=== PATIENT | male | born 1955 | race Caucasian/White ===

== ENCOUNTER → 2018-04-19 15:17 | Outpatient (CLI) | payer OTHER, SELFPAY ==
[2017-12-28 10:06] VITALS: BMI 29.2
--- NOTE | 2018-04-19 15:23 | RAD_ITS ---
STUDY: X-RAY - LUMBAR SPINE REASON FOR EXAM: Male, 62 years old. Back pain. TECHNIQUE: 5 view(s) of the lumbar spine were obtained. COMPARISON: None FINDINGS: Normal lumbar lordosis. There is no substantial scoliosis. There is a normal alignment of the vertebrae. There is multilevel endplate spondylosis of the lumbar vertebrae. Normal disc space heights. The soft tissue structures are unremarkable. RAD/L/S Spine Min 4 Views IMPRESSION: Multilevel endplate spondylosis. Electronically Signed: Pascale Stern MD at 16:46 EST Tel , Service support ,
--- NOTE | 2018-04-19 15:23 | RAD_ITS ---
STUDY: X-RAY - RIGHT HIP REASON FOR EXAM: Male, 62 years old. Right hip pain. TECHNIQUE: 2 views of the hip and single image of the pelvis. COMPARISON: None. FINDINGS: There are mild degenerative changes of the hips bilaterally. There is a ovoid sclerotic focus within the proximal right femur that likely reflects a bone island. Normal visualized superior and inferior pubic rami and ischial tuberosities. RAD/HIP, UNI W/ Pelvis 2-3 Views IMPRESSION: Mild degenerative changes. Electronically Signed: Pascale Stern MD at 23:16 EST Tel , Service support ,
[2018-04-19 17:54] LABS: Absolute Lymphocyte Count 2.09 X10^3/ul (0.83-4.51); Absolute Neutrophil Count 3.9 X10^3/uL (2.0-7.7); Basophil# 0.02 X10^3/uL; Basophil% 0.3 % (0-1); Eosinophil# 0.32 X10^3/uL; Eosinophils% 4.6 % (0-5); Hematocrit 42.3 % (40-54); Lymphocyte # 2.09 X10^3/ul (4.0); Lymphocyte % 29.9 % (19-41); Mean Corp Hgb Conc 35.5 g/gl (32-36); Mean Corpuscular Hgb 31.4 pg (27.0-32.0); Mean Corpuscular Volume 88.7 fL (80-94); Mean Platelet Vol. 10.9 fl (6.2-12.0); Monocyte# 0.63 X10^3/uL; Neutrophil # 3.93 X10^3/uL (2.7-7.7); Neutrophil % 56.1 % (47-70); Platelet Count 241 K/mm3 (150-450); RBC Distribution Width CV 12.5 % (11.6-14.6); RBC Distribution Width SD 40.2 fl (35.1-43.9); Red Blood Count 4.77 M/mm3 (4.6-6.2)
[2018-04-19 17:57] LABS: ALB/GLOB Ratio 1.2 RATIO (0.9-2.4); AST(SGOT) 17 U/L (15-37); Alanine Aminotransfer ALT/SGPT 31 U/L (16-61); Albumin, Serum 3.9 g/dL (3.2-5.0); Alkaline Phosphatase 85 U/L (45-117); Anion Gap 11 (5-15); BUN 25 mg/dL (7-18); BUN/Creat Ratio 27.8 RATIO (10-20); Calcium,Total 8.4 mg/dL (8.5-10.1); Chloride 110 mmol/L (98-107); EST Glomerular Filtration Rate 91 mL/min (>60); Est Glom Filt Rate - Afr Amer 110 mL/min (>60); Ferritin 15 ng/mL (26-388); Globulin 3.3 g/dL (2.2-4.2); Glucose 75 mg/dL (74-106); Potassium 3.7 mmol/L (3.5-5.1); Protein, Total 7.2 g/dL (6.4-8.2); Sodium Level 141 mmol/L (136-145)
[2018-04-19 18:19] LABS: POSITIVE COUNT NO; POSITIVE DIFFERENTIAL NO; POSITIVE MORPHOLOGY NO
== END ==
PROVIDERS: Internal Medicine Medical Oncology; Family Provider Family Medicine; PCP Family Medicine; Referring Provider Family Medicine; Visit Provider Family Medicine
DX: M25.551 Pain in right hip (principal); M54.5 Low back pain; E83.119 Hemochromatosis, unspecified
CPT/HCPCS: 36415; 72110; 73502; 80053; 82728; 85025

== ENCOUNTER → 2018-04-23 10:32 | Outpatient (CLI) | payer OTHER, SELFPAY ==
[2018-04-23 12:52] LABS: Cholesterol 254 mg/dL (200); High Density Lipoprotein 59 mg/dL; PSA,Total - Annual Screen 3.28 ng/mL (0.00-4.00); Triglycerides 82 mg/dL; Very Low Density Lipoprotein 16 mg/dL (5-40)
[2018-04-23 12:59] LABS: Microalbumin,Random Urine 11.2 mg/L (NO RANGE EST.)
== END ==
PROVIDERS: Family Provider Family Medicine; PCP Family Medicine; Referring Provider Family Medicine; Visit Provider Family Medicine
DX: Z00.00 Encounter for general adult medical examination without abnormal findings (principal); R03.0 Elevated blood-pressure reading, without diagnosis of hypertension; Z12.5 Encounter for screening for malignant neoplasm of prostate
CPT/HCPCS: 36415; 80061; 82043; 82570; 84153; G0103

== ENCOUNTER 2018-06-01 09:05 | Day surgery (SDC) | payer OTHER, SELFPAY ==
[2018-04-28 13:32] VITALS: BMI 29.1
[2018-05-20 12:47] VITALS: BMI 29.1
[2018-06-01 09:21] VITALS: BP 120/81; PULSE 72; RESP 18; TEMP 36.4; O2SAT 100; BMI 29.7
--- NOTE | 2018-06-01 10:09 | HP.PCM_ITS ---
History of Present Illness Date of Admission: 06/01/18 The patient is a 62 year old M here for screening colonoscopy. The patient reports no abdominal pain or blood in his stool. He has no weight loss. He reports he has no family history of colon cancer. He says his last colonoscopy was 6-8 years ago and no polyps were found. Past Medical/Surgical History - Planned Operation Planned Operative Procedure/s: COLONOSCOPY Date of Operative Procedure: 06/01/18 Permit Signed: No S.O.S: No Is This Patient Having a Total Joint: No - Previous Hospitalizations/Surgeries HX Hospitalizations: No HX of Surgeries: GALLBLADDER. TONSILLECTOMY. DEVIATED SEPTUM. VASCETOMY Any Problems With Anesthesia: No You/Your Family Experience Fever (Hyperthermia) With Anes: No Cholinesterase deficiency: No - Cardiovascular Hx Chest Pain within Last 2 months: No Hx of Irregular Heartbeat and/or Afib: No Hx Heart Attack: No Hx Congestive Heart Failure: No Hx Rheumatic Fever: No Hx Hypertension: No Hx Internal Defibrillator: No Hx Pacemaker: No Hx Cardiac Catheterization: Yes - 2012 What facility was last heart cath performed: [facility] Date of last Heart Cath: 2012 Hx Cardiac Surgery/Stents/Etc.: No Hx Stress Test: Yes - 2013 AT [facility] AND ECHO HX Edema: No Hx Pain in Legs when Walking/Leg Cramps: Yes - LEG CRAMPS AT TIMES - Respiratory Chronic Cough: No HX of Shortness of Breath: No Hoarseness: No Hx Chronic Obstructive Pulmonary Disease (COPD): No Hx Asthma: No Hx Emphysema: No Hx Sleep Apnea: No Hx Oxygen Use at Home: No Hx Respiratory Tract Infection/Cold (presently): No Do You Snore Loudly (louder than talking or can be heard): No Do You Often Feel Tired/ Fatigued/ Sleepy Dring Daytime?: No Has Anyone Observed You Stop Breathing During Sleep?: No Result (for STOP score): Negative Hx Smoking: Yes Smoking Status: Never smoker - Gastrointestinal Hx Gastroesophageal Reflux: Yes Controlled With Meds: Yes Hx Gastrointestinal Disorders: No Hx Gastrointestinal Bleed: No Hx Ulcer: No Hx Hiatal Hernia: No Difficulty Chewing/Swallowing: No Recent Onset of Swallowing Problems: No Special diet followed at home: No Hx Unplanned Weight Loss of 20#: No HX Unplanned Weight Gain of 20#: No - Neurological Hx Seizures: No HX Syncope/Blackout Spells/Unconsciousness: Yes - VERTIGO Hx CVA/Stroke: No Hx Transient Ischemic Attacks (TIA): No Hx Multiple Sclerosis: No Hx Parkinson's Disease: No Hx Head/Neck Injury: No Hx Headaches: No Hx Back Injury/Pain: Yes - LOWER BACK PAIN OSTEOPOROSIS Recent Onset of Speech Difficulty: No Restless Legs: Yes Does patient have nerve stimulator: No Patient instructed to have device shut off: No Rep notified?: No - Blood Disorder Hx Leukemia: No Bleeding Tendencies: No Hx Deep Vein Thrombosis: Yes - LEFT LEG RIBBON CLOTTING/TREATED FOR 3 YRS Hx High Cholesterol: Yes - DIET CONTROLLED Blood Transmitted Disease: No Hx Hepatitis: No Hx Cirrhosis: No Hx Anemia: No - . Hx Blood Disorders: Yes - HEMOCHROMATOSIS - Genitourinary Hx Renal Disease: No - Musculoskeletal Hx Arthritis: Yes Hx Rheumatoid Arthritis: No Hx Gout: No Recent Onset of an Orthopedic Problem: No - Endocrine Hx Diabetes: No Thyroid Disease: No Hx Steroid Therapy: No - Psycho/Social Hx Substance Use: No Hx Alcohol Use: No Hx Anxiety: No Hx Depression: No Mental Illness: No Hx Dementia: No - Miscellaneous Hx Cancer: No Recent Exposure to Contagious Disease: No Active MRSA: No Hx of C-Diff: No Any Loose Teeth: No Additional information pertinent to anesthesia:: MRI SCHEDULED TO CHECK HIP/THIGH PAIN IN BONE Allergies Tetanus Vaccines and Toxoid Adverse Reaction (Intermediate, Verified 05/31/18 08:25) Rash - Discharge Is Pt Admitted From a Long Term, or a Retirement: No Who Could Help: After D/C, Where Do you Plan to Go: Return Home - Physical Exam General: Alert, Oriented x3 Neck: No JVD Lungs: Normal air movement Cardiovascular: Regular Rhythm Abdomen: Soft, Non Tender, Non-Distended Vital Signs Temp Pulse Resp BP Pulse Ox 97.5 F L 72 18 120/81 H 100 06/01/18 09:21 06/01/18 09:21 06/01/18 09:21 06/01/18 09:21 06/01/18 09:21 Oxygen Delivery Method Room Air Weight: 184 lb 4.903 oz Body Mass Index (BMI) 29.7 Assessment/Plan All Active Problems (Last Reviewed 04/28/18 @ 13:31 by Shaneka Alexander) Slaughter esophagus (Acute) 62-year-old male here for screening colonoscopy 1. I explained endoscopy in detail to the patient. I explained the risks including but not limited to stroke or heart attack with anesthesia, perforation of the GI tract, bleeding, infection. I explained that any of these could necessitate further emergency surgery. The patient understands and all questions were answered sufficiently. The patient wishes to proceed with procedure. Ganga Hancock MD Pager: [facility] [address] [place] [address] [address] [place] [address] Office: Surgery Risks - Colonoscopy Risks Include but are not Limited To: Risks include but are not limited to: Bleeding, perforation requiring further surgery, inability to complete colonoscopy requiring barium enema.
--- NOTE | 2018-06-01 10:36 | OP.ENDO_ITS ---
Patient Name: Alvin Olea Procedure Date: 06/01/2018 10:14 AM Date of : 1955 Age: 62 Procedure: Colonoscopy Indications: Screening for colorectal malignant neoplasm Providers: Ganga Hancock MD Medicines: Monitored Anesthesia Care Patient Profile: This is a 62 year old male. Refer to note in patient chart for documentation of history and physical. Last Colonoscopy: several years ago. Complications: No immediate complications. Procedure: Pre-Anesthesia Assessment: - Prior to the procedure, a History and Physical was performed, and patient medications and allergies were reviewed. The patient's tolerance of previous anesthesia was also reviewed. The risks and benefits of the procedure and the sedation options and risks were discussed with the patient. All questions were answered, and informed consent was obtained. Prior Anticoagulants: The patient has taken no previous anticoagulant or antiplatelet agents. After reviewing the risks and benefits, the patient was deemed in satisfactory condition to undergo the procedure. After I obtained informed consent, the scope was passed under direct vision. Throughout the procedure, the patient's blood pressure, pulse, and oxygen saturations were monitored continuously. The Colonoscope was introduced through the anus and advanced to the cecum, identified by appendiceal orifice and ileocecal valve. The colonoscopy was performed without difficulty. The patient tolerated the procedure well. The quality of the bowel preparation was good. Scope In: 10:21:38 AM Scope Withdrawal Time 0 hours 6 minutes 8 seconds Scope Out: 10:34:01 AM Total Procedure Duration Time 0 hours 12 minutes 23 seconds Findings: The entire examined colon appeared normal on direct and retroflexion views. Impression: - The entire examined colon is normal on direct and retroflexion views. - No specimens collected. Recommendation: - Discharge patient to home. - Resume previous diet. - Continue present medications. - Repeat colonoscopy in 10 years for screening purposes. Procedure Code(s): --- Professional --- G0121, Colorectal cancer screening; colonoscopy on individual not meeting criteria for high risk Diagnosis Code(s): --- Professional --- Z12.11, Encounter for screening for malignant neoplasm of colon CPT copyright 2017 [employer] [place] [employer]. All rights reserved. The codes documented in this report are preliminary and upon bench loom weaver review may be revised to meet current compliance requirements. Ganga Hancock MD 06/01/2018 10:36:29 AM This report has been signed electronically. Number of Addenda: 0 Note Initiated On: 06/01/2018 10:14 AM
[2018-06-01 10:37] VITALS: BP 110/69; BP 120/81; PULSE 67; RESP 18; TEMP 36.3; O2SAT 97
[2018-06-01 10:40] VITALS: BP 113/62; BP 120/81; PULSE 65; RESP 18; O2SAT 96
[2018-06-01 10:45] VITALS: BP 113/68; BP 120/81; PULSE 64; RESP 18; O2SAT 97
[2018-06-01 10:50] VITALS: BP 116/71; BP 120/81; PULSE 63; RESP 18; TEMP 36.3; O2SAT 97
[2018-06-01 11:23] VITALS: BP 120/81
== END 2018-06-01 11:25 | disposition home or self-care (01) ==
LOC: EN 09:06 → AC 09:07
PROVIDERS: Family Provider Family Medicine; PCP Family Medicine; Referring Provider Surgery; Visit Provider Surgery
PROC: 0DJD8ZZ Inspection of Lower Intestinal Tract, Via Natural or Artificial Opening Endoscopic (ICD-10-PCS; CPT 45378; principal; 2018-06-01 09:55)
DX: Z12.11 Encounter for screening for malignant neoplasm of colon (principal); E83.119 Hemochromatosis, unspecified; K21.9 Gastro-esophageal reflux disease without esophagitis; M81.0 Age-related osteoporosis without current pathological fracture; Z79.82 Long term (current) use of aspirin; Z79.899 Other long term (current) drug therapy; Z86.718 Personal history of other venous thrombosis and embolism
CPT/HCPCS: 45378; J7120

== ENCOUNTER → 2018-06-03 16:53 | Outpatient (CLI) | payer OTHER, SELFPAY ==
[2018-05-20 12:47] VITALS: BMI 29.1
[2018-06-01 09:21] VITALS: BMI 29.7
--- NOTE | 2018-06-03 16:54 | MRI_ITS ---
STUDY: MRI RIGHT HIP REASON FOR EXAM: Bone pain, no specific injury. TECHNIQUE: Standardized fat and water weighted pulse sequences were obtained in all 3 orthogonal planes. COMPARISON: Radiographs 04/29/2018. FINDINGS: There is mild chondral thinning of the right hip (proton-density sagittal image 16). Normal acetabulum. There is mild intrasubstance myxoid degeneration of the anterosuperior right labrum (proton density sagittal image 16) without discrete labral tear. Normal femoral head. Normal femoral neck and intratrochanteric region. There is an incidental bone island in the right intratrochanteric femur (T1 coronal image 14). Normal gluteus minimus, medius and iliopsoas tendons and distal insertions. There is no trochanteric, iliopsoas or iliopectineal bursitis. Normal superior and inferior pubic rami. Normal pubic symphysis. Normal ischial tuberosity. Normal origin of the hamstring tendons. Normal visualized iliac wing, sacroiliac joint, and sacral ala. Normal visualized soft tissue structures of the pelvis. MRI/Lower Ext Joint Only (Routine) IMPRESSION: Mild arthrosis of the right hip. No demonstrated osseous tumor. Electronically Signed: Riccardo Power MD at 14:12 EST Tel , Service support ,
== END ==
PROVIDERS: Family Provider Family Medicine; PCP Family Medicine; Referring Provider Physician Assistant; Visit Provider Physician Assistant
DX: D49.2 Neoplasm of unspecified behavior of bone, soft tissue, and skin (principal); R52 Pain, unspecified; Z80.8 Family history of malignant neoplasm of other organs or systems
CPT/HCPCS: 73721

== ENCOUNTER → 2019-03-09 09:30 | Outpatient (CLI) | payer OTHER, SELFPAY ==
[2019-03-09 12:20] LABS: Absolute Lymphocyte Count 1.54 X10^3/uL (0.83-4.51); Absolute Neutrophil Count 3.8 X10^3/uL (2.0-7.7); Basophil# 0.02 X10^3/uL; Basophil% 0.3 % (0-1); Eosinophil# 0.32 X10^3/uL; Eosinophils% 5.1 % (0-5); Hematocrit 42.5 % (40-54); Hemoglobin 14.9 g/dL (13.0-16.5); Lymphocyte # 1.54 X10^3/ul (4.0); Lymphocyte % 24.3 % (19-41); Mean Corp Hgb Conc 35.1 g/dL (32-36); Mean Corpuscular Hgb 31.5 pg (27.0-32.0); Mean Corpuscular Volume 89.9 fL (80-94); Mean Platelet Vol. 10.8 fl (6.2-12.0); Monocyte# 0.68 X10^3/uL; Monocyte% 10.7 % (0-10); NRBC Flagged by Analyzer 0 % (0-5); Neutrophil # 3.75 X10^3/uL (2.7-7.7); Neutrophil % 59.3 % (47-70); Platelet Count 242 K/mm3 (150-450); RBC Distribution Width CV 12.1 % (11.6-14.6); RBC Distribution Width SD 39.7 fl (35.1-43.9); Red Blood Count 4.73 M/mm3 (4.6-6.2); White Blood Count 6.3 K/mm3 (4.4-11.0)
[2019-03-09 12:44] LABS: Vitamin B12 512 pg/mL (211-911)
[2019-03-09 12:50] LABS: ALB/GLOB Ratio 1.1 RATIO (0.9-2.4); AST(SGOT) 19 U/L (15-37); Alanine Aminotransfer ALT/SGPT 31 U/L (16-61); Albumin, Serum 3.9 g/dL (3.2-5.0); Alkaline Phosphatase 67 U/L (45-117); Anion Gap 11 (5-15); BUN 25 mg/dL (7-18); BUN/Creat Ratio 31.4 RATIO (10-20); Calcium,Total 8.8 mg/dL (8.5-10.1); Chloride 111 mmol/L (98-107); Cholesterol 224 mg/dL (200); EST Glomerular Filtration Rate 105 mL/min (>60); Est Glom Filt Rate - Afr Amer 127 mL/min (>60); Ferritin 85 ng/mL (26-388); Globulin 3.6 g/dL (2.2-4.2); Glucose 82 mg/dL (74-106); High Density Lipoprotein 54 mg/dL; Potassium 3.8 mmol/L (3.5-5.1); Protein, Total 7.5 g/dL (6.4-8.2); Sodium Level 142 mmol/L (136-145); T4 Free Direct 0.97 ng/dL (0.76-1.46); Thyroid Stim Hormone (TSH) 1.67 uIU/mL (0.358-3.74); Triglycerides 58 mg/dL; Very Low Density Lipoprotein 12 mg/dL (5-40)
[2019-03-12 20:07] LABS: Testosterone, Free 9.39 ng/dL (5.00-21.00)
[2019-03-13 13:07] LABS: Testosterone, % Free 2.29 % (1.50-4.20); Testosterone, Total 410 ng/dL (264-916)
== END ==
PROVIDERS: Family Provider Family Medicine; PCP Family Medicine; Visit Provider Family Medicine
DX: Z00.00 Encounter for general adult medical examination without abnormal findings (principal); E78.5 Hyperlipidemia, unspecified; E83.119 Hemochromatosis, unspecified; R41.3 Other amnesia; R53.83 Other fatigue
CPT/HCPCS: 36415; 80053; 80061; 82607; 82728; 84402; 84403; 84439; 84443; 85025

== ENCOUNTER 2020-04-16 12:38 | Outpatient (RCR) | payer SELFPAY | END 2020-04-16 19:00 | disposition home or self-care (01) | LOC: PT 12:38 | PROVIDERS: PCP Family Medicine; Referring Provider Family Medicine; Visit Provider Family Medicine | DX: M54.31 Sciatica, right side (principal); M47.816 Spondylosis without myelopathy or radiculopathy, lumbar region ==

== ENCOUNTER → 2020-11-29 14:49 | Outpatient (CLI) | payer OTHER, SELFPAY ==
--- NOTE | 2020-11-29 15:03 | BD_ITS ---
STUDY: DUAL ENERGY X-RAY ABSORPTIOMETRY / DXA REASON FOR EXAM: Male, 64 years old. M810. History of hemochromatosis. TECHNIQUE: Bone Mineral Density (BMD) measurements of lumbar spine and bilateral hips were obtained. COMPARISON: Comparison is made with prior examination dated 07/01/2016. FINDINGS: Lumbar Spine (L1-L4): g/cm2 (0.830) / T-score (-2.4) / Z-score (-1.6) Findings are suggestive of osteopenia with a high fracture risk. Left Femur Total: g/cm2 (1.034) / T-score (0.0) / Z-score (0.5) Left Femoral Neck: g/cm2 (0.771) / T-score (-1.2) / Z-score (-0.2) Right Femur Total: g/cm2 (1.062) / T-score (0.2) / Z-score (0.7) Right Femoral Neck: g/cm2 (0.802) / T-score (-0.9) / Z-score (0.1) The T-Scores on the most recent prior examination were: Lumbar Spine (L1-L4): There has been worsening of bone density since the previous examination. Left Femur Total: which represents an improvement of 0.7%. Right Femur Total: which represents no significant change. . BD/Dexa Bone Density Study IMPRESSION: The patient is considered osteopenic as outlined below according to World Renny Organization (WHO) criteria with a high fracture risk. There has been worsening of bone density since the previous examination. Reference Information: The T-score is the number of standard deviations above or below the standard which is normal for young adults at their peak bone mineral density. The World Health Organization (WHO) interprets the T-scores as follows: Above -1 Normal bone density Between -1 and -2.5 Osteopenia Equal to / or below -2.5 Osteoporosis As a practical clinical guideline, osteopenia may be graded as follows: Mild -1 through -1.5 Moderate -1.6 through -2.0 Severe -2.1 through -2.4 The Z-score is the number of standard deviations above or below age-matched controls. A Z-score of less than -1.5 would be considered abnormal. References: 1. NIH Osteoporosis and Related Bone Diseases www osteo.org 2. International Society for Clinical Densitometry www iscd.org 3. National Osteoporosis Foundation www nof.org Electronically Signed: Stanton Muniz MD at 13:26 EDT , Service support ,
== END ==
PROVIDERS: PCP Family Medicine; Referring Provider Family Medicine; Visit Provider Family Medicine
DX: M81.0 Age-related osteoporosis without current pathological fracture (principal)
CPT/HCPCS: 77080

== ENCOUNTER 2020-12-07 12:52 | Outpatient (RCR) | payer OTHER, SELFPAY ==
--- NOTE | 2020-12-07 15:32 | HP.PTEVAL_ITS ---
Patient's Visit Information ERIKA CLARK is a 65 year old M referred to Physical Therapy by Dr. 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 Date of Evaluation: 12/07/20 Physical Therapist: Dejon Anguiano, PT, Cert MDT, OCS - Visit Plan Frequency: 2x /Week Duration: 4 Weeks Plan: PT INTERVENTIONS DLS -ABDOMINAL/BACK IN NUETRAL POSTIONS,LE STRENGTHENING -HIPS,POSTURAL STRENGTHENING AND MODALTIES NEEDED - Subjective This 65 y/o male presents to physical therapy with back pain with radicular symptoms right lower leg. Patient has had radicular symptoms for many years. Patient seen DR foster PT. Patient initially inquired last Mar 2020 moved in a different house. Pain symptoms described burning in leg. Patient reports constant paresthesia/tingling. Patient also had right hip OA. Patient had MRI about ~one year ago. Patient also has osteopenia from hemochromatosis. Patient has had several fractures in past from osteopenia per patient. Aggravating factors bending, lifting, standing and walking. Symptoms affects sleeping. Alleviating rest. Patient c/o burning ,paresthesia/tingling. Bowel/bladder-. Coughing/sneezing - Pain affects sleeping. Patient has no PT. Patient symptoms affects sleeping. Patient pain pain affects QOL and function and functional tasks. MEDS: anti-inflammatory. SOCIAL: . 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 PALPATION: tender right LS. NEURO: burning pain right leg with paresthesia/tingling right hip ,reflexes L3-4,L4-5,L5-S1 1/3. SYMMTRIES: align. GAIT: reciprocal pattern. MMT: quads/hams 4/5,hip flexion 4- /5,hip, abduction 4-/5,ankle 4/5 - Special Tests L/S Slump test left side: Negative L/S Slump test right side: Negative L/S Left Straight Leg Raise: Negative L/S Right Straight Leg Raise: Negative Lumbar Standing: Flexion - Mechanical Response: No effect Lumbar Standing: Flexion - Symptoms During Testing: Increases Lumbar Standing: Flexion - Symptoms After Testing: No worse Lumbar Standing: Extension - Mechanical Response: No effect Lumbar Standing: Extension - Symptoms During Testing: Increases Lumbar Standing: Extension - Symptoms After Testing: Worse Lumbar Standing: Right Side Glides - Mechanical Response: No effect Lumbar Standing: Right Side Mcallen - Symptoms During Testing: Increases Lumbar Standing: Right Side Mc[place]en - Symptoms After Testing: Worse Lumbar Standing: Left Side [place]en - Mechanical Response: No effect Lumbar Standing: Left Side [place]en - Symptoms During Testing: No effect Lumbar Standing: Left Side [place]en - Symptoms After Testing: No effect - Balance/Special Test Scores Oswestry Low Back Score: 22 - Goals Goal 1:: I with HEP Goal Time Frame: 4-6 Weeks Goal 2:: Patient improve posture/body mechanics for ADLS Goal Time Frame: 4-6 Weeks Goal 3:: Patient decrease lumbar pain and right lower extremity symptoms by 50% or> to improve function and QOL Goal Time Frame: 4-6 Weeks Goal 4:: Patient to improve lumbar ROM for function of recovery for ADLS' Goal Time Frame: 4-6 Weeks Goal 5:: Patient to improve back owestry score by 5 points or > to improve function and QOL. Goal Time Frame: 4-6 Weeks - Rehabilitation Potential Physical Therapy Diagnosis: This patient has right lumbar radiculopathy with possible lateral stenosis vs disc with pain with motion testing, weakness ,positioning ,affects walking and standing impairs functional tasks thus benefit from skilled PT Rehabilitation Potential: Good - Anticipated Interventions Thank you for the opportunity to evaluate your patient. For Medicare and Medicare HMO plans, please review the plan of care and approve it. It will need to be FAXED BACK to us at [phone] for Medicare purposes. For Medicare only, by signing this I certify the plan of care. Please let me know if there are questions or concerns regarding this plan of care. Physician Signature: Date:
--- NOTE | 2020-12-12 16:20 | HP.PTEVAL ---
Patient's Visit Information ERIKA CLARK is a 65 year old M referred to Physical Therapy by Dr. 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 Date of Evaluation: 12/07/20 Physical Therapist: Dejon Anguiano, PT, Cert MDT, OCS - Visit Plan Frequency: 2x /Week Duration: 4 Weeks Plan: PT INTERVENTIONS DLS -ABDOMINAL/BACK IN NUETRAL POSTIONS,LE STRENGTHENING -HIPS,POSTURAL STRENGTHENING AND MODALTIES NEEDED - Subjective This 65 y/o male presents to physical therapy with back pain with radicular symptoms right lower leg. Patient has had radicular symptoms for many years. Patient seen DR foster PT. Patient initially inquired last Mar 2020 moved in a different house. Pain symptoms described burning in leg. Patient reports constant paresthesia/tingling. Patient also had right hip OA. Patient had MRI about ~one year ago. Patient also has osteopenia from hemochromatosis. Patient has had several fractures in past from osteopenia per patient. Aggravating factors bending, lifting, standing and walking. Symptoms affects sleeping. Alleviating rest. Patient c/o burning ,paresthesia/tingling. Bowel/bladder-. Coughing/sneezing - Pain affects sleeping. Patient has no PT. Patient symptoms affects sleeping. Patient pain pain affects QOL and function and functional tasks. MEDS: anti-inflammatory. 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 PALPATION: tender right LS. NEURO: burning pain right leg with paresthesia/tingling right hip ,reflexes L3-4,L4-5,L5-S1 1/3. SYMMTRIES: align. GAIT: reciprocal pattern. MMT: quads/hams 4/5,hip flexion 4-/5,hip, abduction 4-/5,ankle 4/5. LUMBAR FLEXION : min loss ,extension mod loss pain, side glides min/mod loss. FLEXABLITY: hamstrings mod tight. ROM HIP : FLEXION 10 degrees,IR 10 degrees right ,left 25 degrees pain - Special Tests L/S Slump test left side: Negative L/S Slump test right side: Negative L/S Left Straight Leg Raise: Negative L/S Right Straight Leg Raise: Negative Lumbar Standing: Flexion - Mechanical Response: No effect Lumbar Standing: Flexion - Symptoms During Testing: Increases Lumbar Standing: Flexion - Symptoms After Testing: No worse Lumbar Standing: Extension - Mechanical Response: No effect Lumbar Standing: Extension - Symptoms During Testing: Increases Lumbar Standing: Extension - Symptoms After Testing: Worse Lumbar Standing: Right Side Glides - Mechanical Response: No effect Lumbar Standing: Right Side A[place]o - Symptoms During Testing: Increases Lumbar Standing: Right Side A[place] - Symptoms After Testing: Worse Lumbar Standing: Left Side [place] - Mechanical Response: No effect Lumbar Standing: Left Side [place] - Symptoms During Testing: No effect Lumbar Standing: Left Side [place] - Symptoms After Testing: No effect R Hip Scour: Negative R Hip Quadrant - Intraarticular Pathology: Negative R Hip Trendelenberg - Glut Medius: Negative - Balance/Special Test Scores Oswestry Low Back Score: 22 - Goals Goal 1:: I with HEP Goal Time Frame: 4-6 Weeks Goal 2:: Patient improve posture/body mechanics for ADLS Goal Time Frame: 4-6 Weeks Goal 3:: Patient decrease lumbar pain and right lower extremity symptoms by 50% or> to improve function and QOL Goal Time Frame: 4-6 Weeks Goal 4:: Patient to improve lumbar ROM for function of recovery for ADLS' Goal Time Frame: 4-6 Weeks Goal 5:: Patient to improve back owestry score by 5 points or > to improve function and QOL. Goal Time Frame: 4-6 Weeks - Rehabilitation Potential Physical Therapy Diagnosis: This patient has right lumbar radiculopathy with possible lateral stenosis vs disc with pain with motion testing, weakness ,positioning ,affects walking and standing impairs functional tasks thus benefit from skilled PT Rehabilitation Potential: Good - Anticipated Interventions Patient/Client Instruction: Educate patient on: Condition, Plan of Care For the Purpose of:: To decrease pain, To increase ROM, To improve muscle performance and motor function, To improve ability to perform ADL's, To increase tolerance to activity/condition/position, To improve ability of physical actions for home/community/work/leisure, To improve health of tissue, To decrease soft tissue restriction, To increase flexibility/ROM, To reduce risk of recurrence Therapeutic Exercise to Include: Strength training, Body mechanics, Postural training, Flexibilty training, Active ROM, Dynamic Lumbar Stabilization For the Purpose of:: To decrease pain, To increase ROM, To improve muscle performance and motor function, To improve ability to perform ADL's, To increase tolerance to activity/condition/position, To improve performance and independence with ADL's, To improve ability of physical actions for home/community/work/leisure, To decrease soft tissue restriction, To increase flexibility/ROM TENS: Yes IF ES: Yes Cryotherapy (ice pack, ice massage): Yes Thermo therapy (hot pack): Yes Ultrasound (thermal/non thermal): Yes For the Purpose of:: To decrease pain, To increase ROM, To improve nutrient delivery to tissue, To increase oxygenation perfusion, To improve health of tissue, To decrease soft tissue restriction Thank you for the opportunity to evaluate your patient. For Medicare and Medicare HMO plans, please review the plan of care and approve it. It will need to be FAXED BACK to us at [phone] for Medicare purposes. For Medicare only, by signing this I certify the plan of care. Please let me know if there are questions or concerns regarding this plan of care. Physician Signature: Date:
--- NOTE | 2021-04-29 11:05 | HP.PTDCNRP_ITS ---
ERIKA CLARK was seen in my office for initial evaluation on 12/07/20. The following Plan of Care was established for this patient: Initial Frequency: 2x /Week Initial Duration: 4 Weeks Patient/Client Instruction: Educate patient on: Condition, Plan of Care For the Purpose of:: To decrease pain, To increase ROM, To improve muscle performance and motor function, To improve ability to perform ADL's, To increase tolerance to activity/condition/position, To improve ability of physical actions for home/community/work/leisure, To improve health of tissue, To decrease soft tissue restriction, To increase flexibility/ROM, To reduce risk of recurrence Therapeutic Exercise to Include: Strength training, Body mechanics, Postural training, Flexibilty training, Active ROM, Dynamic Lumbar Stabilization For the Purpose of:: To decrease pain, To increase ROM, To improve muscle performance and motor function, To improve ability to perform ADL's, To increase tolerance to activity/condition/position, To improve performance and indepen dence with ADL's, To improve ability of physical actions for home/community/work/leisure, To decrease soft tissue restriction, To increase flexibility/ROM TENS: Yes IF ES: Yes Cryotherapy (ice pack, ice massage): Yes Thermo therapy (hot pack): Yes Ultrasound (thermal/non thermal): Yes For the Purpose of:: To decrease pain, To increase ROM, To improve nutrient delivery to tissue, To increase oxygenation perfusion, To improve health of tissue, To decrease soft tissue restriction This patient was last seen in our office . Pertinent comments regarding their Physical therapy will appear below: Patient was seen for PT Intial PT for HEP ,thus is d/c At this point I will be discontinuing this patient from physical therapy. I would be happy to see this patient again in the future if found appropriate by the physician. Thank you! Dejon Anguiano, PT, Cert MDT, OCS Balance/Gait/Functional tests - Balance/Special Test Scores Oswestry Low Back Score: 22
== END 2020-12-07 19:00 | disposition home or self-care (01) ==
LOC: PT 12:52
PROVIDERS: PCP Family Medicine; Referring Provider Family Medicine; Visit Provider Family Medicine
DX: M47.816 Spondylosis without myelopathy or radiculopathy, lumbar region (principal); M54.17 Radiculopathy, lumbosacral region; M16.11 Unilateral primary osteoarthritis, right hip
CPT/HCPCS: 97110; 97162

== ENCOUNTER → 2021-09-23 | Outpatient (CLI) | payer OTHER, SELFPAY ==
[2021-09-23 12:09] LABS: Absolute Lymphocyte Count 2.04 X10^3/uL (0.83-4.51); Absolute Neutrophil Count 3.2 X10^3/uL (2.0-7.7); Basophil# 0.03 X10^3/uL; Basophil% 0.5 % (0-1); Eosinophil# 0.43 X10^3/uL; Eosinophils% 6.9 % (0-5); Hematocrit 41.5 % (40-54); Hemoglobin 14.2 g/dL (13.0-16.5); Lymphocyte # 2.04 X10^3/ul (0.83-4.51); Mean Corp Hgb Conc 34.2 g/dL (32-36); Mean Corpuscular Hgb 31.4 pg (27.0-32.0); Mean Corpuscular Volume 91.8 fL (80-94); Mean Platelet Vol. 11.5 fl (6.2-12.0); Monocyte# 0.51 X10^3/uL; Monocyte% 8.2 % (0-10); NRBC Flagged by Analyzer 0 % (0-5); Neutrophil # 3.17 X10^3/uL (2.7-7.7); Neutrophil % 51.2 % (47-70); Platelet Count 216 K/mm3 (150-450); RBC Distribution Width CV 12.1 % (11.6-14.6); Red Blood Count 4.52 M/mm3 (4.6-6.2); White Blood Count 6.2 K/mm3 (4.4-11.0)
[2021-09-23 12:18] LABS: Ferritin 215 ng/mL (26-388); Iron 145 ug/dL (65-175)
== END | disposition home or self-care (01) ==
LOC: MTLAB 09:42
PROVIDERS: PCP Family Medicine; Referring Provider Family Medicine; Visit Provider Family Medicine
DX: E83.119 Hemochromatosis, unspecified (principal)
CPT/HCPCS: 36415; 82728; 83540; 85025

== ENCOUNTER → 2021-11-25 | Outpatient (CLI) | payer MEDICARE, SELFPAY | END | disposition home or self-care (01) | PROVIDERS: PCP Family Medicine; Referring Provider Family Medicine; Visit Provider Family Medicine | DX: Z12.5 Encounter for screening for malignant neoplasm of prostate (principal) | CPT/HCPCS: 36415; 84153; G0103 ==

== ENCOUNTER 2022-03-21 03:34 | Emergency (ER) | payer MEDICARE, SELFPAY ==
[2022-03-21 03:35] VITALS: BP 106/48; PULSE 75; RESP 14; TEMP 35.8; O2SAT 97; BMI 35.9
--- NOTE | 2022-03-21 03:51 | RAD_ITS ---
INDICATION: dyspnea EXAMINATION/TECHNIQUE: X-RAY - XR Chest 1 View COMPARISON: None. FINDINGS: LINES/DEVICES: None. LUNGS: No consolidation, edema or effusion. No pneumothorax. MEDIASTINUM AND CARDIOVASCULAR STRUCTURES: Cardiac silhouette not enlarged. Central airways and mediastinal contour are unremarkable. BONES AND SOFT TISSUES: Unremarkable. RAD/Chest 1 View (Portable) IMPRESSION: No acute cardiopulmonary disease. Electronically Signed: Georges Robert MD at 4:36 EST ,
--- NOTE | 2022-03-21 03:51 | EKG12_ITS ---
Test Reason : DYSRHYTHMIA Blood Pressure : / mmHG Vent. Rate : 066 BPM Atrial Rate : 066 BPM P-R Int : 156 ms QRS Dur : 090 ms QT Int : 438 ms P-R-T Axes : 007 034 030 degrees QTc Int : 459 ms Normal sinus rhythm Normal ECG Confirmed by ARA REYES, AVANI ([id number]), medical editor ALBERTO KERR ([id number]) on 03/25/2022 11:00:01 AM Referred By: JODY Confirmed By:VERONICA BULLOCK MD
[2022-03-21] MEDS: 0.9% Normal Saline 1,000 ML 999 ML IV (04:00)
[2022-03-21] MEDS: Ondansetron 4 MG/2 ML Vial IV (04:01)
[2022-03-21 04:03] LABS: Absolute Lymphocyte Count 2.78 X10^3/uL (0.83-4.51); Basophil# 0.03 X10^3/uL; Basophil% 0.4 % (0-1); Eosinophil# 0.23 X10^3/uL; Hematocrit 39.9 % (40-54); Hemoglobin 14.1 g/dL (13.0-16.5); Lymphocyte # 2.78 X10^3/ul (0.83-4.51); Lymphocyte % 36.1 % (19-41); Mean Corp Hgb Conc 35.3 g/dL (32-36); Mean Corpuscular Hgb 32.4 pg (27.0-32.0); Mean Corpuscular Volume 91.7 fL (80-94); Mean Platelet Vol. 10.7 fl (6.2-12.0); Monocyte% 7.8 % (0-10); NRBC Flagged by Analyzer 0 % (0-5); Neutrophil # 4.04 X10^3/uL (2.7-7.7); Neutrophil % 52.4 % (47-70); Platelet Count 204 K/mm3 (150-450); RBC Distribution Width CV 11.7 % (11.6-14.6); RBC Distribution Width SD 39.3 fl (35.1-43.9); Red Blood Count 4.35 M/mm3 (4.6-6.2); White Blood Count 7.7 K/mm3 (4.4-11.0)
[2022-03-21 04:17] LABS: AST(SGOT) 18 U/L (15-37); Alanine Aminotransfer ALT/SGPT 41 U/L (16-61); Albumin, Serum 3.6 g/dL (3.2-5.0); Alkaline Phosphatase 67 U/L (45-117); Anion Gap 8 (5-15); BUN 17 mg/dL (7-18); BUN/Creat Ratio 19.1 RATIO (10-20); Bilirubin, Direct 0.16 mg/dL (0.00-0.30); Calcium,Total 8.5 mg/dL (8.5-10.1); Chloride 108 mmol/L (98-107); Creatinine, Serum 0.89 mg/dL (0.70-1.30); EST Glomerular Filtration Rate 91 mL/min (>60); Est Glom Filt Rate - Afr Amer 110 mL/min (>60); Estimated Creatinine Clearance 74.67 ml/min; Globulin 3.1 g/dL (2.2-4.2); Glucose 133 mg/dL (74-106); Lipase 172 U/L (73-393); Potassium 3.5 mmol/L (3.5-5.1); Protein, Total 6.7 g/dL (6.4-8.2); Sodium Level 140 mmol/L (136-145); Troponin-I HS 5 pg/mL (3.0-78.0)
--- NOTE | 2022-03-21 04:58 | CT_ITS ---
EXAM: CT brain without contrast HISTORY: syncope TECHNIQUE: CT Head or Brain W/O Contrast Injection A radiation dose optimization technique was used for this scan. COMPARISON: None. LIMITATIONS: None. BRAIN: Normal hernandez/white matter differentiation. VENTRICLES: No hydrocephalus. EXTRA-AXIAL SPACES: No hemorrhages, fluid collections, or masses. CALVARIUM/SKULL BASE: Normal. FACE/SINUSES: Mild paranasal sinus mucosal thickening. SOFT TISSUES: Normal. OTHER: Vascular calcifications. CT/Brain/Head without Contrast IMPRESSION: 1. No intracranial hemorrhage or acute territorial infarction. 2. Sinus mucosal thickening, correlate for sinusitis. Electronically Signed: Georges Robert MD at 5:22 EST ,
[2022-03-21] MEDS: proCHLORPERazine 10 MG/2 ML Vial 5 MG IV (05:26)
[2022-03-21] MEDS: Morphine 2 MG/ML Syringe IV (05:26)
[2022-03-21 05:35] VITALS: BP 127/81; PULSE 81; RESP 14
[2022-03-21 06:19] LABS: Troponin-I HS 4 pg/mL (3.0-78.0)
--- NOTE | 2022-03-21 06:46 | EDS_ITS ---
HPI History of Present Illness Chief Complaint: Syncope Narrative Narrative: Patient is a 66-year-old male with past medical history of hypertension and GERD. He states he has been under a great deal of stress recently as his is in the hospital with infectious process. He states he was around his nieces and nephews a few days ago and he was notified that they have recently become sick with bouts of nausea and vomiting. He states he has been feeling normal but then today developed bouts of nausea and vomiting with some loose stool and he got to the point where he had a bout of syncope after throwing up and secondary to this EMS was called to bring him in for evaluation. 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 Home Medications aspirin 81 mg tablet,delayed release 81 mg PO DAILY@0800 BLOOD THINNER 10/10/16 [History Last Taken 05/17/18] folic acid 1 mg tablet 1 mg PO DAILY@0800 10/10/16 [History Last Taken Unknown] meloxicam 15 mg tablet (Mobic) 15 mg PO DAILY ANTIINFLAMITORY 10/10/16 [History Last Taken Unknown] omeprazole 20 mg capsule,delayed release 20 mg PO QHS GERD 10/13/16 [History Last Taken 10/13/16 07:00] Prevagen 1 cap PO DAILY SUPPLEMENT 05/31/18 [History Last Taken Unknown] karrie (Zingiber officinalis) 500 mg capsule 500 mg PO DAILY SUPPLEMENT 05/31/18 [History Last Taken Unknown] turmeric 400 mg capsule 400 mg PO DAILY SUPPLEMENT 05/31/18 [History Last Taken Unknown] alendronate 70 mg tablet mg PO 03/21/22 [History Last Taken Unknown] metoprolol succinate 50 mg tablet,extended release 24 hr 50 mg PO DAILY 03/21/22 [History Last Taken Unknown] prochlorperazine maleate 10 mg tablet (Compazine) 10 mg PO TID PRN nausea and vomiting #21 tabs 03/21/22 [Rx Last Taken Unknown] Allergy/AdvReac Type Severity Reaction Status Date / Time Tetanus Vaccines and Toxoid AdvReac Intermediate Rash Verified 05/31/18 08:25 Family History (Updated 04/28/18 @ 13:31 by Shaneka Alexander) Father Skin cancer Arthritis COPD (chronic obstructive pulmonary disease) Hypertension Hereditary hemochromatosis Mother Anemia Arthritis Heart disease Lung cancer COPD (chronic obstructive pulmonary disease) Hypertension Grandmother Aneurysm Bone cancer Surgical History H/O vasectomy History of tonsillectomy Hx of cholecystectomy Social History (Updated 06/07/18 @ 11:[address] Balta Edwards, DO) Smoking Status: Never smoker ROS ROS ED Constitutional Constitutional ED: Reports chills and subjective; Denies fever(s) Eyes Eyes: Denies change in vision ENT ENT ED: Denies sore throat Cardiovascular Cardiovascular: Denies chest pain Respiratory/Chest Respiratory/Chest: Denies cough or dyspnea Gastrointestinal Gastrointestinal: Reports diarrhea, nausea and vomiting; Denies abdominal pain Genitourinary Genitourinary ED: Denies dysuria or hematuria Musculoskeletal Musculoskeletal: Reports myalgias Integumentary Denies rash Neurologic Neurologic: Reports other Details: Positive syncope ; Denies headache(s) Hematologic/Lymphatic Hematologic/Lymphatic: Denies easy bleeding or easy bruising EXAM Physical Exam Const Vital Signs: 03/21/22 03:35 03/21/22 03:35 03/21/22 05:35 Temperature 96.5 F L Temperature Source Temporal Pulse Rate 75 81 Respiratory Rate 14 14 Respiratory Effort Normal Respiratory Pattern Normal Blood Pressure 106/48 L 127/81 H Blood Pressure Mean 67 96 Pulse Ox 97 Oxygen Delivery Method Room Air Positive well nourished and well developed General Appearance ED: well developed HEENT Reports dry mucous membranes Mouth ED: Yes dry mucous membranes Mouth: dry mucous membranes Eyes PERRL and EOMs intact bilaterally Neck supple Resp normal respiratory effort and clear to auscultation bilaterally Cardio regular rate and regular rhythm Rate: other Other Details: Radial pulses are plus 2 out of 4 bilaterally are equal and symmetric Carotid pulses are equal and symmetric as well GI non-tender and non-distended GI Narrative: Abdomen is soft nontender and nondistended with hyperactive bowel sounds no voluntary guarding or rigidity no pulsatile mass or fluid wave. Auscultation: hyperactive bowel sounds Palpation: soft Extremity normal to inspection Neuro oriented x3 and CN's II-XII intact bilaterally Neuro Narrative: Cranial nerves II through XII are grossly intact there are no focal neurologic deficit. Sensorium / Orientation: alert Psych Psych Narrative: Patient has a flat affect Skin no rashes or lesions noted Skin Narrative: Skin turgor slightly increased General Skin Exam: Negative for jaundice MDM MDM MDM Narrative Medical decision making narrative: And into the ER awake and alert with stable vitals and a normal neurologic exam. He reported bouts of nausea vomiting and diarrhea and then had a syncopal event. His EKG is sinus rhythm. His abdomen is soft and nonsurgical so do not feel need for an emergent abdominal CT scan. With his constellation of symptoms this appears to be more infectious in nature so a basic work-up was obtained. Labs revealed no clinically significant findings and patient's initial and delta troponin were flat at a value of 5 and 4. Because he had the syncopal event as well as bouts of vomiting I did have concern for possible increased intracranial pressure so a head CT was obtained which was also. After patient was hydrated medicated with Zofran and Compazine there were no further bouts of vomiting. On reevaluation his abdomen remains soft and nonsurgical. Therefore at this time with a work-up reveals no acute kidney injury or electrolyte derangement no neurologic event and no signs of cardiac damage he can be given symptomatic medication and discharged home Lab Data Attestation: I reviewed the patient's lab results. Labs: Laboratory Results - last 24 hr 03/21/22 03/21/22 03/21/22 03:50 03:50 05:40 WBC 7.7 RBC 4.35 L Hgb 14.1 Hct 39.9 L MCV 91.7 MCH 32.4 H MCHC 35.3 RDW Std Deviation 39.3 RDW Coeff of Ifrah 11.7 Plt Count 204 MPV 10.7 Immature Gran % (Auto) 0.300 Neut % (Auto) 52.4 Lymph % (Auto) 36.1 Reagan % (Auto) 7.8 Eos % (Auto) 3.0 Baso % (Auto) 0.4 Absolute Neuts (auto) 4.0 Absolute Lymphs (auto) 2.78 Nucleated RBC % 0 Sodium 140 Potassium 3.5 Chloride 108 H Carbon Dioxide 24.0 Anion Gap 8 BUN 17 Creatinine 0.89 Estim Creat Clear Calc 74.67 Est GFR (MDRD) Af Amer 110 Est GFR (MDRD) Non-Af 91 BUN/Creatinine Ratio 19.1 Glucose 133 H Calcium 8.5 Total Bilirubin 0.80 Direct Bilirubin 0.16 AST 18 ALT 41 Alkaline Phosphatase 67 Troponin I High Sens 5 4 Total Protein 6.7 Albumin 3.6 Globulin 3.1 Lipase 172 Radiography Diagnostic Testing: Clinical Impression(s) from Imaging Studies Chest X-Ray 03/21/22 03:51 IMPRESSION: No acute cardiopulmonary disease. Electronically Signed: Georges Robert MD at 4:36 EST Reading Location ID and State: [facility] / [place] Tel , Service support , Brain CT 03/21/22 04:58 IMPRESSION: 1. No intracranial hemorrhage or acute territorial infarction. 2. Sinus mucosal thickening, correlate for sinusitis. Electronically Signed: Georges Robert MD at 5:22 EST , Chest x-ray as interpreted by the emergency medicine physician reveals no acute infiltrate pneumothorax or pleural effusion Discharge Plan Triage Chief Complaint: Syncope ED Provider: Gabino Berg Dx/Rx/DC Orders Clinical Impression: Nausea vomiting and diarrhea, Mild dehydration, Syncope Instructions: ED Dehydration (Adult), ED Gastroenteritis, Viral (Adult) Prescriptions: New prochlorperazine maleate [Compazine] 10 mg tablet 10 mg PO TID PRN (Reason: nausea and vomiting) Qty: 21 0RF No Action meloxicam [Mobic] 15 MG tablet 15 mg PO DAILY aspirin 81 MG tablet 81 mg PO DAILY@0800 folic acid 1 MG tablet 1 mg PO DAILY@0800 omeprazole 20 MG capsule 20 mg PO QHS karrie (Zingiber officinalis) 500 MG capsule 500 mg PO DAILY turmeric 400 MG capsule 400 mg PO DAILY Prevagen 1 cap PO DAILY metoprolol succinate 50 mg tablet extended release 24 hr 50 mg PO DAILY alendronate 70 mg tablet PO Label Comments: take 1 tablet by mouth every 7 days IN THE MORNING 30 MINUTES bef... (REFER TO PRESCRIPTION NOTES). Primary Care Provider: Alessandro Garland Referrals: Alessandro Garland, [Primary Care Provider] - Activity Restrictions/Additional Instructions: Keep yourself well-hydrated and use the medication as directed to prevent further episodes of nausea and vomiting. If you have any further concerns worsening of symptoms or unable to keep food or fluid down please return for repeat evaluation Disposition Disposition: Home, Self Care
[2022-03-21 07:06] VITALS: BP 116/59; PULSE 68; RESP 15; O2SAT 99
== END 2022-03-21 07:07 | disposition home or self-care (01) ==
PROVIDERS: Emergency Provider Emergency Medicine; PCP Family Medicine; Visit Provider Emergency Medicine
DX: R11.2 Nausea with vomiting, unspecified (principal); R55 Syncope and collapse; E86.0 Dehydration; R19.7 Diarrhea, unspecified; I10 Essential (primary) hypertension; Z86.718 Personal history of other venous thrombosis and embolism; Z79.82 Long term (current) use of aspirin
CPT/HCPCS: 70450; 71045; 80048; 80076; 83690; 84484; 85025; 87428; 93005; 96361; 96374; 96375; 99285; J7030; A4216; J2405

== ENCOUNTER 2022-04-18 14:00 | Outpatient (RCR) | payer MEDICARE, SELFPAY ==
--- NOTE | 2022-02-28 14:35 | HP.PTEVAL ---
Patient's Visit Information ERIKA CLARK is a 66 year old M referred to Physical Therapy by Dr. Yonatan Velasco DO with a diagnosis of MERALGIA PARESTHETICA ,RIGHT LOWE LEG. Date of Evaluation: 02/28/22 Physical Therapist: Dejon Anguiano, PT, Cert MDT, OCS - Visit Plan Frequency: 1-2x /Week Duration: 4 Weeks Plan: PT INTERVENTIONS US ,MHP/ESTIM AND HEP FOR EDUCATION S. DISCUSSSED WITH PATIENT PASSIVE MODALTIES -US IS NOT COVERED UNDER INSURANCE AND PATIENT ONLY WANTS US. DISCUSSED WITH PATIENT OTHER OPTIONS ,BUT WANTS TO WANT 2022 TO SEE IF INSURANCES BENEFITS CHANGES - Subjective This 66 y/o male presents to physical therapy with meralgia paresthetica right lower leg . Patient has back pain and leg symptoms upper thigh pain. Patient initially , Mar 2020 had back pain with radicular symptoms with pain in leg. Patient had PT in past for PT evaluation. Patient had MRI showed Jan 2022 MRI stenosis lumbar and DDD. Patient was going to try pain management but would not pay . Pain described as burning pain thigh. Patient aggravating factors standing 15min ,walking 15min some bending lifting and lifting. Alleviating rest laying . C/O paresthesia thigh ,burning. Coughing/sneezing + ,Bowel/bladder -. Pain affects sleeping . Tried gabapentin stopped. Patient conditions affects QOL and job demands. 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 GAIT: reciprocal pattern. NEURO: c/o paresthesia and burning right thigh ,reflexes L3-4,L4-5 ,L5-S1 1/3. PALPATION: unremarkable. FLEXABILITY: hamstrings and piriformis WFL. MMT: quad/hams 4/5 ,hip flexion /abduction 4-/5 ,ankle 5/5. LUMBAR ROM: flexion min loss ,extension mod loss ,side glides min loss - Special Tests L/S Slump test left side: Negative L/S Slump test right side: Negative L/S Left Straight Leg Raise: Negative L/S Right Straight Leg Raise: Negative L/S Left Femoral Nerve Tension: Negative L/S Right Femoral Nerve Tension: Negative - Balance/Special Test Scores Oswestry Low Back Score: 28 - Goals Goal 1:: Patient to be provided with education on HEP Goal Time Frame: 4-6 Weeks Goal 2:: Patient to demonstrate 50% improvement with less symptoms Goal Time Frame: 4-6 Weeks Goal 3:: Patient to improve back oswestry score by 5 points to improve QOL Goal Time Frame: 4-6 Weeks - Rehabilitation Potential Physical Therapy Diagnosis: This patient has lumbar pain with radicular symptoms and condition meralgia paresthetica right leg worse with walking and standing Rehabilitation Potential: Fair - Anticipated Interventions Patient/Client Instruction: Educate patient on: Condition, Plan of Care For the Purpose of:: To decrease pain, To increase ROM, To improve nutrient delivery to tissue, To increase oxygenation perfusion, To increase tolerance to activity/condition/position, To improve health of tissue, To decrease soft tissue restriction, To increase flexibility/ROM, To improve self management, To prevent re-injury Therapeutic Exercise to Include: Strength training, Postural training, Flexibilty training, Dynamic Lumbar Stabilization For the Purpose of:: To decrease pain, To increase ROM, To improve muscle performance and motor function, To improve ability to perform ADL's, To improve ability of physical actions for home/community/work/leisure TENS: Yes IF ES: Yes Cryotherapy (ice pack, ice massage): Yes Thermo therapy (hot pack): Yes Ultrasound (thermal/non thermal): Yes For the Purpose of:: To decrease pain, To increase ROM, To improve nutrient delivery to tissue, To increase oxygenation perfusion, To improve health of tissue, To decrease soft tissue restriction Thank you for the opportunity to evaluate your patient. For Medicare and Medicare HMO plans, please review the plan of care and approve it. It will need to be FAXED BACK to us at [phone] for Medicare purposes. For Medicare only, by signing this I certify the plan of care. Please let me know if there are questions or concerns regarding this plan of care. Physician Signature: Date:
--- NOTE | 2022-08-19 10:06 | HP.PTDCSUM ---
It has been my pleasure to treat ERIKA CLARK referred by Dr. Yonatan Velasco DO, with the diagnosis of MERALGIA PARESTHETICA ,RIGHT LOWE LEG for a total of 2 visit(s). Discharge Date: Please see the following information for a summary of their discharge status. Subjective: Doing okay. Discussed with patient Right Lower Extremity Pain Intensity (Out of 10): 3 Objective/Function: Discussed with patient US is not covered with insurance. at this point ,patient wants to be d/c Goal 1:: Patient to be provided with education on HEP Goal 2:: Patient to demonstrate 50% improvement with less symptoms Goal 3:: Patient to improve back oswestry score by 5 points to improve QOL Plan: D/C due to patient wants US and is not covered with insurance. respnded well with US If there are questions or concerns regarding this patient's physical therapy, please feel free to call me at [phone]. Thank you for the referral of this patient. Sincerely, Dejon Anguiano, PT, Cert MDT, OCS Balance/Gait/Functional tests - Balance/Special Test Scores Oswestry Low Back Score: 28
== END 2022-04-18 19:00 | disposition home or self-care (01) ==
LOC: PT 14:00
PROVIDERS: PCP Family Medicine; Referring Provider Orthopaedic Surgery; Visit Provider Orthopaedic Surgery
DX: G57.11 Meralgia paresthetica, right lower limb (principal)
CPT/HCPCS: 97162

== ENCOUNTER → 2022-05-05 | Outpatient (CLI) | payer MEDICARE, SELFPAY ==
[2022-05-05 17:47] LABS: Absolute Lymphocyte Count 2.48 X10^3/uL (0.83-4.51); Absolute Neutrophil Count 3.5 X10^3/uL (2.0-7.7); Basophil# 0.03 X10^3/uL; Basophil% 0.4 % (0-1); Eosinophil# 0.32 X10^3/uL; Eosinophils% 4.6 % (0-5); Hemoglobin 15.2 g/dL (13.0-16.5); Lymphocyte # 2.48 X10^3/ul (0.83-4.51); Lymphocyte % 35.8 % (19-41); Mean Corp Hgb Conc 34.5 g/dL (32-36); Mean Corpuscular Hgb 32.2 pg (27.0-32.0); Mean Corpuscular Volume 93.2 fL (80-94); Mean Platelet Vol. 11.1 fl (6.2-12.0); Monocyte# 0.62 X10^3/uL; NRBC Flagged by Analyzer 0 % (0-5); Neutrophil # 3.46 X10^3/uL (2.7-7.7); Neutrophil % 50.1 % (47-70); Platelet Count 242 K/mm3 (150-450); RBC Distribution Width SD 41.2 fl (35.1-43.9); Red Blood Count 4.72 M/mm3 (4.6-6.2); White Blood Count 6.9 K/mm3 (4.4-11.0)
[2022-05-05 18:10] LABS: Ferritin 265 ng/mL (26-388)
== END | disposition home or self-care (01) ==
LOC: BFHLAB 14:42
PROVIDERS: PCP Family Medicine; Visit Provider Family Medicine
DX: E83.119 Hemochromatosis, unspecified (principal)
CPT/HCPCS: 36415; 82728; 85025

== ENCOUNTER → 2022-05-12 | Outpatient (CLI) | payer MEDICARE, SELFPAY ==
[2022-05-12 14:38] VITALS: BP 141/72; PULSE 60; RESP 16; TEMP 36.3; O2SAT 98; BMI 33.9
[2022-05-12 15:26] VITALS: BP 116/58; PULSE 58; RESP 16; TEMP 36.4; O2SAT 97
== END | disposition home or self-care (01) ==
PROVIDERS: PCP Family Medicine; Referring Provider Family Medicine; Visit Provider Family Medicine
DX: E83.119 Hemochromatosis, unspecified (principal)
CPT/HCPCS: 99195; J7040

== ENCOUNTER → 2022-06-09 | Outpatient (CLI) | payer MEDICARE, SELFPAY ==
[2022-06-09 15:59] LABS: Absolute Lymphocyte Count 2.08 X10^3/uL (0.83-4.51); Absolute Neutrophil Count 3.6 X10^3/uL (2.0-7.7); Basophil# 0.02 X10^3/uL; Basophil% 0.3 % (0-1); Eosinophil# 0.27 X10^3/uL; Eosinophils% 4.2 % (0-5); Ferritin 250 ng/mL (26-388); Hematocrit 42.7 % (40-54); Hemoglobin 14.5 g/dL (13.0-16.5); Lymphocyte # 2.08 X10^3/ul (0.83-4.51); Lymphocyte % 32.6 % (19-41); Mean Corpuscular Volume 94.3 fL (80-94); Mean Platelet Vol. 10.9 fl (6.2-12.0); Monocyte# 0.41 X10^3/uL; Monocyte% 6.4 % (0-10); NRBC Flagged by Analyzer 0 % (0-5); Neutrophil # 3.59 X10^3/uL (2.7-7.7); Neutrophil % 56.3 % (47-70); Platelet Count 228 K/mm3 (150-450); RBC Distribution Width CV 12.2 % (11.6-14.6); RBC Distribution Width SD 42.1 fl (35.1-43.9); Red Blood Count 4.53 M/mm3 (4.6-6.2); White Blood Count 6.4 K/mm3 (4.4-11.0)
== END | disposition home or self-care (01) ==
LOC: BFHLAB 13:18
PROVIDERS: PCP Family Medicine; Visit Provider Family Medicine
DX: E83.119 Hemochromatosis, unspecified (principal)
CPT/HCPCS: 36415; 82728; 85025

== ENCOUNTER → 2022-06-17 | Outpatient (CLI) | payer MEDICARE, SELFPAY ==
[2022-06-17 14:53] VITALS: BP 142/73; PULSE 59; RESP 16; TEMP 36.2; O2SAT 97
[2022-06-17] MEDS: 0.9% NaCl Peripheral Flush Adult/Peds IV (15:06)
[2022-06-17 15:42] VITALS: BP 127/64; PULSE 55; RESP 16
== END | disposition home or self-care (01) ==
LOC: MEDOUTP 14:36
PROVIDERS: PCP Family Medicine; Referring Provider Family Medicine; Visit Provider Family Medicine
DX: E83.119 Hemochromatosis, unspecified (principal)
CPT/HCPCS: 99195; J7040; A4216

== ENCOUNTER → 2022-07-01 | Outpatient (CLI) | payer MEDICARE, SELFPAY ==
[2022-07-01 14:55] VITALS: BP 125/58; PULSE 58; RESP 14; TEMP 36.6; O2SAT 95; BMI 35.5
[2022-07-01 15:46] VITALS: BP 128/65; PULSE 59; RESP 14; TEMP 36.3; O2SAT 96
== END | disposition home or self-care (01) ==
LOC: MEDOUTP 14:22
PROVIDERS: PCP Family Medicine; Referring Provider Family Medicine; Visit Provider Family Medicine
DX: E83.119 Hemochromatosis, unspecified (principal)
CPT/HCPCS: 96365; 99195; J7040

== ENCOUNTER → 2022-07-18 | Outpatient (CLI) | payer MEDICARE, SELFPAY ==
[2022-07-18 12:56] LABS: Absolute Lymphocyte Count 2.18 X10^3/uL (0.83-4.51); Absolute Neutrophil Count 2.9 X10^3/uL (2.0-7.7); Basophil# 0.03 X10^3/uL; Basophil% 0.5 % (0-1); Hematocrit 42.5 % (40-54); Hemoglobin 14.4 g/dL (13.0-16.5); Lymphocyte # 2.18 X10^3/ul (0.83-4.51); Lymphocyte % 36.4 % (19-41); Mean Corp Hgb Conc 33.9 g/dL (32-36); Mean Corpuscular Hgb 32.5 pg (27.0-32.0); Mean Corpuscular Volume 95.9 fL (80-94); Monocyte# 0.59 X10^3/uL; Monocyte% 9.8 % (0-10); NRBC Flagged by Analyzer 0 % (0-5); Neutrophil # 2.88 X10^3/uL (2.7-7.7); Neutrophil % 48.1 % (47-70); Platelet Count 229 K/mm3 (150-450); RBC Distribution Width CV 12.2 % (11.6-14.6); Red Blood Count 4.43 M/mm3 (4.6-6.2)
[2022-07-18 13:27] LABS: Ferritin 165 ng/mL (26-388)
== END | disposition home or self-care (01) ==
LOC: BFHLAB 10:33
PROVIDERS: PCP Family Medicine; Visit Provider Family Medicine
DX: E83.119 Hemochromatosis, unspecified (principal)
CPT/HCPCS: 36415; 82728; 85025

== ENCOUNTER → 2022-07-21 | Outpatient (CLI) | payer MEDICARE, SELFPAY ==
[2022-07-21 14:19] VITALS: BP 143/83; PULSE 60; RESP 16; TEMP 35.8; O2SAT 100; BMI 33.9
[2022-07-21 15:10] VITALS: BP 117/61; PULSE 57; RESP 16; TEMP 36.2; O2SAT 97
== END | disposition home or self-care (01) ==
LOC: MEDOUTP 13:59
PROVIDERS: PCP Family Medicine; Referring Provider Family Medicine; Visit Provider Family Medicine
DX: E83.119 Hemochromatosis, unspecified (principal)
CPT/HCPCS: 96360; 99195; J7040

== ENCOUNTER → 2022-08-01 | Outpatient (CLI) | payer MEDICARE, SELFPAY ==
[2022-08-01 17:58] LABS: Absolute Lymphocyte Count 2.36 X10^3/uL (0.83-4.51); Absolute Neutrophil Count 3.7 X10^3/uL (2.0-7.7); Basophil# 0.03 X10^3/uL; Basophil% 0.4 % (0-1); Eosinophils% 4.2 % (0-5); Hematocrit 40.9 % (40-54); Hemoglobin 13.9 g/dL (13.0-16.5); Lymphocyte # 2.36 X10^3/ul (0.83-4.51); Lymphocyte % 33.4 % (19-41); Mean Corpuscular Hgb 32.6 pg (27.0-32.0); Mean Corpuscular Volume 95.8 fL (80-94); Monocyte# 0.65 X10^3/uL; Monocyte% 9.2 % (0-10); NRBC Flagged by Analyzer 0 % (0-5); Neutrophil # 3.69 X10^3/uL (2.7-7.7); Neutrophil % 52.4 % (47-70); Platelet Count 255 K/mm3 (150-450); RBC Distribution Width SD 41.9 fl (35.1-43.9); Red Blood Count 4.27 M/mm3 (4.6-6.2); White Blood Count 7.1 K/mm3 (4.4-11.0)
[2022-08-01 18:38] LABS: Ferritin 123 ng/mL (26-388)
== END | disposition home or self-care (01) ==
LOC: BFHLAB 16:31
PROVIDERS: PCP Family Medicine; Visit Provider Family Medicine
DX: E83.119 Hemochromatosis, unspecified (principal)
CPT/HCPCS: 36415; 82728; 85025

== ENCOUNTER 2022-08-04 14:03 | Outpatient (CLI) | payer MEDICARE, SELFPAY ==
[2022-08-04 14:50] VITALS: BP 124/73; PULSE 68; RESP 16; O2SAT 96; BMI 34.7
[2022-08-04] MEDS: 0.9% NaCl Peripheral Flush Adult/Peds IV (14:53)
[2022-08-04 15:37] VITALS: BP 118/60; PULSE 59; RESP 16; O2SAT 96
== END 2022-08-04 14:04 | disposition home or self-care (01) ==
LOC: MEDOUTP 14:04
PROVIDERS: PCP Family Medicine; Referring Provider Family Medicine; Visit Provider Family Medicine
DX: E83.119 Hemochromatosis, unspecified (principal)
CPT/HCPCS: 96365; 99195; J7040; A4216

== ENCOUNTER → 2022-08-25 | Outpatient (CLI) | payer MEDICARE, SELFPAY ==
[2022-08-25 18:05] LABS: Absolute Lymphocyte Count 2.34 X10^3/uL (0.83-4.51); Absolute Neutrophil Count 2.8 X10^3/uL (2.0-7.7); Basophil# 0.03 X10^3/uL; Basophil% 0.5 % (0-1); Eosinophil# 0.34 X10^3/uL; Eosinophils% 5.6 % (0-5); Hematocrit 40.3 % (40-54); Hemoglobin 13.8 g/dL (13.0-16.5); Lymphocyte # 2.34 X10^3/ul (0.83-4.51); Lymphocyte % 38.8 % (19-41); Mean Corp Hgb Conc 34.2 g/dL (32-36); Mean Corpuscular Hgb 32.6 pg (27.0-32.0); Mean Corpuscular Volume 95.3 fL (80-94); Mean Platelet Vol. 11.2 fl (6.2-12.0); Monocyte# 0.53 X10^3/uL; Monocyte% 8.8 % (0-10); NRBC Flagged by Analyzer 0 % (0-5); Neutrophil # 2.78 X10^3/uL (2.7-7.7); Neutrophil % 46.1 % (47-70); Platelet Count 231 K/mm3 (150-450); RBC Distribution Width CV 12.2 % (11.6-14.6); RBC Distribution Width SD 42.3 fl (35.1-43.9); Red Blood Count 4.23 M/mm3 (4.6-6.2)
[2022-08-25 18:15] LABS: Vitamin B12 408 pg/mL (211-911)
[2022-08-25 18:20] LABS: ALB/GLOB Ratio 0.9 RATIO (0.9-2.4); AST(SGOT) 32 U/L (15-37); Alanine Aminotransfer ALT/SGPT 59 U/L (16-61); Albumin, Serum 3.8 g/dL (3.2-5.0); Alkaline Phosphatase 62 U/L (45-117); Anion Gap 8 (5-15); BUN 22 mg/dL (7-18); BUN/Creat Ratio 25.9 RATIO (10-20); CPK Total, Creatine Kinase 78 U/L (39-308); Calcium,Total 8.8 mg/dL (8.5-10.1); Chloride 108 mmol/L (98-107); Creatinine, Serum 0.85 mg/dL (0.70-1.30); EST Glomerular Filtration Rate 96 mL/min (>60); Erythrocyte Sedimentation Rate 16 mm/hr (0-20); Est Glom Filt Rate - Afr Amer 116 mL/min (>60); Ferritin 72 ng/mL (26-388); Globulin 4.2 g/dL (2.2-4.2); Glucose 101 mg/dL (74-106); Iron 104 ug/dL (65-175); Potassium 3.8 mmol/L (3.5-5.1); Sodium Level 141 mmol/L (136-145); Thyroid Stim Hormone (TSH) 2.32 uIU/mL (0.358-3.74)
== END | disposition home or self-care (01) ==
LOC: BFHLAB 14:08
PROVIDERS: PCP Family Medicine; Referring Provider Family Medicine; Visit Provider Family Medicine
DX: Z51.81 Encounter for therapeutic drug level monitoring (principal); E83.119 Hemochromatosis, unspecified; R53.83 Other fatigue
CPT/HCPCS: 36415; 80053; 82550; 82607; 82728; 83540; 84443; 85025; 85652

== ENCOUNTER 2022-09-16 13:40 | Outpatient (CLI) | payer MEDICARE, SELFPAY ==
[2022-09-16 14:28] VITALS: BP 122/60; PULSE 53; RESP 14; TEMP 36.4; O2SAT 97; BMI 34.7
[2022-09-16] MEDS: 0.9% NaCl Peripheral Flush Adult/Peds IV (14:35)
[2022-09-16 14:44] LABS: Absolute Lymphocyte Count 1.99 X10^3/uL (0.83-4.51); Absolute Neutrophil Count 2.6 X10^3/uL (2.0-7.7); Basophil# 0.03 X10^3/uL; Basophil% 0.6 % (0-1); Eosinophil# 0.32 X10^3/uL; Eosinophils% 5.9 % (0-5); Hematocrit 40.3 % (40-54); Hemoglobin 13.9 g/dL (13.0-16.5); Lymphocyte # 1.99 X10^3/ul (0.83-4.51); Lymphocyte % 36.5 % (19-41); Mean Corp Hgb Conc 34.5 g/dL (32-36); Mean Corpuscular Hgb 32.2 pg (27.0-32.0); Mean Corpuscular Volume 93.3 fL (80-94); Mean Platelet Vol. 11.1 fl (6.2-12.0); Monocyte% 9.2 % (0-10); NRBC Flagged by Analyzer 0 % (0-5); Neutrophil % 47.6 % (47-70); Platelet Count 204 K/mm3 (150-450); RBC Distribution Width CV 11.5 % (11.6-14.6); RBC Distribution Width SD 39.8 fl (35.1-43.9); Red Blood Count 4.32 M/mm3 (4.6-6.2); White Blood Count 5.5 K/mm3 (4.4-11.0)
[2022-09-16 15:00] LABS: Ferritin 55 ng/mL (26-388)
[2022-09-16 15:22] VITALS: BP 116/63; PULSE 51; RESP 16
[2022-09-16 22:40] LABS: Xtra Tube EP Lab EXTRA TUBE
== END 2022-09-16 13:41 | disposition home or self-care (01) ==
LOC: MEDOUTP 13:40
PROVIDERS: PCP Family Medicine; Referring Provider Family Medicine; Visit Provider Family Medicine
DX: E83.119 Hemochromatosis, unspecified (principal)
CPT/HCPCS: 96360; 82728; 85025; 99195; J7040; A4216

== ENCOUNTER → 2022-10-15 | Outpatient (CLI) | payer MEDICARE, SELFPAY ==
[2022-10-15 15:24] LABS: Absolute Lymphocyte Count 2.11 X10^3/uL (0.83-4.51); Absolute Neutrophil Count 4.1 X10^3/uL (2.0-7.7); Basophil# 0.03 X10^3/uL; Basophil% 0.4 % (0-1); Eosinophil# 0.27 X10^3/uL; Eosinophils% 3.8 % (0-5); Hematocrit 41.4 % (40-54); Hemoglobin 14.8 g/dL (13.0-16.5); Lymphocyte # 2.11 X10^3/ul (0.83-4.51); Lymphocyte % 29.8 % (19-41); Mean Corp Hgb Conc 35.7 g/dL (32-36); Mean Corpuscular Hgb 31.8 pg (27.0-32.0); Mean Platelet Vol. 10.5 fl (6.2-12.0); Monocyte# 0.56 X10^3/uL; Monocyte% 7.9 % (0-10); NRBC Flagged by Analyzer 0 % (0-5); Neutrophil # 4.09 X10^3/uL (2.7-7.7); Platelet Count 228 K/mm3 (150-450); RBC Distribution Width CV 11.6 % (11.6-14.6); RBC Distribution Width SD 37.2 fl (35.1-43.9); Red Blood Count 4.65 M/mm3 (4.6-6.2); White Blood Count 7.1 K/mm3 (4.4-11.0)
[2022-10-15 15:43] LABS: Ferritin 33 ng/mL (26-388)
== END | disposition home or self-care (01) ==
PROVIDERS: PCP Family Medicine; Referring Provider Family Medicine; Visit Provider Family Medicine
DX: E83.119 Hemochromatosis, unspecified (principal)
CPT/HCPCS: 36415; 82728; 85025

== ENCOUNTER 2022-11-06 11:38 | Outpatient (RCR) | payer MEDICARE, SELFPAY ==
[2022-11-06 15:39] LABS: Absolute Lymphocyte Count 2.09 X10^3/uL (0.83-4.51); Absolute Neutrophil Count 3.2 X10^3/uL (2.0-7.7); Basophil# 0.03 X10^3/uL; Basophil% 0.5 % (0-1); Eosinophil# 0.36 X10^3/uL; Eosinophils% 5.7 % (0-5); Hemoglobin 14.6 g/dL (13.0-16.5); Lymphocyte # 2.09 X10^3/ul (0.83-4.51); Lymphocyte % 33.1 % (19-41); Mean Corpuscular Hgb 31.3 pg (27.0-32.0); Mean Corpuscular Volume 92.1 fL (80-94); Mean Platelet Vol. 11.4 fl (6.2-12.0); Monocyte# 0.61 X10^3/uL; Monocyte% 9.7 % (0-10); NRBC Flagged by Analyzer 0 % (0-5); Neutrophil % 50.7 % (47-70); Platelet Count 234 K/mm3 (150-450); RBC Distribution Width CV 11.7 % (11.6-14.6); RBC Distribution Width SD 39.5 fl (35.1-43.9); Red Blood Count 4.67 M/mm3 (4.6-6.2); White Blood Count 6.3 K/mm3 (4.4-11.0)
[2022-11-06 16:32] LABS: Ferritin 41 ng/mL (26-388)
== END 2022-11-10 18:00 | disposition home or self-care (01) ==
LOC: MTLAB 11:38
PROVIDERS: PCP Family Medicine; Visit Provider Family Medicine
DX: E83.119 Hemochromatosis, unspecified (principal)
CPT/HCPCS: 36415; 82728; 85025

== ENCOUNTER → 2022-12-09 | Outpatient (CLI) | payer MEDICARE, SELFPAY ==
[2022-12-09 17:38] LABS: Absolute Lymphocyte Count 2.49 X10^3/uL (0.83-4.51); Basophil# 0.03 X10^3/uL; Basophil% 0.4 % (0-1); Eosinophil# 0.36 X10^3/uL; Eosinophils% 4.8 % (0-5); Hematocrit 43.2 % (40-54); Hemoglobin 14.9 g/dL (13.0-16.5); Lymphocyte # 2.49 X10^3/ul (0.83-4.51); Lymphocyte % 33.2 % (19-41); Mean Corp Hgb Conc 34.5 g/dL (32-36); Mean Corpuscular Hgb 31.6 pg (27.0-32.0); Mean Corpuscular Volume 91.5 fL (80-94); Mean Platelet Vol. 11.5 fl (6.2-12.0); Monocyte# 0.64 X10^3/uL; Monocyte% 8.5 % (0-10); NRBC Flagged by Analyzer 0 % (0-5); Neutrophil # 3.97 X10^3/uL (2.7-7.7); Platelet Count 236 K/mm3 (150-450); RBC Distribution Width CV 12.2 % (11.6-14.6); RBC Distribution Width SD 41.3 fl (35.1-43.9); Red Blood Count 4.72 M/mm3 (4.6-6.2); White Blood Count 7.5 K/mm3 (4.4-11.0)
[2022-12-09 17:51] LABS: Hemoglobin A1c 5.7 % (3.8-5.6)
[2022-12-09 18:01] LABS: Cholesterol 267 mg/dL (200); Ferritin 63 ng/mL (26-388); High Density Lipoprotein 54 mg/dL; PSA,Total - Annual Screen 3.28 ng/mL (0.00-4.00); Triglycerides 245 mg/dL; Very Low Density Lipoprotein 49 mg/dL (5-40)
== END | disposition home or self-care (01) ==
LOC: BFHLAB 14:32
PROVIDERS: PCP Family Medicine; Referring Provider Family Medicine; Visit Provider Family Medicine
DX: E83.119 Hemochromatosis, unspecified (principal); R73.01 Impaired fasting glucose; E78.5 Hyperlipidemia, unspecified; Z12.5 Encounter for screening for malignant neoplasm of prostate
CPT/HCPCS: 36415; 80061; 82728; 83036; 84153; 85025; G0103

== ENCOUNTER 2022-12-16 10:33 | Outpatient (CLI) | payer MEDICARE, SELFPAY ==
--- NOTE | 2022-12-16 10:38 | BD_ITS ---
STUDY: DUAL ENERGY X-RAY ABSORPTIOMETRY / DXA REASON FOR EXAM: Male, 67 years old. V76.12Screening TECHNIQUE: Bone Mineral Density (BMD) measurements of lumbar spine and bilateral hips were obtained. COMPARISON: Comparison is made with prior study dated November 29, 2020. FINDINGS: Lumbar Spine (L1-L4): g/cm2 (0.909) / T-score (-1.7) / Z-score (-0.9) Findings are suggestive of osteopenia with a moderate fracture risk. Left Femur Total: g/cm2 (1.081) / T-score (0.3) / Z-score (0.9) Left Femoral Neck: g/cm2 (0.754) / T-score (-1.3) / Z-score (-0.2) Right Femur Total: g/cm2 (1.069) / T-score (0.2) / Z-score (0.8) Right Femoral Neck: g/cm2 (0.788) / T-score (-1.0) / Z-score (0.0) The T-Scores on the most recent prior examination were: Lumbar Spine (L1-L4): There has been improvement of bone density since the previous examination. Left Femur Total: which represents an improvement of 4.5%. Right Femur Total: which represents an improvement of 0.7%. BD/Dexa Bone Density Study IMPRESSION: The patient is considered osteopenic as outlined below according to World Renny Organization (WHO) criteria with a moderate fracture risk. There has been improvement of bone density since the previous examination. Reference Information: The T-score is the number of standard deviations above or below the standard which is normal for young adults at their peak bone mineral density. The World Health Organization (WHO) interprets the T-scores as follows: Above -1 Normal bone density Between -1 and -2.5 Osteopenia Equal to / or below -2.5 Osteoporosis As a practical clinical guideline, osteopenia may be graded as follows: Mild -1 through -1.5 Moderate -1.6 through -2.0 Severe -2.1 through -2.4 The Z-score is the number of standard deviations above or below age-matched controls. A Z-score of less than -1.5 would be considered abnormal. References: 1. NIH Osteoporosis and Related Bone Diseases www osteo.org 2. International Society for Clinical Densitometry www iscd.org 3. National Osteoporosis Foundation www nof.org Electronically Signed: Stanton Muniz MD at 14:38 EDT ,
[2022-12-16 14:17] VITALS: BP 138/74; PULSE 63; RESP 16; TEMP 36.2; O2SAT 98; BMI 35.5
[2022-12-16 15:10] VITALS: BP 140/74; PULSE 61
== END 2022-12-16 10:34 | disposition home or self-care (01) ==
LOC: OPBD 10:33 → OMD 15:59 → MEDOUTP 16:05
PROVIDERS: PCP Family Medicine; Referring Provider Family Medicine; Visit Provider Family Medicine
DX: E83.119 Hemochromatosis, unspecified (principal); Z79.52 Long term (current) use of systemic steroids
CPT/HCPCS: 96365; 77080; 99195; J7040

== ENCOUNTER → 2023-01-12 | Outpatient (CLI) | payer MEDICARE, SELFPAY ==
[2023-01-12 12:26] LABS: Hemoglobin A1c 5.3 % (3.8-5.6)
== END | disposition home or self-care (01) ==
LOC: BFHLAB 10:03
PROVIDERS: PCP Family Medicine; Referring Provider Family Medicine; Visit Provider Family Medicine
DX: R73.01 Impaired fasting glucose (principal)
CPT/HCPCS: 36415; 83036

== ENCOUNTER → 2023-01-26 | Outpatient (CLI) | payer MEDICARE, SELFPAY ==
[2023-01-26 15:25] LABS: Absolute Lymphocyte Count 2.49 X10^3/uL (0.83-4.51); Absolute Neutrophil Count 3.7 X10^3/uL (2.0-7.7); Basophil# 0.02 X10^3/uL; Basophil% 0.3 % (0-1); Eosinophil# 0.28 X10^3/uL; Eosinophils% 3.9 % (0-5); Hematocrit 44.2 % (40-54); Hemoglobin 14.9 g/dL (13.0-16.5); Lymphocyte # 2.49 X10^3/ul (0.83-4.51); Lymphocyte % 35.1 % (19-41); Mean Corp Hgb Conc 33.7 g/dL (32-36); Mean Corpuscular Hgb 31.6 pg (27.0-32.0); Mean Corpuscular Volume 93.6 fL (80-94); Mean Platelet Vol. 11.2 fl (6.2-12.0); Monocyte# 0.61 X10^3/uL; Monocyte% 8.6 % (0-10); NRBC Flagged by Analyzer 0 % (0-5); Neutrophil # 3.69 X10^3/uL (2.7-7.7); Platelet Count 295 K/mm3 (150-450); RBC Distribution Width CV 12.2 % (11.6-14.6); RBC Distribution Width SD 42.5 fl (35.1-43.9); Red Blood Count 4.72 M/mm3 (4.6-6.2); White Blood Count 7.1 K/mm3 (4.4-11.0)
[2023-01-26 15:42] LABS: Ferritin 48 ng/mL (26-388)
[2023-02-01 14:07] LABS: Testosterone, Total 303 ng/dL (264-916)
== END | disposition home or self-care (01) ==
LOC: BFHLAB 11:46
PROVIDERS: PCP Family Medicine; Visit Provider Family Medicine
DX: E83.119 Hemochromatosis, unspecified (principal); R79.89 Other specified abnormal findings of blood chemistry
CPT/HCPCS: 36415; 82728; 84402; 84403; 85025

== ENCOUNTER 2023-02-10 13:54 | Outpatient (CLI) | payer MEDICARE, SELFPAY ==
[2023-02-10 14:37] VITALS: BP 127/74; PULSE 70; RESP 16; TEMP 36.4; O2SAT 96; BMI 34.5
[2023-02-10] MEDS: 0.9% Normal Saline (500mL Bag) 500 ML 999 ML IV (14:46)
[2023-02-10 15:06] LABS: Absolute Lymphocyte Count 2.28 X10^3/uL (0.83-4.51); Absolute Neutrophil Count 3.6 X10^3/uL (2.0-7.7); Basophil# 0.02 X10^3/uL; Basophil% 0.3 % (0-1); Eosinophil# 0.29 X10^3/uL; Eosinophils% 4.4 % (0-5); Hematocrit 43.1 % (40-54); Hemoglobin 15.2 g/dL (13.0-16.5); Lymphocyte # 2.28 X10^3/ul (0.83-4.51); Lymphocyte % 34.7 % (19-41); Mean Corp Hgb Conc 35.3 g/dL (32-36); Mean Corpuscular Hgb 32.2 pg (27.0-32.0); Mean Corpuscular Volume 91.3 fL (80-94); Mean Platelet Vol. 10.5 fl (6.2-12.0); Monocyte# 0.38 X10^3/uL; Monocyte% 5.8 % (0-10); NRBC Flagged by Analyzer 0 % (0-5); Neutrophil # 3.58 X10^3/uL (2.7-7.7); Neutrophil % 54.5 % (47-70); Platelet Count 242 K/mm3 (150-450); RBC Distribution Width CV 11.9 % (11.6-14.6); Red Blood Count 4.72 M/mm3 (4.6-6.2); White Blood Count 6.6 K/mm3 (4.4-11.0)
[2023-02-10 15:20] VITALS: BP 128/85; PULSE 77; RESP 16; TEMP 36.2; O2SAT 97
[2023-02-10 15:30] LABS: Ferritin 53 ng/mL (26-388)
== END 2023-02-10 13:55 | disposition home or self-care (01) ==
LOC: MEDOUTP 13:55
PROVIDERS: PCP Family Medicine; Referring Provider Family Medicine; Visit Provider Family Medicine
DX: E83.119 Hemochromatosis, unspecified (principal)
CPT/HCPCS: 96360; 82728; 85025; 99195; J7040; A4216

== ENCOUNTER → 2023-02-13 | Outpatient (CLI) | payer MEDICARE, SELFPAY | END | disposition home or self-care (01) | LOC: LAB.FUTURE 13:01 | PROVIDERS: PCP Family Medicine; Visit Provider Family Medicine | DX: E83.119 Hemochromatosis, unspecified (principal) ==

== ENCOUNTER → 2023-03-09 | Outpatient (CLI) | payer MEDICARE, SELFPAY ==
[2023-03-09 12:13] LABS: Absolute Lymphocyte Count 1.92 X10^3/uL (0.83-4.51); Absolute Neutrophil Count 3.4 X10^3/uL (2.0-7.7); Basophil# 0.02 X10^3/uL; Basophil% 0.3 % (0-1); Eosinophils% 3.3 % (0-5); Hematocrit 41.1 % (40-54); Lymphocyte # 1.92 X10^3/ul (0.83-4.51); Lymphocyte % 31.3 % (19-41); Mean Corp Hgb Conc 34.1 g/dL (32-36); Mean Corpuscular Hgb 31.5 pg (27.0-32.0); Mean Corpuscular Volume 92.4 fL (80-94); Monocyte# 0.55 X10^3/uL; NRBC Flagged by Analyzer 0 % (0-5); Neutrophil # 3.42 X10^3/uL (2.7-7.7); Neutrophil % 55.8 % (47-70); Platelet Count 268 K/mm3 (150-450); RBC Distribution Width CV 12.3 % (11.6-14.6); RBC Distribution Width SD 41.3 fl (35.1-43.9); Red Blood Count 4.45 M/mm3 (4.6-6.2); White Blood Count 6.1 K/mm3 (4.4-11.0)
[2023-03-09 12:30] LABS: AST(SGOT) 17 U/L (15-37); Alanine Aminotransfer ALT/SGPT 42 U/L (16-61); Albumin, Serum 3.6 g/dL (3.2-5.0); Alkaline Phosphatase 74 U/L (45-117); Anion Gap 5 (5-15); BUN 22 mg/dL (7-18); Calcium,Total 8.7 mg/dL (8.5-10.1); Chloride 111 mmol/L (98-107); Creatinine, Serum 0.73 mg/dL (0.70-1.30); EST Glomerular Filtration Rate 113 mL/min (>60); Est Glom Filt Rate - Afr Amer 137 mL/min (>60); Ferritin 28 ng/mL (26-388); Globulin 3.6 g/dL (2.2-4.2); Glucose 107 mg/dL (74-106); Protein, Total 7.2 g/dL (6.4-8.2); Sodium Level 140 mmol/L (136-145)
== END | disposition home or self-care (01) ==
LOC: PAVLAB 11:54
PROVIDERS: PCP Family Medicine; Referring Provider Family Medicine; Visit Provider Family Medicine
DX: E83.119 Hemochromatosis, unspecified (principal)
CPT/HCPCS: 36415; 80053; 82728; 85025

== ENCOUNTER → 2023-04-02 | Outpatient (CLI) | payer MEDICARE, SELFPAY ==
[2023-04-02 16:19] LABS: Absolute Neutrophil Count 4.2 X10^3/uL (2.0-7.7); Basophil# 0.04 X10^3/uL; Basophil% 0.5 % (0-1); Eosinophil# 0.36 X10^3/uL; Eosinophils% 4.9 % (0-5); Hematocrit 42.8 % (40-54); Hemoglobin 14.7 g/dL (13.0-16.5); Lymphocyte % 31.2 % (19-41); Mean Corp Hgb Conc 34.3 g/dL (32-36); Mean Corpuscular Hgb 31.2 pg (27.0-32.0); Mean Corpuscular Volume 90.9 fL (80-94); Mean Platelet Vol. 10.8 fl (6.2-12.0); Monocyte# 0.47 X10^3/uL; Monocyte% 6.4 % (0-10); NRBC Flagged by Analyzer 0 % (0-5); Neutrophil # 4.19 X10^3/uL (2.7-7.7); Neutrophil % 56.9 % (47-70); Platelet Count 253 K/mm3 (150-450); RBC Distribution Width CV 11.9 % (11.6-14.6); RBC Distribution Width SD 39.5 fl (35.1-43.9); Red Blood Count 4.71 M/mm3 (4.6-6.2); White Blood Count 7.4 K/mm3 (4.4-11.0)
[2023-04-02 16:39] LABS: Ferritin 27 ng/mL (26-388); Iron 124 ug/dL (65-175)
[2023-05-04 10:50] LABS: Hematocrit 39.2 % (40-54); Hemoglobin 13.7 g/dL (13.0-16.5); Mean Corp Hgb Conc 34.9 g/dL (32-36); Mean Corpuscular Hgb 31.5 pg (27.0-32.0); Mean Corpuscular Volume 90.1 fL (80-94); Mean Platelet Vol. 10.3 fl (6.2-12.0); Platelet Count 216 K/mm3 (150-450); RBC Distribution Width CV 11.9 % (11.6-14.6); Red Blood Count 4.35 M/mm3 (4.6-6.2); White Blood Count 6.8 K/mm3 (4.4-11.0)
[2023-05-04 14:16] LABS: Ferritin 45 ng/mL (26-388)
== END | disposition home or self-care (01) ==
PROVIDERS: PCP Family Medicine; Referring Provider Family Medicine; Visit Provider Family Medicine
DX: E83.119 Hemochromatosis, unspecified (principal)
CPT/HCPCS: 36415; 82728; 83540; 85025; 85027

== ENCOUNTER → 2023-04-08 | Outpatient (CLI) | payer MEDICARE, SELFPAY ==
[2023-04-08 16:27] LABS: Cholesterol 264 mg/dL (200); High Density Lipoprotein 48 mg/dL; Triglycerides 227 mg/dL; Very Low Density Lipoprotein 45 mg/dL (5-40)
== END | disposition home or self-care (01) ==
LOC: BFHLAB 13:13
PROVIDERS: PCP Family Medicine; Visit Provider Family Medicine
DX: E78.5 Hyperlipidemia, unspecified (principal)
CPT/HCPCS: 36415; 80061

== ENCOUNTER → 2023-05-04 | Outpatient (CLI) | payer OTHER, MEDICARE, SELFPAY ==
[2023-05-04 11:05] LABS: Creatinine, Serum 0.79 mg/dL (0.70-1.30); EST Glomerular Filtration Rate 104 mL/min (>60); Est Glom Filt Rate - Afr Amer 126 mL/min (>60)
== END | disposition home or self-care (01) ==
LOC: PAVLAB 10:15
PROVIDERS: PCP Family Medicine; Visit Provider Specialist
DX: L93.2 Other local lupus erythematosus (principal); N28.9 Disorder of kidney and ureter, unspecified
CPT/HCPCS: 36415; 82565

== ENCOUNTER → 2023-05-06 | Outpatient (CLI) | payer OTHER, SELFPAY ==
--- NOTE | 2023-05-06 09:42 | MRI_ITS ---
STUDY: MRI ARTHROGRAM OF THE RIGHT HIP REASON FOR EXAM: Male, 67 years old. Pain in right thigh. TECHNIQUE: 10 mL of dilute intra-articular gadolinium solution was injected into the right hip joint. MRI was obtained in all 3 orthogonal planes. COMPARISON: Right hip MRI dated 06/03/2018. FINDINGS: There is a tear of the right anterior acetabular labrum (sagittal T1 series 5 images 9-11). Normal hip joint without articular joint space narrowing. Normal acetabulum. Normal femoral head. Normal femoral neck and intratrochanteric region. Normal gluteus minimus, medius and iliopsoas tendons and distal insertions. There is a small amount of iatrogenic contrast in the right iliopsoas myotendinous junction. There is no trochanteric, iliopsoas or iliopectineal bursitis. Normal superior and inferior pubic rami. Normal pubic symphysis. Normal ischial tuberosity. Normal origin of the hamstring tendons. Normal visualized iliac wing, sacroiliac joint, and sacral ala. Normal visualized soft tissue structures of the pelvis. MRI/Lower Ext/Jt Only/W Contrast IMPRESSION: Tear of the right anterior acetabular labrum. Electronically Signed: Tip Giraldo MD at 13:54 EST ,
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
[2023-05-06] MEDS: Lidocaine 2% (5ml sdv) 5 ML VIAL.MPF INFILT (10:55)
[2023-05-06] MEDS: Iopamidol 10 ML in Syringe 1 EACH 600 ML INTRAARTIC (11:00)
[2023-05-06] MEDS: Gadoterate Meglumine Diluted 10 ML, Iopamidol 5 ML, Lidocaine 1% (20 ml mdv) 5 ML, Epin... INTRAARTIC (11:00)
--- NOTE | 2023-05-06 12:01 | PRO.PCM_ITS ---
Procedure Report Date of Procedure: 05/06/23 Assessment & Plan Assessment/Plan (1) Pain in right thigh: PLAN: PROCEDURE: Arthrogram-right hip ORDERING PROVIDER: Dr. Steel INDICATION: Male, 67 years old. Right thigh pain. PROVIDER: Jeana Felipe APRN-MERCHANDISING TEAM LEAD CONSENT: The procedure as well as the benefits and possible complications including bleeding and infection were explained to the patient. Informed consent was obtained. TECHNIQUE: The patient was positioned supine. The overlying skin was prepped and draped in the usual sterile fashion. Following injection of local anesthetic with 2% lidocaine and under direct fluoroscopic guidance, a 22-gauge spinal needle was placed into the femoral head joint space. 2 cc of Isovue 300 was injected for confirmation. Following this, 10 cc of arthrogram contrast (gadoterate, iopamidol, lidocaine, and epinephrine), compounded by pharmacy, was injected. All elements of maximal sterile barrier technique followed. Patient tolerated procedure well. IMPRESSION: Successful fluoroscopic guided right hip arthrogram. Procedures Radiology Radiology Xray Procedures: 80002 Arthrogram Hip
== END | disposition home or self-care (01) ==
LOC: RAD 09:34
PROVIDERS: PCP Family Medicine; Referring Provider Specialist; Visit Provider Specialist
DX: M79.651 Pain in right thigh (principal)
CPT/HCPCS: 27093; 73722; 77002; Q9967

== ENCOUNTER → 2023-06-08 | Outpatient (CLI) | payer OTHER, SELFPAY ==
[2023-06-08 15:36] LABS: Absolute Lymphocyte Count 2.02 X10^3/uL (0.83-4.51); Absolute Neutrophil Count 3.7 X10^3/uL (2.0-7.7); Basophil# 0.03 X10^3/uL; Basophil% 0.5 % (0-1); Eosinophil# 0.28 X10^3/uL; Eosinophils% 4.3 % (0-5); Hematocrit 42.7 % (40-54); Hemoglobin 14.7 g/dL (13.0-16.5); Lymphocyte # 2.02 X10^3/ul (0.83-4.51); Lymphocyte % 31.1 % (19-41); Mean Corp Hgb Conc 34.4 g/dL (32-36); Mean Corpuscular Hgb 31.1 pg (27.0-32.0); Mean Corpuscular Volume 90.3 fL (80-94); Mean Platelet Vol. 11.2 fl (6.2-12.0); Monocyte% 7.7 % (0-10); NRBC Flagged by Analyzer 0 % (0-5); Neutrophil # 3.65 X10^3/uL (2.7-7.7); Neutrophil % 56.1 % (47-70); Platelet Count 236 K/mm3 (150-450); RBC Distribution Width SD 39.9 fl (35.1-43.9); Red Blood Count 4.73 M/mm3 (4.6-6.2); White Blood Count 6.5 K/mm3 (4.4-11.0)
[2023-06-08 16:09] LABS: Erythrocyte Sedimentation Rate 21 mm/hr (0-20)
[2023-06-08 16:12] LABS: AST(SGOT) 23 U/L (15-37); Alanine Aminotransfer ALT/SGPT 52 U/L (16-61); Albumin, Serum 3.9 g/dL (3.2-5.0); Alkaline Phosphatase 75 U/L (45-117); Bilirubin, Direct 0.11 mg/dL (0.00-0.30); CRP < 2.90 mg/L (0.0-3.0); Ferritin 64 ng/mL (26-388); Globulin 3.7 g/dL (2.2-4.2); Protein, Total 7.6 g/dL (6.4-8.2)
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
== END | disposition home or self-care (01) ==
LOC: BFHLAB 11:56
PROVIDERS: PCP Family Medicine; Visit Provider Family Medicine
DX: E83.119 Hemochromatosis, unspecified (principal); M79.604 Pain in right leg
CPT/HCPCS: 36415; 80076; 82728; 85025; 85652; 86140

== ENCOUNTER 2023-06-09 14:21 | Outpatient (CLI) | payer OTHER, SELFPAY ==
[2023-06-09 14:41] VITALS: BP 150/79; PULSE 97; RESP 16; TEMP 36.4; O2SAT 98; BMI 34.7
[2023-06-09 15:31] VITALS: BP 131/82; PULSE 75; RESP 16; TEMP 36.1; O2SAT 95
== END 2023-06-09 14:22 | disposition home or self-care (01) ==
LOC: MEDOUTP 14:21
PROVIDERS: PCP Family Medicine; Referring Provider Family Medicine; Visit Provider Family Medicine
DX: E83.119 Hemochromatosis, unspecified (principal)
CPT/HCPCS: 99195; J7040; A4216

== ENCOUNTER → 2023-07-07 | Outpatient (CLI) | payer OTHER, SELFPAY ==
[2023-07-07 14:43] LABS: Basophil# 0.03 X10^3/uL; Basophil% 0.3 % (0-1); Eosinophils% 3.4 % (0-5); Hemoglobin 14.9 g/dL (13.0-16.5); Lymphocyte % 21.2 % (19-41); Mean Corp Hgb Conc 34.7 g/dL (32-36); Mean Corpuscular Hgb 30.5 pg (27.0-32.0); Mean Corpuscular Volume 88.1 fL (80-94); Mean Platelet Vol. 10.5 fl (6.2-12.0); Monocyte# 0.73 X10^3/uL; Monocyte% 8.2 % (0-10); NRBC Flagged by Analyzer 0 % (0-5); Neutrophil # 5.96 X10^3/uL (2.7-7.7); Neutrophil % 66.6 % (47-70); Platelet Count 277 K/mm3 (150-450); RBC Distribution Width CV 12.8 % (11.6-14.6); RBC Distribution Width SD 41.7 fl (35.1-43.9); Red Blood Count 4.88 M/mm3 (4.6-6.2)
[2023-07-07 15:02] LABS: Ferritin 36 ng/mL (26-388); Iron 86 ug/dL (65-175)
== END | disposition home or self-care (01) ==
LOC: PAVLAB 14:29
PROVIDERS: PCP Family Medicine; Referring Provider Family Medicine; Visit Provider Family Medicine
DX: E83.119 Hemochromatosis, unspecified (principal)
CPT/HCPCS: 36415; 82728; 83540; 85025

== ENCOUNTER → 2023-07-27 | Outpatient (CLI) | payer OTHER, SELFPAY ==
[2023-07-27 17:43] LABS: Absolute Lymphocyte Count 2.28 X10^3/uL (0.83-4.51); Absolute Neutrophil Count 3.6 X10^3/uL (2.0-7.7); Basophil# 0.02 X10^3/uL; Basophil% 0.3 % (0-1); Eosinophil# 0.35 X10^3/uL; Eosinophils% 5.1 % (0-5); Hematocrit 41.6 % (40-54); Hemoglobin 14.3 g/dL (13.0-16.5); Lymphocyte # 2.28 X10^3/ul (0.83-4.51); Lymphocyte % 33.3 % (19-41); Mean Corp Hgb Conc 34.4 g/dL (32-36); Mean Platelet Vol. 11.4 fl (6.2-12.0); Monocyte# 0.61 X10^3/uL; Monocyte% 8.9 % (0-10); NRBC Flagged by Analyzer 0 % (0-5); Neutrophil # 3.59 X10^3/uL (2.7-7.7); Neutrophil % 52.4 % (47-70); Platelet Count 268 K/mm3 (150-450); RBC Distribution Width CV 12.6 % (11.6-14.6); RBC Distribution Width SD 41.3 fl (35.1-43.9); Red Blood Count 4.62 M/mm3 (4.6-6.2); White Blood Count 6.9 K/mm3 (4.4-11.0)
[2023-07-27 18:04] LABS: ALB/GLOB Ratio 1.1 RATIO (0.9-2.4); AST(SGOT) 31 U/L (15-37); Alanine Aminotransfer ALT/SGPT 45 U/L (16-61); Albumin, Serum 3.8 g/dL (3.2-5.0); Alkaline Phosphatase 73 U/L (45-117); Anion Gap 9 (5-15); BUN 22 mg/dL (7-18); BUN/Creat Ratio 26.9 RATIO (10-20); Calcium,Total 9.2 mg/dL (8.5-10.1); Chloride 109 mmol/L (98-107); Creatinine, Serum 0.82 mg/dL (0.70-1.30); EST Glomerular Filtration Rate 100 mL/min (>60); Est Glom Filt Rate - Afr Amer 121 mL/min (>60); Ferritin 44 ng/mL (26-388); Globulin 3.5 g/dL (2.2-4.2); Glucose 93 mg/dL (74-106); Potassium 4.2 mmol/L (3.5-5.1); Protein, Total 7.3 g/dL (6.4-8.2); Sodium Level 138 mmol/L (136-145)
== END | disposition home or self-care (01) ==
LOC: BFHLAB 15:41
PROVIDERS: PCP Family Medicine; Referring Provider Family Medicine; Visit Provider Family Medicine
DX: Z01.810 Encounter for preprocedural cardiovascular examination (principal); E83.119 Hemochromatosis, unspecified
CPT/HCPCS: 36415; 80053; 82728; 85025

== ENCOUNTER → 2023-08-21 | Outpatient (CLI) | payer MEDICARE, SELFPAY ==
--- NOTE | 2023-08-21 09:49 | RAD_ITS ---
STUDY: X-RAY - PELVIS AND RIGHT HIP REASON FOR EXAM: Male, 67 years old. PAIN R FEMUR/FALL TECHNIQUE: 3 views of the pelvis and hip. COMPARISON: None. FINDINGS: There is a non-specific bowel gas pattern. There are multiple calcified phleboliths. Normal bilateral iliac wings, sacroiliac joints and visualized sacrum. Normal bilateral superior and inferior pubic rami. Normal pubic symphysis. Normal bilateral ischial tuberosities. Normal visualized femoral head. Normal acetabulum. There is mild articular joint space narrowing of the hip. Partial sacralization of the transverse processes of the L5 vertebra on the left side. RAD/HIP, UNI W/ Pelvis 2-3 Views IMPRESSION: Mild degree of degenerative changes. No fracture or dislocation is seen. Electronically Signed: Stanton Muniz MD at 10:29 EDT ,
== END | disposition home or self-care (01) ==
LOC: RAD 09:45
PROVIDERS: PCP Family Medicine; Referring Provider Family Medicine; Visit Provider Family Medicine
DX: M79.604 Pain in right leg (principal); W19.XXXA Unspecified fall, initial encounter
CPT/HCPCS: 73502

== ENCOUNTER → 2023-10-08 | Outpatient (CLI) | payer MEDICARE, SELFPAY ==
[2023-10-08 18:13] LABS: Absolute Neutrophil Count 3.9 X10^3/uL (2.0-7.7); Basophil# 0.03 X10^3/uL; Basophil% 0.4 % (0-1); Eosinophil# 0.28 X10^3/uL; Hematocrit 42.2 % (40-54); Hemoglobin 14.6 g/dL (13.0-16.5); Lymphocyte % 31.5 % (19-41); Mean Corp Hgb Conc 34.6 g/dL (32-36); Mean Corpuscular Hgb 31.2 pg (27.0-32.0); Mean Corpuscular Volume 90.2 fL (80-94); Mean Platelet Vol. 11.1 fl (6.2-12.0); Monocyte# 0.62 X10^3/uL; Monocyte% 8.9 % (0-10); NRBC Flagged by Analyzer 0 % (0-5); Neutrophil # 3.85 X10^3/uL (2.7-7.7); Neutrophil % 55.1 % (47-70); Platelet Count 268 K/mm3 (150-450); RBC Distribution Width SD 39.3 fl (35.1-43.9); Red Blood Count 4.68 M/mm3 (4.6-6.2)
[2023-10-08 18:41] LABS: Ferritin 59 ng/mL (26-388)
== END | disposition home or self-care (01) ==
LOC: BFHLAB 16:08
PROVIDERS: PCP Family Medicine; Visit Provider Family Medicine
DX: E83.119 Hemochromatosis, unspecified (principal)
CPT/HCPCS: 36415; 82728; 85025

== ENCOUNTER 2023-10-28 13:53 | Outpatient (CLI) | payer MEDICARE, SELFPAY ==
[2023-10-28 14:13] VITALS: BP 133/74; PULSE 77; RESP 16; TEMP 36.1; O2SAT 96; BMI 33.9
[2023-10-28] MEDS: 0.9% Normal Saline (500mL Bag) 500 ML 999 ML IV (14:19)
== END 2023-10-28 23:59 | disposition home or self-care (01) ==
LOC: MEDOUTP 13:53
PROVIDERS: PCP Family Medicine; Referring Provider Family Medicine; Visit Provider Family Medicine
DX: E83.119 Hemochromatosis, unspecified (principal)
CPT/HCPCS: 96360; 99195; J7040

== ENCOUNTER → 2023-11-17 | Outpatient (CLI) | payer MEDICARE, SELFPAY ==
[2023-11-17 12:04] LABS: Hematocrit 40.5 % (40-54); Hemoglobin 14.1 g/dL (13.0-16.5); Mean Corp Hgb Conc 34.8 g/dL (32-36); Mean Corpuscular Hgb 31.3 pg (27.0-32.0); Mean Corpuscular Volume 89.8 fL (80-94); Mean Platelet Vol. 10.6 fl (6.2-12.0); Platelet Count 263 K/mm3 (150-450); RBC Distribution Width CV 12.6 % (11.6-14.6); RBC Distribution Width SD 41.1 fl (35.1-43.9); Red Blood Count 4.51 M/mm3 (4.6-6.2)
[2023-11-17 12:38] LABS: Ferritin 36 ng/mL (26-388)
== END | disposition home or self-care (01) ==
LOC: MTLAB 10:36
PROVIDERS: PCP Family Medicine; Referring Provider Family Medicine; Visit Provider Family Medicine
DX: E83.119 Hemochromatosis, unspecified (principal)
CPT/HCPCS: 36415; 82728; 85027

== ENCOUNTER → 2023-12-24 | Outpatient (CLI) | payer MEDICARE, SELFPAY ==
[2023-12-24 16:52] LABS: Ferritin 33 ng/mL (26-388)
[2023-12-25 00:29] LABS: Xtra Tube EP Lab EXTRA TUBE
== END | disposition home or self-care (01) ==
PROVIDERS: PCP Family Medicine; Referring Provider Family Medicine; Visit Provider Family Medicine
DX: E83.119 Hemochromatosis, unspecified (principal)
CPT/HCPCS: 36415; 82728

== ENCOUNTER → 2024-01-19 | Outpatient (CLI) | payer MEDICARE, SELFPAY ==
[2024-01-19 15:32] LABS: Hematocrit 45.2 % (40-54); Hemoglobin 15.5 g/dL (13.0-16.5); Mean Corp Hgb Conc 34.3 g/dL (32-36); Mean Corpuscular Hgb 31.3 pg (27.0-32.0); Mean Corpuscular Volume 91.3 fL (80-94); Mean Platelet Vol. 10.9 fl (6.2-12.0); Platelet Count 284 K/mm3 (150-450); RBC Distribution Width CV 11.8 % (11.6-14.6); RBC Distribution Width SD 39.3 fl (35.1-43.9); Red Blood Count 4.95 M/mm3 (4.6-6.2); White Blood Count 7.6 K/mm3 (4.4-11.0)
[2024-01-19 15:54] LABS: Ferritin 34 ng/mL (26-388)
== END | disposition home or self-care (01) ==
LOC: MTLAB 13:45
PROVIDERS: PCP Family Medicine; Referring Provider Family Medicine; Visit Provider Family Medicine
DX: E83.119 Hemochromatosis, unspecified (principal)
CPT/HCPCS: 36415; 82728; 85027

== ENCOUNTER 2024-02-19 13:41 | Outpatient (RCR) | payer MEDICARE, SELFPAY ==
[2024-02-19 17:50] LABS: Hematocrit 41.7 % (40-54); Hemoglobin 14.3 g/dL (13.0-16.5); Mean Corp Hgb Conc 34.3 g/dL (32-36); Mean Corpuscular Hgb 31.3 pg (27.0-32.0); Mean Corpuscular Volume 91.2 fL (80-94); Mean Platelet Vol. 10.9 fl (6.2-12.0); Platelet Count 235 K/mm3 (150-450); RBC Distribution Width CV 11.8 % (11.6-14.6); RBC Distribution Width SD 39.4 fl (35.1-43.9); Red Blood Count 4.57 M/mm3 (4.6-6.2); White Blood Count 7.3 K/mm3 (4.4-11.0)
[2024-02-19 18:05] LABS: Creatinine, Serum 0.74 mg/dL (0.70-1.30); EST Glomerular Filtration Rate 113 mL/min (>60); Est Glom Filt Rate - Afr Amer 136 mL/min (>60); Ferritin 43 ng/mL (26-388)
== END 2024-03-12 18:00 | disposition home or self-care (01) ==
LOC: MTLAB 13:41
PROVIDERS: PCP Family Medicine; Referring Provider Family Medicine; Visit Provider Family Medicine
DX: E83.119 Hemochromatosis, unspecified (principal); N28.9 Disorder of kidney and ureter, unspecified
CPT/HCPCS: 36415; 82565; 82728; 85027

== ENCOUNTER → 2024-03-18 | Outpatient (CLI) | payer MEDICARE, SELFPAY ==
[2024-03-18 17:29] LABS: Absolute Lymphocyte Count 2.49 X10^3/uL (0.83-4.51); Absolute Neutrophil Count 3.8 X10^3/uL (2.0-7.7); Basophil# 0.05 X10^3/uL; Basophil% 0.7 % (0-1); Eosinophil# 0.31 X10^3/uL; Eosinophils% 4.2 % (0-5); Hematocrit 43.2 % (40-54); Lymphocyte # 2.49 X10^3/ul (0.83-4.51); Lymphocyte % 33.9 % (19-41); Mean Corp Hgb Conc 34.7 g/dL (32-36); Mean Corpuscular Hgb 31.9 pg (27.0-32.0); Mean Corpuscular Volume 91.9 fL (80-94); Mean Platelet Vol. 11.2 fl (6.2-12.0); Monocyte# 0.68 X10^3/uL; Monocyte% 9.3 % (0-10); NRBC Flagged by Analyzer 0 % (0-5); Neutrophil % 51.8 % (47-70); Platelet Count 248 K/mm3 (150-450); RBC Distribution Width CV 12.1 % (11.6-14.6); RBC Distribution Width SD 40.8 fl (35.1-43.9); White Blood Count 7.3 K/mm3 (4.4-11.0)
[2024-03-18 17:48] LABS: Vitamin D,25 Hydroxy 95.6 ng/mL
[2024-03-18 17:56] LABS: ALB/GLOB Ratio 1.2 RATIO (0.9-2.4); AST(SGOT) 13 U/L (15-37); Alanine Aminotransfer ALT/SGPT 26 U/L (16-61); Alkaline Phosphatase 86 U/L (45-117); Anion Gap 8 (5-15); BUN 21 mg/dL (7-18); BUN/Creat Ratio 27.6 RATIO (10-20); Calcium,Total 9.8 mg/dL (8.5-10.1); Chloride 108 mmol/L (98-107); Cholesterol 239 mg/dL (200); Creatinine, Serum 0.76 mg/dL (0.70-1.30); EST Glomerular Filtration Rate 109 mL/min (>60); Est Glom Filt Rate - Afr Amer 131 mL/min (>60); Globulin 3.4 g/dL (2.2-4.2); Glucose 79 mg/dL (74-106); High Density Lipoprotein 54 mg/dL; PSA,Total - Annual Screen 3.16 ng/mL (0.00-4.00); Potassium 3.9 mmol/L (3.5-5.1); Protein, Total 7.4 g/dL (6.4-8.2); Sodium Level 139 mmol/L (136-145); Triglycerides 140 mg/dL; Very Low Density Lipoprotein 28 mg/dL (5-40)
[2024-03-18 17:59] LABS: Hemoglobin A1c 5.5 % (3.8-5.6)
[2024-03-23 13:43] LABS: Ferritin 60 ng/mL (26-388)
== END | disposition home or self-care (01) ==
LOC: MTLAB 14:51
PROVIDERS: PCP Family Medicine; Referring Provider Family Medicine; Visit Provider Family Medicine
DX: I10 Essential (primary) hypertension (principal); E83.119 Hemochromatosis, unspecified; E78.5 Hyperlipidemia, unspecified; M85.80 Other specified disorders of bone density and structure, unspecified site; R73.01 Impaired fasting glucose; Z12.5 Encounter for screening for malignant neoplasm of prostate
CPT/HCPCS: 36415; 80053; 80061; 82306; 82728; 83036; 84153; 85025; G0103

== ENCOUNTER 2024-03-23 14:52 | Outpatient (CLI) | payer MEDICARE, SELFPAY ==
[2024-03-23 15:10] VITALS: BP 126/76; PULSE 64; RESP 16; TEMP 35.6; BMI 31.1
[2024-03-23 16:00] VITALS: BP 134/72; PULSE 62; RESP 16; O2SAT 97
== END 2024-03-23 23:59 | disposition home or self-care (01) ==
LOC: MEDOUTP 14:52
PROVIDERS: PCP Family Medicine; Referring Provider Family Medicine; Visit Provider Family Medicine
DX: E83.119 Hemochromatosis, unspecified (principal)
CPT/HCPCS: 99195

== ENCOUNTER 2024-03-24 06:11 | Observation (INO) | payer MEDICARE, SELFPAY ==
[2024-03-24] VITALS (13 sets, daily range): BP systolic 106–165; BP diastolic 68–114; PULSE 64–129; RESP 13–25; TEMP 36.1–36.6; O2SAT 92–99; BMI 32.2; BMI 29.9
--- NOTE | 2024-03-24 06:22 | EKG12_ITS ---
Test Reason : CHEST PAIN Blood Pressure : */* mmHG Vent. Rate : 124 BPM Atrial Rate : * BPM P-R Int : * ms QRS Dur : 86 ms QT Int : 330 ms P-R-T Axes : * 17 12 degrees QTcB Int : 474 ms Atrial fibrillation with rapid ventricular response with premature ventricular or aberrantly conducte d complexes Abnormal ECG Confirmed by ARA REYES, AVANI ([id number]), order editor ALBERTO KERR ([id number]) on 03/30/2024 2:11:36 P M Referred By: SRUTHI Confirmed By: AVANI BULLOCK MD
--- NOTE | 2024-03-24 06:22 | CT_ITS ---
INDICATION: Neurologic deficit, acute, stroke suspected. EXAMINATION: CT BRAIN - CT Head Stroke Protocol W/O Contrast Injection TECHNIQUE: Multiple axial images were obtained of the head without intravenous contrast. The protocol utilizes one or more of the following dose reduction techniques: automated exposure control, adjustment of mA and/or kV according to patient size,and/or use of iterative reconstruction technique. IV Contrast dosage and agent: None. RADIATION DOSAGE (If Supplied By Facility): CTDIvol = ( 45 ) mGy, DLP = ( 829.9 ) mGycm COMPARISON: Prior study dated: CT of the head dated March 21, 2022. FINDINGS: BRAIN PARENCHYMA: No intra- or extra-axial hemorrhage. No evidence of acute infarct. No intracranial mass or mass effect. There is preservation of the hernandez/white matter interface. Posterior fossa structures are unremarkable. CSF SPACES: There is mild global cerebral volume loss. Appropriate for age. No hydrocephalus. Basal cisterns are patent. CALVARIUM, SKULL BASE, PARANASAL SINUSES AND MASTOID AIR CELLS: There is mild paranasal sinus disease with mucous retention cysts and mucosal thickening in the maxillary sinuses, right sphenoid sinus and ethmoid sinuses.. No discrete lytic or blastic abnormalities. ORBITS: Both globes, extraocular muscles, optic nerves and retrobulbar fat appear unremarkable. ASPECTS Score for Acute Strokes: 10 CT/STROKE Brain/Head without Cont IMPRESSION: Negative Brain CT without contrast. N.B. : The above Results were Read Back by Valerie Craig MD to Gabino Berg DO, and understanding confirmed on 03/24/2024 06:40:29 (ET). Electronically Signed: Valerie Craig MD at 6:42 EST ,
--- NOTE | 2024-03-24 06:23 | CT_ITS ---
We are attempting to reach an attending provider to discuss findings. An addendum with communication details will be sent when the communication is complete. STUDY: CTA HEAD AND NECK WITH CONTRAST REASON FOR EXAM: Male, 68 years old patient with acute neurologic deficit. Acute stroke suspected. RADIATION DOSAGE (If Supplied By Facility): CTDIvol = ( 24.58 ) mGy, DLP = ( 812.48 ) mGycm TECHNIQUE: CT angiography was performed with a multi-detector CT scanner. Data acquisition was obtained from the skull base through the vertex following intravenous administration of 100 mL of IV Isovue-370. MIP images were reconstructed from the axial data set. Post-processing of the angiographic images was performed, with multiplanar reformation and 3D reconstruction. Individualized dose optimization techniques were used for this CT. COMPARISON: No relevant priors. FINDINGS: Normal bilateral petrous carotid arteries. Normal right cavernous carotid artery with a normal supraclinoid bifurcation. Normal left cavernous carotid artery with a normal supraclinoid bifurcation. Normal right A1 segments of the anterior cerebral artery. Normal left A1 segments of the anterior cerebral artery. Normal intact anterior communicating artery (ACOM). Normal bilateral A2 segments of the anterior cerebral arteries. Normal right M1 and M2 segments of the middle cerebral arteries, with a normal M1 bifurcation. Normal left M1 and M2 segments of the middle cerebral arteries, with a normal M1 bifurcation. There is non-visualization of the right posterior communicating artery (PCOM). There is non-visualization of the left posterior communicating artery (PCOM). There is a small atretic right vertebral artery that appears to end in PICA with a dominant left vertebral artery. Normal basilar artery with a normal basilar bifurcation. The visualized bilateral superior cerebellar (SCA) arteries are normal. Normal bilateral P1, P2 and visualized P3 segments of the posterior cerebral arteries. There is no demonstrated aneurysm of the [place]. There is no demonstrated abnormality of the visualized brain. AORTIC ARCH: Normal visualized aortic arch. Normal origins of the brachiocephalic, left common carotid, and left subclavian arteries. RIGHT CAROTID ARTERIES: Normal right common carotid artery (CCA). There is minimal calcified atherosclerotic plaque formation with no narrowing of the right carotid bulb. Normal origin of the right internal carotid (ICA) artery without a hemodynamically significant stenosis. Normal visualized cervical portion of the right internal carotid artery. Normal origin of the right external carotid artery (ECA). LEFT CAROTID ARTERIES: Normal left common carotid artery (CCA). There is minimal atherosclerotic plaque formation with minimal narrowing of the left carotid bulb. Normal origin of the left internal carotid (ICA) artery without a hemodynamically significant stenosis. Normal visualized cervical portion of the left internal carotid artery. Normal origin of the left external carotid artery (ECA). VERTEBRAL ARTERIES: There is enhancement within the bilateral vertebral arteries with atretic right vertebral artery, and a dominant left vertebral artery. NECK ANATOMY: Upper lobes of both lungs appear to be clear. The thyroid has a grossly normal appearance. Visualized parotid and submandibular glands have a grossly normal appearance. The nasopharynx, oropharynx, hypopharynx, larynx and subglottic trachea has a grossly normal appearance. There is narrowing of the C6-7 disc space. There were prominent Schmorl''s nodes at the endplates of C5. Cervical and thoracic vertebral bodies have normal height and alignment. CT/STROKE CTA Head AND Neck W/Con IMPRESSION: No CT evidence for hemodynamically significant stenosis, thrombosis or aneurysm. Electronically Signed: Valerie Craig MD at 7:24 EST ,
--- NOTE | 2024-03-24 06:30 | RAD_ITS ---
STUDY: X-RAY CHEST REASON FOR EXAM: Male, 68 years old patient with acute neurologic deficit. Acute, stroke suspected TECHNIQUE: Single AP portable view of the chest. COMPARISON: Chest radiograph dated March 21, 2022. FINDINGS: Cardiac monitoring leads are present. There are prominent bronchovascular markings. The lungs are hyperexpanded. There is no demonstrated pleural abnormality. Normal size heart. Normal mediastinum and pierce. There is prominence of the pulmonary hilar arteries with peripheral pulmonary vascular congestion. Normal visualized aortic arch and descending thoracic aorta. There are diffuse degenerative changes of the visualized thoracic spine. Normal visualized ribs, clavicles, and shoulders. There is no demonstrated abnormality of the visualized soft tissue structures of the upper abdomen. RAD/Chest 1 View IMPRESSION: Mild pulmonary vascular congestion. Electronically Signed: Valerie Craig MD at 8:14 EST ,
--- NOTE | 2024-03-24 06:34 | EX.ED.DYSGE1 ---
HPI History of Present Illness Chief Complaint: Chest Pain Informant: patient, spouse/S.O. and EMS Narrative Narrative: Patient is a 68-year-old male with past medical history of hemochromatosis and GERD. He states he has been feeling normal and had blood work done for his family doctor just 6 days ago and had to have a pint of blood taken off of him yesterday secondary to high iron levels. The patient states that he went to bed around 10 PM normally and then awoke this morning with dizziness. He states that the dizziness is constant and does not seem to change with motion and he describes it more as a unsteadiness. He reports that he felt he was going to pass out and as he could not ambulate because of the persistent dizziness EMS was called by his . 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 H/O deep venous thrombosis BPH (benign prostatic hyperplasia) Osteoporosis GERD (gastroesophageal reflux disease) Arthritis Home Medications ?Medication ?Instructions ?Recorded ?Last Taken ?Type folic acid 1 mg tablet 1 mg PO DAILY@0800 10/10/16 Unknown History meloxicam 15 mg tablet (Mobic) 15 mg PO DAILY ANTIINFLAMITORY 10/10/16 Unknown History metoprolol succinate 50 mg 50 mg PO DAILY 03/21/22 Unknown History tablet,extended release 24 hr Allergy/AdvReac Type Severity Reaction Status Date / Time Tetanus Vaccines and Toxoid AdvReac Intermediate Rash Verified 03/24/24 06:16 Family History (Updated 04/28/18 @ 13:31 by Shnaeka Alexander) Father Skin cancer Arthritis COPD (chronic obstructive pulmonary disease) Hypertension Hereditary hemochromatosis Mother Anemia Arthritis Heart disease Lung cancer COPD (chronic obstructive pulmonary disease) Hypertension Grandmother Aneurysm Bone cancer Surgical History H/O vasectomy History of tonsillectomy Hx of cholecystectomy Social History (Updated 06/07/18 @ 11:[address] Balta Borruso, DO) Smoking Status: Never smoker ROS ROS ED Constitutional Constitutional ED: Denies chills or fever(s) Eyes Eyes: Denies blurry vision or change in vision ENT ENT ED: Denies sore throat Cardiovascular Cardiovascular: Reports chest pain; Denies palpitations or racing heartbeat Respiratory/Chest Respiratory/Chest: Denies cough or dyspnea Gastrointestinal Gastrointestinal: Denies abdominal pain, diarrhea, nausea or vomiting Genitourinary Genitourinary ED: Denies dysuria Musculoskeletal Musculoskeletal: Denies myalgias Integumentary Denies rash Neurologic Neurologic: Reports other Details: Positive dizziness ; Denies headache(s) Hematologic/Lymphatic Hematologic/Lymphatic: Denies easy bleeding or easy bruising EXAM Physical Exam Const Vital Signs: 03/24/24 06:12 03/24/24 06:22 03/24/24 06:22 Temperature 97.9 F Temperature Source Oral Pulse Rate 129 H 118 H Respiratory Rate 15 25 H Respiratory Effort Respiratory Pattern Blood Pressure 165/114 H 165/106 H Blood Pressure Mean 131 125 Pulse Ox 99 97 97 Oxygen Delivery Method Room Air Room Air Room Air 03/24/24 06:28 03/24/24 06:40 03/24/24 06:40 Temperature Temperature Source Pulse Rate 120 H Respiratory Rate 16 Respiratory Effort Short of Breath Normal Short of Breath Respiratory Pattern Normal Normal Blood Pressure 142/72 H Blood Pressure Mean 95 Pulse Ox 97 Oxygen Delivery Method Room Air 03/24/24 06:52 03/24/24 07:22 03/24/24 07:30 Temperature Temperature Source Pulse Rate 105 H 79 64 Respiratory Rate 16 13 13 Respiratory Effort Respiratory Pattern Blood Pressure 155/85 H 129/90 H 130/84 H Blood Pressure Mean 108 103 99 Pulse Ox 98 97 96 Oxygen Delivery Method Room Air Room Air Room Air 03/24/24 08:00 Temperature Temperature Source Pulse Rate 85 Respiratory Rate 14 Respiratory Effort Respiratory Pattern Blood Pressure 149/92 H Blood Pressure Mean 111 Pulse Ox 97 Oxygen Delivery Method Room Air Positive well nourished and well developed General Appearance ED: well developed; Negative for pallor HEENT HEENT Narrative: Normocephalic atraumatic Eyes PERRL and EOMs intact bilaterally General Eye ED: Negative for scleral icterus Neck supple Neck Narrative: No nuchal rigidity or meningeal signs noted Chest Wall palpation of chest normal Resp normal respiratory effort and clear to auscultation bilaterally Cardio Rate: other Other Details: Irregularly irregular rhythm with tachycardic rate consistent with atrial fibrillation GI normal to inspection, nondistended, normoactive bowel sounds, non-tender, non-distended and no masses GI Narrative: No voluntary guarding or rigidity or pulsatile mass Auscultation: normoactive bowel sounds Palpation: soft Extremity normal to inspection Extremity Narrative: No asymmetric edema no pitting edema negative Homans' sign bilaterally Neuro oriented x3 and CN's II-XII intact bilaterally Neuro Narrative: GCS of 15 Patient is awake and alert to person place and time Cranial nerves II through XII are grossly intact No nystagmus present Positive truncal ataxia Patient has an NIH of 1 secondary to the truncal ataxia Sensorium / Orientation: alert Psych mental status grossly normal Skin no rashes or lesions noted and no wounds General Skin Exam: Negative for jaundice or pallor MDM MDM MDM Narrative Medical decision making narrative: The patient arrived to the ER hypertensive and tachycardic with EKG confirming A-fib with RVR. He reported dizziness and near syncope. On exam he does not have nystagmus and he reports that there is no improvement of the dizziness at rest. When he was sat up he could not hold himself up and had truncal ataxia falling back in bed. With a new onset A-fib and truncal ataxia there was concern for posterior circulation stroke. Secondary to this a stroke alert was activated. The patient's head CT revealed no acute bleed and CTA revealed no obvious signs of ischemia/stenosis or large vessel occlusion. The patient was evaluated by [facility] and upon their evaluation his truncal ataxia has since resolved and there is ambiguous timeframe about when symptoms may have started and therefore they do not recommend starting TNK. I do recommend that patient stay at this facility for further stroke workup as he will need MRI and potentially carotid ultrasound. With his A-fib with RVR he was given a 20 mg bolus of Cardizem and his heart rate reduced into the 70s to 80s but remained in A-fib. Secondary to this the case was discussed with cardiology. They recommend patient be placed on 60 mg of Cardizem 4 times a day and add 5 mg of Eliquis twice a day in order to help prevent clot formation. The case was then discussed with the hospitalist who agrees to accept the patient to continue the stroke workup and look for potential causes of A-fib as well as control his rate and potentially lead to cardioversion History & Record Review Discussion w/independent historian: EMS personnel, Patient and Significant other Lab Data Attestation: I reviewed the patient's lab results. Labs: Laboratory Results - last 24 hr 03/24/24 03/24/24 06:20 06:21 WBC 8.1 RBC 4.62 Hgb 14.9 Hct 40.7 MCV 88.1 MCH 32.3 H MCHC 36.6 H RDW Std Deviation 39.3 RDW Coeff of Ifrah 12.3 Plt Count 219 MPV 10.4 Immature Gran % (Auto) 0.200 Neut % (Auto) 50.9 Lymph % (Auto) 35.9 [place] % (Auto) 8.6 Eos % (Auto) 4.0 Baso % (Auto) 0.4 Absolute Neuts (auto) 4.1 Absolute Lymphs (auto) 2.89 Nucleated RBC % 0 PT 13.7 INR 1.1 APTT 30.2 Sodium 137 Potassium 4.4 Chloride 107 Carbon Dioxide 24.0 Anion Gap 6 BUN 24 H Creatinine 0.78 Estim Creat Clear Calc 94.44 Est GFR (MDRD) Af Amer 129 Est GFR (MDRD) Non-Af 106 BUN/Creatinine Ratio 31.0 H Glucose 119 H Calcium 9.5 Magnesium 1.8 TSH 3.390 POC Glucose 125 H Radiography Diagnostic Testing: Clinical Impression(s) from Imaging Studies Brain CT 03/24/24 06:22 IMPRESSION: Negative Brain CT without contrast. N.B. : The above Results were Read Back by Valerie Craig MD to Gabino Berg DO, and understanding confirmed on 03/24/2024 06:40:29 (ET). Electronically Signed: Valerie Craig MD at 6:42 EST Reading Location ID and State: [facility] / [place] , Service support , ADDENDUM: 03/24/24 0649 IMPRESSION: Negative Brain CT without contrast. N.B. : The above Results were Read Back by Valerie Craig MD to Gabino Berg DO, and understanding confirmed on 03/24/2024 06:40:29 (ET). Electronically Signed: Valerie Craig MD at 6:42 EST , Head/Neck CTA 03/24/24 06:23 IMPRESSION: No CT evidence for hemodynamically significant stenosis, thrombosis or aneurysm. Electronically Signed: Valerie Craig MD at 7:24 EST , ADDENDUM: 03/24/24 0732 IMPRESSION: No CT evidence for hemodynamically significant stenosis, thrombosis or aneurysm. N.B. : The above Results were Read Back by Valerie Craig MD to Gabino Berg DO, and understanding confirmed on 03/24/2024 07:25:45 (ET). Electronically Signed: Valerie Craig MD at 7:24 EST Reading Location ID and State: [facility] / [place] , Service support , 1 view chest x-ray as interpreted by the emergency medicine physician reveals no acute infiltrate pneumothorax or pleural effusion Management Discussion w/another healthcare provider: Hospitalist, Social Services Director and Radiologist Critical Care Time Critical Care Time: Yes Critical care time (excluding procedures): Discussing w/Patient &/or Family/Plant Operations Worker, Discussing w/Consultants and - (Please note critical care time of 37 minutes) Discharge Plan Triage Chief Complaint: Chest Pain ED Provider: Gabino Berg Dx/Rx/DC Orders Clinical Impression: Truncal ataxia, Atrial fibrillation with rapid ventricular response, TIA (transient ischemic attack), Hypertension Prescriptions: No Action meloxicam [Mobic] 15 MG tablet 15 mg PO DAILY folic acid 1 MG tablet 1 mg PO DAILY@0800 metoprolol succinate 50 mg tablet extended release 24 hr 50 mg PO DAILY Primary Care Provider: Alessandro Garland Referrals: Alessandro Garland DO [Primary Care Provider] - Print Language: Ukrainian Disposition Disposition: Acute Care [facility]
[2024-03-24 06:35] LABS: Absolute Lymphocyte Count 2.89 X10^3/uL (0.83-4.51); Absolute Neutrophil Count 4.1 X10^3/uL (2.0-7.7); Basophil# 0.03 X10^3/uL; Basophil% 0.4 % (0-1); Eosinophil# 0.32 X10^3/uL; Hematocrit 40.7 % (40-54); Hemoglobin 14.9 g/dL (13.0-16.5); Lymphocyte # 2.89 X10^3/ul (0.83-4.51); Lymphocyte % 35.9 % (19-41); Mean Corp Hgb Conc 36.6 g/dL (32-36); Mean Corpuscular Hgb 32.3 pg (27.0-32.0); Mean Corpuscular Volume 88.1 fL (80-94); Mean Platelet Vol. 10.4 fl (6.2-12.0); Monocyte# 0.69 X10^3/uL; Monocyte% 8.6 % (0-10); NRBC Flagged by Analyzer 0 % (0-5); Neutrophil # 4.11 X10^3/uL (2.7-7.7); Neutrophil % 50.9 % (47-70); Platelet Count 219 K/mm3 (150-450); RBC Distribution Width CV 12.3 % (11.6-14.6); RBC Distribution Width SD 39.3 fl (35.1-43.9); Red Blood Count 4.62 M/mm3 (4.6-6.2); White Blood Count 8.1 K/mm3 (4.4-11.0)
[2024-03-24 06:42] LABS: Bedside Glucose 125 mg/dL (74-106)
[2024-03-24] MEDS: dilTIAZem 25 MG/5 ML Vial 20 MG IV BOLUS (06:49)
[2024-03-24 06:51] LABS: International Normalized Ratio 1.1; Prothrombin Time (Protime)PT. 13.7 SECONDS (11.7-14.9)
[2024-03-24 06:52] LABS: Partial Thromboplast Time 30.2 Seconds (24.1-36.2)
[2024-03-24 07:00] LABS: Anion Gap 6 (5-15); BUN 24 mg/dL (7-18); Calcium,Total 9.5 mg/dL (8.5-10.1); Chloride 107 mmol/L (98-107); Creatinine, Serum 0.78 mg/dL (0.70-1.30); EST Glomerular Filtration Rate 106 mL/min (>60); Est Glom Filt Rate - Afr Amer 129 mL/min (>60); Estimated Creatinine Clearance 94.44 ml/min; Glucose 119 mg/dL (74-106); Magnesium 1.8 mg/dL (1.6-2.6); Potassium 4.4 mmol/L (3.5-5.1); Sodium Level 137 mmol/L (136-145)
--- NOTE | 2024-03-24 07:32 | ED.RN ---
PER DR. NEGRO, CHANGE NIH TO EVERY 4 HOURS.
--- NOTE | 2024-03-24 08:11 | MRI_ITS ---
EXAM: MR HEAD WITHOUT INTRAVENOUS CONTRAST CLINICAL INDICATION: stroke TECHNIQUE: Multiplanar and multisequence MR images of the brain were obtained without intravenous contrast. COMPARISON: CT head without contrast and CTA head and neck with contrast 03/24/2024. FINDINGS: BRAIN AND EXTRA-AXIAL SPACES: No focal signal abnormalities of the brain parenchyma in all pulse sequences. No intra- or extra-axial hemorrhage. No evidence of acute infarct. No intracranial mass or mass effect. There is preservation of the hernandez/white matter interface. Posterior fossa structures are unremarkable. Normal ventricles and cisterns. No communicating or noncommunicating hydrocephalus. SELLA: Unremarkable. Normal sella turcica, pituitary gland, infundibular stalk, optic chiasm and hypothalamus. AUDITORY SYSTEM: Unremarkable. The internal auditory canals are patent. BONES/JOINTS: Unremarkable. No discrete lytic or blastic abnormalities. SINUSES: Unremarkable as visualized. Clear. MASTOID AIR CELLS: Unremarkable as visualized. Clear. ORBITS: Unremarkable as visualized. Both globes, extraocular muscles, optic nerves and retrobulbar fat appear unremarkable. VASCULATURE: Unremarkable as visualized. Normal flow voids in the major intracranial circulation. MRI/Brain without Contrast IMPRESSION: Normal MRI brain without intravenous contrast. Electronically Signed: Tre Banks MD at 12:20 EST ,
--- NOTE | 2024-03-24 08:11 | ECHOD_ITS ---
Reason For Study: TIA/CVA Procedure This was a 2D Doppler, Color Flow transthoracic echocardiogram. Exam performed portable in patient room. Left Ventricle Normal LV size. The estimated ejection fraction is 65 %. No evidence for diastolic dysfunction. No regional wall motion abnormalities noted. Right Ventricle Normal RV size. Normal systolic function. Atria The left and right atria are normal. Bubble contrast study is negative for PFO/ASD. No doppler evidence for ASD. Mitral Valve There is no mitral valve stenosis. No mitral valve insufficiency. Tricuspid Valve There is no tricuspid stenosis. Trivial tricuspid valve insufficiency. Pulmonary artery systolic pressure is 20 mmHg. Aortic Valve Trisinus/trileaflet aortic valve. Aortic sclerosis, no stenosis. There is no aortic stenosis. No aortic valve insufficiency. Pulmonic Valve There is no pulmonic valvular stenosis. Trivial pulmonic valve insufficiency. Great Vessels Normal aortic root. Pericardium/Pleural No pericardial effusion. Medication Performed a rapid injection of agitated mix of 9 cc saline and 1cc air to assess for atrial septal defect. MMode/2D Measurements & Calculations LVIDd: 4.2 cm IVSd: 1.2 cm LVOT diam: 2.1 cm LVIDs: 2.8 cm LVPWd: 1.1 cm RVDd: 3.3 cm FS: 34.0 % LVOT area: 3.4 cm2 Ao root diam: 3.4 cm asc Aorta Diam: 3.9 cm LAV(MOD-bp): 41.8 ml LA dimension: 3.9 cm LAV(MOD-bp) Indexed: 20.9 ml/m2 LAV(MOD-sp2): 42.1 ml LAV(MOD-sp4): 41.5 ml SV(MOD-sp4): 51.0 ml SV(sp4-el): 56.5 ml LVAd ap4: 27.6 cm2 LVLd ap4: 7.7 cm SI(MOD-sp4): 25.6 ml/m2 EDV(MOD-sp4): 80.1 ml EDV(sp4-el): 83.8 ml LVAs ap4: 14.9 cm2 LVLs ap4: 6.9 cm ESV(MOD-sp4): 29.1 ml ESV(sp4-el): 27.3 ml EF(MOD-sp4): 63.7 % EF(sp4-el): 67.4 % LA A4 area: 16.2 cm2 RA A4 area: 12.8 cm2 TAPSE: 2.0 cm Time Measurements MV dec time: 0.18 sec Doppler Measurements & Calculations MV E max last: 80.6 cm/sec MV V2 max: 87.9 cm/sec Ao V2 max: 80.4 cm/sec MV max P.1 mmHg Ao max P.6 mmHg MV V2 mean: 48.8 cm/sec Ao V2 mean: 55.4 cm/sec MV mean P.2 mmHg Ao mean P.4 mmHg MV V2 VTI: 20.9 cm Ao V2 VTI: 15.2 cm MVA(VTI): 2.2 cm2 AV (velocity ratio): 0.89 MARCELA(I,D): 3.0 cm2 MARCELA(V,D): 3.0 cm2 LV V1 max: 71.9 cm/sec SV(LVOT): 45.7 ml PA V2 max: 76.1 cm/sec LV V1 max P.1 mmHg LV V1 mean P.2 mmHg LV V1 mean: 50.2 cm/sec LV V1 VTI: 13.5 cm PI end-d last: 104.5 cm/sec TR max last: 212.0 cm/sec TR max P.0 mmHg ECHO/Echo Complete Interpretation Summary The estimated ejection fraction is 65 %. No evidence for diastolic dysfunction. Ordering Physician: Viviana Giraldo Performed By: Blayne Wolf and Student
--- NOTE | 2024-03-24 08:13 | PCM.HP.STD ---
HPI - General General Date of Admission: 03/24/24 Date of Service: 03/24/24 Chief Complaint: Chest tightness/dizziness/nausea/syncope HPI Narrative ERIKA CLARK, is a 68 M who presented to the emergency department [facility] early in the morning on 03/24/2024 with a chief complaint of chest tightness, dizziness, nausea, and one syncopal episode after waking. The squad was called and EKG in the field showed A-fib with RVR. Patient does not have a history of this. Patient reports he does have a history of hemochromatosis and had a pint of blood removed yesterday for high iron levels. He does follow with oncology. Patient reported that he went to bed at about 10 PM which is typical and woke up this morning with dizziness. Patient reported that he felt like he was going to pass out and that he could not ambulate due to this. His reported that he got up at 5 AM and was able to walk to the kitchen with no problem and had no symptoms and while he was in the kitchen he called out because of the onset of symptoms. At the time my evaluation, the patient states his symptoms are almost gone he had just a little bit of a chest twinge in the central chest close to the epigastrium but was feeling much better overall. Vital signs on arrival showed a temperature of 97.9, heart rate 129, blood pressure 165/114, respiratory rate 15 oxygen saturation was 99% on room air. CBC was unremarkable. Coags are normal. Chemistry panel is unremarkable. Glucose was 119. Magnesium was normal. TSH is normal. EKG was A-fib with RVR, normal QTc and no ST-T wave changes concerning for acute ischemia. Chest x-ray showed some maybe mild pulmonary vascular congestion centrally on report however upon my review seems fairly unremarkable when compared to previous x-ray from 2021. CT of the brain was negative. CTA of the head and neck was completely benign with no stenosis or LVO. Case was discussed with neurology who recommended admission for atrial fibrillation and cardiology who recommended initiation of cortisone 60 mg 4 times daily and Eliquis for anticoagulation. Heart rate is currently better after 1 dose of Cardizem. 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 H/O deep venous thrombosis BPH (benign prostatic hyperplasia) Osteoporosis GERD (gastroesophageal reflux disease) Arthritis Home Medications ?Medication ?Instructions ?Recorded ?Last Taken ?Type folic acid 1 mg tablet 1 mg PO DAILY@0800 10/10/16 Unknown History meloxicam 15 mg tablet (Mobic) 15 mg PO DAILY ANTIINFLAMITORY 10/10/16 Unknown History metoprolol succinate 50 mg 50 mg PO DAILY 03/21/22 Unknown History tablet,extended release 24 hr Allergy/AdvReac Type Severity Reaction Status Date / Time Tetanus Vaccines and Toxoid AdvReac Intermediate Rash Verified 03/24/24 06:16 Family History Father Skin cancer Arthritis COPD (chronic obstructive pulmonary disease) Hypertension Hereditary hemochromatosis Mother Anemia Arthritis Heart disease Lung cancer COPD (chronic obstructive pulmonary disease) Hypertension Grandmother Aneurysm Bone cancer Surgical History (Updated 03/24/24 @ 09:[address] Viviana Giraldo DO) History of hip surgery H/O vasectomy History of tonsillectomy Hx of cholecystectomy Social History (Updated 03/24/24 @ 09:[address] 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 Smoking Status: Never smoker alcohol intake: never substance use type: does not use ROS Constitutional Constitutional: Denies anorexia, change in weight, chills, fatigue, fever(s), malaise, night sweats, weakness or other Eyes Eyes: Denies blurry vision, change in eye color, change in vision, discharge from eye(s), double vision, erythema, eye pain, loss of vision or other ENT HEENT: Denies abnormal hearing, dysphagia, ear pain, epistaxis, headache(s), hearing loss, nasal congestion, nasal discharge, post nasal drip, sinus pressure, sore throat or other Cardiovascular Cardiovascular: Reports chest pain, lightheadedness, rapid heart rate and other Details: Presyncope ; Denies claudication, dyspnea on exertion, edema, orthopnea, palpitations, paroxysmal nocturnal dyspnea or syncope Respiratory/Chest Respiratory/Chest: Denies cough, dyspnea, excessive phlegm production, hemoptysis, productive cough, shortness of breath at rest, shortness of breath with exertion, wheezing or other Gastrointestinal Gastrointestinal: Denies abdominal pain, coffee ground emesis, constipation, diarrhea, dyspepsia, hematemesis, hematochezia, loose stools, melena, nausea, vomiting or other Genitourinary Genitourinary: Denies burning urination, difficulty urinating, dysuria, hematuria, nocturia, urinary frequency, urinary hesitancy, urinary incontinence, urinary urgency or other Musculoskeletal Musculoskeletal: Denies arthralgias, back pain, joint pain, joint stiffness, joint swelling, myalgias, neck pain or other Neurologic Neurologic: Reports disequilibrium and other Details: Truncal ataxia Psychiatric Psychiatric: Reports other Details: Claustrophobia ; Denies anxiety, depression, homicidal ideation or suicidal ideation Endocrine Endocrinology: Denies change in body appearance, cold intolerance, excessive sweating, heat intolerance, polydipsia, polyuria or other Hematologic/Lymphatic Hematologic/Lymphatic: Denies anemia, easy bleeding, easy bruising, lymphadenopathy or other Allergic/Immunologic Allergic/Immunologic: Denies rhinitis, hives, eczemia, asthma or other Vital Signs Vital Signs Vital Signs: 03/24/24 06:12 03/24/24 06:22 03/24/24 06:22 Temperature 97.9 F Temperature Source Oral Pulse Rate 129 H 118 H Respiratory Rate 15 25 H Respiratory Effort Respiratory Pattern Blood Pressure 165/114 H 165/106 H Blood Pressure Mean 131 125 Pulse Ox 99 97 97 Oxygen Delivery Method Room Air Room Air Room Air 03/24/24 06:28 03/24/24 06:40 03/24/24 06:40 Temperature Temperature Source Pulse Rate 120 H Respiratory Rate 16 Respiratory Effort Short of Breath Normal Short of Breath Respiratory Pattern Normal Normal Blood Pressure 142/72 H Blood Pressure Mean 95 Pulse Ox 97 Oxygen Delivery Method Room Air 03/24/24 06:52 03/24/24 07:22 03/24/24 07:30 Temperature Temperature Source Pulse Rate 105 H 79 64 Respiratory Rate 16 13 13 Respiratory Effort Respiratory Pattern Blood Pressure 155/85 H 129/90 H 130/84 H Blood Pressure Mean 108 103 99 Pulse Ox 98 97 96 Oxygen Delivery Method Room Air Room Air Room Air 03/24/24 08:00 Temperature Temperature Source Pulse Rate 85 Respiratory Rate 14 Respiratory Effort Respiratory Pattern Blood Pressure 149/92 H Blood Pressure Mean 111 Pulse Ox 97 Oxygen Delivery Method Room Air Weight Weight: 90.6 kg Body Mass Index (BMI) 32.2 Physical Exam Const alert, oriented x3, no apparent distress, healthy appearing and well nourished; Negative for average body habitus Constitutional Narrative: Obese, upper middle-aged, white male, sitting up in bed, appears comfortable, nontoxic, family at bedside General Appearance: cooperative HEENT normocephalic, head/scalp atraumatic, hearing grossly normal bilaterally and moist oral mucous membranes HEENT Narrative: Mallampati 3, no thrush Eyes PERRL and conjunctivae normal Eyes Narrative: No scleral icterus Neck no lymphadenopathy and supple Neck Narrative: Trachea midline Resp normal respiratory effort, no retractions, no use of accessory muscles and clear to auscultation bilaterally Auscultation: Negative for rales, rhonchi or wheezes Cardio regular rate, S1 normal heart sound, S2 normal heart sound, no murmurs, no rub, no gallops and no clicks; Negative for regular rhythm Cardio Narrative: Irregularly irregular rhythm GI normal to inspection, nondistended, normoactive bowel sounds, soft to palpation and non-tender Extremity no clubbing, cyanosis or edema Extremity Narrative: 2+ pedal pulses Neuro oriented x3, CN's II-XII intact bilaterally, moves all extremities and no focal motor deficits Neuro Narrative: NIH is 0 Speech: speech normal Psych affect normal Psych Narrative: Very pleasant, interacts appropriately Results Lab / Micro Data 03/24/24 06:20 03/24/24 06:20 Labs: Laboratory Results - last 24 hr 03/24/24 06:20: WBC 8.1, RBC 4.62, Hgb 14.9, Hct 40.7, MCV 88.1, MCH 32.3 H, MCHC 36.6 H, RDW Std Deviation 39.3, RDW Coeff of Ifrah 12.3, Plt Count 219, MPV 10.4, Immature Gran % (Auto) 0.200, Neut % (Auto) 50.9, Lymph % (Auto) 35.9, [place] % (Auto) 8.6, Eos % (Auto) 4.0, Baso % (Auto) 0.4, Absolute Neuts (auto) 4.1, Absolute Lymphs (auto) 2.89, Nucleated RBC % 0, PT 13.7, INR 1.1, APTT 30.2, Sodium 137, Potassium 4.4, Chloride 107, Carbon Dioxide 24.0, Anion Gap 6, BUN 24 H, Creatinine 0.78, Estim Creat Clear Calc 94.44, Est GFR (MDRD) Af Amer 129, Est GFR (MDRD) Non-Af 106, BUN/Creatinine Ratio 31.0 H, Glucose 119 H, Calcium 9.5, Magnesium 1.8, TSH 3.390 03/24/24 06:21: POC Glucose 125 H Imaging Radiology Impression Brain CT 03/24/24 06:22 IMPRESSION: Negative Brain CT without contrast. N.B. : The above Results were Read Back by Valerie Craig MD to Gabino Berg DO, and understanding confirmed on 03/24/2024 06:40:29 (ET). Electronically Signed: Valerie Craig MD at 6:42 EST , ADDENDUM: 03/24/24 0649 IMPRESSION: Negative Brain CT without contrast. N.B. : The above Results were Read Back by Valerie Craig MD to Gabino Berg DO, and understanding confirmed on 03/24/2024 06:40:29 (ET). Electronically Signed: Valerie Craig MD at 6:42 EST , Head/Neck CTA 03/24/24 06:23 IMPRESSION: No CT evidence for hemodynamically significant stenosis, thrombosis or aneurysm. Electronically Signed: Valerie Craig MD at 7:24 EST , ADDENDUM: 03/24/24 0732 IMPRESSION: No CT evidence for hemodynamically significant stenosis, thrombosis or aneurysm. N.B. : The above Results were Read Back by Valerie Craig MD to Gabino Berg DO, and understanding confirmed on 03/24/2024 07:25:45 (ET). Electronically Signed: Valerie Craig MD at 7:24 EST , Assessment & Plan Assessment/Plan (1) Truncal ataxia: (2) Atrial fibrillation with rapid ventricular response: PLAN: Plan Acute onset truncal ataxia -Concern for stroke and stroke team called the emergency department -Current NIH is 0 however will continue cycle NIH per stroke protocol -Patient was found to have new onset A-fib -CT of the brain unremarkable -CTA of the head and neck is unremarkable -Check MRI of the brain -Check echocardiogram -Start aspirin 81 mg daily -Treatment for atrial fibrillation starting Eliquis -Check lipid panel -Check hemoglobin A1c -Start high intensity of statin -Typically would allow for some permissive hypertension however needs some rate control and cardiology would like to start Cardizem since he is asymptomatic I think he will probably do okay with more intense blood pressure control -Consult neurology New onset atrial fibrillation with RVR -ED touch base with cardiology and recommended Cardizem 60 mg 4 times daily and initiation of Eliquis -Will start Cardizem 60 mg 4 times daily and likely transition to more extended release formula once dose has been titrated appropriately -TSH was within normal limits -Continue Eliquis initially in the emergency department at 5 mg twice daily -Echocardiogram as above History of hemochromatosis -Follows with hematology -Phlebotomy done yesterday for 1 pint -Continue home folic acid Essential hypertension -Hold home metoprolol -Cardizem as ordered Osteoarthritis -Recent right hip labral repair -Continue home meloxicam DVT prophylaxis -Apixaban as above CODE STATUS -Full code as discussed prior to admission in the emergency department with family at bedside Charges/Coding Visit Charges Inpatient E&M: 51219 Init Hosp L2
[2024-03-24 08:40] LABS: Cholesterol 234 mg/dL (200); High Density Lipoprotein 49 mg/dL; Triglycerides 176 mg/dL; Very Low Density Lipoprotein 35 mg/dL (5-40)
[2024-03-24] MEDS: APIXABAN 5 MG TABLET PO ×2 (08:52→12:31)
[2024-03-24] MEDS: dilTIAZem 60 MG Tablet PO ×3 (08:56→17:45)
--- NOTE | 2024-03-24 09:07 | CASEMGMT ---
Care Management Face to Face with patient for initial transition planning/care coordination assessment in the ED. This real estate underwriter introduced self and role at [facility]. Patient lying in bed, alert and oriented. Patient's , Lizzy, and daughter, Suzette, bedside. Patient gave permission to speak in front of family and patient willing to participate in assessment and able to answer all questions appropriately. Care providers, pharmacy, and demographics verified. Admitting Diagnosis: atrial fibrillation Other diagnosis history: hemochromatosis, deep venous thrombosis, osteoporosis PCP: Alessandro Garland Specialists: Dr. Steel Preferred Pharmacy: [facility] Insurance: O Medicare Prescription Benefit: yes Living Will/HPOA: HCPOA is Jenae (goes by Lizzy). Lizzy said she would bring in those papers during patient's admission. Patient denies having a living will at this time and denies wanting more information during admission. LNOK: , Lizzy. 2 daughters, Suzette and Grace (both live locally). Living Arrangements: lives with in a 1 story home with no steps to enter. Patient states they recently moved there with intentions of having it as a place to retire. Transportation: patient reports driving himself usually DME: handicap shower and bathroom, grab bars, ice pack machine, pulse ox, blood pressure machine, walker, wheelchair, crutches HHC: none (did outpatient PT through [facility] following hip surgery) SNF/Rehab: none Community Resources: none Patient goals: Patient wishes to discharge home, denies need for home health at this time. Patient states he has no further needs or concerns at this time. Disposition Plan: admission to acute; RN CM/SW to follow for discharge planning needs that may arise. Mishel Acosta, AIRBRUSH PAINTER, HEAD M[employer]'S TENNIS [employer]ACH
[2024-03-24] MEDS: LORazepam 1 MG Tablet PO (09:27)
[2024-03-24 09:43] LABS: Hemoglobin A1c 5.5 % (3.8-5.6)
[2024-03-24 11:24] LABS: Troponin-I HS 4 pg/mL (3.0-78.0)
[2024-03-24 11:40] LABS: Troponin-I HS 6 pg/mL (3.0-78.0)
--- NOTE | 2024-03-24 12:11 | NEURO.CONS ---
Assessment and Plan: Neuro Assessment/Plan ERIKA CLARK is a 68 M with a past medical history of hemochromatosis, being evaluated by Teleneurology for syncope and persistent weakness and difficulty walking in setting of new afib RVR, recent phlebotomy, and fasting. History consistent with syncope from hemodynamic cause and not from neurologic cause. Persistent general weakness is expected after. Imaging normal, exam is unreamarkble. At this time, likely just syncope in setting of multiple comorbidities. No further testing for neurology, will sign off. I personally attended this patient and spent a total time of 45 minutes evaluating this patient including clinical assessment, review of chart, medical history imaging, and determining appropriate treatment and workup. HPI Consult Data Date of Consult: 03/24/24 HPI Narrative HPI Narrative: ERIKA CLARK, is a 68 M who presented to the emergency department [facility] early in the morning on 03/24/2024 with a chief complaint of chest tightness, dizziness, nausea, and one syncopal episode after waking. The squad was called and EKG in the field showed A-fib with RVR. Patient does not have a history of this. Patient reports he does have a history of hemochromatosis and had a pint of blood removed yesterday for high iron levels. He does follow with oncology. Patient reported that he went to bed at about 10 PM which is typical and woke up this morning with dizziness. Patient reported that he felt like he was going to pass out and that he could not ambulate due to this. His reported that he got up at 5 AM and was able to walk to the kitchen with no problem and had no symptoms and while he was in the kitchen he called out because of the onset of symptoms. At the time my evaluation, the patient states his symptoms are almost gone he had just a little bit of a chest twinge in the central chest close to the epigastrium but was feeling much better overall. Neurologic History Currently feels better, back to his normal self but still has a headache. Feels weak all over - no focality to it. 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 Nothing like this quite happened before - passed out with a virus a couple years ago but never had weaknes. Not on blood thinners at home. TEIXEIRA is located all over in the back of head more. TEIXEIRA feels like a throbbing feeling, no photophobia. Endorses some nausea and still has some chest pain but better than before. After the phlebotomy, he did have a pint of IVF drawn out. This was his first phelbotomy in the last 4 months but they usually take a pint of blood out. He usually feels really weak after the blood draws and did feel weak at yarsani last night. When he got up at 5am this morning, he was weak. He was also fasting yesterday and only had 500 calories yesterday. Does not normally fast with blood draws, but normally will fast every Thu - first time it coincided. After waking up from passing out, felt weak all over and felt nauseated. He did not pass out again though. He was out for 2-3 min. Started feeling the weakness in the R hand since he came up from the ED. 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 H/O deep venous thrombosis BPH (benign prostatic hyperplasia) Osteoporosis GERD (gastroesophageal reflux disease) Arthritis Home Medications ?Medication ?Instructions ?Recorded ?Last Taken ?Type folic acid 1 mg tablet 1 mg PO DAILY@0800 supplement 10/10/16 Unknown History meloxicam 15 mg tablet (Mobic) 15 mg PO DAILY ANTIINFLAMITORY 10/10/16 Unknown History apixaban 5 mg tablet (Eliquis) 5 mg PO BID #60 tabs 03/24/24 Unknown Rx diltiazem HCl 120 mg 120 mg PO DAILY #30 caps 03/24/24 Unknown Rx capsule,extended release 24 hr (Cardizem CD) rosuvastatin 10 mg tablet (Crestor) 10 mg PO QODAY #30 tabs 03/24/24 Unknown Rx tamsulosin 0.4 mg capsule (Flomax) 0.4 mg PO QHS #30 caps 03/24/24 Unknown Rx Allergy/AdvReac Type Severity Reaction Status Date / Time Tetanus Vaccines and Toxoid AdvReac Intermediate Rash Verified 03/24/24 06:16 Family History Father Skin cancer Arthritis COPD (chronic obstructive pulmonary disease) Hypertension Hereditary hemochromatosis Mother Anemia Arthritis Heart disease Lung cancer COPD (chronic obstructive pulmonary disease) Hypertension Grandmother Aneurysm Bone cancer Surgical History (Updated 03/24/24 @ 09:[address] Viviana Giraldo DO) History of hip surgery H/O vasectomy History of tonsillectomy Hx of cholecystectomy Social History (Updated 03/24/24 @ 09:[address] 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 Smoking Status: Never smoker alcohol intake: never substance use type: does not use Vital Signs Vital Signs Vital Signs: 03/24/24 06:12 03/24/24 06:22 03/24/24 06:22 Temperature 97.9 F Temperature Source Oral Pulse Rate 129 H 118 H Respiratory Rate 15 25 H Respiratory Effort Respiratory Depth Respiratory Pattern Blood Pressure 165/114 H 165/106 H Blood Pressure Mean 131 125 Pulse Ox 99 97 97 Oxygen Delivery Method Room Air Room Air Room Air 03/24/24 06:28 03/24/24 06:40 03/24/24 06:40 Temperature Temperature Source Pulse Rate 120 H Respiratory Rate 16 Respiratory Effort Short of Breath Normal Short of Breath Respiratory Depth Respiratory Pattern Normal Normal Blood Pressure 142/72 H Blood Pressure Mean 95 Pulse Ox 97 Oxygen Delivery Method Room Air 03/24/24 06:52 03/24/24 07:22 03/24/24 07:30 Temperature Temperature Source Pulse Rate 105 H 79 64 Respiratory Rate 16 13 13 Respiratory Effort Respiratory Depth Respiratory Pattern Blood Pressure 155/85 H 129/90 H 130/84 H Blood Pressure Mean 108 103 99 Pulse Ox 98 97 96 Oxygen Delivery Method Room Air Room Air Room Air 03/24/24 08:00 03/24/24 08:23 03/24/24 09:38 Temperature 97 F L Temperature Source Pulse Rate 85 70 Respiratory Rate 14 13 Respiratory Effort Normal Respiratory Depth Normal Respiratory Pattern Normal Blood Pressure 149/92 H 130/91 H Blood Pressure Mean 111 104 Pulse Ox 97 95 Oxygen Delivery Method Room Air Room Air 03/24/24 10:58 Temperature 97.6 F L Temperature Source Oral Pulse Rate 76 Respiratory Rate 17 Respiratory Effort Respiratory Depth Respiratory Pattern Blood Pressure 121/68 H Blood Pressure Mean 85 Pulse Ox Oxygen Delivery Method Weight Weight: 84.3 kg Body Mass Index (BMI) 29.9 EEG Results Procedure Details EEG Procedure Details: ERIKA CLARK is a 68 year old M with a past medical history of , who presents for evaluation of Electroencephalogram on DATE at TIME NIHSS NIHSS Nursing Documentation NIHSS Nursing Documentation: NIHSS: Ischemic Stroke/TIA Start: 03/24/24 09:14 Text: For PCU Patients: NIH and Neuro Check every 4 Status: Active hours, PRN and with change in RN caregiver. Freq: [id number] Protocol: Activity Type Activity Date Activity User E-sign Co-sign Detail Recorded Client Recorded Date Recorded By Document 03/24/24 10:58 MML desktop 03/24/24 11:00 MML 03/24/24 10:58 NIH Stroke Scale [NIHSS] A score of 0 is normal or asymptomatic . Total possible score is 42. Inpatient: RN or Physician to activate a stroke alert for onset of new stroke symptoms or with NIHSS increase >/= 3 points. Following change in neurological status, NIHSS will be performed per physician order or more frequently PRN. -1a. Level of Consciousness Alert; keenly responsive -1b. LOC Questions Answers BOTH questions correctly. -1c. LOC Commands Performs both tasks correctly . -2. Best Gaze Normal -3. Visual No visual loss -4. Facial Palsy Normal symmetrical movements -5a. Left Arm No drift; arm holds 90 (or 45 ) degrees for full 10 seconds -5b. Right Arm No drift; arm holds 90 (or 45 ) degrees for full 10 seconds -6a. Left Leg No drift; leg holds 30-degree position for full 5 seconds -6b. Right Leg No drift; leg holds 30-degree position for full 5 seconds -8. Sensory Normal; no sensory loss -9. Best Language No aphasia; normal -10. Dysarthria Normal -11. Extinction and Inattention No abnormality -Total 0 Query Text:A score of 0 is normal or asymptomatic. Total possible score is 42 . ED: Notify Physician for NIHSS increase by > / = 3 points. Inpatient: RN or Physician to activate a stroke alert for NIHSS increase of > / = 3 points. Coma Scale [Assess] -Eye Opening Spontaneous -Motor Obeys Commands -Verbal Oriented [Total] -Coma Scale Total 15 Physical Exam Narrative -? General: Laying comfortably in bed; in no acute distress. -? HENT: Normal oropharynx and mucosa. Normal external appearance of ears and nose. Exophthalmos. -? Neck: Supple, no pain or tenderness -? CV:? No peripheral edema. -? Pulmonary:? Normal respiratory effort. -? Ext: No cyanosis, edema, or deformity -? Skin: No rash. Normal palpation of skin.? -? Musculoskeletal: full range of motion; no joint tenderness. Normal digits and nails by inspection. No clubbing. -? NEURO: -? Mental Status: The patient was alert and oriented to time, place, and person. Normal recent/remote memory, concentration, and general fund of knowledge. -? Language: speech is clear.? Naming, repetition, fluency, and comprehension intact. -? Cranial Nerves: EOMI, visual vaughan full, no facial asymmetry, facial sensation intact, hearing intact, tongue midline -? Motor: normal bulk, tone, and strength throughout. No pronator drift or satelliting. Upper and lower extremities equal bilaterally. -? Detailed strength exam as performed by the nurse/JUANITA and witnessed by the physician: R L SA 5 5 EE 5 5 EF WE WF Case Filler 5 5 HF 5 5 KE KF 5 5 DF 5 5 PF -? Tone: is normal and bulk is normal -? Sensation- Intact to light touch bilaterally -? Coordination: No dysmetria on [id number], finger follow finger or [id number]. -? Gait- deferred. Lab / Micro Data 03/24/24 06:20 03/24/24 06:20 Labs: Laboratory Results - last 24 hr 03/24/24 06:20: WBC 8.1, RBC 4.62, Hgb 14.9, Hct 40.7, MCV 88.1, MCH 32.3 H, MCHC 36.6 H, RDW Std Deviation 39.3, RDW Coeff of Ifrah 12.3, Plt Count 219, MPV 10.4, Immature Gran % (Auto) 0.200, Neut % (Auto) 50.9, Lymph % (Auto) 35.9, [place] % (Auto) 8.6, Eos % (Auto) 4.0, Baso % (Auto) 0.4, Absolute Neuts (auto) 4.1, Absolute Lymphs (auto) 2.89, Nucleated RBC % 0, PT 13.7, INR 1.1, APTT 30.2, Sodium 137, Potassium 4.4, Chloride 107, Carbon Dioxide 24.0, Anion Gap 6, BUN 24 H, Creatinine 0.78, Estim Creat Clear Calc 94.44, Est GFR (MDRD) Af Amer 129, Est GFR (MDRD) Non-Af 106, BUN/Creatinine Ratio 31.0 H, Glucose 119 H, Hemoglobin A1c 5.5, Calcium 9.5, Magnesium 1.8, Triglycerides 176, Cholesterol 234 H, LDL Cholesterol 150 H, VLDL Cholesterol 35, HDL Cholesterol 49, TSH 3.390 03/24/24 06:21: POC Glucose 125 H 03/24/24 09:41: Troponin I High Sens 4 03/24/24 10:52: Troponin I High Sens 6 Imaging Radiology Impression Brain CT 03/24/24 06:22 IMPRESSION: Negative Brain CT without contrast. N.B. : The above Results were Read Back by Valerie Craig MD to Gabino Berg DO, and understanding confirmed on 03/24/2024 06:40:29 (ET). Electronically Signed: Valerie Craig MD at 6:42 EST Reading Location ID and State: [address] [place] [address] , Service support , ADDENDUM: 03/24/24 0649 IMPRESSION: Negative Brain CT without contrast. N.B. : The above Results were Read Back by Valerie Craig MD to Gabino Berg DO, and understanding confirmed on 03/24/2024 06:40:29 (ET). Electronically Signed: Valerie Craig MD at 6:42 EST Reading Location ID and State: [facility] / MD , Service support , Head/Neck CTA 03/24/24 06:23 IMPRESSION: No CT evidence for hemodynamically significant stenosis, thrombosis or aneurysm. Electronically Signed: Valerie Craig MD at 7:24 EST Reading Location ID and State: [address] [place] [address] , Service support , ADDENDUM: 03/24/24 0732 IMPRESSION: No CT evidence for hemodynamically significant stenosis, thrombosis or aneurysm. N.B. : The above Results were Read Back by Valerie Craig MD to Gabino Berg DO, and understanding confirmed on 03/24/2024 07:25:45 (ET). Electronically Signed: Valerie Craig MD at 7:24 EST Reading Location ID and State: [facility] / MD , Service support , Chest X-Ray 03/24/24 06:30 IMPRESSION: Mild pulmonary vascular congestion. Electronically Signed: Valerie Craig MD at 8:14 EST , Active Medications Active Medications Active Medications: Current Medications Generic Name Dose Route Start Last Admin Trade Name Freq PRN Reason Stop Dose Admin Acetaminophen 650 mg 03/24/24 09:14 Acetaminophen 325 Mg Tablet PO Q4H PRN PRN Pain 1-10 Or Fever>99.6 Apixaban 5 mg 03/24/24 10:00 Apixaban 5 Mg Tablet PO BID UBALDO Aspirin 81 mg 03/25/24 08:00 Aspirin 81 Mg Tab.Chew PO BREAKFAST UBALDO Atorvastatin Calcium 80 mg 03/24/24 22:00 Atorvastatin Calcium 80 Mg Tablet PO QHS UBALDO Diltiazem HCl 60 mg 03/24/24 12:00 Diltiazem 60 Mg Tablet PO Q6 UBALDO Protocol Hydralazine HCl 5 mg 03/24/24 09:14 Hydralazine 20 Mg/Ml Vial IV 03/25/24 09:14 Q30M PRN maintain BP parameters with HR <60 Sodium Chloride 100 mls @ 15 mls/hr 03/24/24 09:20 IV .Q6H40M PRN Saline Flush Sodium Chloride 100 mls @ 15 mls/hr 03/24/24 09:20 IV .Q6H40M PRN Additional IVPB Infusion Labetalol HCl 10 - 20 mg 03/24/24 09:14 Labetalol (Prefilled) 20 Mg/4 Ml Vial IV 03/25/24 09:14 Q10M PRN PRN maintain BP parameters with HR >/=60 Melatonin 3 mg 03/24/24 22:00 Melatonin 3 Mg Tablet PO QHS PRN PRN INSOMNIA Meloxicam 15 mg 03/24/24 10:00 Meloxicam 15 Mg Tablet PO DAILY UBALDO Ondansetron HCl 4 mg 03/24/24 09:14 Ondansetron 4 Mg/2 Ml Vial IV Q8H PRN PRN NAUSEA/VOMITING Senna/Docusate Sodium 2 tablet 03/24/24 09:14 Senna/Docusate Sodium 1 Tablet PO BID PRN PRN Constipation Sodium Chloride 10 - 40 ml 03/24/24 09:20 0.9% Saline Lock 10 Ml Syringe IV UD PRN SALINE FLUSH
[2024-03-24] MEDS: Folic Acid 1 MG Tablet PO (12:30)
[2024-03-24] MEDS: Meloxicam 15 MG Tablet PO (12:30)
--- NOTE | 2024-03-24 15:11 | CHAPLAIN ---
Type of Pastoral Visit _x_ Initial Visit ___ Follow-up Visit ___ On-call Visit ___ General Patient Visit ___ Spiritual Assessment ___ Family Conference ___ Bereavement ___ Rapid Response ___ Code Blue ___ Other (describe below) Pastoral Care Referral From _x__ Patient ___ Family ___ Nurse ___ Physician ___ Control Clerk ___ Bottom Precipitator Operator ___ Other (describe below) Sacrament/Intervention _x__ Active listening ___ Anointing ___ Adventism ___ Bereavement ___ Communion _x__ Sommer exploration ___ _x__ Life review ___ Prayer ___ Reconciliation ___ Sacrament of Sick ___ Supportive presence ___ Wedding ___ Other (describe below) Pastoral Comments patient is very welcoming and talkative about his unexpected health need; 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
[2024-03-24 15:53] LABS: Troponin-I HS 6 pg/mL (3.0-78.0)
[2024-03-24] MEDS: Acetaminophen 325 MG Tablet 650 MG PO (16:13)
--- NOTE | 2024-03-24 16:16 | PCM.DC.SUM ---
Providers Date of Admission: 03/24/24 Date of Discharge: 03/24/24 Primary Care Physician: Dr. Alessandro Garland, DO Consultations 03/24/24 09:14 Consult: Tele-Neurology Routine Consulting Provider: [facility] Reason for Consult: Acute Ischemic Stroke/TIA EMERGENT Consult: No MD Notified: Yes Date Notified: 03/24/24 Time Notified: 09:21 Method of Notification: Answering Service Nursing Unit Staff Notify [facility] of Tele-Neurology Consult: Yes Reason For Visit: TRUNCAL ATAXIA Diagnosis Discharge Diagnosis (1) Truncal ataxia: Status: Acute Code(s): R27.8 - Other lack of coordination (2) Atrial fibrillation with rapid ventricular response: Status: Acute Code(s): I48.91 - Unspecified atrial fibrillation Plan Acute onset truncal ataxia -Concern for stroke and stroke team called the emergency department -Current NIH is 0 however will continue cycle NIH per stroke protocol -Patient was found to have new onset A-fib -CT of the brain unremarkable -CTA of the head and neck is unremarkable -Check MRI of the brain -Check echocardiogram -Start aspirin 81 mg daily -Treatment for atrial fibrillation starting Eliquis -Check lipid panel -Check hemoglobin A1c -Start high intensity of statin -Typically would allow for some permissive hypertension however needs some rate control and cardiology would like to start Cardizem since he is asymptomatic I think he will probably do okay with more intense blood pressure control -Consult neurology New onset atrial fibrillation with RVR -ED touch base with cardiology and recommended Cardizem 60 mg 4 times daily and initiation of Eliquis -Will start Cardizem 60 mg 4 times daily and likely transition to more extended release formula once dose has been titrated appropriately -TSH was within normal limits -Continue Eliquis initially in the emergency department at 5 mg twice daily -Echocardiogram as above History of hemochromatosis -Follows with hematology -Phlebotomy done yesterday for 1 pint -Continue home folic acid Essential hypertension -Hold home metoprolol -Cardizem as ordered Osteoarthritis -Recent right hip labral repair -Continue home meloxicam DVT prophylaxis -Apixaban as above CODE STATUS -Full code as discussed prior to admission in the emergency department with family at bedside Medications at Discharge Home Medications folic acid 1 mg tablet 1 mg PO DAILY@0800 10/10/16 meloxicam 15 mg tablet (Mobic) 15 mg PO DAILY ANTIINFLAMITORY 10/10/16 apixaban 5 mg tablet (Eliquis) 5 mg PO BID #60 tabs 03/24/24 diltiazem HCl 120 mg capsule,extended release 24 hr (Cardizem CD) 120 mg PO DAILY #30 caps 03/24/24 rosuvastatin 10 mg tablet (Crestor) 10 mg PO QODAY #30 tabs 03/24/24 tamsulosin 0.4 mg capsule (Flomax) 0.4 mg PO QHS #30 caps 03/24/24 Hospital Course Operations None Procedures 2-D Echocardiogram, EKG and - (CT brain/CTA head and neck/chest x-ray/MRI brain) Summary of Care Provided Minutes Spent on Discharge: 38 Hospital Course: Mr. CLARK, is a 68 M who presented to the emergency department [facility] early in the morning on 03/24/2024 with a chief complaint of chest tightness, dizziness, nausea, and one syncopal episode after waking. The squad was called and EKG in the field showed A-fib with RVR. Patient does not have a history of this. Patient reports he does have a history of hemochromatosis and had a pint of blood removed yesterday for high iron levels. He does follow with oncology. Patient reported that he went to bed at about 10 PM which is typical and woke up this morning with dizziness. Patient reported that he felt like he was going to pass out and that he could not ambulate due to this. His reported that he got up at 5 AM and was able to walk to the kitchen with no problem and had no symptoms and while he was in the kitchen he called out because of the onset of symptoms. At the time my evaluation, the patient states his symptoms are almost gone he had just a little bit of a chest twinge in the central chest close to the epigastrium but was feeling much better overall. Vital signs on arrival showed a temperature of 97.9, heart rate 129, blood pressure 165/114, respiratory rate 15 oxygen saturation was 99% on room air. CBC was unremarkable. Coags are normal. Chemistry panel is unremarkable. Glucose was 119. Magnesium was normal. TSH is normal. EKG was A-fib with RVR, normal QTc and no ST-T wave changes concerning for acute ischemia. Chest x-ray showed some maybe mild pulmonary vascular congestion centrally on report however upon my review seems fairly unremarkable when compared to previous x-ray from 2021. CT of the brain was negative. CTA of the head and neck was completely benign with no stenosis or LVO. The Case was discussed with neurology who recommended admission for atrial fibrillation and cardiology who recommended initiation of cortisone 60 mg 4 times daily and Eliquis for anticoagulation. Heart rate is currently better after 1 dose of Cardizem. He was admitted to the PCU with ongoing stroke workup. Stroke neurologist saw him on the floor after an MRI was performed which was found to be completely unremarkable. She felt that this was likely related to a combination of his new A-fib, dehydration from fasting yesterday, and phlebotomy yesterday. He actually reverted back into sinus rhythm while he was hospitalized and heart rates were in the 70s at the time of discharge. We transitioned him from metoprolol to diltiazem 120 extended release daily. He will also continue Eliquis 5 mg p.o. twice daily. With this chest pain, cardiac enzymes were cycled and found to be negative at 4, 6, and 6. Echocardiogram was performed and found a normal EF at 65% with normal diastolic function, no PFO or ASD and pulmonary pressures at 20 mmHg. Valves appear to be normal. Hemoglobin A1c was normal at 5.5. He does have markedly abnormal lipids with a total cholesterol of 234/HDL 49/LDL 150. He states that he is lost a considerable amount of weight and is very conscientious about his diet now. He is not eating any red meats. He has been on statins previously and thinks he was on lovastatin did not tolerate it well. I did discuss with him the risk of having ongoing elevated cholesterol panel and he did voiced understanding. He was willing to retry a statin so we started rosuvastatin 10 mg every other day. I did encourage him to keep close contact with his primary care physician and cardiology office in case this was difficult for him to tolerate based on his history but he was willing to try again. He also complained of some urinary retention and symptoms consistent with BPH with obstruction so we did start him on low-dose Flomax at 0.4 mg at at bedtime. Prescriptions for all 4 medications to include Eliquis, Cardizem, Flomax, and Crestor were sent to the pharmacy prior to discharge. Patient was able to be discharged home in stable condition on 03/24/2024. Discharge diagnoses: Truncal ataxia-resolved Presyncope-resolved New onset A-fib with RVR History of hemochromatosis Essential hypertension Osteoarthritis Obesity Physical Exam Narrative See H&P Weight / BMI Weight Weight: 84.3 kg Body Mass Index (BMI) 29.9 ABG / Lab / Microbiology Data 03/24/24 06:20 03/24/24 06:20 Laboratory: Laboratory Results - last 24 hr 03/24/24 06:20: WBC 8.1, RBC 4.62, Hgb 14.9, Hct 40.7, MCV 88.1, MCH 32.3 H, MCHC 36.6 H, RDW Std Deviation 39.3, RDW Coeff of Ifrah 12.3, Plt Count 219, MPV 10.4, Immature Gran % (Auto) 0.200, Neut % (Auto) 50.9, Lymph % (Auto) 35.9, Pickett % (Auto) 8.6, Eos % (Auto) 4.0, Baso % (Auto) 0.4, Absolute Neuts (auto) 4.1, Absolute Lymphs (auto) 2.89, Nucleated RBC % 0, PT 13.7, INR 1.1, APTT 30.2, Sodium 137, Potassium 4.4, Chloride 107, Carbon Dioxide 24.0, Anion Gap 6, BUN 24 H, Creatinine 0.78, Estim Creat Clear Calc 94.44, Est GFR (MDRD) Af Amer 129, Est GFR (MDRD) Non-Af 106, BUN/Creatinine Ratio 31.0 H, Glucose 119 H, Hemoglobin A1c 5.5, Calcium 9.5, Magnesium 1.8, Triglycerides 176, Cholesterol 234 H, LDL Cholesterol 150 H, VLDL Cholesterol 35, HDL Cholesterol 49, TSH 3.390 03/24/24 06:21: POC Glucose 125 H 03/24/24 09:41: Troponin I High Sens 4 03/24/24 10:52: Troponin I High Sens 6 03/24/24 15:02: Troponin I High Sens 6 Radiography Diagnostic Testing: Radiology Impression Brain CT 03/24/24 06:22 IMPRESSION: Negative Brain CT without contrast. N.B. : The above Results were Read Back by Valerie Craig MD to Gabino Berg DO, and understanding confirmed on 03/24/2024 06:40:29 (ET). Electronically Signed: Valerie Craig MD at 6:42 EST , ADDENDUM: 03/24/24 0649 IMPRESSION: Negative Brain CT without contrast. N.B. : The above Results were Read Back by Valerie Craig MD to Gabino Berg DO, and understanding confirmed on 03/24/2024 06:40:29 (ET). Electronically Signed: Valerie Craig MD at 6:42 EST , Head/Neck CTA 03/24/24 06:23 IMPRESSION: No CT evidence for hemodynamically significant stenosis, thrombosis or aneurysm. Electronically Signed: Valerie Craig MD at 7:24 EST , ADDENDUM: 03/24/24 0732 IMPRESSION: No CT evidence for hemodynamically significant stenosis, thrombosis or aneurysm. N.B. : The above Results were Read Back by Valerie Craig MD to Gabino Berg DO, and understanding confirmed on 03/24/2024 07:25:45 (ET). Electronically Signed: Valerie Craig MD at 7:24 EST , Chest X-Ray 03/24/24 06:30 IMPRESSION: Mild pulmonary vascular congestion. Electronically Signed: Valerie Craig MD at 8:14 EST , Brain MRI 03/24/24 08:11 IMPRESSION: Normal MRI brain without intravenous contrast. Electronically Signed: Tre Banks MD at 12:20 EST , Echocardiogram 03/24/24 08:11 Interpretation Summary The estimated ejection fraction is 65 %. No evidence for diastolic dysfunction. Ordering Physician: Viviana Giraldo Performed By: Blayne Wolf and Student D/C Instructions Discharge Diet: - (Continue current) Discharge Activity: Return to Normal Activity DC O2, CPAP, BIPAP Needs Additional Home O2 Discharge instructions: No DC home with Oxygen: No Meaningful Use Info Meaningful Use Meaningful Use Diagnoses (Choose all that apply): None applicable Ischemic Stroke Statin Dosing Therapy Reference: STATIN DOSE THERAPY REFERENCE: * Patients > 75 years receive moderate or high dose statin therapy. * Patients 75 years or YOUNGER should receive HIGH intensity statin dose unless contraindicated. You will be required to document reason for non-treatment if statin daily dose does not meet guidelines. HIGH DOSE STATIN THERAPY DAILY Atorvastatin > than or = to 40 mg Rosuvastatin > than or = to 20 mg Amlodipine + Atorvastatin > than or = to 2.5/40 mg Ezetimibe + Simvastatin 10/80 mg Simvastatin 80mg Discharge Plan Admission Admit Date/Time: 03/24/24 14:43 Primary Reason for Your Visit: Lightheadness/chest pain Attending Provider: Viviana Giraldo Primary Care Provider: Alessandro Garland Consulting Providers: Elvis Ordaz; Elizabeth Perez; Nury Kramer; Yola Yost; Vanesa Hernández; Rohan Seals; Rosa Rosales; Ryland Winchester; Dejon Quiles; Abhi Galaviz; Jenae Boles; Adriel Gonsales; Erlinda Hoover; Jerry Escudero; Lexus Bland; Lawrence Schofield; Pham Sharp; Catarino Calderon; Luz Maria Giraldo; Mariana Soto Discharge Orders/Prescriptions Prescriptions: New Eliquis 5 mg Tablet 5 mg PO BID Qty: 60 2RF diltiazem HCl [Cardizem CD] 120 mg capsule,extended release 24hr 120 mg PO DAILY Qty: 30 2RF tamsulosin [Flomax] 0.4 mg capsule 0.4 mg PO QHS Qty: 30 0RF rosuvastatin [Crestor] 10 mg tablet 10 mg PO QODAY Qty: 30 1RF Continued meloxicam [Mobic] 15 MG tablet 15 mg PO DAILY folic acid 1 MG tablet 1 mg PO DAILY@0800 Discontinued metoprolol succinate 50 mg tablet extended release 24 hr 50 mg PO DAILY Referrals / Follow Up: Alessandro Garland DO [Primary Care Provider] - Within 2 Weeks Daljit Devries NP, INTAKE COORDINATOR-C [Med Staff - Adv Practice Prof] - 04/04/24 8:30 am Disposition Disposition (needs filled in before D/C Order can be placed): Home, Self Care Charges/Coding Visit Charges OBSV E&M: 11301 Observ/hosp same date L2
== END 2024-03-24 16:26 | disposition home or self-care (01) ==
LOC: ED 08:09 → PCU 16:26
PROVIDERS: Admitting Provider Internal Medicine; Emergency Provider Emergency Medicine; PCP Family Medicine; Visit Provider Internal Medicine
DX: R27.8 Other lack of coordination (principal); I48.91 Unspecified atrial fibrillation; I10 Essential (primary) hypertension; M19.90 Unspecified osteoarthritis, unspecified site; R26.2 Difficulty in walking, not elsewhere classified; E86.0 Dehydration; N40.0 Benign prostatic hyperplasia without lower urinary tract symptoms; E83.119 Hemochromatosis, unspecified; K21.9 Gastro-esophageal reflux disease without esophagitis; Z86.718 Personal history of other venous thrombosis and embolism; Z79.899 Other long term (current) drug therapy; R07.89 Other chest pain; R42 Dizziness and giddiness; R55 Syncope and collapse; R53.1 Weakness; E55.9 Vitamin D deficiency, unspecified
CPT/HCPCS: 36415; 70450; 70496; 70498; 70551; 71045; 80048; 80061; 82962; 83036; 83735; 84443; 84484; 85025; 85610; 85730; 93005; 93306; 94668; 94762; 96374; 97162; 97166; 99221; 99285; Q9967; A4216; G0378

== ENCOUNTER 2024-03-26 06:59 | Emergency (ER) | payer MEDICARE, SELFPAY ==
[2024-03-26 07:00] VITALS: BP 120/74; PULSE 77; RESP 16; TEMP 36.9; O2SAT 100; BMI 32.7
--- NOTE | 2024-03-26 07:05 | EKG12_ITS ---
Test Reason : N/V Blood Pressure : */* mmHG Vent. Rate : 68 BPM Atrial Rate : 68 BPM P-R Int : 158 ms QRS Dur : 86 ms QT Int : 412 ms P-R-T Axes : 3 8 13 degrees QTcB Int : 438 ms Normal sinus rhythm Normal ECG Confirmed by ARA REYES, AVANI ([id number]), senior technical editor ALBERTO KERR ([id number]) on 03/30/2024 1:36:44 P M Referred By: Confirmed By: AVANI BULLOCK MD
[2024-03-26 07:44] LABS: Hematocrit 36.5 % (40-54); Hemoglobin 12.8 g/dL (13.0-16.5); Mean Corp Hgb Conc 35.1 g/dL (32-36); Mean Corpuscular Hgb 31.7 pg (27.0-32.0); Mean Corpuscular Volume 90.3 fL (80-94); Mean Platelet Vol. 10.4 fl (6.2-12.0); Platelet Count 207 K/mm3 (150-450); RBC Distribution Width CV 12.2 % (11.6-14.6); RBC Distribution Width SD 40.1 fl (35.1-43.9); Red Blood Count 4.04 M/mm3 (4.6-6.2); White Blood Count 6.9 K/mm3 (4.4-11.0)
--- NOTE | 2024-03-26 07:58 | EDS_ITS ---
HPI History of Present Illness Chief Complaint: Syncope Detail of Chief Complaint: Syncopal episode while on the commode Informant: patient and spouse/S.O. Onset/Context/Timing Onset: Today and Hours Context: Sudden Onset Timing: Intermittent Quality: Patient was straining to have a bowel movement and passed out Location: Restroom Current Severity: Gone Maximum Severity: Severe Worsened by: Presumed vasovagal Relieved by: Not applicable Associated Symptoms Associated Symptoms: Nausea, pallor and diaphoresis Narrative Narrative: Patient is 68-year-old male. He was seen on March 24. He was diagnosed with atrial fibrillation. He was placed on apixaban. He also was placed on a blood pressure medication. Based on active list patient is on apixaban, diltiazem 120 mg daily and metoprolol 50 mg daily. He is also on Crestor and Flomax. Note authored by Dr. Gabino Berg was reviewed. Impression was truncal ataxia, atrial fibrillation with RVR and TIA as well as hypertension. Patient was admitted to the hospital. Discharge summary authored by Dr. Viviana Giraldo was reviewed. Discharge diagnosis was truncal ataxia, acute, atrial fibrillation with RVR. He apparently has history of hemochromatosis. He was to follow-up with hematology for possible phlebotomy. He was on metoprolol for his hypertension. Cardizem was added due to the atrial fibrillation. He also has history of recent right hip labral repair and is to continue meloxicam. He is also on apixaban. This increases his likelihood for hemorrhage. This morning he was on the commode. He was straining because of constipation. He had a syncopal episode with collapse. He presently has no symptoms. He was pale diaphoretic. His vision did become black. He did not fall from the commode and there is no concern or evidence of head trauma and he denies neck pain. He has no other complaints. 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 H/O deep venous thrombosis BPH (benign prostatic hyperplasia) Osteoporosis GERD (gastroesophageal reflux disease) Arthritis Home Medications ?Medication ?Instructions ?Recorded ?Last Taken ?Type folic acid 1 mg tablet 1 mg PO DAILY@0800 supplement 10/10/16 Unknown History meloxicam 15 mg tablet (Mobic) 15 mg PO DAILY ANTIINFLAMITORY 10/10/16 Unknown History apixaban 5 mg tablet (Eliquis) 5 mg PO BID #60 tabs 03/24/24 Unknown Rx diltiazem HCl 120 mg 120 mg PO DAILY #30 caps 03/24/24 Unknown Rx capsule,extended release 24 hr (Cardizem CD) rosuvastatin 10 mg tablet (Crestor) 10 mg PO QODAY #30 tabs 03/24/24 Unknown Rx tamsulosin 0.4 mg capsule (Flomax) 0.4 mg PO QHS #30 caps 03/24/24 Unknown Rx Allergy/AdvReac Type Severity Reaction Status Date / Time Tetanus Vaccines and Toxoid AdvReac Intermediate Rash Verified 03/24/24 06:16 Family History Father Skin cancer Arthritis COPD (chronic obstructive pulmonary disease) Hypertension Hereditary hemochromatosis Mother Anemia Arthritis Heart disease Lung cancer COPD (chronic obstructive pulmonary disease) Hypertension Grandmother Aneurysm Bone cancer Surgical History History of hip surgery H/O vasectomy History of tonsillectomy Hx of cholecystectomy Social History household members: spouse housing: house current occupational status: employed 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 Smoking Status: Never smoker alcohol intake: never substance use type: does not use ROS ROS ED Constitutional Constitutional ED: Denies chills, fever(s), subjective, sweats or weight loss Eyes Eyes: Reports change in vision bilateral; Denies blurry vision or diplopia ENT ENT ED: Denies rhinorrhea or sore throat Cardiovascular Cardiovascular: Denies chest pain, palpitations or racing heartbeat Respiratory/Chest Respiratory/Chest: Denies cough, dyspnea or dyspnea on exertion Gastrointestinal Gastrointestinal: Reports constipation; Denies abdominal pain, melena, nausea or vomiting Genitourinary Genitourinary ED: Denies dysuria, hematuria or urinary frequency Musculoskeletal Musculoskeletal: Denies arthralgias, back pain, myalgias or neck pain Integumentary Denies rash Neurologic Neurologic: Denies headache(s) or weakness Psychiatric Psychiatric: Reports anxiety and other Details: Patient is very concerned about his blood pressure medication. He believes this to be the cause of the episode. Hematologic/Lymphatic Hematologic/Lymphatic: Reports systems reviewed and no addt'l complaints, except as documented EXAM Physical Exam Const Vital Signs: 03/26/24 07:00 03/26/24 07:00 03/26/24 08:00 Temperature 98.4 F Temperature Source Oral Pulse Rate 77 Pulse Rate [Lying] 65 Pulse Rate [Sitting (for 1 minute prior to obtaining)] 71 Pulse Rate [Standing (for 1 minute prior to obtaining)] 85 Respiratory Rate 16 Respiratory Pattern Normal Blood Pressure 120/74 Blood Pressure [Lying] 126/74 H Blood Pressure [Sitting (for 1 minute prior to obtaining)] 124/76 H Blood Pressure [Standing (for 1 minute prior to obtaining)] 124/72 H Blood Pressure Mean 89 Blood Pressure Mean [Lying] 91 Blood Pressure Mean [Sitting (for 1 minute prior to obtaining)] 92 Blood Pressure Mean [Standing (for 1 minute prior to obtaining)] 89 Pulse Ox 100 Oxygen Delivery Method Room Air 03/26/24 09:00 Temperature Temperature Source Pulse Rate 67 Pulse Rate [Lying] Pulse Rate [Sitting (for 1 minute prior to obtaining)] Pulse Rate [Standing (for 1 minute prior to obtaining)] Respiratory Rate 14 Respiratory Pattern Blood Pressure 148/78 H Blood Pressure [Lying] Blood Pressure [Sitting (for 1 minute prior to obtaining)] Blood Pressure [Standing (for 1 minute prior to obtaining)] Blood Pressure Mean 101 Blood Pressure Mean [Lying] Blood Pressure Mean [Sitting (for 1 minute prior to obtaining)] Blood Pressure Mean [Standing (for 1 minute prior to obtaining)] Pulse Ox 97 Oxygen Delivery Method Room Air Positive well nourished and well developed Constitutional Narrative: BMI is 32.7. He appears in no distress. He is anxious. He is very concerned regarding new blood pressure medication. states she did not bring the list of her meds. I informed both of them that I am able to look up his meds from the discharge summary authored by Dr. Giraldo. Patient was unaware that he has petechiae on his cheeks. According to patient and these are new. General Appearance ED: well developed and NAD HEENT Reports moist mucous membranes HEENT Narrative: Uvula midline. No deviation with protrusion. Ears normal. Nares patent. No abnormality noted on nasal exam. Eyes PERRL and EOMs intact bilaterally Eyes Narrative: There is no nystagmus. There is no subconjunctival hemorrhage. General Eye ED: Negative for pale conjunctiva or scleral icterus Neck no lymphadenopathy, supple and no JVD Chest Wall inspection of chest normal and palpation of chest normal Resp normal respiratory effort and clear to auscultation bilaterally Cardio regular rate, regular rhythm, S1 normal heart sound, S2 normal heart sound and no murmurs GI normal to inspection, nondistended, normoactive bowel sounds, non-tender, non- distended and no masses; Negative for hepatosplenomegaly Back/Spine no CVA tenderness Extremity normal to inspection Neuro oriented x3, CN's II-XII intact bilaterally and no sensory deficits noted Sensorium / Orientation: alert Motor Exam: strength 5/5 throughout Psych Mood & Affect: anxious Skin Skin Narrative: Petechia noted on his face. There is no mucosal petechia involving the oral mucosa or conjunctivo-. MDM MDM MDM Narrative Medical decision making narrative: CBC without differential was obtained to assess platelet count and H&H. Concern regarding platelet count since he has petechiae. Suspect this is due to the fact that he strain. Patient was placed on the monitor to assess for any dysrhythmia. EKG was obtained to assess for any evidence of ischemia. Because patient's H&H revealed approximate 2 g drop from March 24 BMP was obtained to assess BUN to creatinine ratio and stool for occult blood was ordered. Orthostatic vital signs were ordered. Orthostatic vital signs were negative. Lab Data Attestation: I reviewed the patient's lab results. Lab results narrative: CBC reveals normal platelet count. H&H is lower compared to March 24. BMP is remarkable for a BUN to creatinine ratio of 28:1. This may be due to dehydration versus GI bleed. Patient apparently fasted for rastafari reasons and has not had as much to eat since his admission. This may be contributory. He is not orthostatic, however. Labs: Laboratory Results - last 24 hr 03/26/24 03/26/24 07:39 07:57 WBC 6.9 RBC 4.04 L Hgb 12.8 L Hct 36.5 L MCV 90.3 MCH 31.7 MCHC 35.1 RDW Std Deviation 40.1 RDW Coeff of Ifrah 12.2 Plt Count 207 MPV 10.4 Sodium 141 Potassium 3.8 Chloride 112 H Carbon Dioxide 23.0 Anion Gap 6 BUN 23 H Creatinine 0.82 Estim Creat Clear Calc 92.78 Est GFR (MDRD) Af Amer 121 Est GFR (MDRD) Non-Af 100 BUN/Creatinine Ratio 28.1 H Glucose 118 H Calcium 8.8 Stool for occult blood was negative. Suspect the drop in hemoglobin is due to the fact that patient had a phlebotomy this past week. EKG Initial EKG: Attestation: I personally reviewed and interpreted this EKG as follows: Interpretation: Sinus Rhythm (Rate is 68. EKG is normal. The UT interval is 158 ms. QS duration 86 ms. QT duration 412 ms. Mark is normal.) Treatment and Re-Evaluation :: Patient was phlebotomized day prior to admission on March 24. The drop in hemoglobin may be due to the fact that he did not equilibrate. Rectal exam was performed. He has small pebble sized brown stool noted. Stool was sent for occult blood. Discharge Plan Triage Chief Complaint: Syncope ED Provider: Francisco Becerra Dx/Rx/DC Orders Clinical Impression: Vasovagal syncope, Slaughter esophagus, Truncal ataxia, Hemochromatosis, Hypertension, Acute constipation Instructions: ED Constipation (Adult), ED Fainting, Vagal Reaction Prescriptions: No Action meloxicam [Mobic] 15 MG tablet 15 mg PO DAILY folic acid 1 MG tablet 1 mg PO DAILY@0800 Eliquis 5 mg Tablet 5 mg PO BID Qty: 60 2RF diltiazem HCl [Cardizem CD] 120 mg capsule,extended release 24hr 120 mg PO DAILY Qty: 30 2RF tamsulosin [Flomax] 0.4 mg capsule 0.4 mg PO QHS Qty: 30 0RF rosuvastatin [Crestor] 10 mg tablet 10 mg PO QODAY Qty: 30 1RF Primary Care Provider: Alessandro Garland Referrals: Alessandro Garland DO [Primary Care Provider] - 1 Week Activity Restrictions/Additional Instructions: 1. Recommend drinking 10 ounces of mag citrate when you get home. 2. 4 hours after you consume the mag citrate recommend 1 cap of MiraLAX in your beverage of choice. Repeat this every hour until you start to have results. 3. Recommend starting tomorrow 1 cup of MiraLAX daily. Print Language: Kyrgyz Disposition Disposition: Home, Self Care
[2024-03-26 08:00] VITALS: BP 124/72; BP 124/76; BP 126/74; PULSE 65; PULSE 71; PULSE 85
[2024-03-26 08:23] LABS: Anion Gap 6 (5-15); BUN 23 mg/dL (7-18); BUN/Creat Ratio 28.1 RATIO (10-20); Calcium,Total 8.8 mg/dL (8.5-10.1); Chloride 112 mmol/L (98-107); Creatinine, Serum 0.82 mg/dL (0.70-1.30); EST Glomerular Filtration Rate 100 mL/min (>60); Est Glom Filt Rate - Afr Amer 121 mL/min (>60); Estimated Creatinine Clearance 92.78 ml/min; Glucose 118 mg/dL (74-106); Potassium 3.8 mmol/L (3.5-5.1); Sodium Level 141 mmol/L (136-145)
[2024-03-26 09:00] VITALS: BP 148/78; PULSE 67; RESP 14; O2SAT 97
[2024-03-26 09:43] VITALS: BP 119/70; PULSE 76; RESP 15; TEMP 36.6; O2SAT 100
== END 2024-03-26 09:44 | disposition home or self-care (01) ==
PROVIDERS: Emergency Provider Emergency Medicine; PCP Family Medicine; Visit Provider Emergency Medicine
DX: R55 Syncope and collapse (principal); I48.91 Unspecified atrial fibrillation; E83.119 Hemochromatosis, unspecified; I10 Essential (primary) hypertension; K22.70 Barrett's esophagus without dysplasia; K59.00 Constipation, unspecified; Z79.01 Long term (current) use of anticoagulants; Z79.899 Other long term (current) drug therapy
CPT/HCPCS: 80048; 82274; 85027; 93005; 99285; A4216

== ENCOUNTER → 2024-04-20 | Outpatient (CLI) | payer MEDICARE, SELFPAY ==
[2024-04-20 15:11] LABS: Absolute Lymphocyte Count 1.99 X10^3/uL (0.83-4.51); Basophil# 0.03 X10^3/uL; Basophil% 0.4 % (0-1); Eosinophil# 0.24 X10^3/uL; Eosinophils% 3.5 % (0-5); Hematocrit 39.4 % (40-54); Hemoglobin 14.2 g/dL (13.0-16.5); Lymphocyte # 1.99 X10^3/ul (0.83-4.51); Lymphocyte % 29.1 % (19-41); Mean Corpuscular Hgb 31.8 pg (27.0-32.0); Mean Corpuscular Volume 88.3 fL (80-94); Mean Platelet Vol. 10.6 fl (6.2-12.0); Monocyte# 0.58 X10^3/uL; Monocyte% 8.5 % (0-10); NRBC Flagged by Analyzer 0 % (0-5); Neutrophil # 3.98 X10^3/uL (2.7-7.7); Neutrophil % 58.2 % (47-70); Platelet Count 216 K/mm3 (150-450); RBC Distribution Width SD 42.1 fl (35.1-43.9); Red Blood Count 4.46 M/mm3 (4.6-6.2); White Blood Count 6.8 K/mm3 (4.4-11.0)
[2024-04-20 15:45] LABS: Ferritin 22 ng/mL (26-388); Iron 74 ug/dL (65-175)
== END | disposition home or self-care (01) ==
LOC: PAVLAB 14:54
PROVIDERS: PCP Family Medicine; Referring Provider Family Medicine; Visit Provider Family Medicine
DX: E83.119 Hemochromatosis, unspecified (principal)
CPT/HCPCS: 36415; 82728; 83540; 85025

== ENCOUNTER → 2024-05-17 | Outpatient (CLI) | payer MEDICARE, SELFPAY ==
--- NOTE | 2024-05-17 14:12 | RAD_ITS ---
EXAM: XR Abdomen, 1 View CLINICAL INDICATION: TECHNIQUE: Frontal supine view of the abdomen/pelvis. COMPARISON: No relevant prior studies available. FINDINGS: GASTROINTESTINAL TRACT: Unremarkable. No dilation. BONES/JOINTS: Unremarkable. No acute fracture. RAD/Abdomen Single View IMPRESSION: Nonobstructive bowel gas pattern. [facility]
[2024-05-17 18:13] LABS: Anion Gap 10 (5-15); BUN 24 mg/dL (7-18); BUN/Creat Ratio 28.4 RATIO (10-20); Calcium,Total 9.2 mg/dL (8.5-10.1); Chloride 106 mmol/L (98-107); Creatinine, Serum 0.85 mg/dL (0.70-1.30); EST Glomerular Filtration Rate 96 mL/min (>60); Est Glom Filt Rate - Afr Amer 116 mL/min (>60); Glucose 86 mg/dL (74-106); Potassium 3.8 mmol/L (3.5-5.1); Sodium Level 138 mmol/L (136-145)
== END | disposition home or self-care (01) ==
PROVIDERS: PCP Family Medicine; Referring Provider Family Medicine; Visit Provider Family Medicine
DX: I10 Essential (primary) hypertension (principal); R10.9 Unspecified abdominal pain
CPT/HCPCS: 36415; 74018; 80048

== ENCOUNTER 2024-06-03 12:11 | Outpatient (RCR) | payer MEDICARE, SELFPAY | END 2024-06-10 23:59 | LOC: LAB.FUTURE 12:11 | PROVIDERS: PCP Family Medicine; Visit Provider Family Medicine | DX: E83.119 Hemochromatosis, unspecified (principal); Z51.81 Encounter for therapeutic drug level monitoring ==

== ENCOUNTER → 2024-06-03 | Outpatient (CLI) | payer MEDICARE, SELFPAY ==
[2024-06-03 12:34] LABS: Absolute Lymphocyte Count 1.86 X10^3/uL (0.83-4.51); Absolute Neutrophil Count 3.4 X10^3/uL (2.0-7.7); Basophil# 0.02 X10^3/uL; Basophil% 0.3 % (0-1); Eosinophil# 0.19 X10^3/uL; Eosinophils% 3.2 % (0-5); Hematocrit 42.4 % (40-54); Hemoglobin 14.9 g/dL (13.0-16.5); Lymphocyte # 1.86 X10^3/ul (0.83-4.51); Lymphocyte % 31.2 % (19-41); Mean Corp Hgb Conc 35.1 g/dL (32-36); Mean Corpuscular Hgb 31.9 pg (27.0-32.0); Mean Corpuscular Volume 90.8 fL (80-94); Monocyte# 0.48 X10^3/uL; NRBC Flagged by Analyzer 0 % (0-5); Neutrophil # 3.41 X10^3/uL (2.7-7.7); Neutrophil % 57.1 % (47-70); Platelet Count 254 K/mm3 (150-450); RBC Distribution Width SD 40.2 fl (35.1-43.9); Red Blood Count 4.67 M/mm3 (4.6-6.2)
[2024-06-03 13:25] LABS: Anion Gap 7 (5-15); BUN 20 mg/dL (7-18); BUN/Creat Ratio 23.7 RATIO (10-20); Calcium,Total 9.8 mg/dL (8.5-10.1); Chloride 107 mmol/L (98-107); Creatinine, Serum 0.84 mg/dL (0.70-1.30); EST Glomerular Filtration Rate 96 mL/min (>60); Est Glom Filt Rate - Afr Amer 117 mL/min (>60); Ferritin 39 ng/mL (26-388); Glucose 98 mg/dL (74-106); Potassium 3.8 mmol/L (3.5-5.1); Sodium Level 137 mmol/L (136-145)
== END | disposition home or self-care (01) ==
PROVIDERS: PCP Family Medicine; Visit Provider Family Medicine
DX: I10 Essential (primary) hypertension (principal); E78.5 Hyperlipidemia, unspecified; E83.119 Hemochromatosis, unspecified; Z51.81 Encounter for therapeutic drug level monitoring
CPT/HCPCS: 36415; 80048; 82728; 85025

== ENCOUNTER 2024-10-17 15:17 | Outpatient (RCR) | payer MEDICARE, SELFPAY ==
[2024-10-17 15:49] LABS: Hematocrit 39.8 % (40-54); Hemoglobin 14.3 g/dL (13.0-16.5); Immature Granulocytes Count 0.020 X10^3/uL (0.0-0.0); Mean Corp Hgb Conc 35.9 g/dL (32-36); Mean Corpuscular Volume 91.1 fL (80-94); Mean Platelet Vol. 11.1 fl (6.2-12.0); NRBC Flagged by Analyzer 0 % (0-5); Platelet Count 221 K/mm3 (150-450); RBC Distribution Width CV 11.9 % (11.6-14.6); RBC Distribution Width SD 39.8 fl (35.1-43.9); Red Blood Count 4.37 M/mm3 (4.6-6.2); White Blood Count 7.1 K/mm3 (4.4-11.0)
[2024-10-17 16:17] LABS: PTHIN 35 pg/mL (11-61)
[2024-10-17 16:35] LABS: Ferritin 84 ng/mL (37-417); Follicle Stimulating Hormone 3.6 mIU/mL; Vitamin D,25 Hydroxy 68.0 ng/mL (30-100)
== END 2024-11-10 23:59 ==
LOC: PAVLAB 15:17
PROVIDERS: Internal Medicine Endocrinology, Diabetes & Metabolism; PCP Family Medicine; Referring Provider Family Medicine; Visit Provider Family Medicine
DX: E83.119 Hemochromatosis, unspecified (principal); Z51.81 Encounter for therapeutic drug level monitoring; E78.5 Hyperlipidemia, unspecified; M81.0 Age-related osteoporosis without current pathological fracture; E55.9 Vitamin D deficiency, unspecified; E03.9 Hypothyroidism, unspecified; E11.9 Type 2 diabetes mellitus without complications
CPT/HCPCS: 82306; 82728; 83001; 83002; 83970; 84402; 84403; 84443; 85025

== ENCOUNTER 2025-01-01 06:23 | Emergency (ER) | payer MEDICARE, SELFPAY ==
[2025-01-01 06:23] VITALS: BP 174/91; PULSE 73; RESP 11; TEMP 36.7; O2SAT 99; BMI 30.7
--- NOTE | 2025-01-01 06:53 | EKG12_ITS ---
Test Reason : PALPITATIONS Blood Pressure : */* mmHG Vent. Rate : 65 BPM Atrial Rate : 65 BPM P-R Int : 174 ms QRS Dur : 86 ms QT Int : 406 ms P-R-T Axes : -1 2 18 degrees QTcB Int : 422 ms Normal sinus rhythm Normal ECG Confirmed by KRISTIE GALICIA MD ([id number]), supervising editor news reel NAKUL TOM ([id number]) on 01/02/2025 7:53:12 AM Referred By: JODY Confirmed By: KRISTIE GALICIA MD
[2025-01-01 06:59] LABS: Hematocrit 41.2 % (40-54); Hemoglobin 14.6 g/dL (13.0-16.5); Immature Granulocytes Count 0.010 X10^3/uL (0.0-0.0); Mean Corp Hgb Conc 35.4 g/dL (32-36); Mean Corpuscular Volume 91.2 fL (80-94); Mean Platelet Vol. 10.4 fl (6.2-12.0); NRBC Flagged by Analyzer 0 % (0-5); Platelet Count 227 K/mm3 (150-450); RBC Distribution Width CV 12.0 % (11.6-14.6); RBC Distribution Width SD 40.0 fl (35.1-43.9); Red Blood Count 4.52 M/mm3 (4.6-6.2); White Blood Count 6.8 K/mm3 (4.4-11.0)
[2025-01-01 07:00] VITALS: BP 157/90; PULSE 69; RESP 18; O2SAT 99
--- NOTE | 2025-01-01 07:00 | RAD_ITS ---
PROCEDURE: CHEST PA AND LATERAL 01/01/2025 REASON FOR EXAM: DYSPNEA TECHNIQUE: Procedure Code: RADCXR Modality: DX Procedure: CHEST PA AND LATERAL COMPARISON: Chest radiograph 03/24/2024 FINDINGS: Multiple wires overlie the thorax. No focal lung consolidation, pneumothorax, or pleural effusion. The cardiomediastinal silhouette is within normal limits. Stable mildly prominent hilar markings which may reflect mild pulmonary congestion. The osseous structures are unremarkable. RAD/Chest PA and Lateral IMPRESSION: No acute cardiopulmonary findings. Reading Location: [id number]
--- OUTSIDE RECORDS SUMMARY | 2025-01-01 07:02 | XMS RPT_ITS | CCD ---
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 REVIEW Documentation of current medications (procedure) [employer] Work Phone: MEDS REVIEWD Medications reviewed without changes [employer] Work Phone: CNOVSPon 12-13-2024 CNOVSP Visit (SP) Office (HEMAWS) ---- ALVIN BROWN ([id number]) 1955 M Date Time Provider Department 12/13/24 10:00 AM BRUCE ROBERSON During your visit today, we recorded the following information about you: Temperature Pulse Blood pressure Weight 97.7 degrees 75/minute 127/82 89.6 kg Bruce Roberson MD 12/13/2024 1:35 PM Signed (Elements copied from my note dated August 09, 2024, have been reviewed and updated where appropriate, and all reflect current assessment and medical decision making from today's encounter, December 13, 2024) HISTORY OF PRESENT ILLNESS: Alvin Brown is a 69 year old male dx with hemochromatosis dx in 2003, on basis of elevated liver enzymes, liver biopsy showed increased iron stores. Saw Dr Magallon underwent phlebotomy therapy, with good results. Was doing phlebotomy every 3 months when he last saw Dr Magallon. Switched to [facility] hematology due to insurance change, had 2 phlebotomy in 7 years with them. Here to re establish Last phlebotomy was March 23 2024. Went into atrial fibrillation afterward, passed out. 04-20-24 ferritin was 22. Now up to 94 CLINICAL IMPRESSION: Hemochromatosis RECOMMENDATION/PLAN : 1. Will try phlebotomy 250 cc every month given past difficulties with 500 cc phlebo. Written and verbal health teaching given to patient, patient verbalizes understanding and agrees with treatment plan. 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 Esophagitis, unspecified Other and unspecified hyperlipidemia Hyperlipidemia Other osteoporosis Phlebitis and thrombophlebitis of femoral vein (deep) (superficial) (HCC) Stroke (HCC) PAST SURGICAL HISTORY Procedure Laterality Date COLONOSCOPY FLX DX W/COLLJ SPEC WHEN PFRMD 05/07/2007 COLONOSCOPY FLX DX W/COLLJ SPEC WHEN PFRMD 06/10/2011 Colonoscopy EGD TRANSORAL BIOPSY SINGLE/MULTIPLE 12/17/2006 ESOPHAGOGASTRODUODE NOSCOPY TRANSORAL DIAGNOSTIC 09/02/2013 EGD ESOPHAGOGASTRODUODE NOSCOPY TRANSORAL DIAGNOSTIC 09/02/2013 EGD LAPAROSCOPY SURG CHOLECYSTECTOMY 01/17/2005 Cholecystectomy, lap PAST SURGICAL HISTORY OF 01/17/2005 Liver biopsy PAST SURGICAL HISTORY OF 04/13/1988 nasal surgery PAST SURGICAL HISTORY OF Labrum right hip repair FAMILY HISTORY Problem Relation Age of Onset Hypertension Father Hypertension Mother Diabetes Brother Diabetes Sister Coronary Artery Disease Paternal Grandfather Developmental problem Daughter Diabetes Son Emphysema Child Genitourinary () Maternal Aunt Cancer Mother lung cancer COPD Father Social History Tobacco Use Smoking status: Never Smokeless tobacco: Never Substance Use Topics Alcohol use: No Drug use: No ALLERGIES: ALLERGIES Allergen Reactions Tetanus Vaccines An* Rash CURRENT OUTPATIENT MEDICATIONS: cholecalciferol (VITAMIN D-3) 400 unit tab Take 400 Units by mouth once daily. rosuvastatin (CRESTOR) 10 mg tablet Take 10 mg by mouth once daily. dilTIAZem (CARDIZEM) 120 mg tablet Take 120 mg by mouth once daily. VITAMIN K2 ORAL Take 1 tablet by mouth once daily. ZINC ORAL Take 1 tablet by mouth once daily. CALCIUM ORAL Take 1 tablet by mouth once daily. ascorbic acid (VITAMIN C ORAL) Take 1 tablet by mouth once daily. MAGNESIUM ORAL Take 1 tablet by mouth two times a day. folic acid 1 mg tablet Take 1 tablet by mouth once daily. meloxicam (MOBIC) 15 mg tablet Take 1 tablet by mouth once daily. Take with food. lidocaine (LIDODERM) 5 %(700 mg/patch) Apply 1 Patch as directed once daily as needed. miscellaneous medical supply(COMPRESSION STOCKINGS) 20-30 cm. H20 apixaban (ELIQUIS) 5 mg tab(s) Take 5 mg by mouth two times a day. (Patient not taking: Reported on 12/13/2024) azithromycin (ZITHROMAX) 250 mg tablet Take 1 tablet by mouth once daily. cholecalciferol (VITAMIN D3) 1,000 unit tab Take 1,000 Units by mouth once daily. methocarbamol 500 mg tablet Take 1 tablet by mouth three times daily as needed (muscle spasm). aspirin(ASPIR-81 81 MG TAB) Take one(1) tablet daily. Omeprazole Magnesium (PRILOSEC OTC) 20 mg ORAL TbEC Take one(1) tablet two(2) times daily. REVIEW OF SYSTEMS: GENERAL: No fever, night sweats, weight loss or malaise. All other reviewed and negative other than HPI. PHYSICAL EXAMINATION: VITAL SIGNS: BP 127/82 Pulse 75 Temp (Src) 97.7 (Temporal) Wt 197 lb 8 oz (89.6kg) SpO2 96% GENERAL APPEARANCE: Well appearing, in no acute distress, alert and oriented x3, well-hydrated, well nourished. I spent a total of 20 minutes on the date of the service which included preparing to see the patient, [id number] patient care, completing clinical documentation, obtaining and/or reviewing separately obtained history, counseling and educating the patient/family/cna caregiver, (more content not included)... Normal [facility] CBC W Auto Differential pane l (Bld)on 12-08-2024 Basophils (Bld) [#/Vol] 0.04 10*3/uL Normal <0.11 [facility] Comment on above: Order Comment: Speci men Type: BLOOD SPECIMENOrdering Facility: [facility] Address: [address] [place] [address] Performed By: #### 5 7021-8 ####[facility] [id number] [place] [address] [place] Basophils/100 WBC (Bld) 0.6 % Normal [facility] Comment on above: Order Comment: Speci men Type: BLOOD SPECIMENOrdering Facility: [facility] Address: [address] [place] [address] Performed By: #### 5 7021-8 ####[facility] [id number] [place] [address] [place] Differential cell count method Nom (Bld) Auto Normal [facility] Comment on above: Order Comment: Speci men Type: BLOOD SPECIMENOrdering Facility: [facility] Address: [address] [place] [address] Performed By: #### 5 7021-8 ####[facility] [id number] [place] [address] [place] Eosinophils (Bld) [#/Vol] 0.32 10*3/uL Normal <0.46 [facility] Comment on above: Order Comment: Speci men Type: BLOOD SPECIMENOrdering Facility: [facility] Address: [address] [place] [address] Performed By: #### 5 7021-8 ####[facility] JAYCEEORLANDOROXANNELIA [id number] [place] [address] [place] Eosinophils/100 WBC (Bld) 5.0 % Normal [facility] Comment on above: Order Comment: Speci men Type: BLOOD SPECIMENOrdering Facility: [facility] Address: [address] [place] [address] Performed By: #### 5 7021-8 ####[facility] [id number] [place] [address] [place] Erythrocyte distribution width (RBC) [Ratio] 11.7 % Normal 11.5-15.0 [facility] Comment on above: Order Comment: Speci men Type: BLOOD SPECIMENOrdering Facility: [facility] Address: [address] [place] [address] Performed By: #### 5 7021-8 ####[facility] [id number] [place] [address] [place] Hematocrit (Bld) [Volume fraction] 42.9 % Normal 39.0-51.0 [facility] Comment on above: Order Comment: Speci men Type: BLOOD SPECIMENOrdering Facility: [facility] Address: [address] [place] [address] Performed By: #### 5 7021-8 ####[facility] [id number] [place] [address] [place] Hemoglobin (Bld) [Mass/Vol] 15.1 g/dL Normal 13.0-17.0 [facility] Comment on above: Order Comment: Speci men Type: BLOOD SPECIMENOrdering Facility: [facility] Address: [address] [place] [address] Performed By: #### 5 7021-8 ####[facility]ITALNCLIA [id number] [place] [address] [place] Immature granulocytes (Bld) [#/Vol] 10*3/uL Normal <0.10 [facility] Comment on above: Order Comment: Speci men Type: BLOOD SPECIMENOrdering Facility: [facility] Address: [address] [place] [address] Performed By: #### 5 7021-8 ####[facility] JAYCEEWNCLIA [id number] [place] [address] [place] Immature granulocytes/100 WBC (Bld) 0.2 % Normal [facility] Comment on above: Order Comment: Speci men Type: BLOOD SPECIMENOrdering Facility: [facility] Address: [address] [place] [address] Performed By: #### 5 7021-8 ####[facility] [id number] [place] [address] [place] Lymphocytes (Bld) [#/Vol] 2.06 10*3/uL Normal 1.00-4.00 [facility] Comment on above: Order Comment: Speci men Type: BLOOD SPECIMENOrdering Facility: [facility] Address: [address] [place] [address] Performed By: #### 5 7021-8 ####[facility] [id number] [place] [address] [place] Lymphocytes/100 WBC (Bld) 32.4 % Normal [facility] Comment on above: Order Comment: Speci men Type: BLOOD SPECIMENOrdering Facility: [facility] Address: [address] [place] [address] Performed By: #### 5 7021-8 ####[facility]ITALNCLIA [id number] [place] [address] [place] MCH (RBC) [Entitic mass] 32.1 pg Normal 26.0-34.0 [facility] Comment on above: Order Comment: Speci men Type: BLOOD SPECIMENOrdering Facility: [facility] Address: [address] [place] [address] Performed By: #### 5 7021-8 ####[facility]ITALNCUINTA[facility] [id number] [place] [address] [place] MCHC (RBC) [Mass/Vol] 35.2 g/dL Normal 30.5-36.0 [facility] Comment on above: Order Comment: Speci men Type: BLOOD SPECIMENOrdering Facility: [facility] Address: [address] [place] [address] Performed By: #### 5 7021-8 ####[facility] [id number] [place] [address] [place] MCV (RBC) [Entitic vol] 91.1 fL Normal 80.0-100.0 [facility] Comment on above: Order Comment: Speci men Type: BLOOD SPECIMENOrdering Facility: [facility] Address: [address] [place] [address] Performed By: #### 5 7021-8 ####[facility] [id number] [place] [address] [place] Monocytes (Bld) [#/Vol] 0.54 10*3/uL Normal <0.87 [facility] Comment on above: Order Comment: Speci men Type: BLOOD SPECIMENOrdering Facility: [facility] Address: [address] [place] [address] Performed By: #### 5 7021-8 ####[facility] [id number] [place] [address] [place] Monocytes/100 WBC (Bld) 8.5 % Normal [facility] Comment on above: Order Comment: Speci men Type: BLOOD SPECIMENOrdering Facility: [facility] Address: [address] [place] [address] Performed By: #### 5 7021-8 ####[facility] MILLTOWNCLIA [id number] [place] [address] [place] Neutrophils (Bld) [#/Vol] 3.38 10*3/uL Normal 1.45-7.50 [facility] Comment on above: Order Comment: Speci men Type: BLOOD SPECIMENOrdering Facility: [facility] Address: [address] [place] [address] Performed By: #### 5 7021-8 ####[facility] MILLWNCLIA [id number] [place] [address] [place] Neutrophils/100 WBC (Bld) 53.3 % Normal [facility] Comment on above: Order Comment: Speci men Type: BLOOD SPECIMENOrdering Facility: [facility] Address: [address] [place] [address] Performed By: #### 5 7021-8 ####[facility]ITALWNCLIA [id number] [place] [address] [place] Nucleated RBC (Bld) [#/Vol] 10*3/uL Normal <0.01 [facility] Comment on above: Order Comment: Speci men Type: BLOOD SPECIMENOrdering Facility: [facility] Address: [address] [place] [address] Performed By: #### 5 7021-8 ####[facility] MILLTOWNCLIA [id number] [place] [address] [place] Nucleated RBC/100 WBC (Bld) [Ratio] 0.0 /100 WBC Normal [facility] Comment on above: Order Comment: Speci men Type: BLOOD SPECIMENOrdering Facility: [facility] Address: [address] [place] [address] Performed By: #### 5 7021-8 ####[facility] DAYTONNCA [id number] [place] [address] [place] Platelet mean volume (Bld) [Entitic vol] 10.1 fL Normal 9.0-12.7 [facility] Comment on above: Order Comment: Speci men Type: BLOOD SPECIMENOrdering Facility: [facility] Address: [address] [place] [address] Performed By: #### 5 7021-8 ####[facility] [id number] [place] [address] [place] Platelets (Bld) [#/Vol] 211 10*3/uL Normal 150-400 [facility] Comment on above: Order Comment: Speci men Type: BLOOD SPECIMENOrdering Facility: [facility] Address: [address] [place] [address] Performed By: #### 5 7021-8 ####[facility] HOSPITALNCA [id number] [place] [address] [place] RBC (Bld) [#/Vol] 4.71 10*6/uL Normal 4.20-6.00 [facility] Comment on above: Order Comment: Speci men Type: BLOOD SPECIMENOrdering Facility: [facility] Address: [address] [place] [address] Performed By: #### 5 7021-8 ####[facility] [id number] [place] [address] [place] WBC (Bld) [#/Vol] 6.35 10*3/uL Normal 3.70-11.00 [facility] Comment on above: Order Comment: Speci men Type: BLOOD SPECIMENOrdering Facility: [facility] Address: [address] [place] [address] Performed By: #### 5 7021-8 ####[facility]ITALNCLIA [id number] [place] [address] [place] Ferritin SerPl-mCncon 2024 Ferritin [Mass/Vol] 94.3 ng/mL Normal 30.3-565.7 [facility] Comment on above: Order Comment: Speci men Type: BLOOD SPECIMENOrdering Facility: [facility] Address: [address] [place] [address] Performed By: #### 2 276-4 ####[facility] LABCLIA [id number] [place] [address] [place] Hepatic function 2000 panelo n 12-08-2024 Albumin [Mass/Vol] 4.6 g/dL Normal 3.9-4.9 [facility] Comment on above: Order Comment: Speci men Type: BLOOD SPECIMENOrdering Facility: [facility] Address: [address] [place] [address] Performed By: #### 2 4325-3 ####[facility] MILLTOWNCLIA [id number] [place] [address] [place] ALP [Catalytic activity/Vol] 72 U/L Normal 38-113 [facility] Comment on above: Order Comment: Speci men Type: BLOOD SPECIMENOrdering Facility: [facility] Address: [address] [place] [address] Performed By: #### 2 4325-3 ####[facility] MILLTOWNCLIA [id number] [place] [address] [place] ALT [Catalytic activity/Vol] 23 U/L Normal 10-54 [facility] Comment on above: Order Comment: Speci men Type: BLOOD SPECIMENOrdering Facility: [facility] Address: [address] [place] [address] Performed By: #### 2 4325-3 ####[facility] MILLTOWNCLIA [id number] [place] [address] [place] AST [Catalytic activity/Vol] 16 U/L Normal 14-40 [facility] Comment on above: Order Comment: Speci men Type: BLOOD SPECIMENOrdering Facility: [facility] Address: [address] [place] [address] Performed By: #### 2 4325-3 ####[facility] KATHARINENCGIAN [id number] [place] [address] [place] Bilirubin [Mass/Vol] 0.5 mg/dL Normal 0.2-1.3 [facility] Comment on above: Order Comment: Speci men Type: BLOOD SPECIMENOrdering Facility: [facility] Address: [address] [place] [address] Performed By: #### 2 4325-3 ####[facility]OSPITALCherrieROXANNEGIAN [id number] [place] [address] [place] Bilirubin.conjugated [Mass/Vol] 0.1 mg/dL Normal <0.3 [facility] Comment on above: Order Comment: Speci men Type: BLOOD SPECIMENOrdering Facility: [facility] Address: [address] [place] [address] Performed By: #### 2 4325-3 ####[facility]ITALNCLIA [id number] [place] [address] [place] Protein [Mass/Vol] 7.3 g/dL Normal 6.3-8.0 [facility] Comment on above: Order Comment: Speci men Type: BLOOD SPECIMENOrdering Facility: [facility] Address: [address] [place] [address] Performed By: #### 2 4325-3 ####[facility]ITALNCLIA [id number] [address] [place] 12-07-2024 JANICE Telephone (HEMAWS) ---- ALVIN BROWN ([id number]) 1955 M Date Time Provider Department 12/07/24 BRUCE ROBERSON During your visit today, we recorded the following information about you: Sarah Beth Victoria 12/07/2024 4:32 PM Signed Lvm for patient to return the call. When patient calls back per nurse ov and phlebo need rescheduled due to labs need to be drawn few days prior. Please reschedule ov and phlebo. Lab can stay if patient wants to come in still. Antonia Medellin 12/08/2024 8:30 AM Signed Patient completing labs today, office visit and ?phlebo rescheduled. Future appointments adjusted Allergies As of Date: 12/07/2024 Noted Allergy Reaction TETANUS VACCINES AND TOXOID 08/28/2005 2 - Rash Date Reviewed: 08/09/2024 Reviewed by: Angelia Cerda Ma, MA - Fully Assessed Reason for Visit: Appointment [186] Prescriptions as of 12/08/2024 - cholecalciferol (VITAMIN D-3) 400 unit tab Take 400 Units by mouth once daily. - rosuvastatin (CRESTOR) 10 mg tablet Take 10 mg by mouth once daily. - apixaban (ELIQUIS) 5 mg tab(s) Take 5 mg by mouth two times a day. - dilTIAZem (CARDIZEM) 120 mg tablet Take 120 mg by mouth once daily. - VITAMIN K2 ORAL Take 1 tablet by mouth once daily. - ZINC ORAL Take 1 tablet by mouth once daily. - CALCIUM ORAL Take 1 tablet by mouth once daily. - ascorbic acid (VITAMIN C ORAL) Take 1 tablet by mouth once daily. - MAGNESIUM ORAL Take 1 tablet by mouth two times a day. - azithromycin (ZITHROMAX) 250 mg tablet Take 1 tablet by mouth once daily. - folic acid 1 mg tablet Take 1 tablet by mouth once daily. - meloxicam (MOBIC) 15 mg tablet Take 1 tablet by mouth once daily. Take with food. - cholecalciferol (VITAMIN D3) 1,000 unit tab Take 1,000 Units by mouth once daily. - lidocaine (LIDODERM) 5 %(700 mg/patch) Apply 1 Patch as directed once daily as needed. - methocarbamol 500 mg tablet Take 1 tablet by mouth three times daily as needed (muscle spasm). - aspirin(ASPIR-81 81 MG TAB) Take one(1) tablet daily. - miscellaneous medical supply(COMPRESSION STOCKINGS) 20-30 cm. H20 - Omeprazole Magnesium (PRILOSEC OTC) 20 mg ORAL TbEC Take one(1) tablet two(2) times daily. Problem List As Of Date 12/07/2024 Noted Resolved ARTHROP W ENDOCR/MET DIS [FOX5507] 01/28/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] 03/14/2005 PATHOLOGIC FRACTURE [733.1] 06/05/2005 THROMBOPHLEBITIS NOS [I80.9] 11/05/2005 HYPERTROPHY PROSTATE W/O OBST [N40.0] 11/05/2005 HYPERLIPIDEMIA NEC/NOS [E78.5] 03/04/2006 OSTEOPOROSIS NOS [M81.0] 10/23/2006 ESOPHAGEAL REFLUX [K21.9] 10/23/2006 DYSPHAGIA [787.2] 11/20/2006 ESOPHAGITIS, UNSPECIFIED [K20.90] 12/17/2006 BPH (Benign Prostatic Hypertrophy) with Urinary*02/23/2009 Pain in Joint, Shoulder Region [M25.519] 03/02/2009 Dysmetabolic syndrome [E88.810] 03/19/2010 Hemochromatosis [E83.119] 03/19/2010 Actinic Keratoses (Premalignant AK's) [L57.0] 04/25/2010 Seborrheic Dermatitis: scalp [L21.8] 04/25/2010 Seborrheic Keratosis [L82.1] 04/25/2010 Actinic Damage///Sun-damage d skin [L57.8] 04/25/2010 Solar Lentigines [L81.4] 04/25/2010 Telangiectasia [I78.1] 04/25/2010 Cryosurgical Scar [L90.5] 06/11/2010 Onychomycosis [B35.1] 12/10/2010 Tinea unguium [B35.1] 12/10/2010 Nail dystrophy [L60.3] 12/10/2010 Deformity of toenail [L60.8] 12/10/2010 Tinea pedis [B35.3] 12/10/2010 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 stomach [D13.1] 06/10/2011 Hemochromatosis, hereditary [E83.110] 08/21/2011 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] 02/27/2013 Actinic skin damage [L57.8] 02/27/2013 Voice disturbance [R49.9] 07/05/2015 Encounter Status:Closed by YOLANDA BENÍTEZ on 12/08/24 Normal [facility] AFP SerPl-mCncon 11-04-2024 AFP [Mass/Vol] 1.92 ng/mL Normal <9.00 [facility] Comment on above: Order Comment: Speci men Type: BLOOD SPECIMENOrdering Facility: [facility] Address: [address] [place] [address] Result Comment: The Alpha-Fetoprotein test was performed using the [employer] DxI immunoenzymatic assay. Results obtained with different assay methods or kits cannot be used interchangeably. Performed By: #### 1 834-1 ####[facility] LABCLIA [id number] [place] [address] [place] CBC W Auto Differential pane l (Bld)on 11-04-2024 Basophils (Bld) [#/Vol] 10*3/uL Normal <0.11 [facility] Comment on above: Order Comment: Speci men Type: BLOOD SPECIMENOrdering Facility: [facility] Address: [address] [place] [address] Performed By: #### 5 7021-8 ####[facility] [id number] [place] [address] [place] Basophils/100 WBC (Bld) 0.1 % Normal C [facility]Former[facility] Comment on above: Order Comment: Speci men Type: BLOOD SPECIMENOrdering Facility: [facility] Address: [address] [place] [address] Performed By: #### 5 7021-8 ####[facility] JAYCEEVIDALIA [id number] [place] [address] [place] Differential cell count method Nom (Bld) Auto Normal [facility] Comment on above: Order Comment: Speci men Type: BLOOD SPECIMENOrdering Facility: [facility] Address: [address] [place] [address] Performed By: #### 5 7021-8 ####[facility]PITALROXANNEA [id number] [place] [address] [place] Eosinophils (Bld) [#/Vol] 0.03 10*3/uL Normal <0.46 [facility] Comment on above: Order Comment: Speci men Type: BLOOD SPECIMENOrdering Facility: [facility] Address: [address] [place] [address] Performed By: #### 5 7021-8 ####[facility] [id number] [place] [address] [place] Eosinophils/100 WBC (Bld) 0.2 % Normal [facility] Comment on above: Order Comment: Speci men Type: BLOOD SPECIMENOrdering Facility: [facility] [facility] Address: [address] [place] [address] Performed By: #### 5 7021-8 ####[facility]ITALROXANNEUINTAH [facility] [id number] [place] [address] [place] Erythrocyte distribution width (RBC) [Ratio] 11.8 % Normal 11.5-15.0 [facility] Comment on above: Order Comment: Speci men Type: BLOOD SPECIMENOrdering Facility: [facility] Address: [address] [place] [address] Performed By: #### 5 7021-8 ####[facility]ITALNCLI [id number] [place] [address] [place] Hematocrit (Bld) [Volume fraction] 43.9 % Normal 39.0-51.0 [facility] Comment on above: Order Comment: Speci men Type: BLOOD SPECIMENOrdering Facility: [facility] Address: [address] [place] [address] Performed By: #### 5 7021-8 ####[facility]PITALNCUINTAH [facility] [id number] [place] [address] [place] Hemoglobin (Bld) [Mass/Vol] 15.7 g/dL Normal 13.0-17.0 [facility] Comment on above: Order Comment: Speci men Type: BLOOD SPECIMENOrdering Facility: [facility] Address: [address] [place] [address] Performed By: #### 5 7021-8 ####[facility] [id number] [place] [address] [place] Immature granulocytes (Bld) [#/Vol] 0.03 10*3/uL Normal <0.10 [facility] Comment on above: Order Comment: Speci men Type: BLOOD SPECIMENOrdering Facility: [facility] Address: [address] [place] [address] Performed By: #### 5 7021-8 ####[facility] [id number] [place] [address] [place] Immature granulocytes/100 WBC (Bld) 0.2 % Normal [facility] Comment on above: Order Comment: Speci men Type: BLOOD SPECIMENOrdering Facility: [facility] Address: [address] [place] [address] Performed By: #### 5 7021-8 ####[facility] [id number] [place] [address] [place] Lymphocytes (Bld) [#/Vol] 1.64 10*3/uL Normal 1.00-4.00 [facility] Comment on above: Order Comment: Speci men Type: BLOOD SPECIMENOrdering Facility: [facility] Address: [address] [place] [address] Performed By: #### 5 7021-8 ####[facility]PITALNCGIAN [id number] [address] [place] [facility] Lymphocytes/100 WBC (Bld) 13.1 % Normal [facility] Comment on above: Order Comment: Speci men Type: BLOOD SPECIMENOrdering Facility: [facility] Address: [address] [place] [address] Performed By: #### 5 7021-8 ####[facility] [id number] [place] [address] [place] MCH (RBC) [Entitic mass] 32.0 pg Normal 26.0-34.0 [facility] Comment on above: Order Comment: Speci men Type: BLOOD SPECIMENOrdering Facility: [facility] Address: [address] [place] [address] Performed By: #### 5 7021-8 ####[facility] [id number] [place] [address] [place] MCHC (RBC) [Mass/Vol] 35.8 g/dL Normal 30.5-36.0 [facility] Comment on above: Order Comment: Speci men Type: BLOOD SPECIMENOrdering Facility: [facility] Address: [address] [place] [address] Performed By: #### 5 7021-8 ####[facility]ITALNCLIA [id number] [place] [address] [place] MCV (RBC) [Entitic vol] 89.6 fL Normal 80.0-100.0 [facility] Comment on above: Order Comment: Speci men Type: BLOOD SPECIMENOrdering Facility: [facility] Address: [address] [place] [address] Performed By: #### 5 7021-8 ####[facility]PITALROXANNELIA [id number] [place] [address] [place] Monocytes (Bld) [#/Vol] 0.78 10*3/uL Normal <0.87 [facility] Comment on above: Order Comment: Speci men Type: BLOOD SPECIMENOrdering Facility: [facility] Address: [address] [place] [address] Performed By: #### 5 7021-8 ####[facility] H[facility]PITALRITAA [id number] [place] [address] [place] Monocytes/100 WBC (Bld) 6.2 % Normal [facility] Comment on above: Order Comment: Speci men Type: BLOOD SPECIMENOrdering Facility: [facility] Address: [address] [place] [address] Performed By: #### 5 7021-8 ####[facility] [id number] [place] [address] [place] Neutrophils (Bld) [#/Vol] 10.04 10*3/uL High 1.45-7.50 [facility] Comment on above: Order Comment: Speci men Type: BLOOD SPECIMENOrdering Facility: [facility] Address: [address] [place] [address] Performed By: #### 5 7021-8 ####[facility] [id number] [place] [address] [place] Neutrophils/100 WBC (Bld) 80.2 % Normal [facility] Comment on above: Order Comment: Speci men Type: BLOOD SPECIMENOrdering Facility: [facility] Address: [address] [place] [address] Performed By: #### 5 7021-8 ####[facility]ITALNCLIA [id number] [place] [address] [place] Nucleated RBC (Bld) [#/Vol] 10*3/uL Normal <0.01 [facility] Comment on above: Order Comment: Speci men Type: BLOOD SPECIMENOrdering Facility: [facility] Address: [address] [place] [address] Performed By: #### 5 7021-8 ####[facility] [id number] [place] [address] [place] Nucleated RBC/100 WBC (Bld) [Ratio] 0.0 /100 WBC Normal [facility] Comment on above: Order Comment: Speci men Type: BLOOD SPECIMENOrdering Facility: [facility] Address: [address] [place] [address] Performed By: #### 5 7021-8 ####[facility] [id number] [place] [address] [place] Platelet mean volume (Bld) [Entitic vol] 10.6 fL Normal 9.0-12.7 [facility] Comment on above: Order Comment: Speci men Type: BLOOD SPECIMENOrdering Facility: [facility] Address: [address] [place] [address] Performed By: #### 5 7021-8 ####[facility] [id number] [place] [address] [place] Platelets (Bld) [#/Vol] 254 10*3/uL Normal 150-400 [facility] Comment on above: Order Comment: Speci men Type: BLOOD SPECIMENOrdering Facility: [facility] Address: [address] [place] [address] Performed By: #### 5 7021-8 ####[facility] [id number] [place] [address] [place] RBC (Bld) [#/Vol] 4.90 10*6/uL Normal 4.20-6.00 [facility] Comment on above: Order Comment: Speci men Type: BLOOD SPECIMENOrdering Facility: [facility] Address: [address] [place] [address] Performed By: #### 5 7021-8 ####[facility]PITALNCNEILA [id number] [place] [address] [place] WBC (Bld) [#/Vol] 12.53 10*3/uL High 3.70-11.00 [facility] Comment on above: Order Comment: Speci men Type: BLOOD SPECIMENOrdering Facility: [facility] Address: [address] [place] [address] Performed By: #### 5 7021-8 ####[facility]ITALNCLIA [id number] [place] [address] [place] Ferritin SerPl-mCncon 2024 Ferritin [Mass/Vol] 89.5 ng/mL Normal 30.3-565.7 [facility] Comment on above: Order Comment: Speci men Type: BLOOD SPECIMENOrdering Facility: [facility] Address: [address] [place] [address] Performed By: #### 2 276-4 ####[facility] LABCLIA [id number] [place] [address] [place] Hepatic function 2000 panelo n 11-04-2024 Albumin [Mass/Vol] 4.7 g/dL Normal 3.9-4.9 [facility] Comment on above: Order Comment: Speci men Type: BLOOD SPECIMENOrdering Facility: [facility] Address: [address] [place] [address] Performed By: #### 2 4325-3 ####[facility]ITALNCLIA [id number] [place] [address] [place] ALP [Catalytic activity/Vol] 87 U/L Normal 38-113 [facility] Comment on above: Order Comment: Speci men Type: BLOOD SPECIMENOrdering Facility: [facility] Address: [address] [place] [address] Performed By: #### 2 4325-3 ####[facility] MILLWNCLIA [id number] [place] [address] [place] ALT [Catalytic activity/Vol] 22 U/L Normal 10-54 [facility] Comment on above: Order Comment: Speci men Type: BLOOD SPECIMENOrdering Facility: [facility] Address: [address] [place] [address] Performed By: #### 2 4325-3 ####[facility]ITALWNCLIA [id number] [place] [address] [place] AST [Catalytic activity/Vol] 14 U/L Normal 14-40 [facility] Comment on above: Order Comment: Speci men Type: BLOOD SPECIMENOrdering Facility: [facility] Address: [address] [place] [address] Performed By: #### 2 4325-3 ####[facility]ITALNCLIA [id number] [place] [address] [place] Bilirubin [Mass/Vol] 0.3 mg/dL Normal 0.2-1.3 [facility] Comment on above: Order Comment: Speci men Type: BLOOD SPECIMENOrdering Facility: [facility] Address: [address] [place] [address] Performed By: #### 2 4325-3 ####[facility]OSPITALWNCLIA [id number] [place] [address] [place] Bilirubin.conjugated [Mass/Vol] 0.1 mg/dL Normal <0.3 [facility] Comment on above: Order Comment: Speci men Type: BLOOD SPECIMENOrdering Facility: [facility] Address: [address] [place], [place] [address] Performed By: #### 2 4325-3 ####[facility]ITALNCLIA [id number] [place] [address] [place] Protein [Mass/Vol] 7.7 g/dL Normal 6.3-8.0 [facility] Comment on above: Order Comment: Speci men Type: BLOOD SPECIMENOrdering Facility: [facility] Address: [address] [place] [address] Performed By: #### 2 4325-3 ####[facility] [id number] [place] [address] [place] Relevant diagnostic tests/la boratory data Narrativeon 11-03-2024 Fall risk assessment no [facility] [employer] Work Phone: MEDS REVIEW Documentation of current medications (procedure) [employer] Work Phone: MEDS REVIEWD Medications reviewed without changes [facility] [employer] Work Phone: Testosterone, Total / Freeon 10-25-2024 TESTOSTER,FREE TNP Normal . [facility] Comment on above: Order Comment: N Result Comment: Unab le to calculate result since non-numeric result obtained for component test. Performed By: #### L 100.0100, L506.1001, L3100.5310, L501.9520, L509.1000, L3100.5055, L503.6550 #### [facility] [address] [place], [place], [address] TESTOSTER,TOTAL 310 ng/dL Normal 264-916 [facility] Comment on above: Order Comment: N Result Comment: Adul t male reference interval is based on a population of healthy nonobese males (BMI <30) between 19 and 39 years old. Kathe et.al. JCEM 2017,102;6550-0263. PMID: [id number]. Performed By: #### L 100.0100, L506.1001, L3100.5310, L501.9520, L509.1000, L3100.5055, L503.6550 #### [facility] [address] [place], [place], [address] TESTOSTERONE,%F TNP Normal . [facility] Comment on above: Order Comment: N Result Comment: Test not performed. Specimen is grossly lipemic. CONTACTED MELISSA AT YOUR FACILITY ON 10-25-2024 Performed By: #### L 100.0100, L506.1001, L3100.5310, L501.9520, L509.1000, L3100.5055, L503.6550 #### [facility] [address] [place], [address] Absolute lymphocyte countOrd ered By: Billy Duran on 10-17-2024 Lymphocytes Auto (Unsp spec) [#/Vol] 2.22 10*3/uL 0.83-4.51 [facility] Absolute neutrophil countOrd ered By: Billy Duran on 10-17-2024 Neutrophils (Bld) [#/Vol] 4.0 10*3/uL 2.0-7.7 [facility] Automated lymphocyte count a s percentage of total leukocytesOrdered By: Billy Duran on 10-17-2024 Lymphocytes/100 WBC Auto (Unsp spec) 31.1 % 19-41 [facility] Basophil percentageOrdered B y: Billy Duran on 10-17-2024 Basophils/100 WBC (Bld) 0.3 % 0-1 [facility] CBC W/Diff, Automatedon Absolute Lymph 2.22 X10 3/uL Normal 0.83-4.51 [facility] Comment on above: Performed By: #### L 100.0100, L506.1001, L3100.5310, L501.9520, L509.1000, L3100.5055, L503.6550 #### [facility] [address] [place], [address] Absolute Neut 4.0 X10 3/uL Normal 2.0-7.7 [facility] Comment on above: Performed By: #### L 100.0100, L506.1001, L3100.5310, L501.9520, L509.1000, L3100.5055, L503.6550 #### [facility] [address] [place], [address] Basophils/100 WBC (Bld) 0.3 % Normal 0-1 [facility] Comment on above: Performed By: #### L 100.0100, L506.1001, L3100.5310, L501.9520, L509.1000, L3100.5055, L503.6550 #### [facility] [address] [place], [address] Eosinophils/100 WBC (Bld) 4.9 % Normal 0-5 [facility] Comment on above: Performed By: #### L 100.0100, L506.1001, L3100.5310, L501.9520, L509.1000, L3100.5055, L503.6550 #### [facility] [address] [place], [address] Erythrocyte distribution width (RBC) [Ratio] 11.9 % Normal 11.6-14.6 [facility] Comment on above: Performed By: #### L 100.0100, L506.1001, L3100.5310, L501.9520, L509.1000, L3100.5055, L503.6550 #### [facility] [address] [place], [address] Hematocrit (Bld) [Volume fraction] 39.8 % Low 40-54 [facility] Comment on above: Performed By: #### L 100.0100, L506.1001, L3100.5310, L501.9520, L509.1000, L3100.5055, L503.6550 #### [facility] [address] [place], [address] Hemoglobin (Bld) [Mass/Vol] 14.3 g/dL Normal 13.0-16.5 [facility] Comment on above: Performed By: #### L 100.0100, L506.1001, L3100.5310, L501.9520, L509.1000, L3100.5055, L503.6550 #### [facility] [address] [place], [address] IG% 0.300 Normal 0.0-0.9 [facility] Comment on above: Result Comment: IG% - Immature Granulocytes (promyelocytes, myelocytes and metamyelocytes) > 1% indicates that a LEFT SHIFT is Present. Performed By: #### L 100.0100, L506.1001, L3100.5310, L501.9520, L509.1000, L3100.5055, L503.6550 #### [facility] [address] [place], [address] Lymphocytes/100 WBC (Bld) 31.1 % Normal 19-41 [facility] Comment on above: Performed By: #### L 100.0100, L506.1001, L3100.5310, L501.9520, L509.1000, L3100.5055, L503.6550 #### [facility] [address] [place], [address] MCH (RBC) [Entitic mass] 32.7 pg High 27.0-32.0 [facility] Comment on above: Performed By: #### L 100.0100, L506.1001, L3100.5310, L501.9520, L509.1000, L3100.5055, L503.6550 #### [facility] [address] [place], [address] MCHC (RBC) [Mass/Vol] 35.9 g/dL Normal 32-36 [facility] Comment on above: Performed By: #### L 100.0100, L506.1001, L3100.5310, L501.9520, L509.1000, L3100.5055, L503.6550 #### [facility] [address] [place], [address] MCV (RBC) [Entitic vol] 91.1 fL Normal 80-94 [facility] Comment on above: Performed By: #### L 100.0100, L506.1001, L3100.5310, L501.9520, L509.1000, L3100.5055, L503.6550 #### [facility] [address] [place], [address] Monocytes/100 WBC (Bld) 6.9 % Normal 0-10 [facility] Comment on above: Performed By: #### L 100.0100, L506.1001, L3100.5310, L501.9520, L509.1000, L3100.5055, L503.6550 #### [facility] [address] [place], [address] Neutrophils/100 WBC (Bld) 56.5 % Normal 47-70 [facility] Comment on above: Performed By: #### L 100.0100, L506.1001, L3100.5310, L501.9520, L509.1000, L3100.5055, L503.6550 #### [facility] [address] [place], [address] Nucleated RBC (Bld) [#/Vol] 0 10*3/uL Normal 0-5 [facility] Comment on above: Performed By: #### L 100.0100, L506.1001, L3100.5310, L501.9520, L509.1000, L3100.5055, L503.6550 #### [facility] [address] [place], [address] Platelet mean volume (Bld) [Entitic vol] 11.1 fL Normal 6.2-12.0 [facility] Comment on above: Performed By: #### L 100.0100, L506.1001, L3100.5310, L501.9520, L509.1000, L3100.5055, L503.6550 #### [facility] [address] [place], [address] Platelets (Bld) [#/Vol] 221 10*3/uL Normal 150-450 [facility] Comment on above: Performed By: #### L 100.0100, L506.1001, L3100.5310, L501.9520, L509.1000, L3100.5055, L503.6550 #### [facility] [address] [place], [address] RBC (Bld) [#/Vol] 4.37 10*6/uL Low 4.6-6.2 [facility] Comment on above: Performed By: #### L 100.0100, L506.1001, L3100.5310, L501.9520, L509.1000, L3100.5055, L503.6550 #### [facility] [address] [place], [address] RDW SD 39.8 fl Normal 35.1-43.9 [facility] Comment on above: Performed By: #### L 100.0100, L506.1001, L3100.5310, L501.9520, L509.1000, L3100.5055, L503.6550 #### [facility] [address] [place], [address] WBC (Bld) [#/Vol] 7.1 10*3/uL Normal 4.4-11.0 [facility] Comment on above: Performed By: #### L 100.0100, L506.1001, L3100.5310, L501.9520, L509.1000, L3100.5055, L503.6550 #### [facility] [address] [place], [address] Endocrinology Visit Reporton 10-17-2024 Endocrinology Visit Report [facility] [address] [place], [place] [address] OFFICE VISIT Date of Service: 10/17/24 MR#: [id number] Acct: [id number] Name: ALVIN BROWN Rep #: [id number] 3 : 1955 Provider: Sajan Laird Age/Sex: 68/M Location: [facility] Status: Signed Intake Vital Signs 09/14/24 14:35 10/17/24 13:53 Height 5 ft 6 in 5 ft 6 in Weight: 196 lb 201 lb BMI 31.6 32.4 BP 115/72 136/77 H Blood Pressure Location Lt brachial Lt brachial Position Sitting Sitting Respiration 18 Pulse 60 73 Pulse Source Monitor Monitor Pulse Oximetry (%) 96 96 Oxygen Delivery Method room air room air Intake Visit Reasons: Osteoporosis Chief Complaint: Osteoporosis Is patient in pain?: Yes Allergies Tetanus Vaccines and Toxoid Adverse Reaction (Intermediate, Verified 10/17/24 13:55) Rash Medications ???Medication ???Instructions ???Recorded ???Confirmed ???Type folic acid 1 mg tablet 1 mg PO DAILY@0800 supplement 09/1310/17/24 History meloxicam 15 mg tablet (Mobic) 15 mg PO DAILY ANTIINFLAMITORY 10/17/24 History tamsulosin 0.4 mg capsule (Flomax) 0.4 mg PO QHS #30 caps 03/24/24 10/17/24 Rx apixaban 5 mg tablet (Eliquis) 5 mg PO BID #180 tabs 04/12/2411/04 Rx Held on 09/14/24. Instructions: Order Changed diltiazem HCl 120 mg 120 mg PO DAILY #90 caps 04/12/24 10/17/24 Rx capsule,extended release 24 hr (Cardizem CD) rosuvastatin 10 mg tablet (Crestor) 10 mg PO QDAY 09/14/24 10/17/24 History Have you fallen in the past year?: No PFSH Medical History (Updated 10/21/24 @ 12:[address] 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 H/O deep venous thrombosis BPH (benign prostatic hyperplasia) Osteoporosis GERD (gastroesophageal reflux disease) Arthritis Surgical History History of nasal septoplasty History of hip surgery H/O vasectomy History of tonsillectomy Hx of cholecystectomy Family History Father Skin cancer Arthritis COPD (chronic obstructive pulmonary disease) Hypertension Hereditary hemochromatosis Mother Anemia Arthritis Heart disease Lung cancer COPD (chronic obstructive pulmonary disease) Hypertension Grandmother Aneurysm Bone cancer Social History household members: spouse housing: house current occupational status: employed 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 Lab: GFR 96 Calcium 9.8 vitamin D 95.6 TSH 3.39 Bone density from December, LS -1.7 LFN 0.3 LFN -1.3 He has hemochromatosis. He saw Dr. Barnard in 2003. He presented with multiple fractures of ankle, ribs and finger. T-score was -3.7 He was started on Fosamax which he took for 14 years. In 2017 he started having right hip pain. He states T-score was -2.4 In 2022 he states he had hairline fracture of right femur and torn labrum. He had surgery and did well for awhile, but more recently he has retorn his labrum. He has 2 orthopedic surgeons, Dr. Steel and Dr. Ibarra. He tells me that they are saying that he has poor bone quality in the hip and a lot of microfractures (possibly related to being on bisphosphonate for so long) He states he can't get a hip replacement due to the quality of the bone. Dr. Ibarra tried to get Tymlos for him but it was denied. ROS Const Constitutional: No fatigue or weight change ENT ENT: No dizziness/vertigo Cardio Cardiology: No chest pain at rest, chest pain with exertion, shortness of breath or palpitations Musc Musculoskeletal: Positive for joint pain and myalgias Skin Skin: No wounds Endo Endocrine: No fatigue or weight change Exam Const General: cooperative, healthy appearing, comfortable, no acute distress, well developed and not cushingoid Nutritional Appearance: well nourished Orientation: alert, awake and oriented x3 HENMT Head: normal to inspection Ears: hearing grossly normal bilaterally Nose: external nose normal Mouth: oral mucosae normal Eyes General: appearance normal, both eyes and all related structures Alignment and Position: alignment normal Periorbital: periorbital findings normal Eyelids: eyelids normal Conjunctivae: c (more content not included)... Normal [facility] Eosinophil percentageOrdered By: Billy Duran on 10-17-2024 Eosinophils/100 WBC (Bld) 4.9 % 0-5 [facility] Erythrocyte distribution wid th ratioOrdered By: Billy Duran on 10-17-2024 Erythrocyte distribution width (RBC) [Ratio] 11.9 % 11.6-14.6 [facility] Erythrocyte distribution wid th standard deviationOrdered By: Billy Duran on 10-17-2024 Erythrocyte distribution width (RBC) [Ratio] 39.8 fl 35.1-43.9 [facility] FSH and LHon 10-17-2024 FSH 3.6 mIU/mL Normal [facility] Comment on above: Order Comment: JACQUELINE RODRIGUEZ ORDERED FERRITIN AND CBCD ROGER ORDERED THE REST Result Comment: FEMA LE: Follicular: 1.4 - 18.1 mIU/mL Midcycle: 3.4 - 33.4 mIU/mL Luteal: 1.5 - 9.1 mIU/mL Post Menopause: 23.0 - 116.3 mIU/mL MALE: 1.4 - 18.1 mIU/mL Performed By: #### L 100.0100, L506.1001, L3100.5310, L501.9520, L509.1000, L3100.5055, L503.6550 #### [facility] [address] [place], [place], [id number] LH 4.8 mIU/mL Normal [facility] Comment on above: Order Comment: JACQUELINE RODRIGUEZ ORDERED FERRITIN AND CBCD ROGER ORDERED THE REST Result Comment: FEMA LE: Follicular: 1.9-12.5 mIU/mL Midcycle: 8.7-76.3 mIU/mL Luteal: 0.5-16.9 mIU/mL Post Menopause: 15.9-54.0 mIU/mL MALE: 20-70 Years: 1.5-9.3 mIU/mL >70 Years: 3.1-34.6 mIU/mL Performed By: #### L 100.0100, L506.1001, L3100.5310, L501.9520, L509.1000, L3100.5055, L503.6550 #### [facility] [address] [place], [place], [address] Ferritinon 10-17-2024 Ferritin [Mass/Vol] 84 ng/mL Normal 37-417 [facility] Comment on above: Order Comment: JACQUELINE RODRIGUEZ ORDERED FERRITIN AND CBCD ROGER ORDERED THE REST Performed By: #### L 100.0100, L506.1001, L3100.5310, L501.9520, L509.1000, L3100.5055, L503.6550 #### [facility] [address] [place], [place], [id number] Free testosterone percentage Ordered By: Billy Duran on 10-17-2024 Testosterone Free/Testosterone.total [Mass fraction] TNP [facility] Comment on above: Test not performedTe st not performed. Specimen is grossly lipemic.CONTACTED MELISSA AT YOUR FACILITY ON 10-25-2024 Hematocrit Auto (Bld) [Volum e fraction]Ordered By: Billy Duran on 10-17-2024 Hematocrit (Bld) [Volume fraction] 39.8 % Low 40-54 [facility] Hemoglobin measurementOrdere d By: Billy Duran on 10-17-2024 Hemoglobin (Bld) [Mass/Vol] 14.3 g/dL 13.0-16.5 [facility] Immature granulocytes/100 WB C Auto (Bld)Ordered By: Billy Duran on 10-17-2024 Immature granulocytes/100 WBC (Bld) 0.300 % 0.0-0.9 [facility] Comment on above: IG% - Immature Granu locytes (promyelocytes, myelocytes and metamyelocytes) > 1% indicates that a LEFT SHIFT is Present. LH ser/plasOrdered By: Billy Duran on 10-17-2024 Lutropin Qn 4.8 m[IU]/mL [facility] Comment on above: FEMALE:Follicular: 1 .9-12.5 mIU/mLMidcycle: 8.7-76.3 mIU/mLLuteal: 0.5-16.9 mIU/mLPost Menopause: 15.9-54.0 mIU/mLMALE:20-70 Years: 1.5-9.3 mIU/mL>70 Years: 3.1-34.6 mIU/mL MCV (mean corpuscular volume ) determinationOrdered By: Billy Duran on 10-17-2024 MCV (RBC) [Entitic vol] 91.1 fL 80-94 [facility] Mean corpuscular hemoglobin (MCH) determinationOrdered By: Billy Duran 10-17-2024 MCH (RBC) [Entitic mass] 32.7 pg High 27.0-32.0 [facility] Mean corpuscular hemoglobin concentration (MCHC) determinationOrdered By: Billy Duran on 10-17-2024 MCHC (RBC) [Mass/Vol] 35.9 g/dL 32-36 [facility] Mean platelet volume determi nationOrdered By: Billy Duran on 10-17-2024 Platelet mean volume (Bld) [Entitic vol] 11.1 fL 6.2-12.0 [facility] Monocyte percentageOrdered B y: Billy Duran on 10-17-2024 Monocytes/100 WBC (Bld) 6.9 % 0-10 [facility] Neutrophil percentageOrdered By: Billy Duran on 10-17-2024 Neutrophils/100 WBC (Bld) 56.5 % 47-70 [facility] Nucleated red blood cell per centageOrdered By: Billy Duran on 10-17-2024 Nucleated RBC/100 WBC (Bld) [Ratio] 0 % 0-5 [facility] PTHINon 10-17-2024 PTH 35 pg/mL Normal 11-61 [facility] Comment on above: Performed By: #### L 100.0100, L506.1001, L3100.5310, L501.9520, L509.1000, L3100.5055, L503.6550 #### [facility] [address] [place], [address] Platelet countOrdered By: Phil hopkins Roger on 10-17-2024 Platelets (Bld) [#/Vol] 221 10*3/uL 150-450 [facility] RBC Auto (Bld) [#/Vol]Ordere d By: Billy on 10-17-2024 RBC (Bld) [#/Vol] 4.37 10*6/uL Low 4.6-6.2 [facility] Serum or plasma ferritin jonatan surement (mass/volume)Ordered By: Billy Duran on 10-17-2024 Ferritin [Mass/Vol] 84 ng/mL 37-417 [facility] Serum or plasma free testost erone measurement (mass/volume)Ordered By: Billy Duran on 10-17-2024 Testosterone Free [Mass/Vol] TNP [facility] Comment on above: Test not performedUn able to calculate result since non-numeric resultobtained for component test. TSH DL <= 0.005 mIU/L QnOrde red By: Billyaaron Duran on 10-17-2024 TSH Qn 2.710 uIU/mL 0.300-4.200 [facility] Testosterone, totalOrdered B y: Billyaaron Duran on 10-17-2024 Testosterone [Mass/Vol] 310 ng/dL 264-916 [facility] Comment on above: Adult male reference interval is based on a population ofhealthy nonobese males (BMI <30) between 19 and 39 yearsold. Kathe et.al. JCEM 2017,102;5574-9571. PMID:[id number]. Thyroid Stim Hormone (TSH)on 10-17-2024 TSH 2.710 uIU/mL Normal 0.300-4.200 [facility] Comment on above: Order Comment: JACQUELINE RODRIGUEZ ORDERED FERRITIN AND CBCD ROGER ORDERED THE REST Performed By: #### L 100.0100, L506.1001, L3100.5310, L501.9520, L509.1000, L3100.5055, L503.6550 #### [facility] [address] [place], [place], [address] Vitamin D,25 Hydroxyon 10-17 Vitamin D 25-OH 68.0 ng/mL Normal 30-100 [facility] Comment on above: Order Comment: JACQUELINE RODRIGUEZ ORDERED FERRITIN AND CBCD ORDERED THE REST Result Comment: Dasha min D Status Deficiency: <20 ng/mL (50nmol/L) Insufficiency: 20-30 ng/mL (50-75 nmol/L) Sufficiency: 30-100 ng/mL (75-250 nmol/L) Toxicity: >100 ng/mL (>250 nmol/L) Performed By: #### L 100.0100, L506.1001, L3100.5310, L501.9520, L509.1000, L3100.5055, L503.6550 #### [facility] [address] [place], [place], [address] White blood cell (WBC) count Ordered By: Billy Duran on 10-17-2024 WBC (Bld) [#/Vol] 7.1 10*3/uL 4.4-11.0 [facility] Cardiology Visit Reporton Cardiology Visit Report [facility] [address] [place], [place] [address] OFFICE VISIT Date of Service: 09/14/24 MR#: [id number] Acct: [id number] Name: ALVIN BROWN Rep #: [id number] 3 : 1955 Provider: Dr. Homero andrea MD Age/Sex: 68/M [place] [facility] [place]: Signed with Addenda ADDENDUM by Dr. Homero Bang MD on 09/14/24 at 1526 HPI History of Present Illness Details: ECG in the office today shows normal sinus rhythm at 61 bpm and is normal. Assessment and Plan Assessment and Plan (1) Paroxysmal atrial fibrillation: Status: Acute (2) Hypertension: Status: Chronic Qualifiers: Hypertension type: primary hypertension Qualified Code(s): I10 - Essential (primary) hypertension (3) Hyperlipidemia: Status: Acute Qualifiers: Hyperlipidemia type: mixed hyperlipidemia Qualified Code(s): E78.2 - Mixed hyperlipidemia (4) TIA (transient ischemic attack): Status: Suspected (5) Hemochromatosis: Status: Chronic Qualifiers: Hemochromatosis type: hereditary Qualified Code(s): E83.110 - Hereditary hemochromatosis Medications: On Hold apixaban (Eliquis) Hold Comment: Order Changed 5 mg PO BID 180 tabs 3RF Plan Details Follow Up: 6 Months (With Daljit and as needed) 09/14/24 1526 Date Homero Bang MD cc: Dr. Radha Arango, DO * Signed HPI HPI History of Present Illness Details: Patient is a pleasant 68-year-old white male that comes in today for monitoring of his cardiovascular status. The patient carries a history of paroxysmal atrial fibrillation. He was originally diagnosed back in March 2024 when he presented with what appeared to be a TIA/stroke. He felt palpitations and was well aware that something was wrong. He had an echocardiogram 12th which showed an EF of 65% no evidence of diastolic dysfunction no significant valvular heart disease. The patient has been controlled on diltiazem and anticoagulated chronically with Eliquis 5 mg twice daily. It appears that his original event was an isolated event related to fasting and then having a phlebotomy. There was no definitive CT or MRI deficit documented. He had a CTA done which showed no evidence of hemodynamically significant stenosis thrombosis or aneurysms. The patient had a negative hypercoagulable workup. Patient also carries a history of hypertension which is well-controlled on his Cardizem. He has a history of hemochromatosis that he follows up with hematology and has recurring phlebotomies. He also has a history of hyperlipidemia which is monitored through the primary service. He is on Crestor 10 mg daily. Patient denies any nuisance bleeding at this time. He does have a smart watch we went over in detail with it and how to record the rhythms which she has been recording some but he has a difficulty when he was out working in the yard he was having an issue with his hand shaking so it made it difficult to record the rhythm strip. I was able to pull the rhythm strip up on his phone and we concluded that it was sinus rhythm and not any atrial fibrillation. That is the only event that he has felt in the last 6 months. The patient wants to discuss discontinuing Eliquis. Intake Vital Signs 04/12/24 08:29 09/14/24 14:35 Height 5 ft 6 in 5 ft 6 in Weight: 196 lb BMI 31.6 BP 115/72 Blood Pressure Location Lt brachial Position Sitting Respiration 18 Pulse 60 Pulse Source Monitor Pulse Oximetry (%) 96 Oxygen Delivery Method room air Intake Visit Reasons: 6 M Inspector And Tester Required: No Accompanied by: Self Is patient in pain?: No Allergies Tetanus Vaccines and Toxoid Adverse Reaction (Intermediate, Verified 09/14/24 14:35) Rash Medications ???Medication ???Instructions ???Recorded ???Confirmed ???Type folic acid 1 mg tablet 1 mg PO DAILY@0800 supplement 09/1309/14/24 History meloxicam 15 mg tablet (Mobic) 15 mg PO DAILY ANTIINFLAMITORY 09/14/24 History tamsulosin 0.4 mg capsule (Flomax) 0.4 mg PO QHS #30 caps 03/24/24 09/14/24 Rx apixaban 5 mg tablet (Eliquis) 5 mg PO BID #180 tabs 04/12/2408/05 Rx Held on 09/14/24. 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 Normal [facility] CNOVSPon 08-09-2024 CNOVSP Visit (SP) Office (HEMAWS) ---- ALVIN BROWN ([id number]) 1955 M Date Time Provider Department 08/09/24 12:40 PM BRUCE ROBERSON During your visit today, we recorded the following information about you: Temperature Pulse Blood pressure Weight 98 degrees 72/minute 142/85 88.9 kg Bruce Roberson MD 08/16/2024 10:00 AM Signed (Elements copied from my note dated May 11, 2024, have been reviewed and updated where appropriate, and all reflect current assessment and medical decision making from today's encounter, August 09, 2024) HISTORY OF PRESENT ILLNESS: Alvin Brown is a 68 year old male dx with hemochromatosis dx in 2003, on basis of elevated l;iver enzymes, liver biopsy showed increased iron stores. Saw Dr Magallon underwent phlebotomy therapy, with good results. Was doing phlebotomy every 3 months when he last saw Dr Magallon. Switched to [facility] due to insurance change, had 2 phlebotomy in 7 years with them. Here to re establish Last phlebotomy was March 23 2024. Went into atrial fibrillation afterward, passed out. 04-20-24 ferritin was 22. CLINICAL IMPRESSION: Hemochromatosis RECOMMENDATION/PLAN : 1. Follow ferritin, phlebotomy if > 50. Recheck 3 months Written and verbal health teaching given to patient, patient verbalizes understanding and agrees with treatment plan. 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 Esophagitis, unspecified Other and unspecified hyperlipidemia Hyperlipidemia Other osteoporosis Phlebitis and thrombophlebitis of femoral vein (deep) (superficial) (HCC) Stroke (HCC) PAST SURGICAL HISTORY Procedure Laterality Date COLONOSCOPY FLX DX W/COLLJ SPEC WHEN PFRMD 05/07/2007 COLONOSCOPY FLX DX W/COLLJ SPEC WHEN PFRMD 06/10/2011 Colonoscopy EGD TRANSORAL BIOPSY SINGLE/MULTIPLE 12/17/2006 ESOPHAGOGASTRODUODE NOSCOPY TRANSORAL DIAGNOSTIC 09/02/2013 EGD ESOPHAGOGASTRODUODE NOSCOPY TRANSORAL DIAGNOSTIC 09/02/2013 EGD LAPAROSCOPY SURG CHOLECYSTECTOMY 01/17/2005 Cholecystectomy, lap PAST SURGICAL HISTORY OF 01/17/2005 Liver biopsy PAST SURGICAL HISTORY OF 04/13/1988 nasal surgery PAST SURGICAL HISTORY OF Labrum right hip repair FAMILY HISTORY Problem Relation Age of Onset Hypertension Father Hypertension Mother Diabetes Brother Diabetes Sister Coronary Artery Disease Paternal Grandfather Developmental problem Daughter Diabetes Son Emphysema Child Genitourinary () Maternal Aunt Cancer Mother lung cancer COPD Father Social History Tobacco Use Smoking status: Never Smokeless tobacco: Never Substance Use Topics Alcohol use: No Drug use: No ALLERGIES: ALLERGIES Allergen Reactions Tetanus Vaccines An* Rash CURRENT OUTPATIENT MEDICATIONS: apixaban (ELIQUIS) 5 mg tab(s) Take 5 mg by mouth two times a day. cholecalciferol (VITAMIN D-3) 400 unit tab Take 400 Units by mouth once daily. rosuvastatin (CRESTOR) 10 mg tablet Take 10 mg by mouth once daily. dilTIAZem (CARDIZEM) 120 mg tablet Take 120 mg by mouth once daily. VITAMIN K2 ORAL Take 1 tablet by mouth once daily. ZINC ORAL Take 1 tablet by mouth once daily. CALCIUM ORAL Take 1 tablet by mouth once daily. ascorbic acid (VITAMIN C ORAL) Take 1 tablet by mouth once daily. MAGNESIUM ORAL Take 1 tablet by mouth two times a day. azithromycin (ZITHROMAX) 250 mg tablet Take 1 tablet by mouth once daily. folic acid 1 mg tablet Take 1 tablet by mouth once daily. meloxicam (MOBIC) 15 mg tablet Take 1 tablet by mouth once daily. Take with food. cholecalciferol (VITAMIN D3) 1,000 unit tab Take 1,000 Units by mouth once daily. lidocaine (LIDODERM) 5 %(700 mg/patch) Apply 1 Patch as directed once daily as needed. methocarbamol 500 mg tablet Take 1 tablet by mouth three times daily as needed (muscle spasm). aspirin(ASPIR-81 81 MG TAB) Take one(1) tablet daily. miscellaneous medical supply(COMPRESSION STOCKINGS) 20-30 cm. H20 Omeprazole Magnesium (PRILOSEC OTC) 20 mg ORAL TbEC Take one(1) tablet two(2) times daily. REVIEW OF SYSTEMS: GENERAL: No fever, night sweats, weight loss or malaise. All other reviewed and negative other than HPI. PHYSICAL EXAMINATION: VITAL SIGNS: BP 142/85 Pulse 72 Temp (Src) 98 (Temporal) Wt 196 lb (88.9kg) SpO2 98% GENERAL APPEARANCE: Well appearing, in no acute distress, alert and oriented x3, well-hydrated, well nourished. I spent a total of 20 minutes on the date of the service which included preparing to see the patient, [id number] patient care, completing clinical documentation, obtaining and/or reviewing separately obtained history, counseling and educating the patient/family/cna caregiver, ordering medications, tests, or procedures, independently interpreting results (not separately re (more content not included)... [facility] (HEMA[facility]) ---- ALVIN BROWN ([id number]) 1955 M Date Time Provider Department 08/09/24 BRUCE ROBERSON During your visit today, we recorded the following information about you: Jordyn Hong 08/09/2024 4:34 PM Signed AVS 08/09/24 Back in 3 months with visit and phlebotomy, need ferritin and cbc drawn a few days before appoinment Sarah Beth Bowden 08/09/2024 4:43 PM Signed Lvm for patient to return the call to schedule Antonia Medellin 08/10/2024 11:51 AM Signed Scheduled with patient Allergies As of Date: 08/09/2024 Noted Allergy Reaction TETANUS VACCINES AND TOXOID 08/28/2005 2 - Rash Date Reviewed: 08/09/2024 Reviewed by: Angelia Cerda Ma, MA - Fully Assessed Reason for Visit: avs [Other] Prescriptions as of 08/10/2024 - cholecalciferol (VITAMIN D-3) 400 unit tab Take 400 Units by mouth once daily. - rosuvastatin (CRESTOR) 10 mg tablet Take 10 mg by mouth once daily. - apixaban (ELIQUIS) 5 mg tab(s) Take 5 mg by mouth two times a day. - dilTIAZem (CARDIZEM) 120 mg tablet Take 120 mg by mouth once daily. - VITAMIN K2 ORAL Take 1 tablet by mouth once daily. - ZINC ORAL Take 1 tablet by mouth once daily. - CALCIUM ORAL Take 1 tablet by mouth once daily. - ascorbic acid (VITAMIN C ORAL) Take 1 tablet by mouth once daily. - MAGNESIUM ORAL Take 1 tablet by mouth two times a day. - azithromycin (ZITHROMAX) 250 mg tablet Take 1 tablet by mouth once daily. - folic acid 1 mg tablet Take 1 tablet by mouth once daily. - meloxicam (MOBIC) 15 mg tablet Take 1 tablet by mouth once daily. Take with food. - cholecalciferol (VITAMIN D3) 1,000 unit tab Take 1,000 Units by mouth once daily. - lidocaine (LIDODERM) 5 %(700 mg/patch) Apply 1 Patch as directed once daily as needed. - methocarbamol 500 mg tablet Take 1 tablet by mouth three times daily as needed (muscle spasm). - aspirin(ASPIR-81 81 MG TAB) Take one(1) tablet daily. - miscellaneous medical supply(COMPRESSION STOCKINGS) 20-30 cm. H20 - Omeprazole Magnesium (PRILOSEC OTC) 20 mg ORAL TbEC Take one(1) tablet two(2) times daily. Problem List As Of Date 08/09/2024 Noted Resolved ARTHROP W ENDOCR/MET DIS [HFH4169] 01/28/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] 03/14/2005 PATHOLOGIC FRACTURE [733.1] 06/05/2005 THROMBOPHLEBITIS NOS [I80.9] 11/05/2005 HYPERTROPHY PROSTATE W/O OBST [N40.0] 11/05/2005 HYPERLIPIDEMIA NEC/NOS [E78.5] 03/04/2006 OSTEOPOROSIS NOS [M81.0] 10/23/2006 ESOPHAGEAL REFLUX [K21.9] 10/23/2006 DYSPHAGIA [787.2] 11/20/2006 ESOPHAGITIS, UNSPECIFIED [K20.90] 12/17/2006 BPH (Benign Prostatic Hypertrophy) with Urinary*02/23/2009 Pain in Joint, Shoulder Region [M25.519] 03/02/2009 Dysmetabolic syndrome [E88.810] 03/19/2010 Hemochromatosis [E83.119] 03/19/2010 Actinic Keratoses (Premalignant AK's) [L57.0] 04/25/2010 Seborrheic Dermatitis: scalp [L21.8] 04/25/2010 Seborrheic Keratosis [L82.1] 04/25/2010 Actinic Damage///Sun-damage d skin [L57.8] 04/25/2010 Solar Lentigines [L81.4] 04/25/2010 Telangiectasia [I78.1] 04/25/2010 Cryosurgical Scar [L90.5] 06/11/2010 Onychomycosis [B35.1] 12/10/2010 Tinea unguium [B35.1] 12/10/2010 Nail dystrophy [L60.3] 12/10/2010 Deformity of toenail [L60.8] 12/10/2010 Tinea pedis [B35.3] 12/10/2010 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 stomach [D13.1] 06/10/2011 Hemochromatosis, hereditary [E83.110] 08/21/2011 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] 02/27/2013 Actinic skin damage [L57.8] 02/27/2013 Voice disturbance [R49.9] 07/05/2015 Encounter Status:Closed by ANOTNIA SAN on 08/10/24 Normal [facility] CBC W Auto Differential pane l (Bld)on 08-04-2024 Basophils (Bld) [#/Vol] 0.03 10*3/uL Normal <0.11 [facility] Comment on above: Order Comment: Speci men Type: BLOOD SPECIMENOrdering Facility: [facility] Address: [address] [place] [id number] Performed By: #### 5 7021-8 ####[facility] ERIC CHAMPIONORLANDOEVIN [id number] [place] [address] [place] Basophils/100 WBC (Bld) 0.3 % Normal [facility] Comment on above: Order Comment: Speci men Type: BLOOD SPECIMENOrdering Facility: [facility] Address: [address] [place] [address] Performed By: #### 5 7021-8 ####[facility] JAYCEEORLANDOROXANNELIA [id number] [place] [address] [place] Differential cell count method Nom (Bld) Auto Normal [facility] Comment on above: Order Comment: Speci men Type: BLOOD SPECIMENOrdering Facility: [facility] Address: [address] [place] [address] Performed By: #### 5 7021-8 ####[facility]ITALRITAA [id number] [place] [address] [place] Eosinophils (Bld) [#/Vol] 0.18 10*3/uL Normal <0.46 [facility] Comment on above: Order Comment: Speci men Type: BLOOD SPECIMENOrdering Facility: [facility] Address: [address] [place] [address] Performed By: #### 5 7021-8 ####[facility]ITALNCLIA [id number] [place] [address] [place] Eosinophils/100 WBC (Bld) 2.1 % Normal [facility] Comment on above: Order Comment: Speci men Type: BLOOD SPECIMENOrdering Facility: [facility] Address: [address] [place] [address] Performed By: #### 5 7021-8 ####MEMORIAL HOSPITALLIA [id number] [place] [address] [place] Erythrocyte distribution width (RBC) [Ratio] 12.0 % Normal 11.5-15.0 [facility] Comment on above: Order Comment: Speci men Type: BLOOD SPECIMENOrdering Facility: [facility] Address: [address] [place] [address] Performed By: #### 5 7021-8 ####[facility]ITALNCLIA [id number] [place] [address] [place] Hematocrit (Bld) [Volume fraction] 40.9 % Normal 39.0-51.0 [facility] Comment on above: Order Comment: Speci men Type: BLOOD SPECIMENOrdering Facility: [facility] Address: [address] [place] [address] Performed By: #### 5 7021-8 ####[facility]ITALEVIN [id number] [place] [address] [place] Hemoglobin (Bld) [Mass/Vol] 14.5 g/dL Normal 13.0-17.0 [facility] Comment on above: Order Comment: Speci men Type: BLOOD SPECIMENOrdering Facility: [facility] Address: [address] [place] [address] Performed By: #### 5 7021-8 ####[facility] [id number] [place] [address] [place] Immature granulocytes (Bld) [#/Vol] 10*3/uL Normal <0.10 [facility] Comment on above: Order Comment: Speci men Type: BLOOD SPECIMENOrdering Facility: [facility] Address: [address] [place] [address] Performed By: #### 5 7021-8 ####[facility]AA [id number] [place] [address] [place] Immature granulocytes/100 WBC (Bld) 0.2 % Normal [facility] Comment on above: Order Comment: Speci men Type: BLOOD SPECIMENOrdering Facility: [facility] Address: [address] [place] [address] Performed By: #### 5 7021-8 ####[facility]IAL HOSPITALLIA [id number] [place] [address] [place] Lymphocytes (Bld) [#/Vol] 1.92 10*3/uL Normal 1.00-4.00 [facility] Comment on above: Order Comment: Speci men Type: BLOOD SPECIMENOrdering Facility: [facility] Address: [address] [place] [address] Performed By: #### 5 7021-8 ####[facility] JAYCEECherrieNCGIAN [id number] [place] [address] [place] Lymphocytes/100 WBC (Bld) 22.4 % Normal [facility] Comment on above: Order Comment: Speci men Type: BLOOD SPECIMENOrdering Facility: [facility] Address: [address] [place] [address] Performed By: #### 5 7021-8 ####[facility] HOSPITALNCGIAN [id number] [place] [address] [place] MCH (RBC) [Entitic mass] 31.4 pg Normal 26.0-34.0 [facility] Comment on above: Order Comment: Speci men Type: BLOOD SPECIMENOrdering Facility: [facility] Address: [address] [place] [address] Performed By: #### 5 7021-8 ####[facility] HOSPITALNCA [id number] [place] [address] [place] OF [place] MCHC (RBC) [Mass/Vol] 35.5 g/dL Normal 30.5-36.0 [facility] Comment on above: Order Comment: Speci men Type: BLOOD SPECIMENOrdering Facility: [facility] Address: [address] [place] [address] Performed By: #### 5 7021-8 ####[facility]ITALNCLIA [id number] [place] [address] [place] MCV (RBC) [Entitic vol] 88.5 fL Normal 80.0-100.0 [facility] Comment on above: Order Comment: Speci men Type: BLOOD SPECIMENOrdering Facility: [facility] Address: [address] [place], [place] [address] Performed By: #### 5 7021-8 ####[facility] MILLTOWNCLIA [id number] [place] [address] [place] Monocytes (Bld) [#/Vol] 0.63 10*3/uL Normal <0.87 [facility] Comment on above: Order Comment: Speci men Type: BLOOD SPECIMENOrdering Facility: [facility] Address: [address] [place] [address] Performed By: #### 5 7021-8 ####[facility]PITALWDELIA [id number] [place] [address] [place] Monocytes/100 WBC (Bld) 7.3 % Normal [facility] Comment on above: Order Comment: Speci men Type: BLOOD SPECIMENOrdering Facility: [facility] Address: [address] [place] [address] Performed By: #### 5 7021-8 ####[facility] HOSPITALLIA [id number] [place] [address] [place] Neutrophils (Bld) [#/Vol] 5.81 10*3/uL Normal 1.45-7.50 [facility] Comment on above: Order Comment: Speci men Type: BLOOD SPECIMENOrdering Facility: [facility] Address: [address] [place] [address] Performed By: #### 5 7021-8 ####[facility] MILLWNCLIA [id number] [place] [address] [place] Neutrophils/100 WBC (Bld) 67.7 % Normal [facility] Comment on above: Order Comment: Speci men Type: BLOOD SPECIMENOrdering Facility: [facility] Address: [address] [place] [address] Performed By: #### 5 7021-8 ####[facility] HOSPITALLIA [id number] [place] [address] [place] Nucleated RBC (Bld) [#/Vol] 10*3/uL Normal <0.01 [facility] Comment on above: Order Comment: Speci men Type: BLOOD SPECIMENOrdering Facility: [facility] Address: [address] [place] [address] Performed By: #### 5 7021-8 ####[facility] [id number] [place] [address] [place] Nucleated RBC/100 WBC (Bld) [Ratio] 0.0 /100 WBC Normal [facility] Comment on above: Order Comment: Speci men Type: BLOOD SPECIMENOrdering Facility: [facility] Address: [address] [place] [address] Performed By: #### 5 7021-8 ####[facility]ITALNCUINTA[facility] [id number] [place] [address] [place] Platelet mean volume (Bld) [Entitic vol] 10.1 fL Normal 9.0-12.7 [facility] Comment on above: Order Comment: Speci men Type: BLOOD SPECIMENOrdering Facility: [facility] Address: [address] [place] [address] Performed By: #### 5 7021-8 ####[facility] [id number] [place] [address] [place] Platelets (Bld) [#/Vol] 218 10*3/uL Normal 150-400 [facility] Comment on above: Order Comment: Speci men Type: BLOOD SPECIMENOrdering Facility: [facility] Address: [address] [place] [address] Performed By: #### 5 7021-8 ####[facility]ITALNCLIA [id number] [place] [address] [place] RBC (Bld) [#/Vol] 4.62 10*6/uL Normal 4.20-6.00 [facility] Comment on above: Order Comment: Speci men Type: BLOOD SPECIMENOrdering Facility: [facility] Address: [address] [place] [address] Performed By: #### 5 7021-8 ####[facility]ITALWNCLIA [id number] [place] [address] [place] WBC (Bld) [#/Vol] 8.59 10*3/uL Normal 3.70-11.00 [facility] Comment on above: Order Comment: Speci men Type: BLOOD SPECIMENOrdering Facility: [facility] Address: [address] [place] [address] Performed By: #### 5 7021-8 ####[facility]ITALNCLIA [id number] [place] [address] [place] Ferritin SerPl-mCncon 2024 Ferritin [Mass/Vol] 64.4 ng/mL Normal 30.3-565.7 [facility] Comment on above: Order Comment: Speci men Type: BLOOD SPECIMENOrdering Facility: [facility] Address: [address] [place] [address] Performed By: #### 2 276-4 ####[facility] LABCLIA [id number] [place] [address] [place] Hepatic function 2000 panelo n 08-04-2024 Albumin [Mass/Vol] 4.4 g/dL Normal 3.9-4.9 [facility] Comment on above: Order Comment: Speci men Type: BLOOD SPECIMENOrdering Facility: [facility] Address: [address] [place] [address] Performed By: #### 2 4325-3 ####[facility]ITALNCLIA [id number] [place] [address] [place] ALP [Catalytic activity/Vol] 73 U/L Normal 38-113 [facility] Comment on above: Order Comment: Speci men Type: BLOOD SPECIMENOrdering Facility: [facility] Address: [address] [place] [address] Performed By: #### 2 4325-3 ####[facility] LETICIALIA [id number] [place] [address] [place] ALT [Catalytic activity/Vol] 31 U/L Normal 10-54 [facility] Comment on above: Order Comment: Speci men Type: BLOOD SPECIMENOrdering Facility: [facility] Address: [address] [place] [address] Performed By: #### 2 4325-3 ####[facility]PITALLIA [id number] [place] [address] [place] AST [Catalytic activity/Vol] 16 U/L Normal 14-40 [facility] Comment on above: Order Comment: Speci men Type: BLOOD SPECIMENOrdering Facility: [facility] Address: [address] [place] [address] Performed By: #### 2 4325-3 ####[facility]OSPITALLIA [id number] [place] [address] [place] Bilirubin [Mass/Vol] 0.4 mg/dL Normal 0.2-1.3 [facility] Comment on above: Order Comment: Speci men Type: BLOOD SPECIMENOrdering Facility: [facility] Address: [address] [place] [address] Performed By: #### 2 4325-3 ####[facility]ITALNCLIA [id number] [place] [address] [place] Bilirubin.conjugated [Mass/Vol] 0.1 mg/dL Normal <0.3 [facility] Comment on above: Order Comment: Speci men Type: BLOOD SPECIMENOrdering Facility: [facility] Address: [address] [place] [address] Performed By: #### 2 4325-3 ####[facility] JAYCEEORLANDONCLIA [id number] [place] [address] [place] Protein [Mass/Vol] 7.0 g/dL Normal 6.3-8.0 [facility] Comment on above: Order Comment: Speci men Type: BLOOD SPECIMENOrdering Facility: [facility] Address: [facility] [place] [address] Performed By: #### 2 4325-3 ####[facility] JAYCEEORLANDONCLIA [id number] [place], [place] [address] [place] [address] [place] CNPNon 06-16-2024 CNPN Telephone (AGSPINE2) ---- ALVIN BROWN ([id number]) 1955 M Date Time Provider Department 06/16/24 JESICA MADISONPINE2 During your visit today, we recorded the following information about you: Jesica Madison LMT 06/16/2024 2:48 PM Signed LVM for patient to call in and go over how insurance will not cover our direct care counselor Jesica Madison LMT Allergies As of Date: 06/16/2024 Noted Allergy Reaction TETANUS VACCINES AND TOXOID 08/28/2005 2 - Rash Date Reviewed: 05/11/2024 Reviewed by: Angelia Cerda Ma, EMELYN - Fully Assessed Reason for Visit: Appointment [186] Prescriptions as of 06/16/2024 - cholecalciferol (VITAMIN D-3) 400 unit tab Take 400 Units by mouth once daily. - rosuvastatin (CRESTOR) 10 mg tablet Take 10 mg by mouth every other day. - apixaban (ELIQUIS) 5 mg tab(s) Take 5 mg by mouth two times a day. - dilTIAZem (CARDIZEM) 120 mg tablet Take 120 mg by mouth once daily. - VITAMIN K2 ORAL Take 1 tablet by mouth once daily. - ZINC ORAL Take 1 tablet by mouth once daily. - CALCIUM ORAL Take 1 tablet by mouth once daily. - ascorbic acid (VITAMIN C ORAL) Take 1 tablet by mouth once daily. - MAGNESIUM ORAL Take 1 tablet by mouth two times a day. - azithromycin (ZITHROMAX) 250 mg tablet Take 1 tablet by mouth once daily. - folic acid 1 mg tablet Take 1 tablet by mouth once daily. - meloxicam (MOBIC) 15 mg tablet Take 1 tablet by mouth once daily. Take with food. - cholecalciferol (VITAMIN D3) 1,000 unit tab Take 1,000 Units by mouth once daily. - lidocaine (LIDODERM) 5 %(700 mg/patch) Apply 1 Patch as directed once daily as needed. - methocarbamol 500 mg tablet Take 1 tablet by mouth three times daily as needed (muscle spasm). - aspirin(ASPIR-81 81 MG TAB) Take one(1) tablet daily. - miscellaneous medical supply(COMPRESSION STOCKINGS) 20-30 cm. H20 - Omeprazole Magnesium (PRILOSEC OTC) 20 mg ORAL TbEC Take one(1) tablet two(2) times daily. Problem List As Of Date 06/16/2024 Noted Resolved ARTHROP W ENDOCR/MET DIS [[id number]] 01/28/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] 03/14/2005 PATHOLOGIC FRACTURE [733.1] 06/05/2005 THROMBOPHLEBITIS NOS [I80.9] 11/05/2005 HYPERTROPHY PROSTATE W/O OBST [N40.0] 11/05/2005 HYPERLIPIDEMIA NEC/NOS [E78.5] 03/04/2006 OSTEOPOROSIS NOS [M81.0] 10/23/2006 ESOPHAGEAL REFLUX [K21.9] 10/23/2006 DYSPHAGIA [787.2] 11/20/2006 ESOPHAGITIS, UNSPECIFIED [K20.90] 12/17/2006 BPH (Benign Prostatic Hypertrophy) with Urinary*02/23/2009 Pain in Joint, Shoulder Region [M25.519] 03/02/2009 Dysmetabolic syndrome [E88.810] 03/19/2010 Hemochromatosis [E83.119] 03/19/2010 Actinic Keratoses (Premalignant AK's) [L57.0] 04/25/2010 Seborrheic Dermatitis: scalp [L21.8] 04/25/2010 Seborrheic Keratosis [L82.1] 04/25/2010 Actinic Damage///Sun-damage d skin [L57.8] 04/25/2010 Solar Lentigines [L81.4] 04/25/2010 Telangiectasia [I78.1] 04/25/2010 Cryosurgical Scar [L90.5] 06/11/2010 Onychomycosis [B35.1] 12/10/2010 Tinea unguium [B35.1] 12/10/2010 Nail dystrophy [L60.3] 12/10/2010 Deformity of toenail [L60.8] 12/10/2010 Tinea pedis [B35.3] 12/10/2010 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 stomach [D13.1] 06/10/2011 Hemochromatosis, hereditary [E83.110] 08/21/2011 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] 02/27/2013 Actinic skin damage [L57.8] 02/27/2013 Voice disturbance [R49.9] 07/05/2015 Encounter Status:Closed by [facility]ADISON [facility] Telephone (ATILIO) ---- ALVIN BROWN ([id number]) 1955 M Date Time Provider Department 06/10/24 BRUCE ROBERSON During your visit today, we recorded the following information about you: Antonia San 06/10/2024 12:59 PM Signed Patient requesting 06/06 MRI results Tito Berumen RN 06/10/2024 3:[address] Roberson reviewed MRI. Lesions seen on US are benign hemangiomas. No action required and keep F/U appointments as scheduled. Anastacia Berumen RN Call to patient, aware of above. Questions answered. Anastacia Berumen RN Allergies As of Date: 06/10/2024 Noted Allergy Reaction TETANUS VACCINES AND TOXOID 08/28/2005 2 - Rash Date Reviewed: 05/11/2024 Reviewed by: Angelia Cerda Ma, MA - Fully Assessed Reason for Visit: Results [95] Prescriptions as of 06/10/2024 - cholecalciferol (VITAMIN D-3) 400 unit tab Take 400 Units by mouth once daily. - rosuvastatin (CRESTOR) 10 mg tablet Take 10 mg by mouth every other day. - apixaban (ELIQUIS) 5 mg tab(s) Take 5 mg by mouth two times a day. - dilTIAZem (CARDIZEM) 120 mg tablet Take 120 mg by mouth once daily. - VITAMIN K2 ORAL Take 1 tablet by mouth once daily. - ZINC ORAL Take 1 tablet by mouth once daily. - CALCIUM ORAL Take 1 tablet by mouth once daily. - ascorbic acid (VITAMIN C ORAL) Take 1 tablet by mouth once daily. - MAGNESIUM ORAL Take 1 tablet by mouth two times a day. - azithromycin (ZITHROMAX) 250 mg tablet Take 1 tablet by mouth once daily. - folic acid 1 mg tablet Take 1 tablet by mouth once daily. - meloxicam (MOBIC) 15 mg tablet Take 1 tablet by mouth once daily. Take with food. - cholecalciferol (VITAMIN D3) 1,000 unit tab Take 1,000 Units by mouth once daily. - lidocaine (LIDODERM) 5 %(700 mg/patch) Apply 1 Patch as directed once daily as needed. - methocarbamol 500 mg tablet Take 1 tablet by mouth three times daily as needed (muscle spasm). - aspirin(ASPIR-81 81 MG TAB) Take one(1) tablet daily. - miscellaneous medical supply(COMPRESSION STOCKINGS) 20-30 cm. H20 - Omeprazole Magnesium (PRILOSEC OTC) 20 mg ORAL TbEC Take one(1) tablet two(2) times daily. 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] 03/14/2005 PATHOLOGIC FRACTURE [733.1] 06/05/2005 THROMBOPHLEBITIS NOS [I80.9] 11/05/2005 HYPERTROPHY PROSTATE W/O OBST [N40.0] 11/05/2005 HYPERLIPIDEMIA NEC/NOS [E78.5] 03/04/2006 OSTEOPOROSIS NOS [M81.0] 10/23/2006 ESOPHAGEAL REFLUX [K21.9] 10/23/2006 DYSPHAGIA [787.2] 11/20/2006 ESOPHAGITIS, UNSPECIFIED [K20.90] 12/17/2006 BPH (Benign Prostatic Hypertrophy) with Urinary*02/23/2009 Pain in Joint, Shoulder Region [M25.519] 03/02/2009 Dysmetabolic syndrome [E88.810] 03/19/2010 Hemochromatosis [E83.119] 03/19/2010 Actinic Keratoses (Premalignant AK's) [L57.0] 04/25/2010 Seborrheic Dermatitis: scalp [L21.8] 04/25/2010 Seborrheic Keratosis [L82.1] 04/25/2010 Actinic Damage///Sun-damage d skin [L57.8] 04/25/2010 Solar Lentigines [L81.4] 04/25/2010 Telangiectasia [I78.1] 04/25/2010 Cryosurgical Scar [L90.5] 06/11/2010 Onychomycosis [B35.1] 12/10/2010 Tinea unguium [B35.1] 12/10/2010 Nail dystrophy [L60.3] 12/10/2010 Deformity of toenail [L60.8] 12/10/2010 Tinea pedis [B35.3] 12/10/2010 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 stomach [D13.1] 06/10/2011 Hemochromatosis, hereditary [E83.110] 08/21/2011 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] 02/27/2013 Actinic skin damage [L57.8] 02/27/2013 Voice disturbance [R49.9] 07/05/2015 Encounter Status:Closed by TITO BERUMEN on 06/10/24 Normal [facility] MRI LIVER WO/W IVCONon 06-06 MRI LIVER WO/W IVCON * * *Final Report* * * DATE OF EXAM: Jun 06 2024 12:20PM RADHA 0727 - MRI LIVER WO/W IVCON / PROCEDURE REASON: multiple diagnoses * * * * Physician Interpretation * * * * Examination: MRI LIVER WO/W IVCON History: Right hepatic lobe lesion Comparison: Ultrasound of 05/18/2024 TECHNIQUE: Routine liver mri protocol, including axial 3D gradient echo volume acquisition (VIBE) before and after Elucirem 9cc, axial gradient echo in- and opposed- phase, axial fast STIR, coronal HASTE. Image subtraction performed on 3D gradient echo images. RESULT: Liver: Within the right hepatic lobe is a 1.5 cm T2 hyperintense/T1 hypointense lesion. Additional medial superior right hepatic lobe 2 cm similar lesion. This lies near the confluence of the hepatic veins. Another of 0.9 cm within the lateral right lobe. Each of these demonstrates characteristic peripheral nodular enhancement, following the administration of intravenous contrast. These are consistent with benign hepatic hemangiomata. No additional focal hepatic lesion. Signal again on T1-weighted out of phase imaging suggests possible increased iron stores. No intrahepatic or extrahepatic biliary dilatation is seen. Prior cholecystectomy. Common duct is normal in course and caliber. No filling defect within it. Spleen: No mass. No splenomegaly. Pancreas: No mass or duct dilation. Adrenals: No mass. Kidneys: Bilateral renal cysts. No gross obstructive uropathy GI tract: No dilation or wall thickening. Lymph nodes: No abdominal lymphadenopathy. Mesentery/Peritoneu m: No ascites or mass. Retroperitoneum: No mass. Vasculature: - Abdominal aorta and iliac arteries: No aneurysm. - Celiac and SMA: Patent without stenosis. - Portal venous system (SMV, splenic vein, portal vein and branches): Patent. - Hepatic veins: Patent. Bones/Soft Tissues: No significant finding. Lower thorax: Unremarkable. Localizer images: No additional findings. IMPRESSION: Benign hepatic hemangiomata. Hepatic signal consistent with increased iron stores. Bilateral renal cysts No suspicious mass or adenopathy within the visualized abdomen Pediatric Clinical Nurse Specialist: CIRILO Transcribe Date/Time: Jun 09 2024 9:55A Dictated by : MARIIA MOONEY MD This examination was interpreted and the report reviewed and electronically signed by: MARIIA MOONEY MD on Jun 09 2024 10:15AM EST [id number] Normal [facility] [id number] 06-05-2024 [facility] [place] Normal . [facility] Comment on above: Order Comment: JACQUELINE RODRIGUEZ ORDERED FERRITIN AND CBCD ORDERED THE REST Result Comment: Test Ordered: [id number] Apolipoprotein B Apolipoprotein B 109 [H ] mg/dL Reference Range: <90 Desirable < 90 Borderline High 90 - 99 High 100 - 130 Very High >130 ASCVD RISK THERAPEUTIC TARGET CATEGORY APO B (mg/dL) Very High Risk <80 (if extreme risk <70) High Risk <90 Moderate Risk <90 Performed at: [facility] [address] [id number] [employer]phalt [employer] Laborer: Kannan Vela MD, Phone: [phone] Performed at: [facility] [address] [id number] [employer] Laborer: Mick English PhD, Phone: [phone] Performed By: #### L 100.0100, L506.1001, L3100.5310, L501.9520, L509.1000, L3100.5055, L503.6550 #### [facility] [address] [facility] [place], [address] Absolute lymphocyte countOrd ered By: Radha Arango on 06-03-2024 Lymphocytes Auto (Unsp spec) [#/Vol] 1.86 10*3/uL 0.83-4.51 [facility] Absolute neutrophil countOrd ered By: Radha Arango on 06-03-2024 Neutrophils (Bld) [#/Vol] 3.4 10*3/uL 2.0-7.7 [facility] Automated lymphocyte count a s percentage of total leukocytesOrdered By: Radha Arango on 06-03-2024 Lymphocytes/100 WBC Auto (Unsp spec) 31.2 % 19-41 [facility] Basic Metabolic Profile (BMP )on 06-03-2024 BUN/CRE 23.7 RATIO High 10-20 [facility] Comment on above: Order Comment: JACQUELINE RODRIGUZE ORDERED FERRITIN AND CBCD ROGER ORDERED THE REST Performed By: #### L 100.0100, L506.1001, L3100.5310, L501.9520, L509.1000, L3100.5055, L503.6550 #### [facility] [address] [place], [address] CA,Total 9.8 mg/dL Normal 8.5-10.1 [facility] Comment on above: Order Comment: JACQUELINE RODRIGUEZ ORDERED FERRITIN AND CBCD [place] ORDERED THE REST Performed By: #### L 100.0100, L506.1001, L3100.5310, L501.9520, L509.1000, L3100.5055, L503.6550 #### [facility] [address] [place], [address] Chloride [Moles/Vol] 107 mmol/L Normal 98-107 [facility] Comment on above: Order Comment: JACQUELINE JENNIFER ORDERED FERRITIN AND CBCD [place] ORDERED THE REST Performed By: #### L 100.0100, L506.1001, L3100.5310, L501.9520, L509.1000, L3100.5055, L503.6550 #### [facility] [address] [place], [address] CO2 [Moles/Vol] 23.0 mmol/L Normal 21.0-32.0 [facility] Comment on above: Order Comment: JACQUELINE RODRIGUEZ ORDERED FERRITIN AND CBCD [place] ORDERED THE REST Performed By: #### L 100.0100, L506.1001, L3100.5310, L501.9520, L509.1000, L3100.5055, L503.6550 #### [facility] [address] [place], [address] Creatinine [Mass/Vol] 0.84 mg/dL Normal 0.70-1.30 [facility] Comment on above: Order Comment: JACQUELINE RODRIGUEZ ORDERED FERRITIN AND CBCD [place] ORDERED THE REST Result Comment: The validity of the calculated GFR GFRAA in patients over 70 years has not been determined. Clinical correlation is essential. Performed By: #### L 100.0100, L506.1001, L3100.5310, L501.9520, L509.1000, L3100.5055, L503.6550 #### [facility] [address] [place], [address] EST GFR - AA 117 mL/min Normal >60 [facility] Comment on above: Order Comment: JACQUELINE RODRIGUEZ ORDERED FERRITIN AND CBCD [place] ORDERED THE REST Result Comment: Afri can [place] GFR Calc Performed By: #### L 100.0100, L506.1001, L3100.5310, L501.9520, L509.1000, L3100.5055, L503.6550 #### [facility] [address] [place], [address] GAP 7 Normal 5-15 [facility] Comment on above: Order Comment: JACQUELINE MARTELLE ORDERED FERRITIN AND CBCD [place] ORDERED THE REST Performed By: #### L 100.0100, L506.1001, L3100.5310, L501.9520, L509.1000, L3100.5055, L503.6550 #### [facility] [address] [place], [place], [id number] (924) GFR/1.73 sq M.predicted among non-blacks MDRD (S/P/Bld) [Vol rate/Area] 96 mL/min/{1.73_m2} Normal >60 [facility] Comment on above: Order Comment: JACQUELINE RODRIGUEZ ORDERED FERRITIN AND CBCD [place] ORDERED THE REST Result Comment: Non- GFR Calc Performed By: #### L 100.0100, L506.1001, L3100.5310, L501.9520, L509.1000, L3100.5055, L503.6550 #### [facility] [address] [place], [address] Glucose [Mass/Vol] 98 mg/dL Normal 74-106 [facility] Comment on above: Order Comment: JACQUELINE RODRIGUEZ ORDERED FERRITIN AND CBCD [place] ORDERED THE REST Performed By: #### L 100.0100, L506.1001, L3100.5310, L501.9520, L509.1000, L3100.5055, L503.6550 #### [facility] [address] [place], [address] Potassium [Moles/Vol] 3.8 mmol/L Normal 3.5-5.1 [facility] Comment on above: Order Comment: JACQUELINE RODRIGUEZ ORDERED FERRITIN AND CBCD [place] ORDERED THE REST Performed By: #### L 100.0100, L506.1001, L3100.5310, L501.9520, L509.1000, L3100.5055, L503.6550 #### [facility] [address] [place], [address] Sodium [Moles/Vol] 137 mmol/L Normal 136-145 [facility] Comment on above: Order Comment: JACQUELINE RODRIGUEZ ORDERED FERRITIN AND CBCD [place] ORDERED THE REST Performed By: #### L 100.0100, L506.1001, L3100.5310, L501.9520, L509.1000, L3100.5055, L503.6550 #### [facility] [address] [place], [address] Urea nitrogen [Mass/Vol] 20 mg/dL High 7-18 [facility] Comment on above: Order Comment: JACQUELINE RODRIGUEZ ORDERED FERRITIN AND CBCD [place] ORDERED THE REST Performed By: #### L 100.0100, L506.1001, L3100.5310, L501.9520, L509.1000, L3100.5055, L503.6550 #### [facility] [address] [place], [address] Basophil percentageOrdered B y: Radha Arango on 06-03-2024 Basophils/100 WBC (Bld) 0.3 % 0-1 [facility] Blood urea nitrogen (BUN)/cr eatinine ratioOrdered By: Radha Arango on 06-03-2024 Urea nitrogen/Creatinine [Mass ratio] 23.7 mg/mg High 10-20 [facility] CBC W/Diff, Automatedon 05-15 Absolute Lymph 1.86 X10 3/uL Normal 0.83-4.51 [facility] Comment on above: Order Comment: JACQUELINE RODRIGUEZ ORDERED FERRITIN AND CBCD [place] ORDERED THE REST Performed By: #### L 100.0100, L506.1001, L3100.5310, L501.9520, L509.1000, L3100.5055, L503.6550 #### [facility] [address] [place], [address] Absolute Neut 3.4 X10 3/uL Normal 2.0-7.7 [facility] Comment on above: Order Comment: JACQUELINE RODRIGUEZ ORDERED FERRITIN AND CBCD [place] ORDERED THE REST Performed By: #### L 100.0100, L506.1001, L3100.5310, L501.9520, L509.1000, L3100.5055, L503.6550 #### [facility] [address] [place], [address] Basophils/100 WBC (Bld) 0.3 % Normal 0-1 [facility] Comment on above: Order Comment: JACQUELINE RODRIGUEZ ORDERED FERRITIN AND CBCD [place] ORDERED THE REST Performed By: #### L 100.0100, L506.1001, L3100.5310, L501.9520, L509.1000, L3100.5055, L503.6550 #### [facility] [address] [place], [address] Eosinophils/100 WBC (Bld) 3.2 % Normal 0-5 [facility] Comment on above: Order Comment: JACQUELINE RODRIGUEZ ORDERED FERRITIN AND CBCD [place] ORDERED THE REST Performed By: #### L 100.0100, L506.1001, L3100.5310, L501.9520, L509.1000, L3100.5055, L503.6550 #### [facility] [address] [place], [address] Erythrocyte distribution width (RBC) [Ratio] 12.0 % Normal 11.6-14.6 [facility] Comment on above: Order Comment: [facility] ORDERED FERRITIN AND CBCD [place] ORDERED THE REST Performed By: #### L 100.0100, L506.1001, L3100.5310, L501.9520, L509.1000, L3100.5055, L503.6550 #### [facility] [address] [place], [address] Hematocrit (Bld) [Volume fraction] 42.4 % Normal 40-54 [facility] Comment on above: Order Comment: [facility] ORDERED FERRITIN AND CBCD [place] ORDERED THE REST Performed By: #### L 100.0100, L506.1001, L3100.5310, L501.9520, L509.1000, L3100.5055, L503.6550 #### [facility] [address] [place], [address] Hemoglobin (Bld) [Mass/Vol] 14.9 g/dL Normal 13.0-16.5 [facility] Comment on above: Order Comment: [facility] ORDERED FERRITIN AND CBCD [place] ORDERED THE REST Performed By: #### L 100.0100, L506.1001, L3100.5310, L501.9520, L509.1000, L3100.5055, L503.6550 #### [facility] [address] [place], [address] IG% 0.200 Normal 0.0-0.9 [facility] Comment on above: Order Comment: [facility] ORDERED FERRITIN AND CBCD [place] ORDERED THE REST Result Comment: IG% - Immature Granulocytes (promyelocytes, myelocytes and metamyelocytes) > 1% indicates that a LEFT SHIFT is Present. Performed By: #### L 100.0100, L506.1001, L3100.5310, L501.9520, L509.1000, L3100.5055, L503.6550 #### [facility] [address] [place], [address] Lymphocytes/100 WBC (Bld) 31.2 % Normal 19-41 [facility] Comment on above: Order Comment: JACQUELINE RODRIGUEZ ORDERED FERRITIN AND CBCD [place] ORDERED THE REST Performed By: #### L 100.0100, L506.1001, L3100.5310, L501.9520, L509.1000, L3100.5055, L503.6550 #### [facility] [address] [place], [address] MCH (RBC) [Entitic mass] 31.9 pg Normal 27.0-32.0 [facility] Comment on above: Order Comment: [facility] ORDERED FERRITIN AND CBCD [place] ORDERED THE REST Performed By: #### L 100.0100, L506.1001, L3100.5310, L501.9520, L509.1000, L3100.5055, L503.6550 #### [facility] [address] [place], [address] MCHC (RBC) [Mass/Vol] 35.1 g/dL Normal 32-36 [facility] Comment on above: Order Comment: [facility] ORDERED FERRITIN AND CBCD [place] ORDERED THE REST Performed By: #### L 100.0100, L506.1001, L3100.5310, L501.9520, L509.1000, L3100.5055, L503.6550 #### [facility] [address] [place], [address] MCV (RBC) [Entitic vol] 90.8 fL Normal 80-94 [facility] Comment on above: Order Comment: JACQUELINE RODRIGUEZ ORDERED FERRITIN AND CBCD [place] ORDERED THE REST Performed By: #### L 100.0100, L506.1001, L3100.5310, L501.9520, L509.1000, L3100.5055, L503.6550 #### [facility] [address] [place], [address] Monocytes/100 WBC (Bld) 8.0 % Normal 0-10 [facility] Comment on above: Order Comment: [facility] ORDERED FERRITIN AND CBCD [place] ORDERED THE REST Performed By: #### L 100.0100, L506.1001, L3100.5310, L501.9520, L509.1000, L3100.5055, L503.6550 #### [facility] [address] [place], [address] Neutrophils/100 WBC (Bld) 57.1 % Normal 47-70 [facility] Comment on above: Order Comment: [facility] ORDERED FERRITIN AND CBCD [place] ORDERED THE REST Performed By: #### L 100.0100, L506.1001, L3100.5310, L501.9520, L509.1000, L3100.5055, L503.6550 #### [facility] [address] [place], [address] Nucleated RBC (Bld) [#/Vol] 0 10*3/uL Normal 0-5 [facility] Comment on above: Order Comment: [facility] ORDERED FERRITIN AND CBCD [place] ORDERED THE REST Performed By: #### L 100.0100, L506.1001, L3100.5310, L501.9520, L509.1000, L3100.5055, L503.6550 #### [facility] [address] [place], [address] Platelet mean volume (Bld) [Entitic vol] 11.0 fL Normal 6.2-12.0 [facility] Comment on above: Order Comment: [facility] ORDERED FERRITIN AND CBCD [place] ORDERED THE REST Performed By: #### L 100.0100, L506.1001, L3100.5310, L501.9520, L509.1000, L3100.5055, L503.6550 #### [facility] [address] [place], [address] Platelets (Bld) [#/Vol] 254 10*3/uL Normal 150-450 [facility] Comment on above: Order Comment: JACQUELINE [place]ELLE ORDERED FERRITIN AND CBCD [place] ORDERED THE REST Performed By: #### L 100.0100, L506.1001, L3100.5310, L501.9520, L509.1000, L3100.5055, L503.6550 #### [facility] [address] [place], [address] RBC (Bld) [#/Vol] 4.67 10*6/uL Normal 4.6-6.2 [facility] Comment on above: Order Comment: [facility] ORDERED FERRITIN AND CBCD [place] ORDERED THE REST Performed By: #### L 100.0100, L506.1001, L3100.5310, L501.9520, L509.1000, L3100.5055, L503.6550 #### [facility] [address] [place], [address] RDW SD 40.2 fl Normal 35.1-43.9 [facility] Comment on above: Order Comment: [facility] ORDERED FERRITIN AND CBCD [place] ORDERED THE REST Performed By: #### L 100.0100, L506.1001, L3100.5310, L501.9520, L509.1000, L3100.5055, L503.6550 #### [facility] [address] [place], [address] WBC (Bld) [#/Vol] 6.0 10*3/uL Normal 4.4-11.0 [facility] Comment on above: Order Comment: [facility] ORDERED FERRITIN AND CBCD [place] ORDERED THE REST Performed By: #### L 100.0100, L506.1001, L3100.5310, L501.9520, L509.1000, L3100.5055, L503.6550 #### [facility] [address] [place], [place], [id number] Carbon dioxide measurementOr dered By: Radha Arango on 06-03-2024 CO2 [Moles/Vol] 23.0 mmol/L 21.0-32.0 [facility] Chloride measurementOrdered By: Rahda Arango on 06-03-2024 Chloride [Moles/Vol] 107 mmol/L 98-107 [facility] Eosinophil percentageOrdered By: Radha Arango on 06-03-2024 Eosinophils/100 WBC (Bld) 3.2 % 0-5 [facility] Erythrocyte distribution wid th ratioOrdered By: Radha Arango on 06-03-2024 Erythrocyte distribution width (RBC) [Ratio] 12.0 % 11.6-14.6 [facility] Erythrocyte distribution wid th standard deviationOrdered By: Radha Arango on 06-03-2024 Erythrocyte distribution width (RBC) [Entitic vol] 40.2 fL 35.1-43.9 [facility] Erythrocyte distribution width (RBC) [Ratio] 40.2 fl 35.1-43.9 [facility] Estimated glomerular filtrat ion rate (GFR) AmericanOrdered By: Radha Arango on 06-03-2024 Estimated GFR (MDRD) Amer 117 mL/min >60 [facility] Comment on above: GFR Calc Ferritinon 06-03-2024 Ferritin [Mass/Vol] 39 ng/mL Normal 26-388 [facility] Comment on above: Order Comment: JACQUELINE RODRIGUEZ ORDERED FERRITIN AND CBCD ORDERED THE REST Performed By: #### L 100.0100, L506.1001, L3100.5310, L501.9520, L509.1000, L3100.5055, L503.6550 #### [facility] [address] [place], [place], [id number] Ferritin measurementOrdered By: Radha Arango on 06-03-2024 Ferritin [Mass/Vol] 39 ng/mL 26-388 [facility] Glomerular filtration rate ( GFR) estimationOrdered By: Radha Arango on 06-03-2024 Estimated GFR (MDRD) Non-Af Amer 96 mL/min >60 [facility] Comment on above: Non- GFR Calc GFR/1.73 sq M.predicted among non-blacks MDRD (S/P/Bld) [Vol rate/Area] 96 mL/min/{1.73_m2} >60 [facility] Comment on above: Non- GFR Calc Glucose measurementOrdered B y: Radha Arango on 06-03-2024 Glucose [Mass/Vol] 98 mg/dL 74-106 [facility] Hematocrit Auto (Bld) [Volum e fraction]Ordered By: Radha Arango on 06-03-2024 Hematocrit (Bld) [Volume fraction] 42.4 % 40-54 [facility] Hemoglobin measurementOrdere d By: Radha Arango on 06-03-2024 Hemoglobin (Bld) [Mass/Vol] 14.9 g/dL 13.0-16.5 [facility] Immature granulocytes/100 WB C Auto (Bld)Ordered By: Radha Arango on 06-03-2024 Immature granulocytes/100 WBC (Bld) 0.200 % 0.0-0.9 [facility] Comment on above: IG% - Immature Granu locytes (promyelocytes, myelocytes and metamyelocytes) > 1% indicates that a LEFT SHIFT is Present. Lymphocytes Auto (Unsp spec) [#/Vol]Ordered By: Radha Arango on 06-03-2024 Lymphocytes (Bld) [#/Vol] 1.86 10*3/uL 0.83-4.51 [facility] Lymphocytes/100 WBC Auto (Un sp spec)Ordered By: Radha Arango on 06-03-2024 Lymphocytes/100 WBC (Bld) 31.2 % 19-41 [facility] MCV (mean corpuscular volume ) determinationOrdered By: Radha Arango on 06-03-2024 MCV (RBC) [Entitic vol] 90.8 fL 80-94 [facility] Mean corpuscular hemoglobin (MCH) determinationOrdered By: Radha Arango on 06-03-2024 MCH (RBC) [Entitic mass] 31.9 pg 27.0-32.0 [facility] Mean corpuscular hemoglobin concentration (MCHC) determinationOrdered By: Radha Arango on 06-03-2024 MCHC (RBC) [Mass/Vol] 35.1 g/dL 32-36 [facility] Mean platelet volume determi nationOrdered By: Radha Arango on 06-03-2024 Platelet mean volume (Bld) [Entitic vol] 11.0 fL 6.2-12.0 [facility] Monocyte percentageOrdered B y: Radha Arango on 06-03-2024 Monocytes/100 WBC (Bld) 8.0 % 0-10 [facility] Neutrophil percentageOrdered By: Radha Arango on 06-03-2024 Neutrophils/100 WBC (Bld) 57.1 % 47-70 [facility] Nucleated red blood cell per centageOrdered By: Radha Arango on 06-03-2024 Nucleated RBC/100 WBC (Bld) [Ratio] 0 % 0-5 [facility] Platelet countOrdered By: Emelyn Arango on 06-03-2024 Platelets (Bld) [#/Vol] 254 10*3/uL 150-450 [facility] Potassium measurementOrdered By: Radha Arango on 06-03-2024 Potassium [Moles/Vol] 3.8 mmol/L 3.5-5.1 [facility] RBC Auto (Bld) [#/Vol]Ordere d By: Radha Arango on 06-03-2024 RBC (Bld) [#/Vol] 4.67 10*6/uL 4.6-6.2 [facility] Serum anion gap measurementO rdered By: Radha Arango on 06-03-2024 Anion gap [Moles/Vol] 7 mmol/L 5-15 [facility] Serum or plasma calcium jessica urement (mass/volume)Ordered By: Radha Arango on 06-03-2024 Calcium [Mass/Vol] 9.8 mg/dL 8.5-10.1 [facility] Serum or plasma creatinine m easurement (mass/volume)Ordered By: Radha Arango on 06-03-2024 Creatinine [Mass/Vol] 0.84 mg/dL 0.70-1.30 [facility] Comment on above: The validity of the calculated GFR & GFRAA in patients over 70 years has not been determined. Clinical correlation is essential. Serum or plasma urea nitroge n measurement (mass/volume)Ordered By: Radha Arango on 06-03-2024 Urea nitrogen [Mass/Vol] 20 mg/dL High 7-18 [facility] Sodium levelOrdered By: Radha Arango on 06-03-2024 Sodium [Moles/Vol] 137 mmol/L 136-145 [facility] White blood cell (WBC) count Ordered By: Radha Arango on 06-03-2024 WBC (Bld) [#/Vol] 6.0 10*3/uL 4.4-11.0 [facility] CNPNon 05-25-2024 CNPN Telephone (HEMAWS) ---- ALVIN BROWN ([id number]) 1955 Date Time Provider Department 05/25/24 BRUCE ROBERSON During your visit today, we recorded the following information about you: Sarah Beth Victoria 05/25/2024 4:42 PM Signed Patient called stating he received mail stating something was found on his US that he had done 05/18 and to have the referring provider review the results. Please review and advise Bruce Ballard MD 05/26/2024 1:28 PM Signed Called patient discussed results, we will obtain liver MRI now and follow up as scheduled. Bruce Roberson MD May 26, 2024 Sarah Beth Victoria 05/26/2024 2:26 PM Signed Spoke with patient and scheduled MRI Sarah Beth Victoria Allergies As of Date: 05/25/2024 Noted Allergy Reaction TETANUS VACCINES AND TOXOID 08/28/2005 2 - Rash Date Reviewed: 05/11/2024 Reviewed by: Angelia Cerda Ma, MA - Fully Assessed Reason for Visit: Patient Update [1234] Primary Visit Diagnosis:Hereditar y hemochromatosis (HCC) [E83.110] Other Visit Diagnosis:Liver lesion [K76.9] Order(s):MRI LIVER WO/W IVCON [[id number]] Order #: [id number] FUTURE iv contrast (will be provided with radiology test)MRI Liver Inject, intravenously, once for 1 dose. No IV access, insert saline lock prior to the beginning of sedation, infusion, injection of imaging exam. Discontinue saline lock post exam. If Pt. has a central line or IVAD, may access for administration according to line specific nursing protocol. Once exam is complete flush line and de-access according to line specific nursing protocol in the MR contrast administration guidelines link.Disp: 1 EachRfl: 0 Prescriptions as of 05/26/2024 - iv contrast (will be provided with radiology test) MRI Liver Inject, intravenously, once for 1 dose. No IV access, insert saline lock prior to the beginning of sedation, infusion, injection of imaging exam. Discontinue saline lock post exam. If Pt. has a central line or IVAD, may access for administration according to line specific nursing protocol. Once exam is complete flush line and de-access according to line specific nursing protocol in the MR contrast administration guidelines link. - cholecalciferol (VITAMIN D-3) 400 unit tab Take 400 Units by mouth once daily. - rosuvastatin (CRESTOR) 10 mg tablet Take 10 mg by mouth every other day. - apixaban (ELIQUIS) 5 mg tab(s) Take 5 mg by mouth two times a day. - dilTIAZem (CARDIZEM) 120 mg tablet Take 120 mg by mouth once daily. - VITAMIN K2 ORAL Take 1 tablet by mouth once daily. - ZINC ORAL Take 1 tablet by mouth once daily. - CALCIUM ORAL Take 1 tablet by mouth once daily. - ascorbic acid (VITAMIN C ORAL) Take 1 tablet by mouth once daily. - MAGNESIUM ORAL Take 1 tablet by mouth two times a day. - azithromycin (ZITHROMAX) 250 mg tablet Take 1 tablet by mouth once daily. - folic acid 1 mg tablet Take 1 tablet by mouth once daily. - meloxicam (MOBIC) 15 mg tablet Take 1 tablet by mouth once daily. Take with food. - cholecalciferol (VITAMIN D3) 1,000 unit tab Take 1,000 Units by mouth once daily. - lidocaine (LIDODERM) 5 %(700 mg/patch) Apply 1 Patch as directed once daily as needed. - methocarbamol 500 mg tablet Take 1 tablet by mouth three times daily as needed (muscle spasm). - aspirin(ASPIR-81 81 MG TAB) Take one(1) tablet daily. - miscellaneous medical supply(COMPRESSION STOCKINGS) 20-30 cm. H20 - Omeprazole Magnesium (PRILOSEC OTC) 20 mg ORAL TbEC Take one(1) tablet two(2) times daily. 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] 03/14/2005 PATHOLOGIC FRACTURE [733.1] 06/05/2005 THROMBOPHLEBITIS NOS [I80.9] 11/05/2005 HYPERTROPHY PROSTATE W/O OBST [N40.0] 11/05/2005 HYPERLIPIDEMIA NEC/NOS [E78.5] 03/04/2006 OSTEOPOROSIS NOS [M81.0] 10/23/2006 ESOPHAGEAL REFLUX [K21.9] 10/23/2006 DYSPHAGIA [787.2] 11/20/2006 ESOPHAGITIS, UNSPECIFIED [K20.90] 12/17/2006 BPH (Benign Prostatic Hypertrophy) with Urinary*02/23/2009 Pain in Joint, Shoulder Region [M25.519] 03/02/2009 Dysmetabolic syndrome [E88.810] 03/19/2010 Hemochromatosis [E83.119] 03/19/2010 Actinic Keratoses (Premalignant AK's) [L57.0] 04/25/2010 Seborrheic Dermatitis: scalp [L21.8] 04/25/2010 Seborrheic Keratosis [L82.1] 04/25/2010 Actinic Damage///Sun-damage d skin [L57.8] 04/25/2010 Solar Lentigines [L81.4] 04/25/2010 Telangiectasia [I78.1] 04/25/2010 Cryosurgical Scar [L90.5] 06/11/2010 Onychomycosis [B35.1] 12/10/2010 Tinea unguium [B35.1] 12/10/2010 Nail dystrophy [L60.3] 12/10/2010 Deformity of toenail [L60.8] 12/10/2010 Tinea pedis [B35.3] 12/10/2010 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 Normal [facility] CNCOon 05-19-2024 CNCO Letter Text Normal [facility] US ABD RIGHT UPPER QUADRANTo n 05-18-2024 US ABD RIGHT UPPER QUADRANT * * *Final Report* * * DATE OF EXAM: May 18 2024 1:38PM WRU 1032 - US ABD RIGHT UPPER QUADRANT / PROCEDURE REASON: Hereditary hemochromatosis (HCC) * * * * Physician Interpretation * * * * EXAMINATION: RIGHT UPPER QUADRANT ULTRASOUND CLINICAL HISTORY: Hereditary hemachromatosis TECHNIQUE: Sonography of the right upper quadrant was performed. Images were obtained and stored in a permanent archive and interpreted remotely. MQ: URUQ_2 COMPARISON: None. RESULT: Pancreas: Normal sonographic appearance. Portions obscured: tail Liver: Echotexture: Normal, homogeneous. Echogenicity: Normal Surface contour: Smooth Lesions: 2 cm right hepatic hyperechoic lesion. Biliary: No intrahepatic biliary duct dilation. CBD: 0.4 cm at the hilum. Gallbladder: Prior cholecystectomy. Right Kidney: Normal cortical echogenicity. 4 cm exophytic right renal upper pole cyst with a thin internal septation. Additional septated right renal cyst in the upper pole measuring 2 cm. No hydronephrosis. Ascites: None. IMPRESSION: 1. 2 cm hepatic hyperechoic lesion is incompletely characterized sonographically though statistically likely reflects a hemangioma. Either follow-up ultrasound to document stability or definitive characterization with MRI may be made. 2. Septated right renal cysts as described. ACTIONABLE RESULT: FOLLOW-UP Acuity: Actionable Findings: Liver Routing Code: LV_1 Recommendation: Unlisted Recommendation (see report) Time Frame: At the discretion of the clinical team. COMMUNICATION: Results will be communicated with the ordering provider via [employer] staff message or phone message by [facility] within 2 business days of report finalization. --END OF FINDING-- Pediatric Clinical Nurse Specialist: CIRILO Transcribe Date/Time: May 18 2024 2:12P Dictated by : RAMSEY CAMPOVERDE MD This examination was interpreted and the report reviewed and electronically signed by: RAMSEY CAMPOVERDE MD on May 18 2024 2:17PM EST [id number] ACTIONABLE Invalid Interpretation Code [facility] US Abdomen RUQOrdered By: Tati ontiveros Provider on 05-18-2024 Interpretation and review of laboratory results Abnormal [facility] Radiology Result ACTIONABLE Abnormal [facility] Comment on above: This report contains an incidental or actionable finding. This finding may be a new finding separate from the reason your provider ordered the imaging test or it may be an already known finding that needs additional or continued follow-up. Because of this incidental or actionable finding, you may need another test (imaging or a different type of test). Please contact your provider for the next steps. [facility] US Abdomen RUQon 05-18-2024 IMPRESSION: 1. 2 cm hepatic hyperechoic lesion is incompletely characterized sonographically though statistically likely reflects a hemangioma. Either follow-up ultrasound to document stability or definitive characterization with MRI may be made. 2. Septated right renal cysts as described. ACTIONABLE RESULT: FOLLOW-UP Acuity: Actionable Findings: Liver Routing Code: LV_1 Recommendation: Unlisted Recommendation (see report) Time Frame: At the discretion of the clinical team. COMMUNICATION: Results will be communicated with the ordering provider via [employer] staff message or phone message by [facility] within 2 business days of report finalization. --END OF FINDING-- Pediatric Clinical Nurse Specialist: CIRILO Transcribe Date/Time: May 18 2024 2:12P Dictated by : RAMSEY CAMPOVERDE MD This examination was interpreted and the report reviewed and electronically signed by: RAMSEY CAMPOVERDE MD on May 18 2024 2:17PM [facility] DIV[facility] * * *Final Report* * * DATE OF EXAM: May 18 2024 1:38PM WRU 1032 - US ABD RIGHT UPPER QUADRANT / PROCEDURE REASON: Hereditary hemochromatosis (HCC) * * * * Physician Interpretation * * * * EXAMINATION: RIGHT UPPER QUADRANT ULTRASOUND CLINICAL HISTORY: Hereditary hemachromatosis TECHNIQUE: Sonography of the right upper quadrant was performed. Images were obtained and stored in a permanent archive and interpreted remotely. MQ: URUQ_2 COMPARISON: None. RESULT: Pancreas: Normal sonographic appearance. Portions obscured: tail Liver: Echotexture: Normal, homogeneous. Echogenicity: Normal Surface contour: Smooth Lesions: 2 cm right hepatic hyperechoic lesion. Biliary: No intrahepatic biliary duct dilation. CBD: 0.4 cm at the hilum. Gallbladder: Prior cholecystectomy. Right Kidney: Normal cortical echogenicity. 4 cm exophytic right renal upper pole cyst with a thin internal septation. Additional septated right renal cyst in the upper pole measuring 2 cm. No hydronephrosis. Ascites: None. DIVISION OF RADIOLOGY Provider, [facility] [place] - 05/18/2024 * * *Final Report* * * DATE OF EXAM: May 18 2024 1:38PM WRU 1032 - US ABD RIGHT UPPER QUADRANT / PROCEDURE REASON: Hereditary hemochromatosis (HCC) * * * * Physician Interpretation * * * * EXAMINATION: RIGHT UPPER QUADRANT ULTRASOUND CLINICAL HISTORY: Hereditary hemachromatosis TECHNIQUE: Sonography of the right upper quadrant was performed. Images were obtained and stored in a permanent archive and interpreted remotely. MQ: URUQ_2 COMPARISON: None. RESULT: Pancreas: Normal sonographic appearance. Portions obscured: tail Liver: Echotexture: Normal, homogeneous. Echogenicity: Normal Surface contour: Smooth Lesions: 2 cm right hepatic hyperechoic lesion. Biliary: No intrahepatic biliary duct dilation. CBD: 0.4 cm at the hilum. Gallbladder: Prior cholecystectomy. Right Kidney: Normal cortical echogenicity. 4 cm exophytic right renal upper pole cyst with a thin internal septation. Additional septated right renal cyst in the upper pole measuring 2 cm. No hydronephrosis. Ascites: None. IMPRESSION IMPRESSION: 1. 2 cm hepatic hyperechoic lesion is incompletely characterized sonographically though statistically likely reflects a hemangioma. Either follow-up ultrasound to document stability or definitive characterization with MRI may be made. 2. Septated right renal cysts as described. ACTIONABLE RESULT: FOLLOW-UP Acuity: Actionable Findings: Liver Routing Code: LV_1 Recommendation: Unlisted Recommendation (see report) Time Frame: At the discretion of the clinical team. COMMUNICATION: Results will be communicated with the ordering provider via [employer] staff message or phone message by [facility] within 2 business days of report finalization. --END OF FINDING-- Pediatric Clinical Nurse Specialist: PSCB Transcribe Date/Time: May 18 2024 2:12P Dictated by : RAMSEY CAMPOVERDE MD This examination was interpreted and the report reviewed and electronically signed by: RAMSEY CAMPOVERDE MD on May 18 2024 2:17PM [facility] Radiology Study observation (narrative) [facility] Abdomen Single Viewon 2024 Abdomen Single View [facility] [address] [place] [address] Abdomen Single View MR#: [id number] Acct: [id number] Name: ALVIN BROWN Rep #: [id number] : 1955 M 68 From: Radha Robbins MD PCP: Dr. Radha Arango DO Status: REG CLI Study: Abdomen Single View Date of Exam: 05/17/24 Exam# [id number] Ordering Dr: Radha Arango DO EXAM: XR Abdomen, 1 View CLINICAL INDICATION: TECHNIQUE: Frontal supine view of the abdomen/pelvis. COMPARISON: No relevant prior studies available. FINDINGS: GASTROINTESTINAL TRACT: Unremarkable. No dilation. BONES/JOINTS: Unremarkable. No acute fracture. RAD/Abdomen Single View IMPRESSION: Nonobstructive bowel gas pattern. Reading Location: [facility] CC: Dr. Radha Arango DO Pediatric Clinical Nurse Specialist: Signed Normal [facility] Basic Metabolic Profile (BMP )on 05-17-2024 BUN/CRE 28.4 RATIO High 10-20 [facility] Comment on above: Performed By: #### L 500.2500 #### [facility] Laboratory [address], [address] CA,Total 9.2 mg/dL Normal 8.5-10.1 [facility] Comment on above: Performed By: #### L 500.2500 #### [facility] [address] [place], [address] Chloride [Moles/Vol] 106 mmol/L Normal 98-107 [facility] Comment on above: Performed By: #### L 500.2500 #### [facility] [address] [place], [address] CO2 [Moles/Vol] 21.0 mmol/L Normal 21.0-32.0 [facility] Comment on above: Performed By: #### L 500.2500 #### [facility] [address] [place], [address] Creatinine [Mass/Vol] 0.85 mg/dL Normal 0.70-1.30 [facility] Comment on above: Result Comment: The validity of the calculated GFR GFRAA in patients over 70 years has not been determined. Clinical correlation is essential. Performed By: #### L 500.2500 #### [facility] [address] [place], [address] EST GFR - AA 116 mL/min Normal >60 [facility] Comment on above: Result Comment: Afri can British GFR Calc Performed By: #### L 500.2500 #### [facility] [address] [place], [address] GAP 10 Normal 5-15 [facility] Comment on above: Performed By: #### L 500.2500 #### [facility] [address] [place], [address] GFR/1.73 sq M.predicted among non-blacks MDRD (S/P/Bld) [Vol rate/Area] 96 mL/min/{1.73_m2} Normal >60 [facility] Comment on above: Result Comment: Non- GFR Calc Performed By: #### L 500.2500 #### [facility] [address] [place], [address] Glucose [Mass/Vol] 86 mg/dL Normal 74-106 [facility] Comment on above: Performed By: #### L 500.2500 #### [facility] [address] [place], [address] Potassium [Moles/Vol] 3.8 mmol/L Normal 3.5-5.1 [facility] Comment on above: Performed By: #### L 500.2500 #### [facility] [address] [place], [place], [id number] Sodium [Moles/Vol] 138 mmol/L Normal 136-145 [facility] Comment on above: Performed By: #### L 500.2500 #### [facility] [address] [place], [place], [id number] Urea nitrogen [Mass/Vol] 24 mg/dL High 7-18 [facility] Comment on above: Performed By: #### L 500.2500 #### [facility] [address] [place], [place], [id number] Blood urea nitrogen (BUN)/cr eatinine ratioOrdered By: Radha Arango on 05-17-2024 Urea nitrogen/Creatinine [Mass ratio] 28.4 mg/mg High 10-20 [facility] Carbon dioxide measurementOr dered By: Radha Arango on 05-17-2024 CO2 [Moles/Vol] 21.0 mmol/L 21.0-32.0 [facility] Chloride measurementOrdered By: Radha Arango on 05-17-2024 Chloride [Moles/Vol] 106 mmol/L 98-107 [facility] Estimated glomerular filtrat ion rate (GFR) AmericanOrdered By: Radha Arango on 05-17-2024 Estimated GFR (MDRD) Amer 116 mL/min >60 [facility] Comment on above: GFR Calc Glomerular filtration rate ( GFR) estimationOrdered By: Radha Arango on 05-17-2024 Estimated GFR (MDRD) Non-Af Amer 96 mL/min >60 [facility] Comment on above: Non- GFR Calc GFR/1.73 sq M.predicted among non-blacks MDRD (S/P/Bld) [Vol rate/Area] 96 mL/min/{1.73_m2} >60 [facility] Comment on above: Non- GFR Calc Glucose measurementOrdered B y: Radha Arango on 05-17-2024 Glucose [Mass/Vol] 86 mg/dL 74-106 [facility] Potassium measurementOrdered By: Radha Arango on 05-17-2024 Potassium [Moles/Vol] 3.8 mmol/L 3.5-5.1 [facility] Serum anion gap measurementO rdered By: Radha Arango on 05-17-2024 Anion gap [Moles/Vol] 10 mmol/L 5-15 [facility] Serum or plasma calcium jessica urement (mass/volume)Ordered By: Radha Arango on 05-17-2024 Calcium [Mass/Vol] 9.2 mg/dL 8.5-10.1 [facility] Serum or plasma creatinine m easurement (mass/volume)Ordered By: Radha Arango on 05-17-2024 Creatinine [Mass/Vol] 0.85 mg/dL 0.70-1.30 [facility] Comment on above: The validity of the calculated GFR & GFRAA in patients over 70 years has not been determined. Clinical correlation is essential. Serum or plasma urea nitroge n measurement (mass/volume)Ordered By: Radha Arango on 05-17-2024 Urea nitrogen [Mass/Vol] 24 mg/dL High 7-18 [facility] Sodium levelOrdered By: Radha Arango on 05-17-2024 Sodium [Moles/Vol] 138 mmol/L 136-145 [facility] CNOVSPon 05-11-2024 CNOVSP Visit (SP) Office (ATILIO) ---- ALVIN BROWN ([id number]) 1955 M Date Time Provider Department 05/11/24 10:30 AM BRUCE ROBERSON During your visit today, we recorded the following information about you: Temperature Pulse Blood pressure Weight 98 degrees 68/minute 130/82 89.4 kg Height 1.676 m Bruce Roberson MD 05/11/2024 12:27 PM Signed HISTORY OF PRESENT ILLNESS: Alvin Brown is a 68 year old male dx with hemochromatosis dx in 2003, on basis of elevated l;iver enzymes, liver biopsy showed increased iron stores. Saw Dr Magallon underwent phlebotomy therapy, with good results. Was doing phlebotomy every 3 months when he last saw Dr Magallon. Switched to [facility] due to insurance change, had 2 phlebotomy in 7 years with them. Here to re establish Last phlebotomy was March 23 2024. Went into atrial fibrillation afterward, passed out. 04-20-24 ferritin was 22. CLINICAL IMPRESSION: hemochromatosis RECOMMENDATION/PLAN : 1. Follow ferritin, phlebotomy if > 50. Recheck 3 months Written and verbal health teaching given to patient, patient verbalizes understanding and agrees with treatment plan. 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 Esophagitis, unspecified Other and unspecified hyperlipidemia Hyperlipidemia Other osteoporosis Phlebitis and thrombophlebitis of femoral vein (deep) (superficial) (HCC) Stroke (HCC) PAST SURGICAL HISTORY Procedure Laterality Date COLONOSCOPY FLX DX W/COLLJ SPEC WHEN PFRMD 05/07/2007 COLONOSCOPY FLX DX W/COLLJ SPEC WHEN PFRMD 06/10/2011 Colonoscopy EGD TRANSORAL BIOPSY SINGLE/MULTIPLE 12/17/2006 ESOPHAGOGASTRODUODE NOSCOPY TRANSORAL DIAGNOSTIC 09/02/2013 EGD ESOPHAGOGASTRODUODE NOSCOPY TRANSORAL DIAGNOSTIC 09/02/2013 EGD LAPAROSCOPY SURG CHOLECYSTECTOMY 01/17/2005 Cholecystectomy, lap PAST SURGICAL HISTORY OF 01/17/2005 Liver biopsy PAST SURGICAL HISTORY OF 04/13/1988 nasal surgery PAST SURGICAL HISTORY OF Labrum right hip repair FAMILY HISTORY Problem Relation Age of Onset Hypertension Father Hypertension Mother Diabetes Brother Diabetes Sister Coronary Artery Disease Paternal Grandfather Developmental problem Daughter Diabetes Son Emphysema Child Genitourinary () Maternal Aunt Cancer Mother lung cancer COPD Father Social History Tobacco Use Smoking status: Never Smokeless tobacco: Never Substance Use Topics Alcohol use: No Drug use: No ALLERGIES: ALLERGIES Allergen Reactions Tetanus Vaccines An* Rash CURRENT OUTPATIENT MEDICATIONS: cholecalciferol (VITAMIN D-3) 400 unit tab Take 400 Units by mouth once daily. rosuvastatin (CRESTOR) 10 mg tablet Take 10 mg by mouth every other day. apixaban (ELIQUIS) 5 mg tab(s) Take 5 mg by mouth two times a day. dilTIAZem (CARDIZEM) 120 mg tablet Take 120 mg by mouth once daily. VITAMIN K2 ORAL Take 1 tablet by mouth once daily. ZINC ORAL Take 1 tablet by mouth once daily. CALCIUM ORAL Take 1 tablet by mouth once daily. ascorbic acid (VITAMIN C ORAL) Take 1 tablet by mouth once daily. MAGNESIUM ORAL Take 1 tablet by mouth two times a day. folic acid 1 mg tablet Take 1 tablet by mouth once daily. meloxicam (MOBIC) 15 mg tablet Take 1 tablet by mouth once daily. Take with food. lidocaine (LIDODERM) 5 %(700 mg/patch) Apply 1 Patch as directed once daily as needed. miscellaneous medical supply(COMPRESSION STOCKINGS) 20-30 cm. H20 azithromycin (ZITHROMAX) 250 mg tablet Take 1 tablet by mouth once daily. cholecalciferol (VITAMIN D3) 1,000 unit tab Take 1,000 Units by mouth once daily. methocarbamol 500 mg tablet Take 1 tablet by mouth three times daily as needed (muscle spasm). aspirin(ASPIR-81 81 MG TAB) Take one(1) tablet daily. Omeprazole Magnesium (PRILOSEC OTC) 20 mg ORAL TbEC Take one(1) tablet two(2) times daily. REVIEW OF SYSTEMS: GENERAL: No fever, night sweats, weight loss or malaise. All other reviewed and negative other than HPI. PHYSICAL EXAMINATION: VITAL SIGNS: BP 130/82 Pulse 68 Temp (Src) 98 (Temporal) Ht 5' 6 (1.68m) Wt 197 lb (89.4kg) SpO2 98% BMI 31.81 kg/(m2). GENERAL APPEARANCE: Well appearing, in no acute distress, alert and oriented x3, well-hydrated, well nourished. I spent a total of 60 minutes on the date of the service which included preparing to see the patient, [id number] patient care, completing clinical documentation, obtaining and/or reviewing separately obtained history, counseling and educating the patient/family/cna caregiver, ordering medications, tests, or procedures, independently interpreting results (not separately reported), and communicating results to the patient/family/cna caregiver. Electronically Signed: Bruce Roberson MD May 11, 2024 11:07 AM A (more content not included)... Normal [facility] [place] 04-25-2024 CNPN Telephone (HEMAWS) ---- ALVIN BROWN ([id number]) 1955 M Date Time Provider Department 04/25/24 BRUCE ROBERSON During your visit today, we recorded the following information about you: Sarah Beth Victoria 04/25/2024 4:[address] 1 st attempt Lvm for patient to return the call. When patient calls back please schedule 1st available with Dr. Roberson. 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 Allergies As of Date: 04/25/2024 Noted Allergy Reaction TETANUS VACCINES AND TOXOID 08/28/2005 2 - Rash Date Reviewed: 04/11/2016 Reviewed by: Conchita Lezama Ma - Fully Assessed Reason for Visit: New Patient [172] Prescriptions as of 04/26/2024 - azithromycin (ZITHROMAX) 250 mg tablet Take 1 tablet by mouth once daily. - folic acid 1 mg tablet Take 1 tablet by mouth once daily. - meloxicam (MOBIC) 15 mg tablet Take 1 tablet by mouth once daily. Take with food. - cholecalciferol (VITAMIN D3) 1,000 unit tab Take 1,000 Units by mouth once daily. - lidocaine (LIDODERM) 5 %(700 mg/patch) Apply 1 Patch as directed once daily as needed. - methocarbamol 500 mg tablet Take 1 tablet by mouth three times daily as needed (muscle spasm). - aspirin(ASPIR-81 81 MG TAB) Take one(1) tablet daily. - miscellaneous medical supply(COMPRESSION STOCKINGS) 20-30 cm. H20 - Omeprazole Magnesium (PRILOSEC OTC) 20 mg ORAL TbEC Take one(1) tablet two(2) times daily. Problem List As Of Date 04/25/2024 Noted Resolved ARTHROP W ENDOCR/MET DIS [MDO8947] 01/28/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] 03/14/2005 PATHOLOGIC FRACTURE [733.1] 06/05/2005 THROMBOPHLEBITIS NOS [I80.9] 11/05/2005 HYPERTROPHY PROSTATE W/O OBST [N40.0] 11/05/2005 HYPERLIPIDEMIA NEC/NOS [E78.5] 03/04/2006 OSTEOPOROSIS NOS [M81.0] 10/23/2006 ESOPHAGEAL REFLUX [K21.9] 10/23/2006 DYSPHAGIA [787.2] 11/20/2006 ESOPHAGITIS, UNSPECIFIED [K20.90] 12/17/2006 BPH (Benign Prostatic Hypertrophy) with Urinary*02/23/2009 Pain in Joint, Shoulder Region [M25.519] 03/02/2009 Dysmetabolic syndrome [E88.810] 03/19/2010 Hemochromatosis [E83.119] 03/19/2010 Actinic Keratoses (Premalignant AK's) [L57.0] 04/25/2010 Seborrheic Dermatitis: scalp [L21.8] 04/25/2010 Seborrheic Keratosis [L82.1] 04/25/2010 Actinic Damage///Sun-damage d skin [L57.8] 04/25/2010 Solar Lentigines [L81.4] 04/25/2010 Telangiectasia [I78.1] 04/25/2010 Cryosurgical Scar [L90.5] 06/11/2010 Onychomycosis [B35.1] 12/10/2010 Tinea unguium [B35.1] 12/10/2010 Nail dystrophy [L60.3] 12/10/2010 Deformity of toenail [L60.8] 12/10/2010 Tinea pedis [B35.3] 12/10/2010 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99 X10 3/uL Normal 0.83-4.51 [facility] Comment on above: Performed By: #### L 100.0100, L503.6550, L503.6150 #### [facility] [address] [place], [address] Absolute Neut 4.0 X10 3/uL Normal 2.0-7.7 [facility] Comment on above: Performed By: #### L 100.0100, L503.6550, L503.6150 #### [facility] [address] [place], [address] Basophils/100 WBC (Bld) 0.4 % Normal 0-1 [facility] Comment on above: Performed By: #### L 100.0100, L503.6550, L503.6150 #### [facility] [address] [place], [address] Eosinophils/100 WBC (Bld) 3.5 % Normal 0-5 [facility] Comment on above: Performed By: #### L 100.0100, L503.6550, L503.6150 #### [facility] [address] [place], [address] Erythrocyte distribution width (RBC) [Ratio] 13.0 % Normal 11.6-14.6 [facility] Comment on above: Performed By: #### L 100.0100, L503.6550, L503.6150 #### [facility] [address] [place], [address] Hematocrit (Bld) [Volume fraction] 39.4 % Low 40-54 [facility] Comment on above: Performed By: #### L 100.0100, L503.6550, L503.6150 #### [facility] [address] [place], [address] Hemoglobin (Bld) [Mass/Vol] 14.2 g/dL Normal 13.0-16.5 [facility] Comment on above: Performed By: #### L 100.0100, L503.6550, L503.6150 #### [facility] [address] [place], [address] IG% 0.300 Normal 0.0-0.9 [facility] Comment on above: Result Comment: IG% - Immature Granulocytes (promyelocytes, myelocytes and metamyelocytes) > 1% indicates that a LEFT SHIFT is Present. Performed By: #### L 100.0100, L503.6550, L503.6150 #### [facility] [address] [place], [address] Lymphocytes/100 WBC (Bld) 29.1 % Normal 19-41 [facility] Comment on above: Performed By: #### L 100.0100, L503.6550, L503.6150 #### [facility] [address] [place], [address] MCH (RBC) [Entitic mass] 31.8 pg Normal 27.0-32.0 [facility] Comment on above: Performed By: #### L 100.0100, L503.6550, L503.6150 #### [facility] [address] [place], [address] MCHC (RBC) [Mass/Vol] 36.0 g/dL Normal 32-36 [facility] Comment on above: Performed By: #### L 100.0100, L503.6550, L503.6150 #### [facility] [address] [place], [address] MCV (RBC) [Entitic vol] 88.3 fL Normal 80-94 [facility] Comment on above: Performed By: #### L 100.0100, L503.6550, L503.6150 #### [facility] [address] [place], [address] Monocytes/100 WBC (Bld) 8.5 % Normal 0-10 [facility] Comment on above: Performed By: #### L 100.0100, L503.6550, L503.6150 #### [facility] [address] [place], [address] Neutrophils/100 WBC (Bld) 58.2 % Normal 47-70 [facility] Comment on above: Performed By: #### L 100.0100, L503.6550, L503.6150 #### [facility] [address] [place], [address] Nucleated RBC (Bld) [#/Vol] 0 10*3/uL Normal 0-5 [facility] Comment on above: Performed By: #### L 100.0100, L503.6550, L503.6150 #### [facility] [address] [place], [address] Platelet mean volume (Bld) [Entitic vol] 10.6 fL Normal 6.2-12.0 [facility] Comment on above: Performed By: #### L 100.0100, L503.6550, L503.6150 #### [facility] [address] [place], [address] Platelets (Bld) [#/Vol] 216 10*3/uL Normal 150-450 [facility] Comment on above: Performed By: #### L 100.0100, L503.6550, L503.6150 #### [facility] [address] [place], [address] RBC (Bld) [#/Vol] 4.46 10*6/uL Low 4.6-6.2 [facility] Comment on above: Performed By: #### L 100.0100, L503.6550, L503.6150 #### [facility] [address] [place], [address] RDW SD 42.1 fl Normal 35.1-43.9 [facility] Comment on above: Performed By: #### L 100.0100, L503.6550, L503.6150 #### [facility] [address] [place], [address] WBC (Bld) [#/Vol] 6.8 10*3/uL Normal 4.4-11.0 [facility] Comment on above: Performed By: #### L 100.0100, L503.6550, L503.6150 #### [facility] [address] [place], [address] Eosinophil percentageOrdered By: Radha Arango on 04-20-2024 Eosinophils/100 WBC (Bld) 3.5 % 0-5 [facility] Erythrocyte distribution wid th ratioOrdered By: Radha Arango on 04-20-2024 Erythrocyte distribution width (RBC) [Ratio] 13.0 % 11.6-14.6 [facility] Erythrocyte distribution wid th standard deviationOrdered By: Radha Arango on 04-20-2024 Erythrocyte distribution width (RBC) [Entitic vol] 42.1 fL 35.1-43.9 [facility] Ferritinon 04-20-2024 Ferritin [Mass/Vol] 22 ng/mL Low 26-388 [facility] Comment on above: Performed By: #### L 100.0100 #### [facility] [address] [place], [address] Ferritin measurementOrdered By: Radha Arango on 04-20-2024 Ferritin [Mass/Vol] 22 ng/mL Low 26-388 [facility] Hematocrit Auto (Bld) [Volum e fraction]Ordered By: Radha Arango on 04-20-2024 Hematocrit (Bld) [Volume fraction] 39.4 % Low 40-54 [facility] Hemoglobin measurementOrdere d By: Radha Arango on 04-20-2024 Hemoglobin (Bld) [Mass/Vol] 14.2 g/dL 13.0-16.5 [facility] Immature granulocytes/100 WB C Auto (Bld)Ordered By: Radha Arango on 04-20-2024 Immature granulocytes/100 WBC (Bld) 0.300 % 0.0-0.9 [facility] Comment on above: IG% - Immature Granu locytes (promyelocytes, myelocytes and metamyelocytes) > 1% indicates that a LEFT SHIFT is Present. Ironon 04-20-2024 Iron [Mass/Vol] 74 ug/dL Normal 65-175 [facility] Comment on above: Performed By: #### L 100.0100 #### [facility] [address] [place], [place], [id number] Iron (Unsp spec) [Mass/Mass] Ordered By: Radha Arango on 04-20-2024 Iron [Mass/Vol] 74 ug/dL 65-175 [facility] Lymphocytes Auto (Unsp spec) [#/Vol]Ordered By: Radha Arango on 04-20-2024 Lymphocytes (Bld) [#/Vol] 1.99 10*3/uL 0.83-4.51 [facility] Lymphocytes/100 WBC Auto (Un sp spec)Ordered By: Radha Arango on 04-20-2024 Lymphocytes/100 WBC (Bld) 29.1 % 19-41 [facility] MCV (mean corpuscular volume ) determinationOrdered By: Radha Arango on 04-20-2024 MCV (RBC) [Entitic vol] 88.3 fL 80-94 [facility] Mean corpuscular hemoglobin (MCH) determinationOrdered By: Radha Arango on 04-20-2024 MCH (RBC) [Entitic mass] 31.8 pg 27.0-32.0 [facility] Mean corpuscular hemoglobin concentration (MCHC) determinationOrdered By: Radha Arango on 04-20-2024 MCHC (RBC) [Mass/Vol] 36.0 g/dL 32-36 [facility] Mean platelet volume determi nationOrdered By: Radha Arango on 04-20-2024 Platelet mean volume (Bld) [Entitic vol] 10.6 fL 6.2-12.0 [facility] Monocyte percentageOrdered B y: Radha Arango on 04-20-2024 Monocytes/100 WBC (Bld) 8.5 % 0-10 [facility] Neutrophil percentageOrdered By: Radha Arango on 04-20-2024 Neutrophils/100 WBC (Bld) 58.2 % 47-70 [facility] Nucleated red blood cell per centageOrdered By: Radha Arango on 04-20-2024 Nucleated RBC/100 WBC (Bld) [Ratio] 0 % 0-5 [facility] Platelet countOrdered By: Emelyn Arango on 04-20-2024 Platelets (Bld) [#/Vol] 216 10*3/uL 150-450 [facility] RBC Auto (Bld) [#/Vol]Ordere d By: Radha Arango on 04-20-2024 RBC (Bld) [#/Vol] 4.46 10*6/uL Low 4.6-6.2 [facility] White blood cell (WBC) count Ordered By: Radha Arango on 04-20-2024 WBC (Bld) [#/Vol] 6.8 10*3/uL 4.4-11.0 [facility] Cardiology Visit Reporton Cardiology Visit Report [facility] [address] [place], [place] [address]. [address] [place] [address] OFFICE VISIT Date of Service: 04/12/24 MR#: [id number] Acct: [id number] Name: ALVIN BROWN Rep #: [id number] : 1955 Provider: [facility] ontiveros Age/Sex: 68/M Location: [facility] Status: Signed HPI HPI History of Present Illness Details: This is a 68-year-old male presents the office today for a posthospital follow-up. He was evaluated at [facility] in March 2024 for acute ischemic stroke/TIA. He was noted to be in atrial fibrillation and started on Eliquis. Echocardiogram showed ejection unction of 65%, normal left and right atrium size, and negative for PFO/ASD. He presented back to the [facility] part after discharge after a syncopal episode while on the commode. Twelve-lead ECG on 03/26/2024 showed sinus rhythm at 60 bpm. He received medication to assist with constipation. He has a past medical history of hypertension and hemochromatosis. He denies chest, arm, jaw, or neck discomfort. He denies palpitations. He denies bilateral lower extremity edema. He denies claudication. He denies shortness of breath with activity, shortness of breath at rest, orthopnea, or PND. He denies chronic cough. He denies significant, sudden weight gain. He denies lightheadedness, dizziness, near-syncope, or syncope. He denies blood in urine, blood in stool, or epistaxis. He denies fever with chills. He denies myalgia. He denies fatigue. He acknowledges weakness that is improving. His exercise level has remained stable. Intake Vital Signs 03/24/24 09:15 03/26/24 07:00 04/12/24 08:29 Height 5 ft 6 in 5 ft 6 in 5 ft 6 in Weight: 199 lb BMI 32.1 BP 153/89 H Blood Pressure Location Lt brachial Position Sitting Respiration 16 Pulse 63 Pulse Source NIBP Comment Took diltiazem < 1 hour ago Intake Visit Reasons: S/P [facility] 03/24 AFIB Inspector And Tester Required: No Is patient in pain?: No Allergies Tetanus Vaccines and Toxoid Adverse Reaction (Intermediate, Verified 04/12/24 08:35) Rash Medications ???Medication ???Instructions ???Recorded ???Confirmed ???Type folic acid 1 mg tablet 1 mg PO DAILY@0800 supplement 10/10/16 04/12/24 History meloxicam 15 mg tablet (Mobic) 15 mg PO DAILY ANTIINFLAMITORY 10/10/16 04/12/24 History tamsulosin 0.4 mg capsule (Flomax) 0.4 mg PO QHS #30 caps 03/24/24 04/12/24 Rx apixaban 5 mg tablet (Eliquis) 5 mg PO BID #180 tabs 04/12/24 04/12/24 Rx diltiazem HCl 120 mg 120 mg PO DAILY #90 caps 04/12/24 04/12/24 Rx capsule,extended release 24 hr (Cardizem CD) rosuvastatin 10 mg tablet (Crestor) 10 mg PO QODAY #45 tabs 04/12/24 04/12/24 Rx Ejection fraction %: 65 Have you fallen in the past year?: No PFSH Medical History (Updated 04/12/24 @ 09:19 by Daljit Devries RIG MECHANIC, RIG MECHANIC-C) Syncope Vasovagal syncope Truncal ataxia Slaughter esophagus Hemochromatosis Hypertension Atrial fibrillation with rapid ventricular response Deviated septum 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 H/O deep venous thrombosis BPH (benign prostatic hyperplasia) Osteoporosis GERD (gastroesophageal reflux disease) Arthritis Surgical History History of nasal septoplasty History of hip surgery H/O vasectomy History of tonsillectomy Hx of cholecystectomy Family History Father Skin cancer Arthritis COPD (chronic obstructive pulmonary disease) Hypertension Hereditary hemochromatosis Mother Anemia Arthritis Heart disease Lung cancer COPD (chronic obstructive pulmonary disease) Hypertension Grandmother Aneurysm Bone cancer Social History (Updated 04/12/24 @ 08:44 by Tracy Castro) household members: spouse housing: house current occupational status: employed 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 Smoking Status: Never smoker alcohol intake: never substance use type: does not use caffeine: Yes Type: coffee Number of servings: 4 ROS Const Const: Positive for weakness (Getting his strength back from phlebotomy for hemachromatosis); Negative for fatigue Eyes Eyes: Negative for change in vision ENT ENT: Negative for dizziness or balance problems Cardio Chest Pain: No Palpitations: No Edema: None Muscle aches with walking: None Resp Respiratory: Negative for SOB with activity, SOB at rest or SOB orthopnea SOB lying down GI GI: Negative nausea or heartburn : Negative for hematuria or frequent nighttime urination/ nocturia Musc Musc: Negative for balance problems Skin Skin: Negative non-healing lesions or rash Neuro Neuro: Positive for syncope (vasovagal syncope the day after having phlebotomy ) and weakness (Getting his strength back from phlebotomy for hemachromatosis); Negative for dizziness, lightheadedne (more content not included)... Normal [facility] 12 Lead EKGon 03-26-2024 12 Lead EKG [facility] Cardiovascular Services [address] [place] [address] 12 Lead EKG 03/26/24 0712 MR#: [id number] Acct: [id number] Name: ALVIN BROWN Rep #: [id number] : 1955 68 From: Malu Mcgregor MD Attending Dr: Status: DEP ER Ordering Dr: Francisco Becerra MD Date: 03/26/24 Location: ED Sex: M C Admitted: Test Reason : N/V Blood Pressure : */* mmHG Vent. Rate : 68 BPM Atrial Rate : 68 BPM P-R Int : 158 ms QRS Dur : 86 ms QT Int : 412 ms P-R-T Axes : 3 8 13 degrees QTcB Int : 438 ms Normal sinus rhythm Normal ECG Confirmed by MECHE REYES, ARMIN ([id number]), tape editor ALBERTO KERR ([id number]) on 03/30/2024 1:36:44 PM Referred By: Confirmed By: ARMIN MCGREGOR MD 03/30/24 1336 Date Malu Mcgregor MD CC: Dr. Radha Arango DO; Dr. Francisco Becerra MD Signed Normal [facility] Basic Metabolic Profile (BMP )on 03-26-2024 BUN/CRE 28.1 RATIO High 10 [facility] Comment on above: Performed By: #### L 100.0100 #### [facility] [address] [facility] [place], [address] CA,Total 8.8 mg/dL Normal 8.5-10.1 [facility] Comment on above: Performed By: #### L 100.0100 #### [facility] [address] [place], [address] Chloride [Moles/Vol] 112 mmol/L High 98-107 [facility] Comment on above: Performed By: #### L 100.0100 #### [facility] [address] [place], [address] CO2 [Moles/Vol] 23.0 mmol/L Normal 21.0-32.0 [facility] Comment on above: Performed By: #### L 100.0100 #### [facility] [address] [place], [address] Creatinine [Mass/Vol] 0.82 mg/dL Normal 0.70-1.30 [facility] Comment on above: Result Comment: The validity of the calculated GFR GFRAA in patients over 70 years has not been determined. Clinical correlation is essential. Performed By: #### L 100.0100 #### [facility] [address] [place], [address] ECRCL 92.78 ml/min Normal [facility] Comment on above: Performed By: #### L 100.0100 #### [facility] [address] [place], [address] EST GFR - AA 121 mL/min Normal >60 [facility] Comment on above: Result Comment: Afri can British GFR Calc Performed By: #### L 100.0100 #### [facility] [address] [place], [address] GAP 6 Normal 5-15 [facility] Comment on above: Performed By: #### L 100.0100 #### [facility] [address] [place], [address] GFR/1.73 sq M.predicted among non-blacks MDRD (S/P/Bld) [Vol rate/Area] 100 mL/min/{1.73_m2} Normal >60 [facility] Comment on above: Result Comment: Non- GFR Calc Performed By: #### L 100.0100 #### [facility] [address] [place], [address] Glucose [Mass/Vol] 118 mg/dL High 74-106 [facility] Comment on above: Result Comment: Fast ing Glucose result from 100 to 125 mg/dL suggests IMPAIRED HOMEOSTASIS per A.D.A. criteria. Performed By: #### L 100.0100 #### [facility] [address] [place], [address] Potassium [Moles/Vol] 3.8 mmol/L Normal 3.5-5.1 [facility] Comment on above: Performed By: #### L 100.0100 #### [facility] [address] [place], [address] Sodium [Moles/Vol] 141 mmol/L Normal 136-145 [facility] Comment on above: Performed By: #### L 100.0100 #### [facility] [address] [place], [address] Urea nitrogen [Mass/Vol] 23 mg/dL High 7-18 [facility] Comment on above: Performed By: #### L 100.0100 #### [facility] [address] [place], [address] Blood urea nitrogen (BUN)/cr eatinine ratioOrdered By: Francisco Becerra on 03-26-2024 Urea nitrogen/Creatinine [Mass ratio] 28.1 mg/mg High 10-20 [facility] CBC-Complete Blood Cnt No Di ffon 03-26-2024 Erythrocyte distribution width (RBC) [Ratio] 12.2 % Normal 11.6-14.6 [facility] Comment on above: Performed By: #### L 100.0100 #### [facility] [address] [place], [address] Hematocrit (Bld) [Volume fraction] 36.5 % Low 40-54 [facility] Comment on above: Performed By: #### L 100.0100 #### [facility] [address] [place], [address] Hemoglobin (Bld) [Mass/Vol] 12.8 g/dL Low 13.0-16.5 [facility] Comment on above: Performed By: #### L 100.0100 #### [facility] [address] [place], [address] MCH (RBC) [Entitic mass] 31.7 pg Normal 27.0-32.0 [facility] Comment on above: Performed By: #### L 100.0100 #### [facility] [address] [place], [address] MCHC (RBC) [Mass/Vol] 35.1 g/dL Normal 32-36 [facility] Comment on above: Performed By: #### L 100.0100 #### [facility] [address] [place], [address] MCV (RBC) [Entitic vol] 90.3 fL Normal 80-94 [facility] Comment on above: Performed By: #### L 100.0100 #### [facility] [address] [place], [address] Platelet mean volume (Bld) [Entitic vol] 10.4 fL Normal 6.2-12.0 [facility] Comment on above: Performed By: #### L 100.0100 #### [facility] [address] [place], [address] Platelets (Bld) [#/Vol] 207 10*3/uL Normal 150-450 [facility] Comment on above: Performed By: #### L 100.0100 #### [facility] [address] [place], [address] RBC (Bld) [#/Vol] 4.04 10*6/uL Low 4.6-6.2 [facility] Comment on above: Performed By: #### L 100.0100 #### [facility] [address] [place], [address] RDW SD 40.1 fl Normal 35.1-43.9 [facility] Comment on above: Performed By: #### L 100.0100 #### [facility] [address] [place], [address] WBC (Bld) [#/Vol] 6.9 10*3/uL Normal 4.4-11.0 [facility] Comment on above: Performed By: #### L 100.0100 #### [facility] [address] [place], [address] Carbon dioxide measurementOr dered By: Francisco Becerra on 03-26-2024 CO2 [Moles/Vol] 23.0 mmol/L 21.0-32.0 [facility] Chloride measurementOrdered By: Francisco Becerra on 03-26-2024 Chloride [Moles/Vol] 112 mmol/L High 98-107 [facility] Emergency Department Summary on 03-26-2024 Emergency Department Summary [facility] Medical Records Department [address] [place] [address] Emergency Department Summary 03/26/24 MR#: [id number] Acct: [id number] Name: ALVIN BROWN Rep #: [id number] : 1955 68 From: Francisco Becerra MD PCP: Dr. Radha Arango, DO Status:REG ER Location: ED HPI History of Present Illness Chief Complaint: Syncope Detail of Chief Complaint: Syncopal episode while on the commode Informant: patient and spouse/S.O. Onset/Context/Timin g Onset: Today and Hours Context: Sudden Onset Timing: Intermittent Quality: Patient was straining to have a bowel movement and passed out Location: Restroom Current Severity: Gone Maximum Severity: Severe Worsened by: Presumed vasovagal Relieved by: Not applicable Associated Symptoms Associated Symptoms: Nausea, pallor and diaphoresis Narrative Narrative: Patient is 68-year-old male. He was seen on March 24. He was diagnosed with atrial fibrillation. He was placed on apixaban. He also was placed on a blood pressure medication. Based on active list patient is on apixaban, diltiazem 120 mg daily and metoprolol 50 mg daily. He is also on Crestor and Flomax. Note authored by Dr. Gabino Berg was reviewed. Impression was truncal ataxia, atrial fibrillation with RVR and TIA as well as hypertension. Patient was admitted to the hospital. Discharge summary authored by Dr. Viviana Giraldo was reviewed. Discharge diagnosis was truncal ataxia, acute, atrial fibrillation with RVR. He apparently has history of hemochromatosis. He was to follow-up with hematology for possible phlebotomy. He was on metoprolol for his hypertension. Cardizem was added due to the atrial fibrillation. He also has history of recent right hip labral repair and is to continue meloxicam. He is also on apixaban. This increases his likelihood for hemorrhage. This morning he was on the commode. He was straining because of constipation. He had a syncopal episode with collapse. He presently has no symptoms. He was pale diaphoretic. His vision did become black. He did not fall from the commode and there is no concern or evidence of head trauma and he denies neck pain. He has no other complaints. Prior similar symptoms: No Recent Illness/Hospitaliza tion: Yes 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 H/O deep venous thrombosis BPH (benign prostatic hyperplasia) Osteoporosis GERD (gastroesophageal reflux disease) Arthritis Home Medications ???Medication ???Instructions ???Recorded ???Last Taken ???Type folic acid 1 mg tablet 1 mg PO DAILY@0800 supplement 10/10/16 Unknown History meloxicam 15 mg tablet (Mobic) 15 mg PO DAILY ANTIINFLAMITORY 10/10/16 Unknown History apixaban 5 mg tablet (Eliquis) 5 mg PO BID #60 tabs 03/24/24 Unknown Rx diltiazem HCl 120 mg 120 mg PO DAILY #30 caps 03/24/24 Unknown Rx capsule,extended release 24 hr (Cardizem CD) rosuvastatin 10 mg tablet (Crestor) 10 mg PO QODAY #30 tabs 03/24/24 Unknown Rx tamsulosin 0.4 mg capsule (Flomax) 0.4 mg PO QHS #30 caps 03/24/24 Unknown Rx Allergy/AdvReac Type Severity Reaction Status Date / Time Tetanus Vaccines and Toxoid AdvReac Intermediate Rash Verified 03/24/24 06:16 Family History Father Skin cancer Arthritis COPD (chronic obstructive pulmonary disease) Hypertension Hereditary hemochromatosis Mother Anemia Arthritis Heart disease Lung cancer COPD (chronic obstructive pulmonary disease) Hypertension Grandmother Aneurysm Bone cancer Surgical History History of hip surgery H/O vasectomy History of tonsillectomy Hx of cholecystectomy Social History household members: spouse housing: house current occupational status: employed 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 Smoking Status: Never smoker alcohol intake: never substance use type: does not use ROS ROS ED Constitutional Constitutional ED: Denies chills, fever(s), subjective, sweats or weight loss Eyes Eyes: Reports change in vision bilateral; Denies blurry vision or diplopia ENT ENT ED: Denies rhinorrhea or sore throat Cardiovascular Cardiovascular: Denies chest pain, palpitations or racing heartbeat Respiratory/Chest Respiratory/Chest: Denies cough, dyspnea or dyspnea on exertion Gastrointestinal Gastrointestinal: Reports constipation; Denies abdominal pain, melena, nausea or vomiting Genitourinary Genitourinary ED: Denies dysuria, hematuria or urinary frequency Musculoskeletal Musculoskeletal: Denies arthralgias, back pain, myalgias or neck pain Integumentary Denies rash Neurologic Neurologic: Denies headache(s) or weakness Psychiatric Psychi (more content not included)... Normal [facility] Erythrocyte distribution wid th ratioOrdered By: Francisco Becerra on 03-26-2024 Erythrocyte distribution width (RBC) [Ratio] 12.2 % 11.6-14.6 [facility] Erythrocyte distribution wid th standard deviationOrdered By: Francisco Becerra on 03-26-2024 Erythrocyte distribution width (RBC) [Entitic vol] 40.1 fL 35.1-43.9 [facility] Estimated glomerular filtrat ion rate (GFR) AmericanOrdered By: Francisco Becerra on 03-26-2024 Estimated GFR (MDRD) Amer 121 mL/min >60 [facility] Comment on above: GFR Calc Estimation of creatinine loco aranceOrdered By: Francisco Becerra on 03-26-2024 Estimated Creatinine Clearance Calc 92.78 ml/min [facility] Glomerular filtration rate ( GFR) estimationOrdered By: Francisco Becerra on 03-26-2024 Estimated GFR (MDRD) Non-Af Amer 100 mL/min >60 [facility] Comment on above: Non- GFR Calc Glucose measurementOrdered B y: Francisco Becerra on 03-26-2024 Glucose [Mass/Vol] 118 mg/dL High 74-106 [facility] Comment on above: Fasting Glucose resu lt from 100 to 125 mg/dL suggests IMPAIRED HOMEOSTASIS per A.D.A. criteria. Hematocrit Auto (Bld) [Volum e fraction]Ordered By: Francisco Becerra on 03-26-2024 Hematocrit (Bld) [Volume fraction] 36.5 % Low 40-54 [facility] Hemoglobin measurementOrdere d By: Francisco Becerra on 03-26-2024 Hemoglobin (Bld) [Mass/Vol] 12.8 g/dL Low 13.0-16.5 [facility] Lower GI hemoglobin IA Ql (S tl)Ordered By: Francisco Becerra on 03-26-2024 Stool Occult Blood (FOSTER) [facility] MCV (mean corpuscular volume ) determinationOrdered By: Francisco Becerra on 03-26-2024 MCV (RBC) [Entitic vol] 90.3 fL 80-94 [facility] Mean corpuscular hemoglobin (MCH) determinationOrdered By: Francisco Becerra on 03-26-2024 MCH (RBC) [Entitic mass] 31.7 pg 27.0-32.0 [facility] Mean corpuscular hemoglobin concentration (MCHC) determinationOrdered By: Francisco Becerra on 03-26-2024 MCHC (RBC) [Mass/Vol] 35.1 g/dL 32-36 [facility] Mean platelet volume determi nationOrdered By: Francisco Becerra on 03-26-2024 Platelet mean volume (Bld) [Entitic vol] 10.4 fL 6.2-12.0 [facility] Platelet countOrdered By: Mani vera Morenoo on 03-26-2024 Platelets (Bld) [#/Vol] 207 10*3/uL 150-450 [facility] Potassium measurementOrdered By: Francisco Becerra on 03-26-2024 Potassium [Moles/Vol] 3.8 mmol/L 3.5-5.1 [facility] RBC Auto (Bld) [#/Vol]Ordere d By: Franciscovera Morenoo on 03-26-2024 RBC (Bld) [#/Vol] 4.04 10*6/uL Low 4.6-6.2 [facility] Serum anion gap measurementO rdered By: Franciscovera Morenoo on 03-26-2024 Anion gap [Moles/Vol] 6 mmol/L 5-15 [facility] Serum or plasma calcium jessica urement (mass/volume)Ordered By: Francisco Becerra on 03-26-2024 Calcium [Mass/Vol] 8.8 mg/dL 8.5-10.1 [facility] Serum or plasma creatinine m easurement (mass/volume)Ordered By: Francisco Becerra on 03-26-2024 Creatinine [Mass/Vol] 0.82 mg/dL 0.70-1.30 [facility] Comment on above: The validity of the calculated GFR & GFRAA in patients over 70 years has not been determined. Clinical correlation is essential. Serum or plasma urea nitroge n measurement (mass/volume)Ordered By: Francisco Becerra on 03-26-2024 Urea nitrogen [Mass/Vol] 23 mg/dL High 7-18 [facility] Sodium levelOrdered By: Francisco Becerra on 03-26-2024 Sodium [Moles/Vol] 141 mmol/L 136-145 [facility] Stool Occult Blood iFOBon STOB Normal Reference Range = Negative Immunochemical Fecal Occult Blood (iFOBT) method. Hemoccult Stl Ql IA Limitation: Menstrual bleeding, constipation bleeding, bleeding hemorrhoids, and urinary bleeding conditions may interfere with test. Occult Blood Negative Normal [facility] Comment on above: Performed By: #### L 100.0100 #### [facility] [address] [place], [address] White blood cell (WBC) count Ordered By: Francisco Becerra on 03-26-2024 WBC (Bld) [#/Vol] 6.9 10*3/uL 4.4-11.0 [facility] CBC W/Diff, Automatedon 03-13 Absolute Neut Normal 2.0-7.7 [facility] Comment on above: Result Comment: Canc elled via OM: Order cancelled - Patient discharged Performed By: #### L 100.0100 #### [facility] [address] [place], [address] HCT Normal 40-54 [facility] Comment on above: Result Comment: Canc elled via OM: Order cancelled - Patient discharged Performed By: #### L 100.0100 #### [facility] [address] [place], [address] HGB Normal 13.0-16.5 [facility] Comment on above: Result Comment: Canc elled via OM: Order cancelled - Patient discharged Performed By: #### L 100.0100 #### [facility] [address] [place], [address] MCH Normal 27.0-32.0 [facility] Comment on above: Result Comment: Canc elled via OM: Order cancelled - Patient discharged Performed By: #### L 100.0100 #### [facility] [address] [place], [address] MCHC Normal 32-36 [facility] Comment on above: Result Comment: Canc elled via OM: Order cancelled - Patient discharged Performed By: #### L 100.0100 #### [facility] [address] [place], [address] MCV Normal 80-94 [facility] Comment on above: Result Comment: Canc elled via OM: Order cancelled - Patient discharged Performed By: #### L 100.0100 #### [facility] [address] [place], [address] NEUT% Normal 47-70 [facility] Comment on above: Result Comment: Canc elled via OM: Order cancelled - Patient discharged Performed By: #### L 100.0100 #### [facility] [address] [place], [address] PLT Normal 150-450 [facility] Comment on above: Result Comment: Canc elled via OM: Order cancelled - Patient discharged Performed By: #### L 100.0100 #### [facility] [address] [place], [address] RBC Normal 4.6-6.2 [facility] Comment on above: Result Comment: Canc elled via OM: Order cancelled - Patient discharged Performed By: #### L 100.0100 #### [facility] [address] [place], [address] RDW CV Normal 11.6-14.6 [facility] Comment on above: Result Comment: Canc elled via OM: Order cancelled - Patient discharged Performed By: #### L 100.0100 #### [facility] [address] [place], [address] RDW SD Normal 35.1-43.9 [facility] Comment on above: Result Comment: Canc elled via OM: Order cancelled - Patient discharged Performed By: #### L 100.0100 #### [facility] [address] [place], [address] WBC Normal 4.4-11.0 [facility] Comment on above: Result Comment: Canc elled via OM: Order cancelled - Patient discharged Performed By: #### L 100.0100 #### [facility] [address] [place], [address] 12 Lead EKGon 03-24-2024 12 Lead EKG [facility] Cardi[facility] Services [address] [place] [address] 12 Lead EKG 03/24/24 0611 MR#: [id number] Acct: [id number] Name: ALVIN BROWN Rep #: [id number] : 1955 68 From: Malu Mcgregor MD Attending Dr: Dr. Viviana Giraldo DO Status: DIS I NO Ordering Dr: Gabino Berg DO Date: 03/24/24 Location: U Sex: M C Admitted: 03/24/24 Test Reason : CHEST PAIN Blood Pressure : */* mmHG Vent. Rate : 124 BPM Atrial Rate : * BPM P-R Int : * ms QRS Dur : 86 ms QT Int : 330 ms P-R-T Axes : * 17 12 degrees QTcB Int : 474 ms Atrial fibrillation with rapid ventricular response with premature ventricular or aberrantly conducted complexes Abnormal ECG Confirmed by MECHE REYES, ARMIN ([id number]), tape editor ALBERTO KERR ([id number]) on 03/30/2024 2:11:36 PM Referred By: SRUTHI Confirmed By: ARMIN MCGREGOR MD 03/30/24 1411 Date Malu Mcgregor MD CC: Dr. Viviana Giraldo DO; Dr. Radha Arango DO; Gabino Berg DO Signed Normal [facility] Absolute neutrophil countOrd ered By: Gabino Berg on 03-24-2024 Neutrophils (Bld) [#/Vol] 4.1 10*3/uL 2.0-7.7 [facility] Basic Metabolic Profile (BMP )on 03-24-2024 BUN/CRE 31.0 RATIO High 10-20 [facility] Comment on above: Performed By: #### L 100.0100, L506.1001, L3100.5310, L501.9520, L509.1000, L3100.5055, L503.6550 #### [facility] [address] [place], [address] CA,Total 9.5 mg/dL Normal 8.5-10.1 [facility] Comment on above: Performed By: #### L 100.0100, L506.1001, L3100.5310, L501.9520, L509.1000, L3100.5055, L503.6550 #### [facility] [address] [place], [address] ECRCL 94.44 ml/min Normal [facility] Comment on above: Performed By: #### L 100.0100, L506.1001, L3100.5310, L501.9520, L509.1000, L3100.5055, L503.6550 #### [facility] [address] [place], [address] EST GFR - AA 129 mL/min Normal >60 [facility] Comment on above: Result Comment: Afri can British GFR Calc Performed By: #### L 100.0100, L506.1001, L3100.5310, L501.9520, L509.1000, L3100.5055, L503.6550 #### [facility] [address] [place], [address] GAP 6 Normal 5-15 [facility] Comment on above: Performed By: #### L 100.0100, L506.1001, L3100.5310, L501.9520, L509.1000, L3100.5055, L503.6550 #### [facility] [address] [place], [address] GFR/1.73 sq M.predicted among non-blacks MDRD (S/P/Bld) [Vol rate/Area] 106 mL/min/{1.73_m2} Normal >60 [facility] Comment on above: Result Comment: Non- GFR Calc Performed By: #### L 100.0100, L506.1001, L3100.5310, L501.9520, L509.1000, L3100.5055, L503.6550 #### [facility] [address] [place], [address] Basophil percentageOrdered B y: Gabino Berg on 03-24-2024 Basophils/100 WBC (Bld) 0.4 % 0-1 [facility] Bedside Glucoseon 03-24-2024 FINGERSTICK GLU 125 mg/dL High 74-106 [facility] Comment on above: Result Comment: LYNNE ALMANZAR OF PATIENT CARE PER NURSING PROTOCOL Performed By: #### L 100.0100 #### [facility] [address] [place], [address] Blood urea nitrogen (BUN)/cr eatinine ratioOrdered By: Gabino Berg on 03-24-2024 Urea nitrogen/Creatinine [Mass ratio] 31.0 mg/mg High 10-20 [facility] Brain without Contraston Brain without Contrast [facility] Imaging Services [address] [place] [address] Brain without Contrast MR#: [id number] Acct: [id number] Name: ALVIN BROWN Rep #: [id number] : 1955 M 68 From: Tre Banks MD PCP: Dr. Radha Arango DO Status: ADM IN Study: Brain without Contrast Date of Exam: 03/24/24 Exam# [id number] Ordering Dr: Viviana Giraldo DO -[id number] EXAM: MR HEAD WITHOUT INTRAVENOUS CONTRAST CLINICAL INDICATION: stroke TECHNIQUE: Multiplanar and multisequence MR images of the brain were obtained without intravenous contrast. COMPARISON: CT head without contrast and CTA head and neck with contrast 03/24/2024. FINDINGS: BRAIN AND EXTRA-AXIAL SPACES: No focal signal abnormalities of the brain parenchyma in all pulse sequences. No intra- or extra-axial hemorrhage. No evidence of acute infarct. No intracranial mass or mass effect. There is preservation of the hernandez/white matter interface. Posterior fossa structures are unremarkable. Normal ventricles and cisterns. No communicating or noncommunicating hydrocephalus. SELLA: Unremarkable. Normal sella turcica, pituitary gland, infundibular stalk, optic chiasm and hypothalamus. AUDITORY SYSTEM: Unremarkable. The internal auditory canals are patent. BONES/JOINTS: Unremarkable. No discrete lytic or blastic abnormalities. SINUSES: Unremarkable as visualized. Clear. MASTOID AIR CELLS: Unremarkable as visualized. Clear. ORBITS: Unremarkable as visualized. Both globes, extraocular muscles, optic nerves and retrobulbar fat appear unremarkable. VASCULATURE: Unremarkable as visualized. Normal flow voids in the major intracranial circulation. MRI/Brain without Contrast IMPRESSION: Normal MRI brain without intravenous contrast. Electronically Signed: Tre Banks MD at 12:20 [facility] , CC: Dr. Viviana Giraldo, DO; Dr. Radha Arango, DO Pediatric Clinical Nurse Specialist: Signed Normal [facility] CBC W/Diff, Automatedon 03-13 Absolute Lymph 2.89 X10 3/uL Normal 0.83-4.51 [facility] Comment on above: Performed By: #### L 100.0100, L506.1001, L3100.5310, L501.9520, L509.1000, L3100.5055, L503.6550 #### [facility] [address] [place], [address] Absolute Neut 4.1 X10 3/uL Normal 2.0-7.7 [facility] Comment on above: Performed By: #### L 100.0100, L506.1001, L3100.5310, L501.9520, L509.1000, L3100.5055, L503.6550 #### [facility] [address] [place], [address] Basophils/100 WBC (Bld) 0.4 % Normal 0-1 [facility] Comment on above: Performed By: #### L 100.0100, L506.1001, L3100.5310, L501.9520, L509.1000, L3100.5055, L503.6550 #### [facility] [address] [place], [address] Eosinophils/100 WBC (Bld) 4.0 % Normal 0-5 [facility] Comment on above: Performed By: #### L 100.0100, L506.1001, L3100.5310, L501.9520, L509.1000, L3100.5055, L503.6550 #### [facility] [address] [place], [address] Erythrocyte distribution width (RBC) [Ratio] 12.3 % Normal 11.6-14.6 [facility] Comment on above: Performed By: #### L 100.0100, L506.1001, L3100.5310, L501.9520, L509.1000, L3100.5055, L503.6550 #### [facility] [address] [place], [address] Hematocrit (Bld) [Volume fraction] 40.7 % Normal 40-54 [facility] Comment on above: Performed By: #### L 100.0100, L506.1001, L3100.5310, L501.9520, L509.1000, L3100.5055, L503.6550 #### [facility] [address] [place], [address] Hemoglobin (Bld) [Mass/Vol] 14.9 g/dL Normal 13.0-16.5 [facility] Comment on above: Performed By: #### L 100.0100, L506.1001, L3100.5310, L501.9520, L509.1000, L3100.5055, L503.6550 #### [facility] [address] [place], [address] IG% 0.200 Normal 0.0-0.9 [facility] Comment on above: Result Comment: IG% - Immature Granulocytes (promyelocytes, myelocytes and metamyelocytes) > 1% indicates that a LEFT SHIFT is Present. Performed By: #### L 100.0100, L506.1001, L3100.5310, L501.9520, L509.1000, L3100.5055, L503.6550 #### [facility] [address] [place], [address] Lymphocytes/100 WBC (Bld) 35.9 % Normal 19-41 [facility] Comment on above: Performed By: #### L 100.0100, L506.1001, L3100.5310, L501.9520, L509.1000, L3100.5055, L503.6550 #### [facility] [address] [place], [address] MCH (RBC) [Entitic mass] 32.3 pg High 27.0-32.0 [facility] Comment on above: Performed By: #### L 100.0100, L506.1001, L3100.5310, L501.9520, L509.1000, L3100.5055, L503.6550 #### [facility] [address] [place], [address] MCHC (RBC) [Mass/Vol] 36.6 g/dL High 32-36 [facility] Comment on above: Performed By: #### L 100.0100, L506.1001, L3100.5310, L501.9520, L509.1000, L3100.5055, L503.6550 #### [facility] [address] [place], [address] MCV (RBC) [Entitic vol] 88.1 fL Normal 80-94 [facility] Comment on above: Performed By: #### L 100.0100, L506.1001, L3100.5310, L501.9520, L509.1000, L3100.5055, L503.6550 #### [facility] [address] [place], [address] Monocytes/100 WBC (Bld) 8.6 % Normal 0-10 [facility] Comment on above: Performed By: #### L 100.0100, L506.1001, L3100.5310, L501.9520, L509.1000, L3100.5055, L503.6550 #### [facility] [address] [place], [address] Neutrophils/100 WBC (Bld) 50.9 % Normal 47-70 [facility] Comment on above: Performed By: #### L 100.0100, L506.1001, L3100.5310, L501.9520, L509.1000, L3100.5055, L503.6550 #### [facility] [address] [place], [address] Nucleated RBC (Bld) [#/Vol] 0 10*3/uL Normal 0-5 [facility] Comment on above: Performed By: #### L 100.0100, L506.1001, L3100.5310, L501.9520, L509.1000, L3100.5055, L503.6550 #### [facility] [address] [place], [address] Platelet mean volume (Bld) [Entitic vol] 10.4 fL Normal 6.2-12.0 [facility] Comment on above: Performed By: #### L 100.0100, L506.1001, L3100.5310, L501.9520, L509.1000, L3100.5055, L503.6550 #### [facility] [address] [place], [address] Platelets (Bld) [#/Vol] 219 10*3/uL Normal 150-450 [facility] Comment on above: Performed By: #### L 100.0100, L506.1001, L3100.5310, L501.9520, L509.1000, L3100.5055, L503.6550 #### [facility] [address] [place], [address] RBC (Bld) [#/Vol] 4.62 10*6/uL Normal 4.6-6.2 [facility] Comment on above: Performed By: #### L 100.0100, L506.1001, L3100.5310, L501.9520, L509.1000, L3100.5055, L503.6550 #### [facility] [address] [place], [address] RDW SD 39.3 fl Normal 35.1-43.9 [facility] Comment on above: Performed By: #### L 100.0100, L506.1001, L3100.5310, L501.9520, L509.1000, L3100.5055, L503.6550 #### [facility] [address] [place], [address] WBC (Bld) [#/Vol] 8.1 10*3/uL Normal 4.4-11.0 [facility] Comment on above: Performed By: #### L 100.0100, L506.1001, L3100.5310, L501.9520, L509.1000, L3100.5055, L503.6550 #### [facility] [address] [place], [address] Carbon dioxide measurementOr dered By: Gabino Berg on 03-24-2024 CO2 [Moles/Vol] 24.0 mmol/L Normal 21.0-32.0 [facility] Comment on above: Performed By: #### L 100.0100, L506.1001, L3100.5310, L501.9520, L509.1000, L3100.5055, L503.6550 #### [facility] [address] [place], [address] Chest 1 Viewon 03-24-2024 Chest 1 View [facility] Imaging Services [address] [place] [address] Chest 1 View MR#: [id number] Acct: [id number] Name: ALVIN BROWN Rep #: [id number] : 1955 M 68 From: Valerie Craig MD PCP: Dr. Radha Arango DO Status: ADM IN Study: Chest 1 View Date of Exam: 03/24/24 Exam# [id number] Ordering Dr: Gabino Berg DO -[id number] STUDY: X-RAY CHEST REASON FOR EXAM: Male, 68 years old patient with acute neurologic deficit. Acute, stroke suspected TECHNIQUE: Single AP portable view of the chest. COMPARISON: Chest radiograph dated March 21, 2022. FINDINGS: Cardiac monitoring leads are present. There are prominent bronchovascular markings. The lungs are hyperexpanded. There is no demonstrated pleural abnormality. Normal size heart. Normal mediastinum and pierce. There is prominence of the pulmonary hilar arteries with peripheral pulmonary vascular congestion. Normal visualized aortic arch and descending thoracic aorta. There are diffuse degenerative changes of the visualized thoracic spine. Normal visualized ribs, clavicles, and shoulders. There is no demonstrated abnormality of the visualized soft tissue structures of the upper abdomen. RAD/Chest 1 View IMPRESSION: Mild pulmonary vascular congestion. Electronically Signed: Valerie Craig MD at 8:14 EST , CC: Dr. Radha Arango DO; Gabino Berg DO Pediatric Clinical Nurse Specialist: Signed Normal [facility] Chloride measurementOrdered By: Gabino Berg on 03-24-2024 Chloride [Moles/Vol] 107 mmol/L Normal 98-107 [facility] Comment on above: Performed By: #### L 100.0100, L506.1001, L3100.5310, L501.9520, L509.1000, L3100.5055, L503.6550 #### [facility] [address] [place], [address] Echo Completeon 03-24-2024 Echo Complete [facility] [address] [place] [address] Echo Complete 03/24/24 1106 MR#: [id number] Acct: [id number] Name: ALVIN BROWN Rep #: [id number] : 1955 68 From: Malu Mcgregor MD Attending Dr: Dr. Viviana Giraldo DO Status: ADM I N Ordering Dr: Viviana Giraldo DO Date: 03/24/24 Location: PCU Sex: M C Admitted: 03/24/24 Reason For Study: TIA/CVA Procedure This was a 2D Doppler, Color Flow transthoracic echocardiogram. Exam performed portable in patient room. Left Ventricle Normal LV size. The estimated ejection fraction is 65 %. No evidence for diastolic dysfunction. No regional wall motion abnormalities noted. Right Ventricle Normal RV size. Normal systolic function. Atria The left and right atria are normal. Bubble contrast study is negative for PFO/ASD. No doppler evidence for ASD. Mitral Valve There is no mitral valve stenosis. No mitral valve insufficiency. Tricuspid Valve There is no tricuspid stenosis. Trivial tricuspid valve insufficiency. Pulmonary artery systolic pressure is 20 mmHg. Aortic Valve Trisinus/trileaflet aortic valve. Aortic sclerosis, no stenosis. There is no aortic stenosis. No aortic valve insufficiency. Pulmonic Valve There is no pulmonic valvular stenosis. Trivial pulmonic valve insufficiency. Great Vessels Normal aortic root. Pericardium/Pleural No pericardial effusion. Medication Performed a rapid injection of agitated mix of 9 cc saline and 1cc air to assess for atrial septal defect. MMode/2D Measurements Calculations LVIDd: 4.2 cm IVSd: 1.2 cm LVOT diam: 2.1 cm LVIDs: 2.8 cm LVPWd: 1.1 cm RVDd: 3.3 cm FS: 34.0 % LVOT area: 3.4 cm2 Ao root diam: 3.4 cm asc Aorta Diam: 3.9 cm LAV(MOD-bp): 41.8 ml LA dimension: 3.9 cm LAV(MOD-bp) Indexed: 20.9 ml/m2 LAV(MOD-sp2): 42.1 ml LAV(MOD-sp4): 41.5 ml SV(MOD-sp4): 51.0 ml SV(sp4-el): 56.5 ml LVAd ap4: 27.6 cm2 LVLd ap4: 7.7 cm SI(MOD-sp4): 25.6 ml/m2 EDV(MOD-sp4): 80.1 ml EDV(sp4-el): 83.8 ml LVAs ap4: 14.9 cm2 LVLs ap4: 6.9 cm ESV(MOD-sp4): 29.1 ml ESV(sp4-el): 27.3 ml EF(MOD-sp4): 63.7 % EF(sp4-el): 67.4 % LA A4 area: 16.2 cm2 RA A4 area: 12.8 cm2 TAPSE: 2.0 cm Time Measurements MV dec time: 0.18 sec Doppler Measurements Calculations MV E max last: 80.6 cm/sec MV V2 max: 87.9 cm/sec Ao V2 max: 80.4 cm/sec MV max P.1 mmHg Ao max P.6 mmHg MV V2 mean: 48.8 cm/sec Ao V2 mean: 55.4 cm/sec MV mean P.2 mmHg Ao mean P.4 mmHg MV V2 VTI: 20.9 cm Ao V2 VTI: 15.2 cm MVA(VTI): 2.2 cm2 AV (velocity ratio): 0.89 MARCELA(I,D): 3.0 cm2 MARCELA(V,D): 3.0 cm2 LV V1 max: 71.9 cm/sec SV(LVOT): 45.7 ml PA V2 max: 76.1 cm/sec LV V1 max P.1 mmHg LV V1 mean P.2 mmHg LV V1 mean: 50.2 cm/sec LV V1 VTI: 13.5 cm PI end-d last: 104.5 cm/sec TR max last: 212.0 cm/sec TR max P.0 mmHg ECHO/Echo Complete Interpretation Summary The estimated ejection fraction is 65 %. No evidence for diastolic dysfunction. __ Ordering Physician: Viviana Giraldo Performed By: Blayne Wolf and Student 03/24/24 1257 Date Malu Mcgregor MD CC: Dr. Viviana Giraldo DO; Dr. Radha Arango DO Date Dictated: 03/24/24 1106 Date Transcribed: 03/24/24 1257 Pediatric Clinical Nurse Specialist: Signed Normal [facility] Emergency Department Summary on 03-24-2024 Emergency Department Summary [facility] Medical Records Department [address] [place] [address] Emergency Department Summary 03/24/24 MR#: [id number] Acct: [id number] Name: ALVIN BROWN Rep #: [id number] : 1955 68 From: Gabino Berg DO PCP: Dr. Radha Arango DO Status:REG ER Location: ED HPI History of Present Illness Chief Complaint: Chest Pain Informant: patient, spouse/S.O. and EMS Narrative Narrative: Patient is a 68-year-old male with past medical history of hemochromatosis and GERD. He states he has been feeling normal and had blood work done for his family doctor just 6 days ago and had to have a pint of blood taken off of him yesterday secondary to high iron levels. The patient states that he went to bed around 10 PM normally and then awoke this morning with dizziness. He states that the dizziness is constant and does not seem to change with motion and he describes it more as a unsteadiness. He reports that he felt he was going to pass out and as he could not ambulate because of the persistent dizziness EMS was called by his . Of note the patient states that he woke up this way but the states that she got him up this morning around 5 AM and he was able to walk into the kitchen and it was while he was in the kitchen that he reportedly called out to her with the onset of his symptoms 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 H/O deep venous thrombosis BPH (benign prostatic hyperplasia) Osteoporosis GERD (gastroesophageal reflux disease) Arthritis Home Medications ???Medication ???Instructions ???Recorded ???Last Taken ???Type folic acid 1 mg tablet 1 mg PO DAILY@0800 10/10/16 Unknown History meloxicam 15 mg tablet (Mobic) 15 mg PO DAILY ANTIINFLAMITORY 10/10/16 Unknown History metoprolol succinate 50 mg 50 mg PO DAILY 03/21/22 Unknown History tablet,extended release 24 hr Allergy/AdvReac Type Severity Reaction Status Date / Time Tetanus Vaccines and Toxoid AdvReac Intermediate Rash Verified 03/24/24 06:16 Family History (Updated 04/28/18 @ 13:31 by Shaneka Alexander) Father Skin cancer Arthritis COPD (chronic obstructive pulmonary disease) Hypertension Hereditary hemochromatosis Mother Anemia Arthritis Heart disease Lung cancer COPD (chronic obstructive pulmonary disease) Hypertension Grandmother Aneurysm Bone cancer Surgical History H/O vasectomy History of tonsillectomy Hx of cholecystectomy Social History (Updated 06/07/18 @ 11:[address] Balta Edwards, ) Smoking Status: Never smoker ROS ROS ED Constitutional Constitutional ED: Denies chills or fever(s) Eyes Eyes: Denies blurry vision or change in vision ENT ENT ED: Denies sore throat Cardiovascular Cardiovascular: Reports chest pain; Denies palpitations or racing heartbeat Respiratory/Chest Respiratory/Chest: Denies cough or dyspnea Gastrointestinal Gastrointestinal: Denies abdominal pain, diarrhea, nausea or vomiting Genitourinary Genitourinary ED: Denies dysuria Musculoskeletal Musculoskeletal: Denies myalgias Integumentary Denies rash Neurologic Neurologic: Reports other Details: Positive dizziness ; Denies headache(s) Hematologic/Lymphat ic Hematologic/Lymphat ic: Denies easy bleeding or easy bruising EXAM Physical Exam Const Vital Signs: 03/24/24 06:12 03/24/24 06:22 03/24/24 06:22 Temperature 97.9 F Temperature Source Oral Pulse Rate 129 H 118 H Respiratory Rate 15 25 H Respiratory Effort Respiratory Pattern Blood Pressure 165/114 H 165/106 H Blood Pressure Mean 131 125 Pulse Ox 99 97 97 Oxygen Delivery Method Room Air Room Air Room Air 03/24/24 06:28 03/24/24 06:40 03/24/24 06:40 Temperature Temperature Source Pulse Rate 120 H Respiratory Rate 16 Respiratory Effort Short of Breath Normal Short of Breath Respiratory Pattern Normal Normal Blood Pressure 142/72 H Blood Pressure Mean 95 Pulse Ox 97 Oxygen Delivery Method Room Air 03/24/24 06:52 03/24/24 07:22 03/24/24 07:30 Temperature Temperature Source Pulse Rate 105 H 79 64 Respiratory Rate 16 13 13 Respiratory Effort Respiratory Pattern Blood Pressure 155/85 H 129/90 H 130/84 H Blood Pressure Mean 108 103 99 Pulse Ox 98 97 96 Oxygen Delivery Method Room Air Room Air Room Air 03/24/24 08:00 Temperature Temperature Source Pulse Rate 85 Respiratory Rate 14 Respiratory Effort Respiratory Pattern Blood Pressure 149/92 H Blood Pressure Mean 111 Pulse Ox 97 Oxygen Delivery Method Room Air Positive well nourished and well developed General Appearance ED: wel (more content not included)... Normal [facility] Eosinophil percentageOrdered By: Gabino Berg on 03-24-2024 Eosinophils/100 WBC (Bld) 4.0 % 0-5 [facility] Erythrocyte distribution wid th ratioOrdered By: Gabino Berg on 03-24-2024 Erythrocyte distribution width (RBC) [Ratio] 12.3 % 11.6-14.6 [facility] Erythrocyte distribution wid th standard deviationOrdered By: Gabino Berg on 03-24-2024 Erythrocyte distribution width (RBC) [Entitic vol] 39.3 fL 35.1-43.9 [facility] Estimated glomerular filtrat ion rate (GFR) AmericanOrdered By: Gabino Berg on 03-24-2024 Estimated GFR (MDRD) Amer 129 mL/min >60 [facility] Comment on above: GFR Calc Estimation of creatinine loco aranceOrdered By: Gabino Berg on 03-24-2024 Estimated Creatinine Clearance Calc 94.44 ml/min [facility] Glomerular filtration rate ( GFR) estimationOrdered By: Gabino Berg on 03-24-2024 Estimated GFR (MDRD) Non-Af Amer 106 mL/min >60 [facility] Comment on above: Non- GFR Calc Glucose measurementOrdered B y: Gabino Berg on 03-24-2024 Glucose [Mass/Vol] 119 mg/dL High 74-106 [facility] Comment on above: Fasting Glucose resu lt from 100 to 125 mg/dL suggests IMPAIRED HOMEOSTASIS per A.D.A. criteria. Result Comment: Fast ing Glucose result from 100 to 125 mg/dL suggests IMPAIRED HOMEOSTASIS per A.D.A. criteria. Performed By: #### L 100.0100, L506.1001, L3100.5310, L501.9520, L509.1000, L3100.5055, L503.6550 #### [facility] [address] [place], [address] [facility] deOrdered By: Gabino Berg on 03-24-2024 Bedside Glucose (Misc Panel) 125 mg/dL High 74-106 [facility] Comment on above: MANAGEMENT OF PATIEN T CARE PER NURSING PROTOCOL H AND P Exam - Hospitaliston 03-24-2024 H&P Exam - Hospitalist [facility] Medical Records Department [address] [place] [address] H P Exam - Hospitalist 03/24/24 0813 MR#: [id number] Acct: [id number] Name: ALVIN BROWN Rep #: [id number] : 1955 68 From: Viviana Giraldo DO PCP: Dr. Radha Arango, DO Status:ADM IN Location: [address] HPI - General General Date of Admission: 03/24/24 Date of Service: 03/24/24 Chief Complaint: Chest tightness/dizziness /nausea/syncope HPI Narrative ALVIN BROWN, is a 68 M who presented to the emergency department [facility] early in the morning on 03/24/2024 with a chief complaint of chest tightness, dizziness, nausea, and one syncopal episode after waking. The squad was called and EKG in the field showed A-fib with RVR. Patient does not have a history of this. Patient reports he does have a history of hemochromatosis and had a pint of blood removed yesterday for high iron levels. He does follow with oncology. Patient reported that he went to bed at about 10 PM which is typical and woke up this morning with dizziness. Patient reported that he felt like he was going to pass out and that he could not ambulate due to this. His reported that he got up at 5 AM and was able to walk to the kitchen with no problem and had no symptoms and while he was in the kitchen he called out because of the onset of symptoms. At the time my evaluation, the patient states his symptoms are almost gone he had just a little bit of a chest twinge in the central chest close to the epigastrium but was feeling much better overall. Vital signs on arrival showed a temperature of 97.9, heart rate 129, blood pressure 165/114, respiratory rate 15 oxygen saturation was 99% on room air. CBC was unremarkable. Coags are normal. Chemistry panel is unremarkable. Glucose was 119. Magnesium was normal. TSH is normal. EKG was A-fib with RVR, normal QTc and no ST-T wave changes concerning for acute ischemia. Chest x-ray showed some maybe mild pulmonary vascular congestion centrally on report however upon my review seems fairly unremarkable when compared to previous x-ray from 2021. CT of the brain was negative. CTA of the head and neck was completely benign with no stenosis or LVO. Case was discussed with neurology who recommended admission for atrial fibrillation and cardiology who recommended initiation of cortisone 60 mg 4 times daily and Eliquis for anticoagulation. Heart rate is currently better after 1 dose of Cardizem. 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 H/O deep venous thrombosis BPH (benign prostatic hyperplasia) Osteoporosis GERD (gastroesophageal reflux disease) Arthritis Home Medications ???Medication ???Instructions ???Recorded ???Last Taken ???Type folic acid 1 mg tablet 1 mg PO DAILY@0800 10/10/16 Unknown History meloxicam 15 mg tablet (Mobic) 15 mg PO DAILY ANTIINFLAMITORY 10/10/16 Unknown History metoprolol succinate 50 mg 50 mg PO DAILY 03/21/22 Unknown History tablet,extended release 24 hr Allergy/AdvReac Type Severity Reaction Status Date / Time Tetanus Vaccines and Toxoid AdvReac Intermediate Rash Verified 03/24/24 06:16 Family History Father Skin cancer Arthritis COPD (chronic obstructive pulmonary disease) Hypertension Hereditary hemochromatosis Mother Anemia Arthritis Heart disease Lung cancer COPD (chronic obstructive pulmonary disease) Hypertension Grandmother Aneurysm Bone cancer Surgical History (Updated 03/24/24 @ 09:[address] Viviana Giraldo DO) History of hip surgery H/O vasectomy History of tonsillectomy Hx of cholecystectomy Social History (Updated 03/24/24 @ 09:[address] 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 Smoking Status: Never smoker alcohol intake: never substance use type: does not use ROS Constitutional Constitutional: Denies anorexia, change in weight, chills, fatigue, fever(s), malaise, night sweats, weakness or other Eyes Eyes: Denies blurry vision, change in eye color, change in vision, discharge from eye(s), double vision, erythema, eye pain, loss of vision or other ENT HEENT: Denies abnormal hearing, dysphagia, ear pain, epistaxis, headache(s), hearing loss, nasal congestion, nasal discharge, post nasal drip, sinus pressure, sore throat or other Cardiovascular Cardiovascular: Reports chest pain, lightheadedness, rapid heart rate and other Details: Presyncope ; Denies claudication, dyspnea on exertion, edema, orthopnea, palpitations, paroxysmal nocturnal dyspnea or syncope Respiratory/Chest Respiratory/Chest: Denies cough, dyspnea, excessive phlegm production, hemoptysis, productive cough, shortness (more content not included)... Normal [facility] Hematocrit Auto (Bld) [Volum e fraction]Ordered By: Gabino Berg on 03-24-2024 Hematocrit (Bld) [Volume fraction] 40.7 % 40-54 [facility] Hemoglobin A1con 03-24-2024 HbA1c (Bld) [Mass fraction] 5.5 % Normal 3.8-5.6 [facility] Comment on above: Result Comment: Norm al < 5.7 % Prediabetic 5.7 - 6.4 % Diabetic >or= 6.5 % Please note range changes. Performed By: #### L 100.0100 #### [facility] [place], [address] Hemoglobin A1c percentageOrd ered By: Viviana Giraldo on 03-24-2024 HbA1c (Bld) [Mass fraction] 5.5 % 3.8-5.6 [facility] Comment on above: Normal < 5.7 % Predi abetic 5.7 - 6.4 % Diabetic >or= 6.5 % Please note range changes. Hemoglobin measurementOrdere d By: Gabino Berg on 03-24-2024 Hemoglobin (Bld) [Mass/Vol] 14.9 g/dL 13.0-16.5 [facility] High density lipoprotein (HD L) measurementOrdered By: Viviana Giraldo on 03-24-2024 Cholesterol in HDL [Mass/Vol] 49 mg/dL >40 [facility] Comment on above: The drugs N-Acetylcy steine and Metamizole may falsely depress this assay. Reference Range HDL <40 mg/dL Low HDL Cholesterol HDL >or= 60 mg/dL High HDL Cholesterol Immature granulocytes/100 WB C Auto (Bld)Ordered By: Gabino Berg on 03-24-2024 Immature granulocytes/100 WBC (Bld) 0.200 % 0.0-0.9 [facility] Comment on above: IG% - Immature Granu locytes (promyelocytes, myelocytes and metamyelocytes) > 1% indicates that a LEFT SHIFT is Present. International normalized rat io (INR) calculationOrdered By: Gabino Berg on 03-24-2024 INR Coag (Bld) [Relative time] 1.1 {INR} [facility] L501.4020on 03-24-2024 TROPONIN-I HS 6 pg/mL Normal 3.0-78.0 [facility] Comment on above: Order Comment: JACQUELINE RODRIGUEZ ORDERED FERRITIN AND CBCD ORDERED THE REST Result Comment: Plea se Note: New Test Units and Gender Specific Reference Ranges. For more information see Policy Stat Procedure [place] High Sensitivity Troponin (TNIH) and attachments. Performed By: #### L 100.0100, L506.1001, L3100.5310, L501.9520, L509.1000, L3100.5055, L503.6550 #### [facility] [address] [place], [address] TROPONIN-I HS 6 pg/mL Normal 3.0-78.0 [facility] Comment on above: Order Comment: Comme nts: SPECIMEN #2'TROP' Serial specimen #1, #2 or #3: 2 Result Comment: Tim thornton Note: New Test Units and Gender Specific Reference Ranges. For more information see Policy Stat Procedure [place] High Sensitivity Troponin (TNIH) and attachments. Performed By: #### L 100.0100 #### [facility] [address] [place], [address] TROPONIN-I HS 4 pg/mL Normal 3.0-78.0 [facility] Comment on above: Order Comment: 'TROP ' Serial specimen #1, #2 or #3: 1 Result Comment: Tim thornton Note: New Test Units and Gender Specific Reference Ranges. For more information see Policy Stat Procedure [place] High Sensitivity Troponin (TNIH) and attachments. Performed By: #### L 100.0100 #### [facility] [address] [place], [address] Lipid Profileon 03-24-2024 Cholesterol [Mass/Vol] 234 mg/dL High 200 [facility] Comment on above: Order Comment: Comme nts: NPO at [place] prior to lipid panel Result Comment: <200 mg/dL Desirable 200-240 mg/dL Borderline >240 mg/dL High Risk Performed By: #### L 100.0100 #### [facility] [address] [place], [address] Cholesterol in HDL [Mass/Vol] 49 mg/dL Normal [facility] Comment on above: Order Comment: Comme nts: NPO at [place] prior to lipid panel Result Comment: The drugs N-Acetylcysteine and Metamizole may falsely depress this assay. Reference Range HDL <40 mg/dL Low HDL Cholesterol HDL >or= 60 mg/dL High HDL Cholesterol Performed By: #### L 100.0100 #### [facility] [address] [place], [address] Cholesterol in LDL [Mass/Vol] 150 mg/dL High 0-130 [facility] Comment on above: Order Comment: Comme nts: NPO at [place] prior to lipid panel Performed By: #### L 100.0100 #### [facility] [address] [place], [address] Cholesterol in VLDL [Mass/Vol] 35 mg/dL Normal 5-40 [facility] Comment on above: Order Comment: Comme nts: NPO at [place] prior to lipid panel Performed By: #### L 100.0100 #### [facility] [address] [place], [address] Triglyceride [Mass/Vol] 176 mg/dL Normal [facility] Comment on above: Order Comment: Comme nts: NPO at [place] prior to lipid panel Result Comment: The drugs N-Acetylcysteine and Metamizole may falsely depress this assay. Serum Triglycerides Reference Interval Normal <150 mg/dL Borderline high 150 - 199 mg/dL High 200 - 499 mg/dL Very High > or = 500 mg/dL Performed By: #### L 100.0100 #### [facility] [address] [place], [address] Low density lipoprotein (LDL ) cholesterol measurementOrdered By: Viviana Giraldo on 03-24-2024 Cholesterol in LDL [Mass/Vol] 150 mg/dL High 0-130 [facility] Lymphocytes Auto (Unsp spec) [#/Vol]Ordered By: Gabino Berg on 03-24-2024 Lymphocytes (Bld) [#/Vol] 2.89 10*3/uL 0.83-4.51 [facility] Lymphocytes/100 WBC Auto (Un sp spec)Ordered By: Gabino Berg on 03-24-2024 Lymphocytes/100 WBC (Bld) 35.9 % 19-41 [facility] MCV (mean corpuscular volume ) determinationOrdered By: Gabino Berg on 03-24-2024 MCV (RBC) [Entitic vol] 88.1 fL 80-94 [facility] MR/CON.PCM.NEon 03-24-2024 MR/CON.PCM.NE [facility] Medical Records Department [address] [place] [address] Consultation - Neurology 03/24/24 1211 MR#: [id number] Acct: [id number] Name: ALVIN BROWN Rep #: [id number] : 1955 68 From: Vanesa Hernández MD PCP: Dr. Radha Arango, DO Status:ADM COREY Location: [place] [address] Assessment and Plan: Neuro Assessment/Plan ALVIN BROWN is a 68 M with a past medical history of hemochromatosis, being evaluated by Teleneurology for syncope and persistent weakness and difficulty walking in setting of new afib RVR, recent phlebotomy, and fasting. History consistent with syncope from hemodynamic cause and not from neurologic cause. Persistent general weakness is expected after. Imaging normal, exam is unreamarkble. At this time, likely just syncope in setting of multiple comorbidities. No further testing for neurology, will sign off. I personally attended this patient and spent a total time of 45 minutes evaluating this patient including clinical assessment, review of chart, medical history imaging, and determining appropriate treatment and workup. HPI Consult Data Date of Consult: 03/24/24 HPI Narrative HPI Narrative: ALVIN BROWN, is a 68 M who presented to the emergency department [facility] early in the morning on 03/24/2024 with a chief complaint of chest tightness, dizziness, nausea, and one syncopal episode after waking. The squad was called and EKG in the field showed A-fib with RVR. Patient does not have a history of this. Patient reports he does have a history of hemochromatosis and had a pint of blood removed yesterday for high iron levels. He does follow with oncology. Patient reported that he went to bed at about 10 PM which is typical and woke up this morning with dizziness. Patient reported that he felt like he was going to pass out and that he could not ambulate due to this. His reported that he got up at 5 AM and was able to walk to the kitchen with no problem and had no symptoms and while he was in the kitchen he called out because of the onset of symptoms. At the time my evaluation, the patient states his symptoms are almost gone he had just a little bit of a chest twinge in the central chest close to the epigastrium but was feeling much better overall. Neurologic History Currently feels better, back to his normal self but still has a headache. Feels weak all over - no focality to it. 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 Nothing like this quite happened before - passed out with a virus a couple years ago but never had weaknes. Not on blood thinners at home. TEIXEIRA is located all over in the back of head more. TEIXEIRA feels like a throbbing feeling, no photophobia. Endorses some nausea and still has some chest pain but better than before. After the phlebotomy, he did have a pint of IVF drawn out. This was his first phelbotomy in the last 4 months but they usually take a pint of blood out. He usually feels really weak after the blood draws and did feel weak at pentecostalism last night. When he got up at 5am this morning, he was weak. He was also fasting yesterday and only had 500 calories yesterday. Does not normally fast with blood draws, but normally will fast every Thu - first time it coincided. After waking up from passing out, felt weak all over and felt nauseated. He did not pass out again though. He was out for 2-3 min. Started feeling the weakness in the R hand since he came up from the ED. 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 H/O deep venous thrombosis BPH (benign prostatic hyperplasia) Osteoporosis GERD (gastroesophageal reflux disease) Arthritis Home Medications ???Medication ???Instructions ???Recorded ???Last Taken ???Type folic acid 1 mg tablet 1 mg PO DAILY@0800 supplement 10/10/16 Unknown History meloxicam 15 mg tablet (Mobic) 15 mg PO DAILY ANTIINFLAMITORY 10/10/16 Unknown History apixaban 5 mg tablet (Eliquis) 5 mg PO BID #60 tabs 03/24/24 Unknown Rx diltiazem HCl 120 mg 120 mg PO DAILY #30 caps 03/24/24 Unknown Rx capsule,extended release 24 hr (Cardizem CD) rosuvastatin 10 mg tablet (Crestor) 10 mg PO QODAY #30 tabs 03/24/24 Unknown Rx tamsulosin 0.4 mg capsule (Flomax) 0.4 mg PO QHS #30 caps 03/24/24 Unknown Rx Allergy/AdvReac Type Severity Reaction Status Date / Time Tetanus Vaccines and Toxoid AdvReac Intermediate Rash Verified 03/24/24 06:16 Family History Father Skin cancer Arthritis COPD (chronic obstructive pulmonary disease) Hypertension Hereditary hemochromatosis Mother Anemia Arthritis Heart disease Lung cancer COPD (chronic obstructive pulmonary disease) Hypertension Grandmother Aneurysm Bon (more content not included)... Normal [facility] Magnesium measurementOrdered By: Gabino Berg on 03-24-2024 Magnesium [Mass/Vol] 1.8 mg/dL Normal 1.6-2.6 [facility] Comment on above: Moderate Hemolysis, Result may be falsely increased. Result Comment: Mode rate Hemolysis, Result may be falsely increased. Performed By: #### L 100.0100, L506.1001, L3100.5310, L501.9520, L509.1000, L3100.5055, L503.6550 #### [facility] [address] [place], [address] Mean corpuscular hemoglobin (MCH) determinationOrdered By: Gabino Berg on 03-24-2024 MCH (RBC) [Entitic mass] 32.3 pg High 27.0-32.0 [facility] Mean corpuscular hemoglobin concentration (MCHC) determinationOrdered By: Gabino Berg on 03-24-2024 MCHC (RBC) [Mass/Vol] 36.6 g/dL High 32-36 [facility] Mean platelet volume determi nationOrdered By: Gabino Berg on 03-24-2024 Platelet mean volume (Bld) [Entitic vol] 10.4 fL 6.2-12.0 [facility] Monocyte percentageOrdered B y: Gabino Berg on 03-24-2024 Monocytes/100 WBC (Bld) 8.6 % 0-10 [facility] Neutrophil percentageOrdered By: Gabino Berg on 03-24-2024 Neutrophils/100 WBC (Bld) 50.9 % 47-70 [facility] Nucleated red blood cell per centageOrdered By: Gabino Berg on 03-24-2024 Nucleated RBC/100 WBC (Bld) [Ratio] 0 % 0-5 [facility] Partial Thromboplast Timeon 03-24-2024 aPTT Coag (Bld) [Time] 30.2 s Normal 24.1-36.2 [facility] Comment on above: Performed By: #### L 100.0100, L506.1001, L3100.5310, L501.9520, L509.1000, L3100.5055, L503.6550 #### [facility] [address] [place], [place], [address] Platelet countOrdered By: Crystal eBrg on 03-24-2024 Platelets (Bld) [#/Vol] 219 10*3/uL 150-450 [facility] Potassium measurementOrdered By: Gabino Berg on 03-24-2024 Potassium [Moles/Vol] 4.4 mmol/L Normal 3.5-5.1 [facility] Comment on above: Moderate Hemolysis, Result may be falsely increased. Result Comment: Mode rate Hemolysis, Result may be falsely increased. Performed By: #### L 100.0100, L506.1001, L3100.5310, L501.9520, L509.1000, L3100.5055, L503.6550 #### [facility] [address] [place], [address] Prothrombin Time w/INRon INR Coag (PPP) [Relative time] 1.1 {INR} Normal [facility] Comment on above: Performed By: #### L 100.0100, L506.1001, L3100.5310, L501.9520, L509.1000, L3100.5055, L503.6550 #### [facility] [address] [place], [address] PT Coag (PPP) [Time] 13.7 s Normal 11.7-14.9 [facility] Comment on above: Performed By: #### L 100.0100, L506.1001, L3100.5310, L501.9520, L509.1000, L3100.5055, L503.6550 #### [facility] [address] [place], [address] Prothrombin timeOrdered By: Gabino Berg on 03-24-2024 PT Coag (PPP) [Time] 13.7 s 11.7-14.9 [facility] RBC Auto (Bld) [#/Vol]Ordere d By: Gabino Berg on 03-24-2024 RBC (Bld) [#/Vol] 4.62 10*6/uL 4.6-6.2 [facility] STROKE Brain/Head without Co nton 03-24-2024 STROKE Brain/Head without Cont [facility] Imaging Services [address] [place] [address] STROKE Brain/Head without Cont MR#: [id number] Acct: [id number] Name: ALVIN BROWN Rep #: [id number] : 1955 M 68 From: Valerie Craig MD PCP: Dr. Radha Arango DO Status: REG ER Study: STROKE Brain/Head without Cont Date of Exam: 05/25/23 Exam# [id number] Ordering Dr: Gabino Berg DO ADDENDUM by Dr. Valerie Craig MD on 03/24/24 at 0642 [id number] INDICATION: Neurologic deficit, acute, stroke suspected. EXAMINATION: CT BRAIN - CT Head Stroke Protocol W/O Contrast Injection TECHNIQUE: Multiple axial images were obtained of the head without intravenous contrast. The protocol utilizes one or more of the following dose reduction techniques: automated exposure control, adjustment of mA and/or kV according to patient size,and/or use of iterative reconstruction technique. IV Contrast dosage and agent: None. RADIATION DOSAGE (If Supplied By Facility): CTDIvol = ( 45 ) mGy, DLP = ( 829.9 ) mGycm COMPARISON: Prior study dated: CT of the head dated March 21, 2022. FINDINGS: BRAIN PARENCHYMA: No intra- or extra-axial hemorrhage. No evidence of acute infarct. No intracranial mass or mass effect. There is preservation of the hernandez/white matter interface. Posterior fossa structures are unremarkable. CSF SPACES: There is mild global cerebral volume loss. Appropriate for age. No hydrocephalus. Basal cisterns are patent. CALVARIUM, SKULL BASE, PARANASAL SINUSES AND MASTOID AIR CELLS: There is mild paranasal sinus disease with mucous retention cysts and mucosal thickening in the maxillary sinuses, right sphenoid sinus and ethmoid sinuses.. No discrete lytic or blastic abnormalities. ORBITS: Both globes, extraocular muscles, optic nerves and retrobulbar fat appear unremarkable. ASPECTS Score for Acute Strokes: 10 03/24/24 0642 Date cc: Dr. Radha Arango DO; Gabino Berg DO * Signed ADDENDUM by Dr. Valerie Craig MD on 03/24/[address]/STROKE Brain/Head without Cont IMPRESSION: Negative Brain CT without contrast. N.B. : The above Results were Read Back by Valerie Craig MD to Gabino Berg DO, and understanding confirmed on 03/24/2024 06:40:29 (ET). Electronically Signed: Valerie Craig MD at 6:42 EST , 03/24/24 0649 Date cc: Dr. Radha Arango DO; Gabino Berg DO * Signed -[id number] INDICATION: Neurologic deficit, acute, stroke suspected. EXAMINATION: CT BRAIN - CT Head Stroke Protocol W/O Contrast Injection TECHNIQUE: Multiple axial images were obtained of the head without intravenous contrast. The protocol utilizes one or more of the following dose reduction techniques: automated exposure control, adjustment of mA and/or kV according to patient size,and/or use of iterative reconstruction technique. IV Contrast dosage and agent: None. RADIATION DOSAGE (If Supplied By Facility): CTDIvol = ( 45 ) mGy, DLP = ( 829.9 ) mGycm COMPARISON: Prior study dated: CT of the head dated March 21, 2022. FINDINGS: BRAIN PARENCHYMA: No intra- or extra-axial hemorrhage. No evidence of acute infarct. No intracranial mass or mass effect. There is preservation of the hernandez/white matter interface. Posterior fossa structures are unremarkable. CSF SPACES: There is mild global cerebral volume loss. Appropriate for age. No hydrocephalus. Basal cisterns are patent. CALVARIUM, SKULL BASE, PARANASAL SINUSES AND MASTOID AIR CELLS: There is mild paranasal sinus disease with mucous retention cysts and mucosal thickening in the maxillary sinuses, right sphenoid sinus and ethmoid sinuses.. No discrete lytic or blastic abnormalities. ORBITS: Both globes, extraocular muscles, optic nerves and retrobulbar fat appear unremarkable. ASPECTS Score for Acute Strokes: 10 CT/STROKE Brain/Head without Cont IMPRESSION: Negative Brain CT without contrast. N.B. : The above Results were Read Back by Valerie Craig MD to Gabino Berg DO, and understanding confirmed on 03/24/2024 06:40:29 (ET). Electronically Signed: Valerie Craig MD at 6:42 EST , CC: Dr. Radha Arango DO; Gabino Berg DO Pediatric Clinical Nurse Specialist: Signed Normal [facility] STROKE CTA Head AND Neck W/C onon 03-24-2024 STROKE CTA Head AND Neck W/Con [facility] Imaging Services [address] [place] [address] STROKE CTA Head AND Neck W/Con MR#: [id number] Acct: [id number] Name: ALVIN BROWN Rep #: [id number] : 1955 M 68 From: Valerie Craig MD PCP: Dr. Radha Arango DO Status: REG ER Study: STROKE CTA Head AND Neck W/Con Date of Exam: 1 05/25/23 Exam# [id number] Ordering Dr: Gabino Berg DO ADDENDUM by Dr. Valerie Craig MD on 03/24/24 at 0724 [id number] STUDY: CTA HEAD AND NECK WITH CONTRAST REASON FOR EXAM: Male, 68 years old patient with acute neurologic deficit. Acute stroke suspected. RADIATION DOSAGE (If Supplied By Facility): CTDIvol = ( 24.58 ) mGy, DLP = ( 812.48 ) mGycm TECHNIQUE: CT angiography was performed with a multi-detector CT scanner. Data acquisition was obtained from the skull base through the vertex following intravenous administration of 100 mL of IV Isovue-370. MIP images were reconstructed from the axial data set. Post-processing of the angiographic images was performed, with multiplanar reformation and 3D reconstruction. Individualized dose optimization techniques were used for this CT. COMPARISON: No relevant priors. FINDINGS: Normal bilateral petrous carotid arteries. Normal right cavernous carotid artery with a normal supraclinoid bifurcation. Normal left cavernous carotid artery with a normal supraclinoid bifurcation. Normal right A1 segments of the anterior cerebral artery. Normal left A1 segments of the anterior cerebral artery. Normal intact anterior communicating artery (ACOM). Normal bilateral A2 segments of the anterior cerebral arteries. Normal right M1 and M2 segments of the middle cerebral arteries, with a normal M1 bifurcation. Normal left M1 and M2 segments of the middle cerebral arteries, with a normal M1 bifurcation. There is non-visualization of the right posterior communicating artery (PCOM). There is non-visualization of the left posterior communicating artery (PCOM). There is a small atretic right vertebral artery that appears to end in PICA with a dominant left vertebral artery. Normal basilar artery with a normal basilar bifurcation. The visualized bilateral superior cerebellar (SCA) arteries are normal. Normal bilateral P1, P2 and visualized P3 segments of the posterior cerebral arteries. There is no demonstrated aneurysm of the [place]. There is no demonstrated abnormality of the visualized brain. AORTIC ARCH: Normal visualized aortic arch. Normal origins of the brachiocephalic, left common carotid, and left subclavian arteries. RIGHT CAROTID ARTERIES: Normal right common carotid artery (CCA). There is minimal calcified atherosclerotic plaque formation with no narrowing of the right carotid bulb. Normal origin of the right internal carotid (ICA) artery without a hemodynamically significant stenosis. Normal visualized cervical portion of the right internal carotid artery. Normal origin of the right external carotid artery (ECA). LEFT CAROTID ARTERIES: Normal left common carotid artery (CCA). There is minimal atherosclerotic plaque formation with minimal narrowing of the left carotid bulb. Normal origin of the left internal carotid (ICA) artery without a hemodynamically significant stenosis. Normal visualized cervical portion of the left internal carotid artery. Normal origin of the left external carotid artery (ECA). VERTEBRAL ARTERIES: There is enhancement within the bilateral vertebral arteries with atretic right vertebral artery, and a dominant left vertebral artery. NECK ANATOMY: Upper lobes of both lungs appear to be clear. The thyroid has a grossly normal appearance. Visualized parotid and submandibular glands have a grossly normal appearance. The nasopharynx, oropharynx, hypopharynx, larynx and subglottic trachea has a grossly normal appearance. There is narrowing of the C6-7 disc space. There were prominent Schmorl''s nodes at the endplates of C5. Cervical and thoracic vertebral bodies have normal height and alignment. 03/24/24 0724 Date cc: Dr. Radha Arango DO; Gabino Berg DO * Signed ADDENDUM by Dr. Valerie Craig MD on 03/24/[address]/STROKE CTA Head AND Neck W/Con IMPRESSION: No CT evidence for hemodynamically significant stenosis, thrombosis or aneurysm. N.B. : The above Results were Read Back by Valerie Craig MD to Gabino Berg DO, and understanding confirmed on 03/24/2024 07:25:45 (ET). Electronically Signed: Valerie Craig MD at 7:24 EST Reading Location ID and State: [facility] / [place] , Service support , 03/24/24 0732 Date cc: Dr. Radha Arango DO; Roberta Garcia (more content not included)... Normal [facility] Serum anion gap measurementO rdered By: Gabino Berg on 03-24-2024 Anion gap [Moles/Vol] 6 mmol/L 5-15 [facility] Serum or plasma calcium jessica urement (mass/volume)Ordered By: Gabino Berg on 03-24-2024 Calcium [Mass/Vol] 9.5 mg/dL 8.5-10.1 [facility] Serum or plasma cholesterol measurement (mass/volume)Ordered By: Viviana Giraldo on 03-24-2024 Cholesterol [Mass/Vol] 234 mg/dL High <200 [facility] Comment on above: <200 mg/dL Desirable 200-240 mg/dL Borderline >240 mg/dL High Risk Serum or plasma creatinine m easurement (mass/volume)Ordered By: Gabino Berg on 03-24-2024 Creatinine [Mass/Vol] 0.78 mg/dL Normal 0.70-1.30 [facility] Comment on above: The validity of the calculated GFR & GFRAA in patients over 70 years has not been determined. Clinical correlation is essential. Result Comment: The validity of the calculated GFR GFRAA in patients over 70 years has not been determined. Clinical correlation is essential. Performed By: #### L 100.0100, L506.1001, L3100.5310, L501.9520, L509.1000, L3100.5055, L503.6550 #### [facility] [address] [place], [address] Serum or plasma urea nitroge n measurement (mass/volume)Ordered By: Gabino Berg on 03-24-2024 Urea nitrogen [Mass/Vol] 24 mg/dL High 7-18 [facility] Comment on above: Performed By: #### L 100.0100, L506.1001, L3100.5310, L501.9520, L509.1000, L3100.5055, L503.6550 #### [facility] [address] [place], [address] Sodium levelOrdered By: Rudolph Berg on 03-24-2024 Sodium [Moles/Vol] 137 mmol/L Normal 136-145 [facility] Comment on above: Performed By: #### L 100.0100, L506.1001, L3100.5310, L501.9520, L509.1000, L3100.5055, L503.6550 #### [facility] [address] [place], [address] TSH QnOrdered By: Dylan on 03-24-2024 Thyroid Stimulating Hormone (TSH) 3.390 uIU/mL 0.358-3.740 [facility] Thyroid Stim Hormone (TSH)on 03-24-2024 TSH 3.390 uIU/mL Normal 0.358-3.740 [facility] Comment on above: Performed By: #### L 100.0100, L506.1001, L3100.5310, L501.9520, L509.1000, L3100.5055, L503.6550 #### [facility] [address] [place], [address] Triglycerides measurementOrd ered By: Viviana Giraldo on 03-24-2024 Triglyceride [Mass/Vol] 176 mg/dL <199 [facility] Comment on above: The drugs N-Acetylcy steine and Metamizole may falsely depress this assay.Serum Triglycerides Reference Interval Normal <150 mg/dL Borderline high 150 - 199 mg/dL High 200 - 499 mg/dL Very High > or = 500 mg/dL Troponin IOrdered By: Saulo Giraldo on 03-24-2024 Troponin I High Sensitivity 6 pg/mL 3.0-78.0 [facility] Comment on above: Please Note: New Emil t Units and Gender Specific Reference Ranges. For more information see Policy Stat Procedure [place] High Sensitivity Troponin (TNIH) and attachments. Very low density lipoprotein (VLDL) cholesterol measurementOrdered By: Viviana Giraldo on 03-24-2024 VLDL Cholesterol 35 mg/dL 5-40 [facility] White blood cell (WBC) count Ordered By: Gabino Berg on 03-24-2024 WBC (Bld) [#/Vol] 8.1 10*3/uL 4.4-11.0 [facility] aPTT Coag (PPP) [Time]Ordere d By: Gabino Berg on 03-24-2024 aPTT Coag (Bld) [Time] 30.2 s 24.1-36.2 [facility] Ferritinon 03-23-2024 Ferritin [Mass/Vol] 60 ng/mL Normal 26-388 [facility] Comment on above: Performed By: #### L 100.0100, L506.1001, L3100.5310, L501.9520, L509.1000, L3100.5055, L503.6550 #### [facility] [address] [place], [place], [address] 43-VC-Wjomyxp DOrdered By: Sajan Arango on 03-18-2024 Vitamin D 25-Hydroxy 95.6 ng/mL [facility] Comment on above: Vitamin D 25(OH) Sta tus Range Deficiency <20 ng/mL (50nmol/L) Insufficiency 20 - 30 ng/mL (50 - 75 nmol/L) Sufficiency 30 - 100 ng/mL (75 - 250 nmol/L) Toxicity >100 ng/mL (>250 nmol/L) Absolute neutrophil countOrd ered By: Radha Arango on 03-18-2024 Neutrophils (Bld) [#/Vol] 3.8 10*3/uL 2.0-7.7 [facility] Albumin to globulin ratioOrd ered By: Radha Arango on 03-18-2024 Albumin/Globulin [Mass ratio] 1.2 {ratio} 0.9-2.4 [facility] Basophil percentageOrdered B y: Radha Arango on 03-18-2024 Basophils/100 WBC (Bld) 0.7 % 0-1 [facility] Bilirubin, totalOrdered By: Radha EspitiaNba on 03-18-2024 Bilirubin [Mass/Vol] 0.50 mg/dL 0.20-1.00 [facility] Comment on above: For patients on eltr ombopag therapy, use of Dimension [place] TBIL is not recommended. Blood urea nitrogen (BUN)/cr eatinine ratioOrdered By: Radha EspitiaNba on 03-18-2024 Urea nitrogen/Creatinine [Mass ratio] 27.6 mg/mg High 10-20 [facility] CBC W/Diff, Automatedon 12-0 Absolute Lymph 2.49 X10 3/uL Normal 0.83-4.51 [facility] Comment on above: Performed By: #### L 100.0100, L506.1001, L3100.5310, L501.9520, L509.1000, L3100.5055, L503.6550 #### [facility] [address] [place], [address] Absolute Neut 3.8 X10 3/uL Normal 2.0-7.7 [facility] Comment on above: Performed By: #### L 100.0100, L506.1001, L3100.5310, L501.9520, L509.1000, L3100.5055, L503.6550 #### [facility] [address] [place], [address] Basophils/100 WBC (Bld) 0.7 % Normal 0-1 [facility] Comment on above: Performed By: #### L 100.0100, L506.1001, L3100.5310, L501.9520, L509.1000, L3100.5055, L503.6550 #### [facility] [address] [place], [address] Eosinophils/100 WBC (Bld) 4.2 % Normal 0-5 [facility] Comment on above: Performed By: #### L 100.0100, L506.1001, L3100.5310, L501.9520, L509.1000, L3100.5055, L503.6550 #### [facility] [address] [place], [address] Erythrocyte distribution width (RBC) [Ratio] 12.1 % Normal 11.6-14.6 [facility] Comment on above: Performed By: #### L 100.0100, L506.1001, L3100.5310, L501.9520, L509.1000, L3100.5055, L503.6550 #### [facility] [address] [place], [address] Hematocrit (Bld) [Volume fraction] 43.2 % Normal 40-54 [facility] Comment on above: Performed By: #### L 100.0100, L506.1001, L3100.5310, L501.9520, L509.1000, L3100.5055, L503.6550 #### [facility] [address] [place], [address] Hemoglobin (Bld) [Mass/Vol] 15.0 g/dL Normal 13.0-16.5 [facility] Comment on above: Performed By: #### L 100.0100, L506.1001, L3100.5310, L501.9520, L509.1000, L3100.5055, L503.6550 #### [facility] [address] [place], [address] IG% 0.100 Normal 0.0-0.9 [facility] Comment on above: Result Comment: IG% - Immature Granulocytes (promyelocytes, myelocytes and metamyelocytes) > 1% indicates that a LEFT SHIFT is Present. Performed By: #### L 100.0100, L506.1001, L3100.5310, L501.9520, L509.1000, L3100.5055, L503.6550 #### [facility] [address] [place], [address] Lymphocytes/100 WBC (Bld) 33.9 % Normal 19-41 [facility] Comment on above: Performed By: #### L 100.0100, L506.1001, L3100.5310, L501.9520, L509.1000, L3100.5055, L503.6550 #### [facility] [address] [place], [address] MCH (RBC) [Entitic mass] 31.9 pg Normal 27.0-32.0 [facility] Comment on above: Performed By: #### L 100.0100, L506.1001, L3100.5310, L501.9520, L509.1000, L3100.5055, L503.6550 #### [facility] [address] [place], [address] MCHC (RBC) [Mass/Vol] 34.7 g/dL Normal 32-36 [facility] Comment on above: Performed By: #### L 100.0100, L506.1001, L3100.5310, L501.9520, L509.1000, L3100.5055, L503.6550 #### [facility] [address] [place], [address] MCV (RBC) [Entitic vol] 91.9 fL Normal 80-94 [facility] Comment on above: Performed By: #### L 100.0100, L506.1001, L3100.5310, L501.9520, L509.1000, L3100.5055, L503.6550 #### [facility] [address] [place], [address] Monocytes/100 WBC (Bld) 9.3 % Normal 0-10 [facility] Comment on above: Performed By: #### L 100.0100, L506.1001, L3100.5310, L501.9520, L509.1000, L3100.5055, L503.6550 #### [facility] [address] [place], [address] Neutrophils/100 WBC (Bld) 51.8 % Normal 47-70 [facility] Comment on above: Performed By: #### L 100.0100, L506.1001, L3100.5310, L501.9520, L509.1000, L3100.5055, L503.6550 #### [facility] [address] [place], [address] Nucleated RBC (Bld) [#/Vol] 0 10*3/uL Normal 0-5 [facility] Comment on above: Performed By: #### L 100.0100, L506.1001, L3100.5310, L501.9520, L509.1000, L3100.5055, L503.6550 #### [facility] [address] [place], [address] Platelet mean volume (Bld) [Entitic vol] 11.2 fL Normal 6.2-12.0 [facility] Comment on above: Performed By: #### L 100.0100, L506.1001, L3100.5310, L501.9520, L509.1000, L3100.5055, L503.6550 #### [facility] [address] [place], [address] Platelets (Bld) [#/Vol] 248 10*3/uL Normal 150-450 [facility] Comment on above: Performed By: #### L 100.0100, L506.1001, L3100.5310, L501.9520, L509.1000, L3100.5055, L503.6550 #### [facility] [address] [place], [address] RBC (Bld) [#/Vol] 4.70 10*6/uL Normal 4.6-6.2 [facility] Comment on above: Performed By: #### L 100.0100, L506.1001, L3100.5310, L501.9520, L509.1000, L3100.5055, L503.6550 #### [facility] [address] [place], [address] RDW SD 40.8 fl Normal 35.1-43.9 [facility] Comment on above: Performed By: #### L 100.0100, L506.1001, L3100.5310, L501.9520, L509.1000, L3100.5055, L503.6550 #### [facility] [address] [place], [address] WBC (Bld) [#/Vol] 7.3 10*3/uL Normal 4.4-11.0 [facility] Comment on above: Performed By: #### L 100.0100, L506.1001, L3100.5310, L501.9520, L509.1000, L3100.5055, L503.6550 #### [facility] [address] [place], [address] Carbon dioxide measurementOr dered By: Radha Arango on 03-18-2024 CO2 [Moles/Vol] 23.0 mmol/L 21.0-32.0 [facility] Chloride measurementOrdered By: Radha Arango on 03-18-2024 Chloride [Moles/Vol] 108 mmol/L High 98-107 [facility] Comprehensive Metabolic Prof ilon 03-18-2024 Albumin [Mass/Vol] 4.0 g/dL Normal 3.2-5.0 [facility] Comment on above: Performed By: #### L 100.0100, L506.1001, L3100.5310, L501.9520, L509.1000, L3100.5055, L503.6550 #### [facility] [address] [place], [address] Albumin/Globulin [Mass ratio] 1.2 {ratio} Normal 0.9-2.4 [facility] Comment on above: Performed By: #### L 100.0100, L506.1001, L3100.5310, L501.9520, L509.1000, L3100.5055, L503.6550 #### [facility] [address] [place], [address] ALK P 86 U/L Normal 45-117 [facility] Comment on above: Performed By: #### L 100.0100, L506.1001, L3100.5310, L501.9520, L509.1000, L3100.5055, L503.6550 #### [facility] [address] [place], [address] ALT [Catalytic activity/Vol] 26 U/L Normal 16-61 [facility] Comment on above: Performed By: #### L 100.0100, L506.1001, L3100.5310, L501.9520, L509.1000, L3100.5055, L503.6550 #### [facility] [address] [place], [address] AST [Catalytic activity/Vol] 13 U/L Low 15-37 [facility] Comment on above: Performed By: #### L 100.0100, L506.1001, L3100.5310, L501.9520, L509.1000, L3100.5055, L503.6550 #### [facility] [address] [place], [address] Bilirubin [Mass/Vol] 0.50 mg/dL Normal 0.20-1.00 [facility] Comment on above: Result Comment: For patients on eltrombopag therapy, use of Dimension [place] TBIL is not recommended. Performed By: #### L 100.0100, L506.1001, L3100.5310, L501.9520, L509.1000, L3100.5055, L503.6550 #### [facility] [address] [place], [address] BUN/CRE 27.6 RATIO High 10-20 [facility] Comment on above: Performed By: #### L 100.0100, L506.1001, L3100.5310, L501.9520, L509.1000, L3100.5055, L503.6550 #### [facility] [address] [place], [address] CA,Total 9.8 mg/dL Normal 8.5-10.1 [facility] Comment on above: Performed By: #### L 100.0100, L506.1001, L3100.5310, L501.9520, L509.1000, L3100.5055, L503.6550 #### [facility] [address] [place], [address] Chloride [Moles/Vol] 108 mmol/L High 98-107 [facility] Comment on above: Performed By: #### L 100.0100, L506.1001, L3100.5310, L501.9520, L509.1000, L3100.5055, L503.6550 #### [facility] [address] [place], [address] CO2 [Moles/Vol] 23.0 mmol/L Normal 21.0-32.0 [facility] Comment on above: Performed By: #### L 100.0100, L506.1001, L3100.5310, L501.9520, L509.1000, L3100.5055, L503.6550 #### [facility] [address] [place], [place], [id number] (746) Creatinine [Mass/Vol] 0.76 mg/dL Normal 0.70-1.30 [facility] Comment on above: Result Comment: The validity of the calculated GFR GFRAA in patients over 70 years has not been determined. Clinical correlation is essential. Performed By: #### L 100.0100, L506.1001, L3100.5310, L501.9520, L509.1000, L3100.5055, L503.6550 #### [facility] [address] [place], [place], [id number] (324) EST GFR - AA 131 mL/min Normal >60 [facility] Comment on above: Result Comment: Afri can [place] GFR Calc Performed By: #### L 100.0100, L506.1001, L3100.5310, L501.9520, L509.1000, L3100.5055, L503.6550 #### [facility] [address] [place], [address] GAP 8 Normal 5-15 [facility] Comment on above: Performed By: #### L 100.0100, L506.1001, L3100.5310, L501.9520, L509.1000, L3100.5055, L503.6550 #### [facility] [address] [place], [address] GFR/1.73 sq M.predicted among non-blacks MDRD (S/P/Bld) [Vol rate/Area] 109 mL/min/{1.73_m2} Normal >60 [facility] Comment on above: Result Comment: Non- GFR Calc Performed By: #### L 100.0100, L506.1001, L3100.5310, L501.9520, L509.1000, L3100.5055, L503.6550 #### [facility] [address] [place], [address] Globulin (S) [Mass/Vol] 3.4 g/dL Normal 2.2-4.2 [facility] Comment on above: Performed By: #### L 100.0100, L506.1001, L3100.5310, L501.9520, L509.1000, L3100.5055, L503.6550 #### [facility] [address] [place], [address] Glucose [Mass/Vol] 79 mg/dL Normal 74-106 [facility] Comment on above: Performed By: #### L 100.0100, L506.1001, L3100.5310, L501.9520, L509.1000, L3100.5055, L503.6550 #### [facility] [address] [place], [address] Potassium [Moles/Vol] 3.9 mmol/L Normal 3.5-5.1 [facility] Comment on above: Performed By: #### L 100.0100, L506.1001, L3100.5310, L501.9520, L509.1000, L3100.5055, L503.6550 #### [facility] [address] [place], [address] Sodium [Moles/Vol] 139 mmol/L Normal 136-145 [facility] Comment on above: Performed By: #### L 100.0100, L506.1001, L3100.5310, L501.9520, L509.1000, L3100.5055, L503.6550 #### [facility] [address] [place], [address] T PROT 7.4 g/dL Normal 6.4-8.2 [facility] Comment on above: Performed By: #### L 100.0100, L506.1001, L3100.5310, L501.9520, L509.1000, L3100.5055, L503.6550 #### [facility] [address] [place], [address] Urea nitrogen [Mass/Vol] 21 mg/dL High 7-18 [facility] Comment on above: Performed By: #### L 100.0100, L506.1001, L3100.5310, L501.9520, L509.1000, L3100.5055, L503.6550 #### [facility] [address] [place], [address] Eosinophil percentageOrdered By: Radha Arango on 03-18-2024 Eosinophils/100 WBC (Bld) 4.2 % 0-5 [facility] Erythrocyte distribution wid th ratioOrdered By: Radha Arango on 03-18-2024 Erythrocyte distribution width (RBC) [Ratio] 12.1 % 11.6-14.6 [facility] Erythrocyte distribution wid th standard deviationOrdered By: Radha Arango on 03-18-2024 Erythrocyte distribution width (RBC) [Entitic vol] 40.8 fL 35.1-43.9 [facility] Estimated glomerular filtrat ion rate (GFR) AmericanOrdered By: Radha Arango on 03-18-2024 Estimated GFR (MDRD) Amer 131 mL/min >60 [facility] Comment on above: GFR Calc Ferritin measurementOrdered By: Radha Arango on 03-18-2024 Ferritin [Mass/Vol] 60 ng/mL 26-388 [facility] Glomerular filtration rate ( GFR) estimationOrdered By: Radha Arango on 03-18-2024 Estimated GFR (MDRD) Non-Af Amer 109 mL/min >60 [facility] Comment on above: Non- GFR Calc Glucose measurementOrdered B y: Radha Arango on 03-18-2024 Glucose [Mass/Vol] 79 mg/dL 74-106 [facility] Hematocrit Auto (Bld) [Volum e fraction]Ordered By: Radha Arango on 03-18-2024 Hematocrit (Bld) [Volume fraction] 43.2 % 40-54 [facility] Hemoglobin A1con 03-18-2024 HbA1c (Bld) [Mass fraction] 5.5 % Normal 3.8-5.6 [facility] Comment on above: Result Comment: Norm al < 5.7 % Prediabetic 5.7 - 6.4 % Diabetic >or= 6.5 % Please note range changes. Performed By: #### L 100.0100, L506.1001, L3100.5310, L501.9520, L509.1000, L3100.5055, L503.6550 #### [facility] [address] [place], [address] Hemoglobin A1c percentageOrd ered By: Radha Arango on 03-18-2024 HbA1c (Bld) [Mass fraction] 5.5 % 3.8-5.6 [facility] Comment on above: Normal < 5.7 % Predi abetic 5.7 - 6.4 % Diabetic >or= 6.5 % Please note range changes. Hemoglobin measurementOrdere d By: Radha Arango on 03-18-2024 Hemoglobin (Bld) [Mass/Vol] 15.0 g/dL 13.0-16.5 [facility] High density lipoprotein (HD L) measurementOrdered By: Radha Arango on 03-18-2024 Cholesterol in HDL [Mass/Vol] 54 mg/dL >40 [facility] Comment on above: The drugs N-Acetylcy steine and Metamizole may falsely depress this assay. Reference Range HDL <40 mg/dL Low HDL Cholesterol HDL >or= 60 mg/dL High HDL Cholesterol Immature granulocytes/100 WB C Auto (Bld)Ordered By: Radha Arango on 03-18-2024 Immature granulocytes/100 WBC (Bld) 0.100 % 0.0-0.9 [facility] Comment on above: IG% - Immature Granu locytes (promyelocytes, myelocytes and metamyelocytes) > 1% indicates that a LEFT SHIFT is Present. Laboratory - Chemistry and C hemistry - challengeOrdered By: Radha Arango on 03-18-2024 AST [Catalytic activity/Vol] 13 U/L Low 15-37 [facility] Lipid Profileon 03-18-2024 Cholesterol [Mass/Vol] 239 mg/dL High 200 [facility] Comment on above: Result Comment: <200 mg/dL Desirable 200-240 mg/dL Borderline >240 mg/dL High Risk Performed By: #### L 100.0100, L506.1001, L3100.5310, L501.9520, L509.1000, L3100.5055, L503.6550 #### [facility] [address] [place], [address] Cholesterol in HDL [Mass/Vol] 54 mg/dL Normal [facility] Comment on above: Result Comment: The drugs N-Acetylcysteine and Metamizole may falsely depress this assay. Reference Range HDL <40 mg/dL Low HDL Cholesterol HDL >or= 60 mg/dL High HDL Cholesterol Performed By: #### L 100.0100, L506.1001, L3100.5310, L501.9520, L509.1000, L3100.5055, L503.6550 #### [facility] [address] [place], [address] Cholesterol in LDL [Mass/Vol] 157 mg/dL High 0-130 [facility] Comment on above: Performed By: #### L 100.0100, L506.1001, L3100.5310, L501.9520, L509.1000, L3100.5055, L503.6550 #### [facility] [address] [place], [address] Cholesterol in VLDL [Mass/Vol] 28 mg/dL Normal 5-40 [facility] Comment on above: Performed By: #### L 100.0100, L506.1001, L3100.5310, L501.9520, L509.1000, L3100.5055, L503.6550 #### [facility] [address] [place], [address] Triglyceride [Mass/Vol] 140 mg/dL Normal [facility] Comment on above: Result Comment: The drugs N-Acetylcysteine and Metamizole may falsely depress this assay. Serum Triglycerides Reference Interval Normal <150 mg/dL Borderline high 150 - 199 mg/dL High 200 - 499 mg/dL Very High > or = 500 mg/dL Performed By: #### L 100.0100, L506.1001, L3100.5310, L501.9520, L509.1000, L3100.5055, L503.6550 #### [facility] [place], [address] Low density lipoprotein (LDL ) cholesterol measurementOrdered By: Radha Arango on 03-18-2024 Cholesterol in LDL [Mass/Vol] 157 mg/dL High 0-130 [facility] Lymphocytes Auto (Unsp spec) [#/Vol]Ordered By: Radha Arango on 03-18-2024 Lymphocytes (Bld) [#/Vol] 2.49 10*3/uL 0.83-4.51 [facility] Lymphocytes/100 WBC Auto (Un sp spec)Ordered By: Radha Arango on 03-18-2024 Lymphocytes/100 WBC (Bld) 33.9 % 19-41 [facility] MCV (mean corpuscular volume ) determinationOrdered By: Radha Arango on 03-18-2024 MCV (RBC) [Entitic vol] 91.9 fL 80-94 [facility] Mean corpuscular hemoglobin (MCH) determinationOrdered By: Radha Arango on 03-18-2024 MCH (RBC) [Entitic mass] 31.9 pg 27.0-32.0 [facility] Mean corpuscular hemoglobin concentration (MCHC) determinationOrdered By: Radha Arango on 03-18-2024 MCHC (RBC) [Mass/Vol] 34.7 g/dL 32-36 [facility] Mean platelet volume determi nationOrdered By: Radha Arango on 03-18-2024 Platelet mean volume (Bld) [Entitic vol] 11.2 fL 6.2-12.0 [facility] Monocyte percentageOrdered B y: Radha Arango on 03-18-2024 Monocytes/100 WBC (Bld) 9.3 % 0-10 [facility] Neutrophil percentageOrdered By: Radha Arango on 03-18-2024 Neutrophils/100 WBC (Bld) 51.8 % 47-70 [facility] Nucleated red blood cell per centageOrdered By: Radha Arango on 03-18-2024 Nucleated RBC/100 WBC (Bld) [Ratio] 0 % 0-5 [facility] PSA,Total - Annual Screenon 03-18-2024 PSA,TOT SCREEN 3.16 ng/mL Normal 0.00-4.00 [facility] Comment on above: Result Comment: This test was performed using the TPSA assay method for the [employer] chemistry system. Values obtained with different assay methods cannot be used interchangably. When changing PSA assays in the course of monitoring a patient, additional sequential testing should be carried out to confirm baseline values. Performed By: #### L 100.0100, L506.1001, L3100.5310, L501.9520, L509.1000, L3100.5055, L503.6550 #### [facility] [address] [place], [address] Platelet countOrdered By: Emelyn Arango on 03-18-2024 Platelets (Bld) [#/Vol] 248 10*3/uL 150-450 [facility] Potassium measurementOrdered By: Radha Arango on 03-18-2024 Potassium [Moles/Vol] 3.9 mmol/L 3.5-5.1 [facility] RBC Auto (Bld) [#/Vol]Ordere d By: Radha Arango on 03-18-2024 RBC (Bld) [#/Vol] 4.70 10*6/uL 4.6-6.2 [facility] Screening prostate specific antigen (PSA) measurementOrdered By: Radha Arango on 03-18-2024 Prostate Specific Antigen Screen 3.16 ng/mL 0.00-4.00 [facility] Comment on above: This test was perfor med using the TPSA assay method for [employer] chemistry system. Values obtained with differentassay methods cannot be used interchangably.When changing PSA assays in the course of monitoring apatient, additional sequential testing should be carriedout to confirm baseline values. Serum anion gap measurementO rdered By: Radha Arango on 03-18-2024 Anion gap [Moles/Vol] 8 mmol/L 5-15 [facility] Serum globulin measurementOr dered By: Radha Arango on 03-18-2024 Globulin (S) [Mass/Vol] 3.4 g/dL 2.2-4.2 [facility] Serum or plasma alanine mccoy otransferase (ALT) measurementOrdered By: Radha Arango on 03-18-2024 ALT [Catalytic activity/Vol] 26 U/L 16-61 [facility] Serum or plasma albumin jessica urement (mass/volume)Ordered By: Radha Arango on 03-18-2024 Albumin [Mass/Vol] 4.0 g/dL 3.2-5.0 [facility] Serum or plasma alkaline anthony sphatase measurementOrdered By: Radha Arango on 03-18-2024 ALP [Catalytic activity/Vol] 86 U/L 45-117 [facility] Serum or plasma calcium jessica urement (mass/volume)Ordered By: Radha Arango on 03-18-2024 Calcium [Mass/Vol] 9.8 mg/dL 8.5-10.1 [facility] Serum or plasma cholesterol measurement (mass/volume)Ordered By: Radha Arango on 03-18-2024 Cholesterol [Mass/Vol] 239 mg/dL High <200 [facility] Comment on above: <200 mg/dL Desirable 200-240 mg/dL Borderline >240 mg/dL High Risk Serum or plasma creatinine m easurement (mass/volume)Ordered By: Radha Arango on 03-18-2024 Creatinine [Mass/Vol] 0.76 mg/dL 0.70-1.30 [facility] Comment on above: The validity of the calculated GFR & GFRAA in patients over 70 years has not been determined. Clinical correlation is essential. Serum or plasma urea nitroge n measurement (mass/volume)Ordered By: Radha Arango on 03-18-2024 Urea nitrogen [Mass/Vol] 21 mg/dL High 7-18 [facility] Sodium levelOrdered By: Radha Arango on 03-18-2024 Sodium [Moles/Vol] 139 mmol/L 136-145 [facility] Total proteinOrdered By: Marcela Arango on 03-18-2024 Protein [Mass/Vol] 7.4 g/dL 6.4-8.2 [facility] Triglycerides measurementOrd ered By: Radha Arango on 03-18-2024 Triglyceride [Mass/Vol] 140 mg/dL <199 [facility] Comment on above: The drugs N-Acetylcy steine and Metamizole may falsely depress this assay.Serum Triglycerides Reference Interval Normal <150 mg/dL Borderline high 150 - 199 mg/dL High 200 - 499 mg/dL Very High > or = 500 mg/dL Very low density lipoprotein (VLDL) cholesterol measurementOrdered By: Radha Arango on 03-18-2024 VLDL Cholesterol 28 mg/dL 5-40 [facility] Vitamin D,25 Hydroxyon 03-18 Vitamin D 25-OH 95.6 ng/mL Normal [facility] Comment on above: Result Comment: Dasha min D 25(OH) Status Range Deficiency <20 ng/mL (50nmol/L) Insufficiency 20 - 30 ng/mL (50 - 75 nmol/L) Sufficiency 30 - 100 ng/mL (75 - 250 nmol/L) Toxicity >100 ng/mL (>250 nmol/L) Performed By: #### L 100.0100, L506.1001, L3100.5310, L501.9520, L509.1000, L3100.5055, L503.6550 #### [facility] [address] [place], [address] White blood cell (WBC) count Ordered By: Radha Arango on 03-18-2024 WBC (Bld) [#/Vol] 7.3 10*3/uL 4.4-11.0 [facility] CBC-Complete Blood Cnt No Di ffon 02-19-2024 Erythrocyte distribution width (RBC) [Ratio] 11.8 % Normal 11.6-14.6 [facility] Comment on above: Performed By: #### L 100.0100, L506.1001, L3100.5310, L501.9520, L509.1000, L3100.5055, L503.6550 #### [facility] [address] [place], [address] Hematocrit (Bld) [Volume fraction] 41.7 % Normal 40-54 [facility] Comment on above: Performed By: #### L 100.0100, L506.1001, L3100.5310, L501.9520, L509.1000, L3100.5055, L503.6550 #### [facility] [address] [place], [address] Hemoglobin (Bld) [Mass/Vol] 14.3 g/dL Normal 13.0-16.5 [facility] Comment on above: Performed By: #### L 100.0100, L506.1001, L3100.5310, L501.9520, L509.1000, L3100.5055, L503.6550 #### [facility] [address] [place], [address] MCH (RBC) [Entitic mass] 31.3 pg Normal 27.0-32.0 [facility] Comment on above: Performed By: #### L 100.0100, L506.1001, L3100.5310, L501.9520, L509.1000, L3100.5055, L503.6550 #### [facility] [address] [place], [address] MCHC (RBC) [Mass/Vol] 34.3 g/dL Normal 32-36 [facility] Comment on above: Performed By: #### L 100.0100, L506.1001, L3100.5310, L501.9520, L509.1000, L3100.5055, L503.6550 #### [facility] [address] [place], [address] MCV (RBC) [Entitic vol] 91.2 fL Normal 80-94 [facility] Comment on above: Performed By: #### L 100.0100, L506.1001, L3100.5310, L501.9520, L509.1000, L3100.5055, L503.6550 #### [facility] [address] [place], [address] Platelet mean volume (Bld) [Entitic vol] 10.9 fL Normal 6.2-12.0 [facility] Comment on above: Performed By: #### L 100.0100, L506.1001, L3100.5310, L501.9520, L509.1000, L3100.5055, L503.6550 #### [facility] [address] [place], [address] Platelets (Bld) [#/Vol] 235 10*3/uL Normal 150-450 [facility] Comment on above: Performed By: #### L 100.0100, L506.1001, L3100.5310, L501.9520, L509.1000, L3100.5055, L503.6550 #### [facility] [address] [place], [address] RBC (Bld) [#/Vol] 4.57 10*6/uL Low 4.6-6.2 [facility] Comment on above: Performed By: #### L 100.0100, L506.1001, L3100.5310, L501.9520, L509.1000, L3100.5055, L503.6550 #### [facility] [address] [place], [address] RDW SD 39.4 fl Normal 35.1-43.9 [facility] Comment on above: Performed By: #### L 100.0100, L506.1001, L3100.5310, L501.9520, L509.1000, L3100.5055, L503.6550 #### [facility] [address] [place], [address] WBC (Bld) [#/Vol] 7.3 10*3/uL Normal 4.4-11.0 [facility] Comment on above: Performed By: #### L 100.0100, L506.1001, L3100.5310, L501.9520, L509.1000, L3100.5055, L503.6550 #### [facility] [address] [place], [place], [id number] Erythrocyte distribution wid th ratioOrdered By: Radha Arango on 02-19-2024 Erythrocyte distribution width (RBC) [Ratio] 11.8 % 11.6-14.6 [facility] Erythrocyte distribution wid th standard deviationOrdered By: Radha Arango on 02-19-2024 Erythrocyte distribution width (RBC) [Entitic vol] 39.4 fL 35.1-43.9 [facility] Estimated glomerular filtrat ion rate (GFR) AmericanOrdered By: Radha Arango on 02-19-2024 Estimated GFR (MDRD) Amer 136 mL/min >60 [facility] Comment on above: GFR Calc Ferritinon 02-19-2024 Ferritin [Mass/Vol] 43 ng/mL Normal 26-388 [facility] Comment on above: Performed By: #### L 100.0100, L506.1001, L3100.5310, L501.9520, L509.1000, L3100.5055, L503.6550 #### [facility] [address] [place], [place], [id number] Ferritin measurementOrdered By: Radha Arango on 02-19-2024 Ferritin [Mass/Vol] 43 ng/mL 26-388 [facility] Glomerular filtration rate ( GFR) estimationOrdered By: Radha Arango on 02-19-2024 Estimated GFR (MDRD) Non-Af Amer 113 mL/min >60 [facility] Comment on above: Non- GFR Calc Hematocrit Auto (Bld) [Volum e fraction]Ordered By: Radha Arango on 02-19-2024 Hematocrit (Bld) [Volume fraction] 41.7 % 40-54 [facility] Hemoglobin measurementOrdere d By: Radha Arango on 02-19-2024 Hemoglobin (Bld) [Mass/Vol] 14.3 g/dL 13.0-16.5 [facility] MCV (mean corpuscular volume ) determinationOrdered By: Radha Arango on 02-19-2024 MCV (RBC) [Entitic vol] 91.2 fL 80-94 [facility] Mean corpuscular hemoglobin (MCH) determinationOrdered By: Radha Arango on 02-19-2024 MCH (RBC) [Entitic mass] 31.3 pg 27.0-32.0 [facility] Mean corpuscular hemoglobin concentration (MCHC) determinationOrdered By: Radha Arango on 02-19-2024 MCHC (RBC) [Mass/Vol] 34.3 g/dL 32-36 [facility] Mean platelet volume determi nationOrdered By: Radha Arango on 02-19-2024 Platelet mean volume (Bld) [Entitic vol] 10.9 fL 6.2-12.0 [facility] Platelet countOrdered By: Emelyn Arango on 02-19-2024 Platelets (Bld) [#/Vol] 235 10*3/uL 150-450 [facility] RBC Auto (Bld) [#/Vol]Ordere d By: Rahda Arango on 02-19-2024 RBC (Bld) [#/Vol] 4.57 10*6/uL Low 4.6-6.2 [facility] Serum Creatinine AND GFRon 1 04-20-2023 Creatinine [Mass/Vol] 0.74 mg/dL Normal 0.70-1.30 [facility] Comment on above: Result Comment: The validity of the calculated GFR GFRAA in patients over 70 years has not been determined. Clinical correlation is essential. Performed By: #### L 100.0100, L506.1001, L3100.5310, L501.9520, L509.1000, L3100.5055, L503.6550 #### [facility] [address] [place], [address] EST GFR - AA 136 mL/min Normal >60 [facility] Comment on above: Result Comment: Afri can [place] GFR Calc Performed By: #### L 100.0100, L506.1001, L3100.5310, L501.9520, L509.1000, L3100.5055, L503.6550 #### [facility] [address] [place], [address] GFR/1.73 sq M.predicted among non-blacks MDRD (S/P/Bld) [Vol rate/Area] 113 mL/min/{1.73_m2} Normal >60 [facility] Comment on above: Result Comment: Non- GFR Calc Performed By: #### L 100.0100, L506.1001, L3100.5310, L501.9520, L509.1000, L3100.5055, L503.6550 #### [facility] [address] [place], [address] ( Serum or plasma creatinine m easurement (mass/volume)Ordered By: Radha Arango on 02-19-2024 Creatinine [Mass/Vol] 0.74 mg/dL 0.70-1.30 [facility] Comment on above: The validity of the calculated GFR & GFRAA in patients over 70 years has not been determined. Clinical correlation is essential. White blood cell (WBC) count Ordered By: Radha Arango on 02-19-2024 WBC (Bld) [#/Vol] 7.3 10*3/uL 4.4-11.0 [facility] CBC-Complete Blood Cnt No Di ffon 01-19-2024 Erythrocyte distribution width (RBC) [Ratio] 11.8 % Normal 11.6-14.6 [facility] Comment on above: Performed By: #### L 100.0100, L506.1001, L3100.5310, L501.9520, L509.1000, L3100.5055, L503.6550 #### [facility] [address] [place], [address] Hematocrit (Bld) [Volume fraction] 45.2 % Normal 40-54 [facility] Comment on above: Performed By: #### L 100.0100, L506.1001, L3100.5310, L501.9520, L509.1000, L3100.5055, L503.6550 #### [facility] [address] [place], [address] Hemoglobin (Bld) [Mass/Vol] 15.5 g/dL Normal 13.0-16.5 [facility] Comment on above: Performed By: #### L 100.0100, L506.1001, L3100.5310, L501.9520, L509.1000, L3100.5055, L503.6550 #### [facility] [address] [place], [address] MCH (RBC) [Entitic mass] 31.3 pg Normal 27.0-32.0 [facility] Comment on above: Performed By: #### L 100.0100, L506.1001, L3100.5310, L501.9520, L509.1000, L3100.5055, L503.6550 #### [facility] [address] [place], [address] MCHC (RBC) [Mass/Vol] 34.3 g/dL Normal 32-36 [facility] Comment on above: Performed By: #### L 100.0100, L506.1001, L3100.5310, L501.9520, L509.1000, L3100.5055, L503.6550 #### [facility] [address] [place], [address] MCV (RBC) [Entitic vol] 91.3 fL Normal 80-94 [facility] Comment on above: Performed By: #### L 100.0100, L506.1001, L3100.5310, L501.9520, L509.1000, L3100.5055, L503.6550 #### [facility] [address] [place], [address] Platelet mean volume (Bld) [Entitic vol] 10.9 fL Normal 6.2-12.0 [facility] Comment on above: Performed By: #### L 100.0100, L506.1001, L3100.5310, L501.9520, L509.1000, L3100.5055, L503.6550 #### [facility] [address] [place], [address] Platelets (Bld) [#/Vol] 284 10*3/uL Normal 150-450 [facility] Comment on above: Performed By: #### L 100.0100, L506.1001, L3100.5310, L501.9520, L509.1000, L3100.5055, L503.6550 #### [facility] [address] [place], [address] RBC (Bld) [#/Vol] 4.95 10*6/uL Normal 4.6-6.2 [facility] Comment on above: Performed By: #### L 100.0100, L506.1001, L3100.5310, L501.9520, L509.1000, L3100.5055, L503.6550 #### [facility] [address] [place], [address] RDW SD 39.3 fl Normal 35.1-43.9 [facility] Comment on above: Performed By: #### L 100.0100, L506.1001, L3100.5310, L501.9520, L509.1000, L3100.5055, L503.6550 #### [facility] [address] [place], [address] WBC (Bld) [#/Vol] 7.6 10*3/uL Normal 4.4-11.0 [facility] Comment on above: Performed By: #### L 100.0100, L506.1001, L3100.5310, L501.9520, L509.1000, L3100.5055, L503.6550 #### [facility] [address] [place], [place], [address] Ferritinon 01-19-2024 Ferritin [Mass/Vol] 34 ng/mL Normal 26-388 [facility] Comment on above: Performed By: #### L 100.0100, L506.1001, L3100.5310, L501.9520, L509.1000, L3100.5055, L503.6550 #### [facility] [address] [place], [place], [address] Absolute lymphocyte countOrd ered By: Radha Arango on 07-27-2023 Lymphocytes Auto (Unsp spec) [#/Vol] 2.28 10*3/uL 0.83-4.51 [facility] Automated lymphocyte count a s percentage of total leukocytesOrdered By: Radha Arango on 07-27-2023 Lymphocytes/100 WBC Auto (Unsp spec) 33.3 % 19-41 [facility] Basophil percentageOrdered B y: Radha Arango on 07-27-2023 Basophils/100 WBC (Bld) 0.3 % 0-1 [facility] Bilirubin [Mass/Vol] 0.50 mg/dL 0.20-1.00 [facility] Comment on above: For patients on eltr ombopag therapy, use of Dimension [place] TBIL is not recommended. Chloride [Moles/Vol] 109 mmol/L 98-107 [facility] Eosinophils/100 WBC (Bld) 5.1 % 0-5 [facility] Glucose [Mass/Vol] 93 mg/dL 74-106 [facility] Hemoglobin (Bld) [Mass/Vol] 14.3 g/dL 13.0-16.5 [facility] Monocytes/100 WBC (Bld) 8.9 % 0-10 [facility] Neutrophils (Bld) [#/Vol] 3.6 10*3/uL 2.0-7.7 [facility] Neutrophils/100 WBC (Bld) 52.4 % 47-70 [facility] Potassium [Moles/Vol] 4.2 mmol/L 3.5-5.1 [facility] Comment on above: Slight Hemolysis, Re sult may be falsely increased. Protein [Mass/Vol] 7.3 g/dL 6.4-8.2 [facility] Sodium [Moles/Vol] 138 mmol/L 136-145 [facility] WBC (Bld) [#/Vol] 6.9 10*3/uL 4.4-11.0 [facility] Determination of erythrocyte mean corpuscular volume (MCV)Ordered By: Radha Arango on 07-27-2023 MCV (RBC) [Entitic vol] 90.0 fL 80-94 [facility] Erythrocyte distribution wid th ratioOrdered By: Radha Arango on 07-27-2023 Erythrocyte distribution width (RBC) [Ratio] 12.6 % 11.6-14.6 [facility] Erythrocyte distribution wid th standard deviationOrdered By: Radha Arango on 07-27-2023 Erythrocyte distribution width (RBC) [Entitic vol] 41.3 fL 35.1-43.9 [facility] Hematocrit Auto (Bld) [Volum e fraction]Ordered By: Radha Arango on 07-27-2023 Hematocrit (Bld) [Volume fraction] 41.6 % 40-54 [facility] Immature granulocytes/100 WB C Auto (Bld)Ordered By: Radha Arango on 07-27-2023 Immature granulocytes/100 WBC (Bld) 0.000 % 0.0-0.9 [facility] Comment on above: IG% - Immature Granu locytes (promyelocytes, myelocytes and metamyelocytes) > 1% indicates that a LEFT SHIFT is Present. Laboratory - Chemistry and C hemistry - challengeOrdered By: Radha Arango on 07-27-2023 Albumin/Globulin [Mass ratio] 1.1 {ratio} 0.9-2.4 [facility] ALP [Catalytic activity/Vol] 73 U/L 45-117 [facility] ALT [Catalytic activity/Vol] 45 U/L 16-61 [facility] CO2 [Moles/Vol] 20.0 mmol/L 21.0-32.0 [facility] Ferritin [Mass/Vol] 44 ng/mL 26-388 [facility] Globulin (S) [Mass/Vol] 3.5 g/dL 2.2-4.2 [facility] Urea nitrogen/Creatinine [Mass ratio] 26.9 mg/mg 10-20 [facility] - Hematology and Cell countsOrdered By: Radha Arango on 07-27-2023 MCH (RBC) [Entitic mass] 31.0 pg 27.0-32.0 [facility] MCHC (RBC) [Mass/Vol] 34.4 g/dL 32-36 [facility] Nucleated RBC/100 WBC (Bld) [Ratio] 0 % 0-5 [facility] Platelet mean volume (Bld) [Entitic vol] 11.4 fL 6.2-12.0 [facility] Platelets (Bld) [#/Vol] 268 10*3/uL 150-450 [facility] No Panel InformationOrdered By: Radha Arango on 07-27-2023 Estimated GFR (MDRD) Amer 121 mL/min >60 [facility] Comment on above: GFR Calc Estimated GFR (MDRD) Non-Af Amer 100 mL/min >60 [facility] Comment on above: Non- GFR Calc RBC Auto (Bld) [#/Vol]Ordere d By: Radha Arango on 07-27-2023 RBC (Bld) [#/Vol] 4.62 10*6/uL 4.6-6.2 [facility] Serum or plasma calcium jessica urement (mass/volume)Ordered By: Radha Arango on 07-27-2023 Calcium [Mass/Vol] 9.2 mg/dL 8.5-10.1 [facility] Serum or plasma creatinine m easurement (mass/volume)Ordered By: Radha Arango on 07-27-2023 Creatinine [Mass/Vol] 0.82 mg/dL 0.70-1.30 [facility] Comment on above: The validity of the calculated GFR & GFRAA in patients over 70 years has not been determined. Clinical correlation is essential. Serum or plasma urea nitroge n measurement (mass/volume)Ordered By: Radha Arango on 07-27-2023 Urea nitrogen [Mass/Vol] 22 mg/dL 7-18 [facility] Thin prep Papanicolaou smear with manual screeningOrdered By: Radha Arango on 07-27-2023 Thin prep Papanicolaou smear with manual screening 3.8 g/dL 3.2-5.0 [facility] Thin prep Papanicolaou smear with manual screening 31 U/L 15-37 [facility] Comment on above: Slight Hemolysis, Re sult may be falsely increased. Thin prep Papanicolaou smear with manual screening 9 5-15 [facility] Absolute lymphocyte countOrd ered By: Radha Arango on 07-07-2023 Lymphocytes Auto (Unsp spec) [#/Vol] 1.90 10*3/uL 0.83-4.51 [facility] Automated lymphocyte count a s percentage of total leukocytesOrdered By: Radha Arango on 07-07-2023 Lymphocytes/100 WBC Auto (Unsp spec) 21.2 % 19-41 [facility] Basophil percentageOrdered B y: Radha Arango on 07-07-2023 Basophils/100 WBC (Bld) 0.3 % 0-1 [facility] Eosinophils/100 WBC (Bld) 3.4 % 0-5 [facility] Hemoglobin (Bld) [Mass/Vol] 14.9 g/dL 13.0-16.5 [facility] Monocytes/100 WBC (Bld) 8.2 % 0-10 [facility] Neutrophils (Bld) [#/Vol] 6.0 10*3/uL 2.0-7.7 [facility] Neutrophils/100 WBC (Bld) 66.6 % 47-70 [facility] WBC (Bld) [#/Vol] 9.0 10*3/uL 4.4-11.0 [facility] Determination of erythrocyte mean corpuscular volume (MCV)Ordered By: Radha Arango on 07-07-2023 MCV (RBC) [Entitic vol] 88.1 fL 80-94 [facility] Erythrocyte distribution wid th ratioOrdered By: Radha Arango on 07-07-2023 Erythrocyte distribution width (RBC) [Ratio] 12.8 % 11.6-14.6 [facility] Erythrocyte distribution wid th standard deviationOrdered By: Radha Arango on 07-07-2023 Erythrocyte distribution width (RBC) [Entitic vol] 41.7 fL 35.1-43.9 [facility] Hematocrit Auto (Bld) [Volum e fraction]Ordered By: Radha Arango on 07-07-2023 Hematocrit (Bld) [Volume fraction] 43.0 % 40-54 [facility] Immature granulocytes/100 WB C Auto (Bld)Ordered By: Radha Arnago on 07-07-2023 Immature granulocytes/100 WBC (Bld) 0.300 % 0.0-0.9 [facility] Comment on above: IG% - Immature Granu locytes (promyelocytes, myelocytes and metamyelocytes) > 1% indicates that a LEFT SHIFT is Present. Iron measurement (mass/mass) Ordered By: Radha Arnago on 07-07-2023 Iron (Unsp spec) [Mass/Mass] 86 ug/dL 65-175 [facility] Laboratory - Chemistry and C hemistry - challengeOrdered By: Radha Arango on 07-07-2023 Ferritin [Mass/Vol] 36 ng/mL 26-388 [facility] Laboratory - Hematology and Cell countsOrdered By: Radha Arango on 07-07-2023 MCH (RBC) [Entitic mass] 30.5 pg 27.0-32.0 [facility] MCHC (RBC) [Mass/Vol] 34.7 g/dL 32-36 [facility] Nucleated RBC/100 WBC (Bld) [Ratio] 0 % 0-5 [facility] Platelet mean volume (Bld) [Entitic vol] 10.5 fL 6.2-12.0 [facility] Platelets (Bld) [#/Vol] 277 10*3/uL 150-450 [facility] RBC Auto (Bld) [#/Vol]Ordere d By: Radha Arango on 07-07-2023 RBC (Bld) [#/Vol] 4.88 10*6/uL 4.6-6.2 [facility] Absolute lymphocyte countOrd ered By: Radha Arango on 06-08-2023 Lymphocytes Auto (Unsp spec) [#/Vol] 2.02 10*3/uL 0.83-4.51 [facility] Automated lymphocyte count a s percentage of total leukocytesOrdered By: Radha Arango on 06-08-2023 Lymphocytes/100 WBC Auto (Unsp spec) 31.1 % 19-41 [facility] Basophil percentageOrdered B y: Radha Arango on 06-08-2023 Basophils/100 WBC (Bld) 0.5 % 0-1 [facility] Bilirubin [Mass/Vol] 0.50 mg/dL 0.20-1.00 [facility] Comment on above: For patients on eltr ombopag therapy, use of Dimension [place] TBIL is not recommended. Eosinophils/100 WBC (Bld) 4.3 % 0-5 [facility] Hemoglobin (Bld) [Mass/Vol] 14.7 g/dL 13.0-16.5 [facility] Monocytes/100 WBC (Bld) 7.7 % 0-10 [facility] Neutrophils (Bld) [#/Vol] 3.7 10*3/uL 2.0-7.7 [facility] Neutrophils/100 WBC (Bld) 56.1 % 47-70 [facility] Protein [Mass/Vol] 7.6 g/dL 6.4-8.2 [facility] WBC (Bld) [#/Vol] 6.5 10*3/uL 4.4-11.0 [facility] Determination of erythrocyte mean corpuscular volume (MCV)Ordered By: Radha Arango on 06-08-2023 MCV (RBC) [Entitic vol] 90.3 fL 80-94 [facility] Direct bilirubinOrdered By: Radha Arango on 06-08-2023 Bilirubin.direct [Mass/Vol] 0.11 mg/dL 0.00-0.30 [facility] Erythrocyte distribution wid th ratioOrdered By: Radha Arango on 06-08-2023 Erythrocyte distribution width (RBC) [Ratio] 12.0 % 11.6-14.6 [facility] Erythrocyte distribution wid th standard deviationOrdered By: Radha Arango on 06-08-2023 Erythrocyte distribution width (RBC) [Entitic vol] 39.9 fL 35.1-43.9 [facility] Erythrocyte sedimentation ra teOrdered By: Radha Arango on 06-08-2023 ESR (Bld) [Velocity] 21 mm/h 0-20 [facility] Hematocrit Auto (Bld) [Volum e fraction]Ordered By: Radah Arango on 06-08-2023 Hematocrit (Bld) [Volume fraction] 42.7 % 40-54 [facility] Immature granulocytes/100 WB C Auto (Bld)Ordered By: Radha Arango on 06-08-2023 Immature granulocytes/100 WBC (Bld) 0.300 % 0.0-0.9 [facility] Comment on above: IG% - Immature Granu locytes (promyelocytes, myelocytes and metamyelocytes) > 1% indicates that a LEFT SHIFT is Present. Laboratory - Chemistry and C hemistry - challengeOrdered By: Radha Arango on 06-08-2023 ALP [Catalytic activity/Vol] 75 U/L 45-117 [facility] ALT [Catalytic activity/Vol] 52 U/L 16-61 [facility] Ferritin [Mass/Vol] 64 ng/mL 26-388 [facility] Globulin (S) [Mass/Vol] 3.7 g/dL 2.2-4.2 [facility] Laboratory - Hematology and Cell countsOrdered By: Radha Arango on 06-08-2023 MCH (RBC) [Entitic mass] 31.1 pg 27.0-32.0 [facility] MCHC (RBC) [Mass/Vol] 34.4 g/dL 32-36 [facility] Nucleated RBC/100 WBC (Bld) [Ratio] 0 % 0-5 [facility] Platelet mean volume (Bld) [Entitic vol] 11.2 fL 6.2-12.0 [facility] Platelets (Bld) [#/Vol] 236 10*3/uL 150-450 [facility] No Panel InformationOrdered By: Radha Arango on 06-08-2023 C-Reactive Protein Extended Range < 2.90 mg/L 0.0-3.0 [facility] Comment on above: C-Reactive Protein ( CRP) provides useful information for thediagnosis, therapy and monitoring of inflammatory processesand associated diseases. For the evaluation of Relative Riskfor Cardiovascular Disease, a High Sensitivity CRP (HSCRP)should be ordered. RBC Auto (Bld) [#/Vol]Ordere d By: Radha Arango on 06-08-2023 RBC (Bld) [#/Vol] 4.73 10*6/uL 4.6-6.2 [facility] Thin prep Papanicolaou smear with manual screeningOrdered By: Radha Arango on 06-08-2023 Thin prep Papanicolaou smear with manual screening 3.9 g/dL 3.2-5.0 [facility] Thin prep Papanicolaou smear with manual screening 23 U/L 15-37 [facility] Basophil percentageOrdered B y: Radha Arango on 05-04-2023 Hemoglobin (Bld) [Mass/Vol] 13.7 g/dL 13.0-16.5 [facility] WBC (Bld) [#/Vol] 6.8 10*3/uL 4.4-11.0 [facility] Determination of erythrocyte mean corpuscular volume (MCV)Ordered By: Radha Arango on 05-04-2023 MCV (RBC) [Entitic vol] 90.1 fL 80-94 [facility] Erythrocyte distribution wid th ratioOrdered By: Radha Arango on 05-04-2023 Erythrocyte distribution width (RBC) [Ratio] 11.9 % 11.6-14.6 [facility] Erythrocyte distribution wid th standard deviationOrdered By: Radha Arango on 05-04-2023 Erythrocyte distribution width (RBC) [Entitic vol] 39.0 fL 35.1-43.9 [facility] Hematocrit Auto (Bld) [Volum e fraction]Ordered By: Radha Arango on 05-04-2023 Hematocrit (Bld) [Volume fraction] 39.2 % 40-54 [facility] Laboratory - Chemistry and C hemistry - challengeOrdered By: Radha Arango on 05-04-2023 Ferritin [Mass/Vol] 45 ng/mL 26-388 [facility] Laboratory - Hematology and Cell countsOrdered By: Radha Arango on 05-04-2023 MCH (RBC) [Entitic mass] 31.5 pg 27.0-32.0 [facility] MCHC (RBC) [Mass/Vol] 34.9 g/dL 32-36 [facility] Platelets (Bld) [#/Vol] 216 10*3/uL 150-450 [facility] No Panel InformationOrdered By: Spenser Steel on 05-04-2023 Estimated GFR (MDRD) Amer 126 mL/min >60 [facility] Comment on above: GFR Calc Estimated GFR (MDRD) Non-Af Amer 104 mL/min >60 [facility] Comment on above: Non- GFR Calc Platelet mean volume Hola-Ec ker (Bld) [Entitic vol]Ordered By: Radha Arango on 05-04-2023 Platelet mean volume (Bld) [Entitic vol] 10.3 fL 6.2-12.0 [facility] RBC Auto (Bld) [#/Vol]Ordere d By: Radha Arango on 05-04-2023 RBC (Bld) [#/Vol] 4.35 10*6/uL 4.6-6.2 [facility] Serum or plasma creatinine m easurement (mass/volume)Ordered By: Spenser Steel on 05-04-2023 Creatinine [Mass/Vol] 0.79 mg/dL 0.70-1.30 [facility] Comment on above: The validity of the calculated GFR & GFRAA in patients over 70 years has not been determined. Clinical correlation is essential. Basophil percentageOrdered B y: Radha Arango on 04-08-2023 Cholesterol [Mass/Vol] 264 mg/dL <200 [facility] Comment on above: <200 mg/dL Desirable 200-240 mg/dL Borderline >240 mg/dL High Risk Triglyceride [Mass/Vol] 227 mg/dL <199 [facility] Comment on above: The drugs N-Acetylcy steine and Metamizole may falsely depress this assay.Serum Triglycerides Reference Interval Normal <150 mg/dL Borderline high 150 - 199 mg/dL High 200 - 499 mg/dL Very High > or = 500 mg/dL Serum or plasma cholesterol in HDL measurement (mass/volume)Ordered By: Radha Arango on 04-08-2023 Cholesterol in HDL [Mass/Vol] 48 mg/dL >40 [facility] Comment on above: The drugs N-Acetylcy steine and Metamizole may falsely depress this assay. Reference Range HDL <40 mg/dL Low HDL Cholesterol HDL >or= 60 mg/dL High HDL Cholesterol Serum or plasma cholesterol in VLDL measurement (mass/volume)Ordered By: Radha Arango on 04-08-2023 Cholesterol in VLDL [Mass/Vol] 45 mg/dL 5-40 [facility] Serum or plasma low density lipoprotein (LDL) cholesterol measurement (mass/volume)Ordered By: Radha Arango on 04-08-2023 Cholesterol in LDL [Mass/Vol] 171 mg/dL 0-130 [facility] Absolute lymphocyte countOrd ered By: Radha Arango on 04-02-2023 Lymphocytes Auto (Unsp spec) [#/Vol] 2.30 10*3/uL 0.83-4.51 [facility] Basophil percentageOrdered B y: Radha Arango on 04-02-2023 Basophils/100 WBC (Bld) 0.5 % 0-1 [facility] Eosinophils/100 WBC (Bld) 4.9 % 0-5 [facility] Neutrophils (Bld) [#/Vol] 4.2 10*3/uL 2.0-7.7 [facility] Neutrophils/100 WBC (Bld) 56.9 % 47-70 [facility] WBC (Bld) [#/Vol] 7.4 10*3/uL 4.4-11.0 [facility] Blood erythrocytes count (nu mber/volume)Ordered By: Radha Arango on 04-02-2023 RBC (Bld) [#/Vol] 4.71 10*6/uL 4.6-6.2 [facility] Blood hemoglobin measurement (mass/volume)Ordered By: Radha Arango on 04-02-2023 Hemoglobin (Bld) [Mass/Vol] 14.7 g/dL 13.0-16.5 [facility] Blood lymphocytes/100 leukoc ytesOrdered By: Radha Arango on 04-02-2023 Lymphocytes/100 WBC (Bld) 31.2 % 19-41 [facility] Blood monocytes/100 leukocyt esOrdered By: Radha Arango on 04-02-2023 Monocytes/100 WBC (Bld) 6.4 % 0-10 [facility] Blood platelet mean volumeOr dered By: Radha Arango on 04-02-2023 Platelet mean volume (Bld) [Entitic vol] 10.8 fL 6.2-12.0 [facility] Determination of erythrocyte mean corpuscular volume (MCV)Ordered By: Radha Arango on 04-02-2023 MCV (RBC) [Entitic vol] 90.9 fL 80-94 [facility] Hematocrit Auto (Bld) [Volum e fraction]Ordered By: Radha Arango on 04-02-2023 Hematocrit (Bld) [Volume fraction] 42.8 % 40-54 [facility] Iron measurement (mass/mass) Ordered By: Radha Arango on 04-02-2023 Iron (Unsp spec) [Mass/Mass] 124 ug/dL 65-175 [facility] Laboratory - Hematology and Cell countsOrdered By: Radha Arango on 04-02-2023 Erythrocyte distribution width (RBC) [Entitic vol] 39.5 fL 35.1-43.9 [facility] Erythrocyte distribution width (RBC) [Ratio] 11.9 % 11.6-14.6 [facility] Immature granulocytes/100 WBC (Bld) 0.100 % 0.0-0.9 [facility] Comment on above: IG% - Immature Granu locytes (promyelocytes, myelocytes and metamyelocytes) > 1% indicates that a LEFT SHIFT is Present. MCH (RBC) [Entitic mass] 31.2 pg 27.0-32.0 [facility] Nucleated RBC/100 WBC (Bld) [Ratio] 0 % 0-5 [facility] MCHC Auto (RBC) [Mass/Vol]Or dered By: Radha Arango on 04-02-2023 MCHC (RBC) [Mass/Vol] 34.3 g/dL 32-36 [facility] Platelets bldOrdered By: Marcela Arango on 04-02-2023 Platelets (Bld) [#/Vol] 253 10*3/uL 150-450 [facility] Serum or plasma ferritin jonatan surement (mass/volume)Ordered By: Radha Aragno on 04-02-2023 Ferritin [Mass/Vol] 27 ng/mL 26-388 [facility] Absolute lymphocyte countOrd ered By: Radha Arango on 03-09-2023 Lymphocytes Auto (Unsp spec) [#/Vol] 1.92 10*3/uL 0.83-4.51 [facility] Basophil percentageOrdered B y: Radha Arango on 03-09-2023 Basophils/100 WBC (Bld) 0.3 % 0-1 [facility] Bilirubin [Mass/Vol] 0.40 mg/dL 0.20-1.00 [facility] Comment on above: For patients on eltr ombopag therapy, use of Dimension [place] TBIL is not recommended. Chloride [Moles/Vol] 111 mmol/L 98-107 [facility] Eosinophils/100 WBC (Bld) 3.3 % 0-5 [facility] Glucose [Mass/Vol] 107 mg/dL 74-106 [facility] Comment on above: Fasting Glucose resu lt from 100 to 125 mg/dL suggests IMPAIRED HOMEOSTASIS per A.D.A. criteria. Neutrophils (Bld) [#/Vol] 3.4 10*3/uL 2.0-7.7 [facility] Neutrophils/100 WBC (Bld) 55.8 % 47-70 [facility] Potassium [Moles/Vol] 4.0 mmol/L 3.5-5.1 [facility] Protein [Mass/Vol] 7.2 g/dL 6.4-8.2 [facility] Sodium [Moles/Vol] 140 mmol/L 136-145 [facility] WBC (Bld) [#/Vol] 6.1 10*3/uL 4.4-11.0 [facility] Blood erythrocytes count (nu mber/volume)Ordered By: Radha Arango on 03-09-2023 RBC (Bld) [#/Vol] 4.45 10*6/uL 4.6-6.2 [facility] Blood hemoglobin measurement (mass/volume)Ordered By: Radha Arango on 03-09-2023 Hemoglobin (Bld) [Mass/Vol] 14.0 g/dL 13.0-16.5 [facility] Blood lymphocytes/100 leukoc ytesOrdered By: Radha Arango on 03-09-2023 Lymphocytes/100 WBC (Bld) 31.3 % 19-41 [facility] Blood monocytes/100 leukocyt esOrdered By: Radha Arango on 03-09-2023 Monocytes/100 WBC (Bld) 9.0 % 0-10 [facility] Blood platelet mean volumeOr dered By: Radha Arango on 03-09-2023 Platelet mean volume (Bld) [Entitic vol] 10.0 fL 6.2-12.0 [facility] Determination of erythrocyte mean corpuscular volume (MCV)Ordered By: Radha Arango on 03-09-2023 MCV (RBC) [Entitic vol] 92.4 fL 80-94 [facility] Hematocrit Auto (Bld) [Volum e fraction]Ordered By: Radha Arango on 03-09-2023 Hematocrit (Bld) [Volume fraction] 41.1 % 40-54 [facility] Laboratory - Chemistry and C hemistry - challengeOrdered By: Radha Arango on 03-09-2023 ALP [Catalytic activity/Vol] 74 U/L 45-117 [facility] ALT [Catalytic activity/Vol] 42 U/L 16-61 [facility] CO2 [Moles/Vol] 24.0 mmol/L 21.0-32.0 [facility] Globulin (S) [Mass/Vol] 3.6 g/dL 2.2-4.2 [facility] Urea nitrogen/Creatinine [Mass ratio] 30.0 mg/mg 10-20 [facility] Laboratory - Hematology and Cell countsOrdered By: Radha Arango on 03-09-2023 Erythrocyte distribution width (RBC) [Entitic vol] 41.3 fL 35.1-43.9 [facility] Erythrocyte distribution width (RBC) [Ratio] 12.3 % 11.6-14.6 [facility] Immature granulocytes/100 WBC (Bld) 0.300 % 0.0-0.9 [facility] Comment on above: IG% - Immature Granu locytes (promyelocytes, myelocytes and metamyelocytes) > 1% indicates that a LEFT SHIFT is Present. MCH (RBC) [Entitic mass] 31.5 pg 27.0-32.0 [facility] Nucleated RBC/100 WBC (Bld) [Ratio] 0 % 0-5 [facility] MCHC Auto (RBC) [Mass/Vol]Or dered By: Radha Arango on 03-09-2023 MCHC (RBC) [Mass/Vol] 34.1 g/dL 32-36 [facility] No Panel InformationOrdered By: Radha Arango on 03-09-2023 Estimated GFR (MDRD) Amer 137 mL/min >60 [facility] Comment on above: GFR Calc Estimated GFR (MDRD) Non-Af Amer 113 mL/min >60 [facility] Comment on above: Non- GFR Calc Platelets bldOrdered By: Marcela Arango on 03-09-2023 Platelets (Bld) [#/Vol] 268 10*3/uL 150-450 [facility] Serum or plasma albumin jessica urement (mass/volume)Ordered By: Radha Arango on 03-09-2023 Albumin [Mass/Vol] 3.6 g/dL 3.2-5.0 [facility] Serum or plasma albumin/glob ulin mass ratioOrdered By: Radha Arango on 03-09-2023 Albumin/Globulin [Mass ratio] 1.0 {ratio} 0.9-2.4 [facility] Serum or plasma calcium jessica urement (mass/volume)Ordered By: Radha Arango on 03-09-2023 Calcium [Mass/Vol] 8.7 mg/dL 8.5-10.1 [facility] Serum or plasma creatinine m easurement (mass/volume)Ordered By: Radha Arango on 03-09-2023 Creatinine [Mass/Vol] 0.73 mg/dL 0.70-1.30 [facility] Comment on above: The validity of the calculated GFR & GFRAA in patients over 70 years has not been determined. Clinical correlation is essential. Serum or plasma ferritin jonatan surement (mass/volume)Ordered By: Radha Arango on 03-09-2023 Ferritin [Mass/Vol] 28 ng/mL 26-388 [facility] Serum or plasma urea nitroge n measurement (mass/volume)Ordered By: Radha Arango on 03-09-2023 Urea nitrogen [Mass/Vol] 22 mg/dL 7-18 [facility] Thin prep Papanicolaou smear with manual screeningOrdered By: Radha Arango on 03-09-2023 Thin prep Papanicolaou smear with manual screening 17 U/L 15-37 [facility] Thin prep Papanicolaou smear with manual screening 5 5-15 [facility] Absolute lymphocyte countOrd ered By: Radha Arango on 02-10-2023 Lymphocytes Auto (Unsp spec) [#/Vol] 2.28 10*3/uL 0.83-4.51 [facility] Basophil percentageOrdered B y: Radha Arango on 02-10-2023 Basophils/100 WBC (Bld) 0.3 % 0-1 [facility] Eosinophils/100 WBC (Bld) 4.4 % 0-5 [facility] Neutrophils (Bld) [#/Vol] 3.6 10*3/uL 2.0-7.7 [facility] Neutrophils/100 WBC (Bld) 54.5 % 47-70 [facility] WBC (Bld) [#/Vol] 6.6 10*3/uL 4.4-11.0 [facility] Blood erythrocytes count (nu mber/volume)Ordered By: Radha Arango on 02-10-2023 RBC (Bld) [#/Vol] 4.72 10*6/uL 4.6-6.2 [facility] Blood hemoglobin measurement (mass/volume)Ordered By: Radha Arango on 02-10-2023 Hemoglobin (Bld) [Mass/Vol] 15.2 g/dL 13.0-16.5 [facility] Blood lymphocytes/100 leukoc ytesOrdered By: Radha Arango on 02-10-2023 Lymphocytes/100 WBC (Bld) 34.7 % 19-41 [facility] Blood monocytes/100 leukocyt esOrdered By: Radha Arango on 02-10-2023 Monocytes/100 WBC (Bld) 5.8 % 0-10 [facility] Blood platelet mean volumeOr dered By: Radha Arango on 02-10-2023 Platelet mean volume (Bld) [Entitic vol] 10.5 fL 6.2-12.0 [facility] Determination of erythrocyte mean corpuscular volume (MCV)Ordered By: Radha Arango on 02-10-2023 MCV (RBC) [Entitic vol] 91.3 fL 80-94 [facility] Hematocrit Auto (Bld) [Volum e fraction]Ordered By: Radha Arango on 02-10-2023 Hematocrit (Bld) [Volume fraction] 43.1 % 40-54 [facility] Laboratory - Hematology and Cell countsOrdered By: Radha Arango on 02-10-2023 Erythrocyte distribution width (RBC) [Entitic vol] 40.0 fL 35.1-43.9 [facility] Erythrocyte distribution width (RBC) [Ratio] 11.9 % 11.6-14.6 [facility] Immature granulocytes/100 WBC (Bld) 0.300 % 0.0-0.9 [facility] Comment on above: IG% - Immature Granu locytes (promyelocytes, myelocytes and metamyelocytes) > 1% indicates that a LEFT SHIFT is Present. MCH (RBC) [Entitic mass] 32.2 pg 27.0-32.0 [facility] Nucleated RBC/100 WBC (Bld) [Ratio] 0 % 0-5 [facility] MCHC Auto (RBC) [Mass/Vol]Or dered By: Radha Arango on 02-10-2023 MCHC (RBC) [Mass/Vol] 35.3 g/dL 32-36 [facility] Platelets bldOrdered By: Marcela Arango on 02-10-2023 Platelets (Bld) [#/Vol] 242 10*3/uL 150-450 [facility] Serum or plasma ferritin jonatan surement (mass/volume)Ordered By: Radha Arango on 02-10-2023 Ferritin [Mass/Vol] 53 ng/mL 26-388 [facility] Absolute lymphocyte countOrd ered By: Radha Arango on 01-26-2023 Lymphocytes Auto (Unsp spec) [#/Vol] 2.49 10*3/uL 0.83-4.51 [facility] Basophil percentageOrdered B y: Radha Arango on 01-26-2023 Basophils/100 WBC (Bld) 0.3 % 0-1 [facility] Eosinophils/100 WBC (Bld) 3.9 % 0-5 [facility] Neutrophils (Bld) [#/Vol] 3.7 10*3/uL 2.0-7.7 [facility] Neutrophils/100 WBC (Bld) 52.0 % 47-70 [facility] Testosterone [Mass/Vol] 303 ng/dL 264-916 [facility] Comment on above: Adult male reference interval is based on a population ofhealthy nonobese males (BMI <30) between 19 and 39 yearsold. Kathe et.al. JCEM 2017,102;[id number]. PMID:[id number]. WBC (Bld) [#/Vol] 7.1 10*3/uL 4.4-11.0 [facility] Blood erythrocytes count (nu mber/volume)Ordered By: Radha Arango on 01-26-2023 RBC (Bld) [#/Vol] 4.72 10*6/uL 4.6-6.2 [facility] Blood hemoglobin measurement (mass/volume)Ordered By: Radha Arango on 01-26-2023 Hemoglobin (Bld) [Mass/Vol] 14.9 g/dL 13.0-16.5 [facility] Blood lymphocytes/100 leukoc ytesOrdered By: Radha Arango on 01-26-2023 Lymphocytes/100 WBC (Bld) 35.1 % 19-41 [facility] Blood monocytes/100 leukocyt esOrdered By: Radha Arango on 01-26-2023 Monocytes/100 WBC (Bld) 8.6 % 0-10 [facility] Blood platelet mean volumeOr dered By: Radha Arango on 01-26-2023 Platelet mean volume (Bld) [Entitic vol] 11.2 fL 6.2-12.0 [facility] Determination of erythrocyte mean corpuscular volume (MCV)Ordered By: Radha Arango on 01-26-2023 MCV (RBC) [Entitic vol] 93.6 fL 80-94 [facility] Free testosterone percentage Ordered By: Radha Arango on 01-26-2023 Testosterone Free/Testosterone.total [Mass fraction] 3.30 % 1.50-4.20 [facility] Comment on above: Performed at: - [address] [id number] Director: Mick English PhD, Phone: [phone] at: [facility] [id number] Director: Kannan Vela MD, Phone: [phone] Hematocrit Auto (Bld) [Volum e fraction]Ordered By: Radha Arango on 01-26-2023 Hematocrit (Bld) [Volume fraction] 44.2 % 40-54 [facility] Laboratory - Hematology and Cell countsOrdered By: Radha Arango on 01-26-2023 Erythrocyte distribution width (RBC) [Entitic vol] 42.5 fL 35.1-43.9 [facility] Erythrocyte distribution width (RBC) [Ratio] 12.2 % 11.6-14.6 [facility] Immature granulocytes/100 WBC (Bld) 0.100 % 0.0-0.9 [facility] Comment on above: IG% - Immature Granu locytes (promyelocytes, myelocytes and metamyelocytes) > 1% indicates that a LEFT SHIFT is Present. MCH (RBC) [Entitic mass] 31.6 pg 27.0-32.0 [facility] Nucleated RBC/100 WBC (Bld) [Ratio] 0 % 0-5 [facility] MCHC Auto (RBC) [Mass/Vol]Or dered By: Radha Arango on 01-26-2023 MCHC (RBC) [Mass/Vol] 33.7 g/dL 32-36 [facility] Platelets bldOrdered By: Marcela Arango on 01-26-2023 Platelets (Bld) [#/Vol] 295 10*3/uL 150-450 [facility] Serum or plasma ferritin jonatan surement (mass/volume)Ordered By: Radha Arango on 01-26-2023 Ferritin [Mass/Vol] 48 ng/mL 26-388 [facility] Serum or plasma testosterone free measurement (mass/volume)Ordered By: Radha Arango on 01-26-2023 Testosterone Free [Mass/Vol] 10.00 ng/dL 5.00-21.00 [facility] Whole blood hemoglobin A1c/t otal hemoglobin ratio (mass fraction)Ordered By: Radha Arango on 01-12-2023 HbA1c (Bld) [Mass fraction] 5.3 % 3.8-5.6 [facility] Comment on above: Normal < 5.7 % Predi abetic 5.7 - 6.4 % Diabetic >or= 6.5 % Please note range changes. Absolute lymphocyte countOrd ered By: Radha Arango on 12-09-2022 Lymphocytes Auto (Unsp spec) [#/Vol] 2.49 10*3/uL 0.83-4.51 [facility] Basophil percentageOrdered B y: Radha Arango on 12-09-2022 Basophils/100 WBC (Bld) 0.4 % 0-1 [facility] Cholesterol [Mass/Vol] 267 mg/dL <200 [facility] Comment on above: <200 mg/dL Desirable 200-240 mg/dL Borderline >240 mg/dL High Risk Eosinophils/100 WBC (Bld) 4.8 % 0-5 [facility] Neutrophils (Bld) [#/Vol] 4.0 10*3/uL 2.0-7.7 [facility] Neutrophils/100 WBC (Bld) 53.0 % 47-70 [facility] Triglyceride [Mass/Vol] 245 mg/dL <199 [facility] Comment on above: The drugs N-Acetylcy steine and Metamizole may falsely depress this assay.Serum Triglycerides Reference Interval Normal <150 mg/dL Borderline high 150 - 199 mg/dL High 200 - 499 mg/dL Very High > or = 500 mg/dL WBC (Bld) [#/Vol] 7.5 10*3/uL 4.4-11.0 [facility] Blood erythrocytes count (nu mber/volume)Ordered By: Radha Arango on 12-09-2022 RBC (Bld) [#/Vol] 4.72 10*6/uL 4.6-6.2 [facility] Blood hemoglobin measurement (mass/volume)Ordered By: Radha Arango on 12-09-2022 Hemoglobin (Bld) [Mass/Vol] 14.9 g/dL 13.0-16.5 [facility] Blood lymphocytes/100 leukoc ytesOrdered By: Radha Arango on 12-09-2022 Lymphocytes/100 WBC (Bld) 33.2 % 19-41 [facility] Blood monocytes/100 leukocyt esOrdered By: Radha Arango on 12-09-2022 Monocytes/100 WBC (Bld) 8.5 % 0-10 [facility] Blood platelet mean volumeOr dered By: Radha Arango on 12-09-2022 Platelet mean volume (Bld) [Entitic vol] 11.5 fL 6.2-12.0 [facility] Determination of erythrocyte mean corpuscular volume (MCV)Ordered By: Radha Arango on 12-09-2022 MCV (RBC) [Entitic vol] 91.5 fL 80-94 [facility] Hematocrit Auto (Bld) [Volum e fraction]Ordered By: Radha Arango on 12-09-2022 Hematocrit (Bld) [Volume fraction] 43.2 % 40-54 [facility] Laboratory - Hematology and Cell countsOrdered By: Radha Arango on 12-09-2022 Erythrocyte distribution width (RBC) [Entitic vol] 41.3 fL 35.1-43.9 [facility] Erythrocyte distribution width (RBC) [Ratio] 12.2 % 11.6-14.6 [facility] Immature granulocytes/100 WBC (Bld) 0.100 % 0.0-0.9 [facility] Comment on above: IG% - Immature Granu locytes (promyelocytes, myelocytes and metamyelocytes) > 1% indicates that a LEFT SHIFT is Present. MCH (RBC) [Entitic mass] 31.6 pg 27.0-32.0 [facility] Nucleated RBC/100 WBC (Bld) [Ratio] 0 % 0-5 [facility] MCHC Auto (RBC) [Mass/Vol]Or dered By: aRdha Arango on 12-09-2022 MCHC (RBC) [Mass/Vol] 34.5 g/dL 32-36 [facility] No Panel InformationOrdered By: Radha Arango on 12-09-2022 Prostate Specific Antigen Screen 3.28 ng/mL 0.00-4.00 [facility] Comment on above: This test was perfor med using the TPSA assay method for the[facility] chemistry system. Values obtained with differentassay methods cannot be used interchangably.When changing PSA assays in the course of monitoring apatient, additional sequential testing should be carriedout to confirm baseline values. Platelets bldOrdered By: Marcela Arango on 12-09-2022 Platelets (Bld) [#/Vol] 236 10*3/uL 150-450 [facility] Serum or plasma cholesterol in HDL measurement (mass/volume)Ordered By: Radha Arango on 12-09-2022 Cholesterol in HDL [Mass/Vol] 54 mg/dL >40 [facility] Comment on above: The drugs N-Acetylcy steine and Metamizole may falsely depress this assay. Reference Range HDL <40 mg/dL Low HDL Cholesterol HDL >or= 60 mg/dL High HDL Cholesterol Serum or plasma cholesterol in VLDL measurement (mass/volume)Ordered By: Radha Arango on 12-09-2022 Cholesterol in VLDL [Mass/Vol] 49 mg/dL 5-40 [facility] Serum or plasma ferritin jonatan surement (mass/volume)Ordered By: Radha Arango on 12-09-2022 Ferritin [Mass/Vol] 63 ng/mL 26-388 [facility] Serum or plasma low density lipoprotein (LDL) cholesterol measurement (mass/volume)Ordered By: Radha Arango on 12-09-2022 Cholesterol in LDL [Mass/Vol] 164 mg/dL 0-130 [facility] Whole blood hemoglobin A1c/t otal hemoglobin ratio (mass fraction)Ordered By: Radha Arango on 12-09-2022 HbA1c (Bld) [Mass fraction] 5.7 % 3.8-5.6 [facility] Comment on above: Normal < 5.7 % Predi abetic 5.7 - 6.4 % Diabetic >or= 6.5 % Please note range changes. Absolute lymphocyte countOrd ered By: Radha Arango on 11-06-2022 Lymphocytes Auto (Unsp spec) [#/Vol] 2.09 10*3/uL 0.83-4.51 [facility] Basophil percentageOrdered B y: Radha Arango on 11-06-2022 Basophils/100 WBC (Bld) 0.5 % 0-1 [facility] Eosinophils/100 WBC (Bld) 5.7 % 0-5 [facility] Neutrophils (Bld) [#/Vol] 3.2 10*3/uL 2.0-7.7 [facility] Neutrophils/100 WBC (Bld) 50.7 % 47-70 [facility] WBC (Bld) [#/Vol] 6.3 10*3/uL 4.4-11.0 [facility] Blood erythrocytes count (nu mber/volume)Ordered By: Radha Arango on 11-06-2022 RBC (Bld) [#/Vol] 4.67 10*6/uL 4.6-6.2 [facility] Blood hemoglobin measurement (mass/volume)Ordered By: Radha Arango on 11-06-2022 Hemoglobin (Bld) [Mass/Vol] 14.6 g/dL 13.0-16.5 [facility] Blood lymphocytes/100 leukoc ytesOrdered By: Radha Arango on 11-06-2022 Lymphocytes/100 WBC (Bld) 33.1 % 19-41 [facility] Blood monocytes/100 leukocyt esOrdered By: Radha Arango on 11-06-2022 Monocytes/100 WBC (Bld) 9.7 % 0-10 [facility] Blood platelet mean volumeOr dered By: Radha Arango on 11-06-2022 Platelet mean volume (Bld) [Entitic vol] 11.4 fL 6.2-12.0 [facility] Determination of erythrocyte mean corpuscular volume (MCV)Ordered By: Radha Arango on 11-06-2022 MCV (RBC) [Entitic vol] 92.1 fL 80-94 [facility] Hematocrit Auto (Bld) [Volum e fraction]Ordered By: Radha Arango on 11-06-2022 Hematocrit (Bld) [Volume fraction] 43.0 % 40-54 [facility] Laboratory - Hematology and Cell countsOrdered By: Radha Arango on 11-06-2022 Erythrocyte distribution width (RBC) [Entitic vol] 39.5 fL 35.1-43.9 [facility] Erythrocyte distribution width (RBC) [Ratio] 11.7 % 11.6-14.6 [facility] Immature granulocytes/100 WBC (Bld) 0.300 % 0.0-0.9 [facility] Comment on above: IG% - Immature Granu locytes (promyelocytes, myelocytes and metamyelocytes) > 1% indicates that a LEFT SHIFT is Present. MCH (RBC) [Entitic mass] 31.3 pg 27.0-32.0 [facility] Nucleated RBC/100 WBC (Bld) [Ratio] 0 % 0-5 [facility] MCHC Auto (RBC) [Mass/Vol]Or dered By: Radha Arango on 11-06-2022 MCHC (RBC) [Mass/Vol] 34.0 g/dL 32-36 [facility] Platelets bldOrdered By: Marcela Arango on 11-06-2022 Platelets (Bld) [#/Vol] 234 10*3/uL 150-450 [facility] Serum or plasma ferritin jonatan surement (mass/volume)Ordered By: Radha Arango on 11-06-2022 Ferritin [Mass/Vol] 41 ng/mL 26-388 [facility] Absolute lymphocyte countOrd ered By: Radha Arango on 10-15-2022 Lymphocytes Auto (Unsp spec) [#/Vol] 2.11 10*3/uL 0.83-4.51 [facility] Basophil percentageOrdered B y: Radha Arango on 10-15-2022 Basophils/100 WBC (Bld) 0.4 % 0-1 [facility] Eosinophils/100 WBC (Bld) 3.8 % 0-5 [facility] Neutrophils (Bld) [#/Vol] 4.1 10*3/uL 2.0-7.7 [facility] Neutrophils/100 WBC (Bld) 58.0 % 47-70 [facility] WBC (Bld) [#/Vol] 7.1 10*3/uL 4.4-11.0 [facility] Blood erythrocytes count (nu mber/volume)Ordered By: Radha Arango on 10-15-2022 RBC (Bld) [#/Vol] 4.65 10*6/uL 4.6-6.2 [facility] Blood hemoglobin measurement (mass/volume)Ordered By: Radha Arango on 10-15-2022 Hemoglobin (Bld) [Mass/Vol] 14.8 g/dL 13.0-16.5 [facility] Blood lymphocytes/100 leukoc ytesOrdered By: Radha Arango on 10-15-2022 Lymphocytes/100 WBC (Bld) 29.8 % 19-41 [facility] Blood monocytes/100 leukocyt esOrdered By: Radha Arango on 10-15-2022 Monocytes/100 WBC (Bld) 7.9 % 0-10 [facility] Blood platelet mean volumeOr dered By: Radha Arango on 10-15-2022 Platelet mean volume (Bld) [Entitic vol] 10.5 fL 6.2-12.0 [facility] Determination of erythrocyte mean corpuscular volume (MCV)Ordered By: Radha Arango on 10-15-2022 MCV (RBC) [Entitic vol] 89.0 fL 80-94 [facility] Hematocrit Auto (Bld) [Volum e fraction]Ordered By: Radha Arango on 10-15-2022 Hematocrit (Bld) [Volume fraction] 41.4 % 40-54 [facility] Laboratory - Hematology and Cell countsOrdered By: Radha Arango on 10-15-2022 Erythrocyte distribution width (RBC) [Entitic vol] 37.2 fL 35.1-43.9 [facility] Erythrocyte distribution width (RBC) [Ratio] 11.6 % 11.6-14.6 [facility] Immature granulocytes/100 WBC (Bld) 0.100 % 0.0-0.9 [facility] Comment on above: IG% - Immature Granu locytes (promyelocytes, myelocytes and metamyelocytes) > 1% indicates that a LEFT SHIFT is Present. MCH (RBC) [Entitic mass] 31.8 pg 27.0-32.0 [facility] Nucleated RBC/100 WBC (Bld) [Ratio] 0 % 0-5 [facility] MCHC Auto (RBC) [Mass/Vol]Or dered By: Radha Arango on 10-15-2022 MCHC (RBC) [Mass/Vol] 35.7 g/dL 32-36 [facility] Platelets bldOrdered By: Marcela Arango on 10-15-2022 Platelets (Bld) [#/Vol] 228 10*3/uL 150-450 [facility] Serum or plasma ferritin jonatan surement (mass/volume)Ordered By: Radha Arango on 10-15-2022 Ferritin [Mass/Vol] 33 ng/mL 26-388 [facility] Absolute lymphocyte countOrd ered By: Dr. Arango on 09-16-2022 Lymphocytes Auto (Unsp spec) [#/Vol] 1.99 10*3/uL 0.83-4.51 [facility] Basophil percentageOrdered B y: Dr. Arango on 09-16-2022 Basophils/100 WBC (Bld) 0.6 % 0-1 [facility] Eosinophils/100 WBC (Bld) 5.9 % 0-5 [facility] Neutrophils (Bld) [#/Vol] 2.6 10*3/uL 2.0-7.7 [facility] Neutrophils/100 WBC (Bld) 47.6 % 47-70 [facility] WBC (Bld) [#/Vol] 5.5 10*3/uL 4.4-11.0 [facility] Blood erythrocytes count (nu mber/volume)Ordered By: Dr. Arango on 09-16-2022 RBC (Bld) [#/Vol] 4.32 10*6/uL 4.6-6.2 [facility] Blood hemoglobin measurement (mass/volume)Ordered By: Dr. Arango on 09-16-2022 Hemoglobin (Bld) [Mass/Vol] 13.9 g/dL 13.0-16.5 [facility] Blood lymphocytes/100 leukoc ytesOrdered By: Dr. Arango on 09-16-2022 Lymphocytes/100 WBC (Bld) 36.5 % 19-41 [facility] Blood monocytes/100 leukocyt esOrdered By: Dr. Arango on 09-16-2022 Monocytes/100 WBC (Bld) 9.2 % 0-10 [facility] Blood platelet mean volumeOr dered By: Dr. Arango on 09-16-2022 Platelet mean volume (Bld) [Entitic vol] 11.1 fL 6.2-12.0 [facility] Determination of erythrocyte mean corpuscular volume (MCV)Ordered By: Dr. Arango on 09-16-2022 MCV (RBC) [Entitic vol] 93.3 fL 80-94 [facility] Hematocrit Auto (Bld) [Volum e fraction]Ordered By: Dr. Arango on 09-16-2022 Hematocrit (Bld) [Volume fraction] 40.3 % 40-54 [facility] Laboratory - Hematology and Cell countsOrdered By: Dr. Arango on 09-16-2022 Erythrocyte distribution width (RBC) [Entitic vol] 39.8 fL 35.1-43.9 [facility] Erythrocyte distribution width (RBC) [Ratio] 11.5 % 11.6-14.6 [facility] Immature granulocytes/100 WBC (Bld) 0.200 % 0.0-0.9 [facility] Comment on above: IG% - Immature Granu locytes (promyelocytes, myelocytes and metamyelocytes) > 1% indicates that a LEFT SHIFT is Present. MCH (RBC) [Entitic mass] 32.2 pg 27.0-32.0 [facility] Nucleated RBC/100 WBC (Bld) [Ratio] 0 % 0-5 [facility] MCHC Auto (RBC) [Mass/Vol]Or dered By: Dr. Arango on 09-16-2022 MCHC (RBC) [Mass/Vol] 34.5 g/dL 32-36 [facility] Platelets bldOrdered By: Dr. Arango on 09-16-2022 Platelets (Bld) [#/Vol] 204 10*3/uL 150-450 [facility] Serum or plasma ferritin jonatan surement (mass/volume)Ordered By: Dr. Arango on 09-16-2022 Ferritin [Mass/Vol] 55 ng/mL 26-388 [facility] Absolute lymphocyte countOrd ered By: Dr. Arango on 08-25-2022 Lymphocytes Auto (Unsp spec) [#/Vol] 2.34 10*3/uL 0.83-4.51 [facility] Basophil percentageOrdered B y: Dr. Arango on 08-25-2022 Basophils/100 WBC (Bld) 0.5 % 0-1 [facility] Bilirubin [Mass/Vol] 0.40 mg/dL 0.20-1.00 [facility] Comment on above: For patients on eltr ombopag therapy, use of Dimension [place] TBIL is not recommended. Chloride [Moles/Vol] 108 mmol/L 98-107 [facility] Eosinophils/100 WBC (Bld) 5.6 % 0-5 [facility] Glucose [Mass/Vol] 101 mg/dL 74-106 [facility] Comment on above: Fasting Glucose resu lt from 100 to 125 mg/dL suggests IMPAIRED HOMEOSTASIS per A.D.A. criteria. Neutrophils (Bld) [#/Vol] 2.8 10*3/uL 2.0-7.7 [facility] Neutrophils/100 WBC (Bld) 46.1 % 47-70 [facility] Potassium [Moles/Vol] 3.8 mmol/L 3.5-5.1 [facility] Protein [Mass/Vol] 8.0 g/dL 6.4-8.2 [facility] Sodium [Moles/Vol] 141 mmol/L 136-145 [facility] WBC (Bld) [#/Vol] 6.0 10*3/uL 4.4-11.0 [facility] Blood erythrocytes count (nu mber/volume)Ordered By: Dr. Arango on 08-25-2022 RBC (Bld) [#/Vol] 4.23 10*6/uL 4.6-6.2 [facility] Blood hemoglobin measurement (mass/volume)Ordered By: Dr. Arango on 08-25-2022 Hemoglobin (Bld) [Mass/Vol] 13.8 g/dL 13.0-16.5 [facility] Blood lymphocytes/100 leukoc ytesOrdered By: Dr. Arango on 08-25-2022 Lymphocytes/100 WBC (Bld) 38.8 % 19-41 [facility] Blood monocytes/100 leukocyt esOrdered By: Dr. Arango on 08-25-2022 Monocytes/100 WBC (Bld) 8.8 % 0-10 [facility] Blood platelet mean volumeOr dered By: Dr. Arango on 08-25-2022 Platelet mean volume (Bld) [Entitic vol] 11.2 fL 6.2-12.0 [facility] Determination of erythrocyte mean corpuscular volume (MCV)Ordered By: Dr. Arango on 08-25-2022 MCV (RBC) [Entitic vol] 95.3 fL 80-94 [facility] Erythrocyte sedimentation ra teOrdered By: Dr. Arango on 08-25-2022 ESR (Bld) [Velocity] 16 mm/h 0-20 [facility] Hematocrit Auto (Bld) [Volum e fraction]Ordered By: Dr. Arango on 08-25-2022 Hematocrit (Bld) [Volume fraction] 40.3 % 40-54 [facility] Iron measurement (mass/mass) Ordered By: Dr. Arango on 08-25-2022 Iron (Unsp spec) [Mass/Mass] 104 ug/dL 65-175 [facility] Laboratory - Chemistry and C hemistry - challengeOrdered By: Dr. Arango on 08-25-2022 ALP [Catalytic activity/Vol] 62 U/L 45-117 [facility] ALT [Catalytic activity/Vol] 59 U/L 16-61 [facility] CK [Catalytic activity/Vol] 78 U/L 39-308 [facility] CO2 [Moles/Vol] 25.0 mmol/L 21.0-32.0 [facility] Cobalamin (Vitamin B12) [Mass/Vol] 408 pg/mL 211-911 [facility] Globulin (S) [Mass/Vol] 4.2 g/dL 2.2-4.2 [facility] Urea nitrogen/Creatinine [Mass ratio] 25.9 mg/mg 10-20 [facility] Laboratory - Hematology and Cell countsOrdered By: Dr. Arango on 08-25-2022 Erythrocyte distribution width (RBC) [Entitic vol] 42.3 fL 35.1-43.9 [facility] Erythrocyte distribution width (RBC) [Ratio] 12.2 % 11.6-14.6 [facility] Immature granulocytes/100 WBC (Bld) 0.200 % 0.0-0.9 [facility] Comment on above: IG% - Immature Granu locytes (promyelocytes, myelocytes and metamyelocytes) > 1% indicates that a LEFT SHIFT is Present. MCH (RBC) [Entitic mass] 32.6 pg 27.0-32.0 [facility] Nucleated RBC/100 WBC (Bld) [Ratio] 0 % 0-5 [facility] MCHC Auto (RBC) [Mass/Vol]Or dered By: Dr. Arango on 08-25-2022 MCHC (RBC) [Mass/Vol] 34.2 g/dL 32-36 [facility] No Panel InformationOrdered By: Dr. Arango on 08-25-2022 Estimated GFR (MDRD) Amer 116 mL/min >60 [facility] Comment on above: GFR Calc Estimated GFR (MDRD) Non-Af Amer 96 mL/min >60 [facility] Comment on above: Non- GFR Calc Thyroid Stimulating Hormone (TSH) 2.32 uIU/mL 0.358-3.74 [facility] Platelets bldOrdered By: Dr. Arango on 08-25-2022 Platelets (Bld) [#/Vol] 231 10*3/uL 150-450 [facility] Serum or plasma albumin jessica urement (mass/volume)Ordered By: Dr. Arango on 08-25-2022 Albumin [Mass/Vol] 3.8 g/dL 3.2-5.0 [facility] Serum or plasma albumin/glob ulin mass ratioOrdered By: Dr. Arango on 08-25-2022 Albumin/Globulin [Mass ratio] 0.9 {ratio} 0.9-2.4 [facility] Serum or plasma calcium jessica urement (mass/volume)Ordered By: Dr. Arango on 08-25-2022 Calcium [Mass/Vol] 8.8 mg/dL 8.5-10.1 [facility] Serum or plasma creatinine m easurement (mass/volume)Ordered By: Dr. Arango on 08-25-2022 Creatinine [Mass/Vol] 0.85 mg/dL 0.70-1.30 [facility] Comment on above: The validity of the calculated GFR & GFRAA in patients over 70 years has not been determined. Clinical correlation is essential. Serum or plasma ferritin jonatan surement (mass/volume)Ordered By: Dr. Arango on 08-25-2022 Ferritin [Mass/Vol] 72 ng/mL 26-388 [facility] Serum or plasma urea nitroge n measurement (mass/volume)Ordered By: Dr. Arango on 08-25-2022 Urea nitrogen [Mass/Vol] 22 mg/dL 7-18 [facility] Thin prep Papanicolaou smear with manual screeningOrdered By: Dr. Arango on 08-25-2022 Thin prep Papanicolaou smear with manual screening 32 U/L 15-37 [facility] Thin prep Papanicolaou smear with manual screening 8 5-15 [facility] Absolute lymphocyte countOrd ered By: Dr. Arango on 08-01-2022 Lymphocytes Auto (Unsp spec) [#/Vol] 2.36 10*3/uL 0.83-4.51 [facility] Basophil percentageOrdered B y: Dr. Arango on 08-01-2022 Basophils/100 WBC (Bld) 0.4 % 0-1 [facility] Eosinophils/100 WBC (Bld) 4.2 % 0-5 [facility] Neutrophils (Bld) [#/Vol] 3.7 10*3/uL 2.0-7.7 [facility] Neutrophils/100 WBC (Bld) 52.4 % 47-70 [facility] WBC (Bld) [#/Vol] 7.1 10*3/uL 4.4-11.0 [facility] Blood erythrocytes count (nu mber/volume)Ordered By: Dr. Arango on 08-01-2022 RBC (Bld) [#/Vol] 4.27 10*6/uL 4.6-6.2 [facility] Blood hemoglobin measurement (mass/volume)Ordered By: Dr. Arango on 08-01-2022 Hemoglobin (Bld) [Mass/Vol] 13.9 g/dL 13.0-16.5 [facility] Blood lymphocytes/100 leukoc ytesOrdered By: Dr. Arango on 08-01-2022 Lymphocytes/100 WBC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 does not have impaired gait Is the patient cognitively impaired not cognitively impaired Interventions: Jurado Fall Interventions: LOW INTERVENTIONS: *patient oriented to surroundings and call system, * patient/family falls education completed and documented, *patients fall status communicated during bedside handoff, *whiteboard updated, *mode of toileting discussed with patient, *bed in low position with brakes locked, *call light in reach, * non-skid footwear TRAVEL HISTORY Travel History Coronavirus Screening: no exposure or symptoms Travel Exposure History: NO travel to International locations in the past 30 days PAIN Pain Scale Used: GIACOMO Pain Rating (0-10): 9 = Severe Acceptable Pain Level (0-10): 3 Past Medical History: Past Medical History Reviewedyes Benign Prostatic Hypertrophy (BPH): Past Medical History, Active Hypertension (HTN): Past Medical History, Active Electronic Signatures: Mart Gorman (AI) (Signed 24-Jan-2021 14:46) Authored: Quick Triage, Risk Screens, Pain, Travel History, Chart Review, Scores, Past Medical History Last Updated: 24-Jan-2021 14:46 by Mart Gorman (AI) [facility] Office Visit: EGD Consulton 10-07-2016 Dietary management education, guidance, and counseling (procedure) yes Invalid Interpretation Code [facility] [employer] Work Phone: Documentation of current medications (procedure) Done Invalid Interpretation Code [facility] [employer] Work Phone: Fall risk assessment No Invalid Interpretation Code [facility] [employer] Work Phone: Tobacco smoking status NHIS Never Invalid Interpretation Code [facility] [employer] Work Phone: Tobacco use CPHS Never smoker Invalid Interpretation Code [facility] Work Phone: Influenza virus A and B and SARS-CoV-2 (COVID-19) Ag panel - Upper respiratory specim SARS-CoV-2 (COVID-19) RNA TREVOR+probe Ql (Resp) [facility] Work Phone: Vital Signs Date Time Vital Sign Value Performing Clinician Facility 12-23-2024 12:50-0400 Body height 168 cm Cresencio Simms MD Work Phone: [facility] 12-23-2024 12:50-0400 Body height 167.64 cm Cresencio Simms MD Work Phone: [facility] 12-23-2024 12:50-0400 Body mass index (BMI) [Ratio] 30.78 kg/m2 Cresencio Simms MD Work Phone: [facility] 12-23-2024 12:50-0400 Body weight 86 kg Cresencio Simms MD Work Phone: [facility] 12-23-2024 12:50-0400 Body weight 86.18 kg Cresencio Simms MD Work Phone: [facility] 12-23-2024 12:50-0400 BP SITE #1 Cresencio Simms MD Work Phone: [facility] 12-23-2024 12:50-0400 Diastolic blood pressure 83 mm[Hg] Cresencio Simms MD Work Phone: [facility] 12-23-2024 12:50-0400 Heart rate 69 /min Cresencio Simms MD Work Phone: [facility] 12-23-2024 12:50-0400 HGHTCHNVIS Cresencio Simms MD Work Phone: [facility] 12-23-2024 12:50-0400 Systolic blood pressure 127 mm[Hg] Cresencio Simms MD Work Phone: [facility] 12-23-2024 12:50-0400 VITALSDONE Cresencio Simms MD Work Phone: [facility] 12-13-2024 10:40-0400 Diastolic blood pressure 88 mm[Hg] Treatment Wstr Work Phone: [facility] 12-13-2024 10:40-0400 Heart rate 83 /min Treatment [facility]str Work Phone: [facility] 12-13-2024 10:40-0400 Systolic blood pressure 131 mm[Hg] Treatment [facility]str Work Phone: [facility] 12-13-2024 10:29-0400 Body temperature 97.7 [degF] Treatment [facility]str Work Phone: [facility] 12-13-2024 10:08-0400 Body mass index (BMI) [Ratio] 31.88 kg/m2 Bruce Roberson MD Work Phone: [facility] 12-13-2024 10:08-0400 Body temperature 97.7 [degF] Bruce Roberson MD Work Phone: [facility] 12-13-2024 10:08-0400 Body weight 89.58 kg Bruce Roberson MD Work Phone: [facility] 12-13-2024 10:08-0400 Diastolic blood pressure 82 mm[Hg] Bruce Roberson MD Work Phone: [facility] 12-13-2024 10:08-0400 Heart rate 75 /min Bruce Roberson MD Work Phone: [facility] 12-13-2024 10:08-0400 SaO2% (BldA) [Mass fraction] 96 % Bruce Roberson MD Work Phone: [facility] 12-13-2024 10:08-0400 Systolic blood pressure 127 mm[Hg] Bruce Roberson MD Work Phone: [facility] [place] 11-03-2024 13:44-0400 Body height 168 cm Avinash Darryl DO Work Phone: [facility] 11-03-2024 13:44-0400 Body height 167.64 cm Avinash Darryl DO Work Phone: [facility] 11-03-2024 13:44-0400 Body mass index (BMI) [Ratio] 30.78 kg/m2 Avinash Darryl DO Work Phone: [facility] 11-03-2024 13:44-0400 Body weight 86 kg Avinash Darryl DO Work Phone: [facility] 11-03-2024 13:44-0400 Body weight 86.18 kg Avinash Darryl DO Work Phone: [facility] 11-03-2024 13:44-0400 BP SITE #1 Avinash Darryl DO Work Phone: [facility] 11-03-2024 13:44-0400 BP SITE #2 Avinash Darryl DO Work Phone: [facility] 11-03-2024 13:44-0400 Diastolic blood pressure 78 mm[Hg] Avinash Adrryl DO Work Phone: [facility] 11-03-2024 13:44-0400 Diastolic blood pressure 89 mm[Hg] Avinash Darryl DO Work Phone: [facility] 11-03-2024 13:44-0400 Heart rate 67 /min Avinash Darryl DO Work Phone: [facility] 11-03-2024 13:44-0400 HGHTCHNVIS Avinash Darryl DO Work Phone: [facility] 11-03-2024 13:44-0400 Systolic blood pressure 152 mm[Hg] Avinash Darryl DO Work Phone: [facility] 11-03-2024 13:44-0400 Systolic blood pressure 142 mm[Hg] Avinash Andrews DO Work Phone: [facility] 11-03-2024 13:44-0400 VITALSDONE Avinash Andrews DO Work Phone: [facility] 10-17-2024 13:53-0400 Body height 167.[address] Radha Arango DO Work Phone: [facility] 10-17-2024 13:53-0400 Body mass index (BMI) [Ratio] 32.4 kg/m2 Dr. Radha Arango DO Work Phone: [facility] 10-17-2024 13:53-0400 Body weight 91.[address] Radha Arango DO Work Phone: [facility] 10-17-2024 13:53-0400 Diastolic blood pressure 77 mm[Hg] Dr. Radha Arango DO Work Phone: [facility] 10-17-2024 13:53-0400 Heart rate 73 /min Dr. Radha Arango DO Work Phone: [facility] 10-17-2024 13:53-0400 SaO2% (BldA) [Mass fraction] 96 % Dr. Radha Arango DO Work Phone: [facility] 10-17-2024 13:53-0400 Systolic blood pressure 136 mm[Hg] Dr. Radha Arango DO Work Phone: [facility] 09-14-2024 14:35-0400 Body height 167.[address] Radha Arango DO Work Phone: [facility] 09-14-2024 14:35-0400 Body mass index (BMI) [Ratio] 31.6 kg/m2 Dr. Radha Arango DO Work Phone: [facility] 09-14-2024 14:35-0400 Body weight 88.[address] Radha Arango DO Work Phone: [facility] 09-14-2024 14:35-0400 Diastolic blood pressure 72 mm[Hg] Dr. Radha Arango DO Work Phone: [facility] 09-14-2024 14:35-0400 Heart rate 60 /min Dr. Radha Arango DO Work Phone: [facility] 09-14-2024 14:35-0400 Respiratory rate 18 /min Dr. Radha Arango DO Work Phone: [facility] 09-14-2024 14:35-0400 SaO2% (BldA) [Mass fraction] 96 % Dr. Radha Arango DO Work Phone: [facility] 09-14-2024 14:35-0400 Systolic blood pressure 115 mm[Hg] Dr. Radha Arango DO Work Phone: [facility] 08-09-2024 13:22-0400 Diastolic blood pressure 71 mm[Hg] Treatment Wstr Work Phone: [facility] [place] 08-09-2024 13:22-0400 Heart rate 86 /min Treatment Wstr Work Phone: [facility] [place] 08-09-2024 13:22-0400 Respiratory rate 18 /min Treatment Wstr Work Phone: [facility] [place] 08-09-2024 13:22-0400 Systolic blood pressure 120 mm[Hg] Treatment Wstr Work Phone: [facility] [place] 08-09-2024 12:42-0400 Body mass index (BMI) [Ratio] 31.64 kg/m2 Bruce Roberson MD Work Phone: [facility] [place] 08-09-2024 12:42-0400 Body temperature 98.01 [degF] Bruce Roberson MD Work Phone: [facility] [place] 08-09-2024 12:42-0400 Body weight 88.91 kg Bruce Roberson MD Work Phone: [facility] [place] 08-09-2024 12:42-0400 Diastolic blood pressure 85 mm[Hg] Bruce Roberson MD Work Phone: [facility] [place] 08-09-2024 12:42-0400 Heart rate 72 /min Bruce Roberson MD Work Phone: [facility] [place] 08-09-2024 12:42-0400 SaO2% (BldA) [Mass fraction] 98 % Bruce Roberson MD Work Phone: [facility] [place] 08-09-2024 12:42-0400 Systolic blood pressure 142 mm[Hg] Bruce Roberson MD Work Phone: [facility] [place] 05-11-2024 10:54-0500 Body height 167.6 cm Bruce Roberson MD Work Phone: [facility] [place] 05-11-2024 10:54-0500 Body mass index (BMI) [Ratio] 31.8 kg/m2 Bruce Roberson MD Work Phone: [facility] [place] 05-11-2024 10:54-0500 Body temperature 98.01 [degF] Bruce Roberson MD Work Phone: [facility] [place] 05-11-2024 10:54-0500 Body weight 89.36 kg Bruce Roberson MD Work Phone: [facility] [place] 05-11-2024 10:54-0500 Diastolic blood pressure 82 mm[Hg] Bruce Roberson MD Work Phone: [facility] [place] 05-11-2024 10:54-0500 Heart rate 68 /min Bruce Roberson MD Work Phone: [facility] [place] 05-11-2024 10:54-0500 SaO2% (BldA) [Mass fraction] 98 % Bruce Roberson MD Work Phone: [facility] [place] 05-11-2024 10:54-0500 Systolic blood pressure 130 mm[Hg] Bruce Roberson MD Work Phone: [facility] [place] 04-12-2024 08:29-0500 Body height 167.[address] Radha Arango DO Work Phone: [facility] 04-12-2024 08:29-0500 Body mass index (BMI) [Ratio] 32.1 kg/m2 Dr. Radha Arango DO Work Phone: [facility] 04-12-2024 08:29-0500 Body weight 90.[address] Radha Arango DO Work Phone: [facility] 04-12-2024 08:29-0500 Diastolic blood pressure 89 mm[Hg] Dr. Radha Arango DO Work Phone: [facility] 04-12-2024 08:29-0500 Heart rate 63 /min Dr. Radha Arango DO Work Phone: [facility] 04-12-2024 08:29-0500 Respiratory rate 16 /min Dr. Radha Arango DO Work Phone: [facility] 04-12-2024 08:29-0500 Systolic blood pressure 153 mm[Hg] Dr. Radha Arango DO Work Phone: [facility] 03-26-2024 09:43-0500 Body temperature 98 [degF] Dr. Radha Arango DO Work Phone: [facility] 03-26-2024 09:43-0500 Diastolic blood pressure 70 mm[Hg] Dr. Radha Arango DO Work Phone: [facility] 03-26-2024 09:43-0500 Heart rate 76 /min Dr. Radha Arango DO Work Phone: [facility] 03-26-2024 09:43-0500 Respiratory rate 15 /min Dr. Radha Arango DO Work Phone: [facility] 03-26-2024 09:43-0500 SaO2% (BldA) [Mass fraction] 100 % Dr. Radha Arango DO Work Phone: [facility] 03-26-2024 09:43-0500 Systolic blood pressure 119 mm[Hg] Dr. Radha Arango DO Work Phone: [facility] 03-26-2024 07:00-0500 Body mass index (BMI) [Ratio] 32.7 kg/m2 Dr. Radha Arango DO Work Phone: [facility] 03-26-2024 07:00-0500 Body weight 91.[address] Radha Arango DO Work Phone: [facility] 03-24-2024 16:03-0500 Body temperature 97.9 [degF] Dr. Radha Arango DO Work Phone: [facility] 03-24-2024 16:03-0500 Diastolic blood pressure 68 mm[Hg] Dr. Radha Arango DO Work Phone: [facility] 03-24-2024 16:03-0500 Heart rate 66 /min Dr. Radha Arango DO Work Phone: [facility] 03-24-2024 16:03-0500 Respiratory rate 17 /min Dr. Radha Arango DO Work Phone: [facility] 03-24-2024 16:03-0500 SaO2% (BldA) [Mass fraction] 97 % Dr. Radha Arango DO Work Phone: [facility] 03-24-2024 16:03-0500 Systolic blood pressure 106 mm[Hg] Dr. Radha Arango DO Work Phone: [facility] 03-24-2024 10:00-0500 Body mass index (BMI) [Ratio] 29.9 kg/m2 Dr. Radha Arango DO Work Phone: [facility] 03-24-2024 09:15-0500 Body weight 84.[address] Radha Arango DO Work Phone: [facility] 03-23-2024 16:00-0500 Diastolic blood pressure 72 mm[Hg] Dr. Radha Arango DO Work Phone: [facility] 03-23-2024 16:00-0500 Heart rate 62 /min Dr. Radha Arango DO Work Phone: [facility] 03-23-2024 16:00-0500 Respiratory rate 16 /min Dr. Radha Arango DO Work Phone: [facility] 03-23-2024 16:00-0500 SaO2% (BldA) [Mass fraction] 97 % Dr. Radha Arango DO Work Phone: [facility] 03-23-2024 16:00-0500 Systolic blood pressure 134 mm[Hg] Dr. Radha Arango DO Work Phone: [facility] 03-23-2024 15:10-0500 Body mass index (BMI) [Ratio] 31.1 kg/m2 Dr. Radha Arango DO Work Phone: [facility] 03-23-2024 15:10-0500 Body temperature 96.1 [degF] Dr. Radha Arango DO Work Phone: [facility] 03-23-2024 15:10-0500 Body weight 87.[address] Radha Arango DO Work Phone: [facility] 06-09-2023 15:31-0500 Body temperature 97 [degF] Dr. Radha Arango Work Phone: [facility] 06-09-2023 15:31-0500 Diastolic blood pressure 82 mm[Hg] Dr. Radha Arango Work Phone: [facility] 06-09-2023 15:31-0500 Heart rate 75 /min Dr. Radha Arango Work Phone: [facility] 06-09-2023 15:31-0500 Respiratory rate 16 /min Dr. Radha Arango Work Phone: [facility] 06-09-2023 15:31-0500 SaO2% (BldA) [Mass fraction] 95 % Dr. Radha Arango Work Phone: [facility] 06-09-2023 15:31-0500 Systolic blood pressure 131 mm[Hg] Dr. Radha Arango Work Phone: [facility] 06-09-2023 14:41-0500 Body height 167.[address] Radha Arango Work Phone: [facility] 06-09-2023 14:41-0500 Body mass index (BMI) [Ratio] 34.7 kg/m2 Dr. Radha Arango Work Phone: [facility] 06-09-2023 14:41-0500 Body weight 97.[address] Radha Arango Work Phone: [facility] 02-10-2023 15:20-0400 Body temperature 97.1 [degF] [facility] 02-10-2023 15:20-0400 Diastolic blood pressure 85 mm[Hg] [facility] 02-10-2023 15:20-0400 Heart rate 77 /min [facility] 02-10-2023 15:20-0400 Respiratory rate 16 /min [facility] 02-10-2023 15:20-0400 SaO2% (BldA) [Mass fraction] 97 % [facility] 02-10-2023 15:20-0400 Systolic blood pressure 128 mm[Hg] [facility] 02-10-2023 14:37-0400 Body height 167.[address] [facility] 02-10-2023 14:37-0400 Body mass index (BMI) [Ratio] 34.5 kg/m2 [facility] 02-10-2023 14:37-0400 Body weight 97.[address] [facility] 12-16-2022 15:10-0400 Diastolic blood pressure 74 mm[Hg] [facility] 12-16-2022 15:10-0400 Heart rate 61 /min [facility] 12-16-2022 15:10-0400 Systolic blood pressure 140 mm[Hg] [facility] 12-16-2022 14:17-0400 Body height 167.[address] [facility] 12-16-2022 14:17-0400 Body mass index (BMI) [Ratio] 35.5 kg/m2 [facility] 12-16-2022 14:17-0400 Body temperature 97.1 [degF] [facility] 12-16-2022 14:17-0400 Body weight 99.[address] [facility] 12-16-2022 14:17-0400 Respiratory rate 16 /min [facility] 12-16-2022 14:17-0400 SaO2% (BldA) [Mass fraction] 98 % [facility] 12-16-2022 10:37-0400 Body height 167.[address] [facility] 09-16-2022 15:22-0400 Diastolic blood pressure 63 mm[Hg] [facility] 09-16-2022 15:22-0400 Heart rate 51 /min [facility] 09-16-2022 15:22-0400 Respiratory rate 16 /min [facility] 09-16-2022 15:22-0400 Systolic blood pressure 116 mm[Hg] [facility] 09-16-2022 14:28-0400 Body height 167.[address] [facility] 09-16-2022 14:28-0400 Body mass index (BMI) [Ratio] 34.7 kg/m2 [facility] 09-16-2022 14:28-0400 Body temperature 97.5 [degF] [facility] 09-16-2022 14:28-0400 Body weight 97.[address] [facility] 09-16-2022 14:28-0400 SaO2% (BldA) [Mass fraction] 97 % [facility] 08-04-2022 15:37-0400 Diastolic blood pressure 60 mm[Hg] [facility] 08-04-2022 15:37-0400 Heart rate 59 /min [facility] 08-04-2022 15:37-0400 Respiratory rate 16 /min [facility] 08-04-2022 15:37-0400 SaO2% (BldA) [Mass fraction] 96 % [facility] 08-04-2022 15:37-0400 Systolic blood pressure 118 mm[Hg] [facility] 08-04-2022 14:50-0400 Body height 167.[address] [facility] 08-04-2022 14:50-0400 Body mass index (BMI) [Ratio] 34.7 kg/m2 [facility] 08-04-2022 14:50-0400 Body weight 97.[address] [facility] 07-21-2022 15:10-0400 Body temperature 97.1 [degF] [facility] 07-21-2022 15:10-0400 Diastolic blood pressure 61 mm[Hg] [facility] 07-21-2022 15:10-0400 Heart rate 57 /min [facility] 07-21-2022 15:10-0400 Respiratory rate 16 /min [facility] 07-21-2022 15:10-0400 SaO2% (BldA) [Mass fraction] 97 % [facility] 07-21-2022 15:10-0400 Systolic blood pressure 117 mm[Hg] [facility] 07-21-2022 14:19-0400 Body height 167.[address] [facility] 07-21-2022 14:19-0400 Body mass index (BMI) [Ratio] 33.9 kg/m2 [facility] 07-21-2022 14:19-0400 Body weight 95.[address] [facility] 07-01-2022 15:46-0400 Body temperature 97.4 [degF] [facility] 07-01-2022 15:46-0400 Diastolic blood pressure 65 mm[Hg] [facility] 07-01-2022 15:46-0400 Heart rate 59 /min [facility] 07-01-2022 15:46-0400 Respiratory rate 14 /min [facility] 07-01-2022 15:46-0400 SaO2% (BldA) [Mass fraction] 96 % [facility] 07-01-2022 15:46-0400 Systolic blood pressure 128 mm[Hg] [facility] 07-01-2022 14:55-0400 Body height 167.[address] [facility] 07-01-2022 14:55-0400 Body mass index (BMI) [Ratio] 35.5 kg/m2 [facility] 07-01-2022 14:55-0400 Body weight 99.[address] [facility] 06-17-2022 15:42-0500 Diastolic blood pressure 64 mm[Hg] [facility] 06-17-2022 15:42-0500 Heart rate 55 /min [facility] 06-17-2022 15:42-0500 Respiratory rate 16 /min [facility] 06-17-2022 15:42-0500 Systolic blood pressure 127 mm[Hg] [facility] 06-17-2022 14:53-0500 Body height 167.[address] [facility] 06-17-2022 14:53-0500 Body temperature 97.1 [degF] [facility] 06-17-2022 14:53-0500 SaO2% (BldA) [Mass fraction] 97 % [facility] 05-12-2022 15:26-0500 Body temperature 97.5 [degF] [facility] 05-12-2022 15:26-0500 Diastolic blood pressure 58 mm[Hg] [facility] 05-12-2022 15:26-0500 Heart rate 58 /min [facility] 05-12-2022 15:26-0500 Respiratory rate 16 /min [facility] 05-12-2022 15:26-0500 SaO2% (BldA) [Mass fraction] 97 % [facility] 05-12-2022 15:26-0500 Systolic blood pressure 116 mm[Hg] [facility] 05-12-2022 14:38-0500 Body height 167.[address] [facility] 05-12-2022 14:38-0500 Body mass index (BMI) [Ratio] 33.9 kg/m2 [facility] 05-12-2022 14:38-0500 Body weight 95.[address] [facility] 03-21-2022 07:06-0500 Diastolic blood pressure 59 mm[Hg] [facility] 03-21-2022 07:06-0500 Heart rate 68 /min [facility] 03-21-2022 07:06-0500 Respiratory rate 15 /min [facility] 03-21-2022 07:06-0500 SaO2% (BldA) [Mass fraction] 99 % [facility] 03-21-2022 07:06-0500 Systolic blood pressure 116 mm[Hg] [facility] 03-21-2022 03:35-0500 Body height 167.[address] [facility] Work Phone: 03-21-2022 03:35-0500 Body mass index (BMI) [Ratio] 35.9 kg/m2 [facility] 03-21-2022 03:35-0500 Body temperature 96.5 [degF] [facility] 03-21-2022 03:35-[address] [facility] 01-24-2021 20:00-0400 Diastolic blood pressure 80 mm[Hg] Radha Arango Other Phone: [facility] 01-24-2021 20:00-0400 Heart rate 73 /min Radha Arango Other Phone: [facility] 01-24-2021 20:00-0400 Respiratory rate 16 /min Radha Arango Other Phone: [facility] 01-24-2021 20:00-0400 SaO2% (BldA) [Mass fraction] 98 % Radha Arango Other Phone: [facility] 01-24-2021 20:00-0400 Systolic blood pressure 148 mm[Hg] Radha Arango Other Phone: [facility] 01-24-2021 16:41-0400 Body temperature 98.78 [degF] Radha Arango Other Phone: [facility] 10-07-2016 13:15-0400 BMI (Body Mass Index) 33.43 kg/m2 Edwige Mejia RN RN [facility] Work Phone: 10-07-2016 13:15-0400 Body Temperature 98.3 [degF] Edwige Mejia RN RN [facility] Work Phone: 10-07-2016 13:15-0400 Body Temperature 98.29 [degF] Edwige Mejia RN RN [facility] Work Phone: 10-07-2016 13:15-0400 BP Diastolic 93 mm[Hg] Edwige Mejia RN RN [facility] Work Phone: 10-07-2016 13:15-0400 BP Systolic 148 mm[Hg] Edwige Mejia RN RN [facility] Work Phone: 10-07-2016 13:15-0400 BSA (Body Surface Area) 2.01 m2 Edwige Mejia RN RN [facility] Work Phone: 10-07-2016 13:15-0400 Height 166.37 cm Edwige Mejia RN RN [facility] Work Phone: 10-07-2016 13:15-0400 Pulse (Heart Rate) 66 /min Edwige Mejia RN RN [facility] Work Phone: 10-07-2016 13:15-0400 Pulse Oximetry 96 % Edwige Mejia RN RN [facility] Work Phone: 10-07-2016 13:15-0400 Respiratory Rate 18 /min Edwige Mejia RN RN [facility] Work Phone: 10-07-2016 13:15-0400 Weight 92.53 kg Edwige Mejia RN RN [facility] Work Phone: Encounters Encounter Date Encounter Type Care Provider Facility Start: 01-10-2025 [facility] Facility: [facility] Start: 12-23-2024 In-person encounter Cresencio Duarte MD Work Phone: [facility] Work Phone: Start: 12-23-2024 Visit out of hours Cresencio olivia MD [facility] [employer] [facility] Work [facility]: Start: 12-13-2024 End: 12-13-2024 Patient encounter procedure Bruce Roberson MD Work Phone: Hematology/Oncology Start: 12-13-2024 End: 12-13-2024 ambulatory Treatment Rm 12 Naseem [facility] Work Phone: Hematology/Oncology Comment on above: Hemochromatosis, her editary (Primary Dx) Start: 12-08-2024 End: 12-08-2024 ambulatory [facility] Facility:[facility] Start: 12-07-2024 End: 12-08-2024 Telephone encounter Bruce Roberson MD Work Phone: Hematology/Oncology Comment on above: Appointment Start: 11-21-2024 ambulatory [facility] Facility: [facility] Start: 11-04-2024 End: 11-04-2024 ambulatory [facility] Facility:[facility] Start: 11-03-2024 Visit out of hours Avinash browning DO Work Phone: [employer] [facility] Work Phone: Start: 11-03-2024 In-person encounter Avinash saldaña DO Work Phone: [facility] Work Phone: Start: 10-17-2024 End: 11-10-[address] Radha Arango DO [facility] Start: 10-17-2024 End: 11-10-[address] Radha Arango DO Work Phone: [facility] Start: 10-17-2024 End: 10-17-[address] Billy Duran MD -[facility] Work Phone: Start: 10-17-2024 End: 10-17-[address] Radha Arango DO Work Phone: -[facility] Start: 10-07-2024 ambulatory Radha Arango Facility: [facility] Start: 09-14-2024 End: 09-14-[address] Homero Bang MD -[facility] Work Phone: Start: 09-14-2024 End: 09-14-[address] Radha Arango DO Work Phone: [facility] Work Phone: Start: 08-09-2024 End: 08-10-2024 Telephone encounter Bruce Roberson MD Work Phone: Hematology/Oncology Comment on above: avs Start: 08-09-2024 End: 08-09-2024 Patient encounter procedure Bruce Roberson MD Work Phone: Hematology/Oncology Start: 08-09-2024 End: 08-09-2024 ambulatory Treatment 8 [facility] Work Phone: Hematology/Oncology Comment on above: Hemochromatosis, her editary (Primary Dx) Start: 08-04-2024 End: 08-04-2024 ambulatory BRUCE ROBERSON Facility:[facility] Start: 06-16-2024 End: 06-16-2024 Telephone encounter Jesica [facility] [place] Comment on above: Appointment Start: 06-10-2024 End: 06-10-2024 Telephone encounter Bruce Roberson MD Work Phone: Hematology/Oncology Comment on above: Results Start: 06-06-2024 End: 06-06-2024 ambulatory BRUCE ROBERSON Facility:[facility] Start: 06-06-2024 End: 06-06-2024 Subsequent hospital visit by physician [employer] [facility] (I-Stat/1.5t) Work Phone: Radiology Comment on above: Hereditary hemochrom atosis (HCC) [E83.110] Start: 06-03-2024 End: 06-10-2024 Discharged Recurring DrFina Bearden,Future Work Phone: Start: 06-03-2024 End: 06-10-2024 ambulatory Radha [facility] Facility:[facility] Start: 06-03-2024 End: 06-03-[address] Radha Arango DO Work Phone: [facility] Work Phone: Start: 06-03-2024 End: 06-03-2024 Patient encounter procedure Saroj Ross [facility] Start: 06-03-2024 End: 06-03-2024 ambulatory Radha [facility] Facility:[facility] Start: 05-26-2024 ambulatory [facility] Facility: [facility] Start: 05-25-2024 End: 05-26-2024 Telephone encounter Bruce Roberson MD Work Phone: Hematology/Oncology Comment on above: Patient Update Start: 05-18-2024 End: 05-18-2024 ambulatory BRUCE ROBERSON Facility:[facility] Start: 05-18-2024 End: 05-18-2024 Subsequent hospital visit by physician [facility] Work Phone: Radiology Comment on above: Hereditary hemochrom atosis (HCC) [E83.110] Start: 05-17-2024 End: 05-17-2024 Patient encounter procedure Saroj Ross [facility] Start: 05-17-2024 End: 05-17-2024 ambulatory Radha Nba Facility:[facility] Start: 05-11-2024 End: 05-11-2024 ambulatory Bruce Roberson MD Work Phone: Hematology/Oncology Comment on above: Hereditary hemochrom atosis (HCC) (Primary Dx) Start: 05-11-2024 End: 05-11-2024 Patient encounter procedure Bruce Roberson MD Work Phone: Hematology/Oncology Start: 04-25-2024 End: 04-26-2024 Telephone encounter Bruce Roberson MD Work Phone: Hematology/Oncology Comment on above: New Patient Start: 04-20-2024 End: 04-20-[address] Radha Arango DO [facility] Start: 04-20-2024 End: 04-20-2024 ambulatory [facility] Facility:[facility] Start: 04-12-2024 End: 04-12-2024 Patient encounter procedure Daljit ANNE -[facility] Work Phone: Start: 04-12-2024 End: 04-12-2024 ambulatory [facility] Facility:[facility] Start: 03-26-2024 End: 03-26-2024 Emergency department patient visit Dr. Francisco Becerra MD -Emergency Department Work Phone: Start: 03-24-2024 ambulatory [facility] Facility: [facility] Start: 03-24-2024 Non-patient / Non-visit Dr. Anyi Mcgregor MD -[facility] Start: 03-24-2024 Non-patient / Non-visit Dr. Viviana Giraldo DO -[facility] Work Phone: Start: 03-24-2024 End: 03-24-2024 ambulatory [facility] Facility:[facility] Start: 03-24-2024 End: 03-24-2024 Evaluation and management of inpatient Dr. Viviana Giraldo DO -Progressive Care Unit Work Phone: Start: 03-23-2024 End: 03-23-[address] Radha Arango DO -Medical Out Work Phone: Start: 03-23-2024 End: 03-23-2024 ambulatory [facility] Facility:[facility] Start: 03-18-2024 End: 03-18-[address] Radha Bearden [place] Work Phone: Start: 03-18-2024 End: 03-18-2024 ambulatory Radha Nba Facility:[facility] Start: 03-13-2024 ambulatory [facility] Facility: [facility] Start: 02-23-2024 ambulatory [facility] Facility: [facility] Start: 02-19-2024 End: 03-12-[address] Radha Arango -Laboratory, [facility] Work Phone: Start: 02-19-2024 End: 03-12-2024 ambulatory Radha Arango Facility:[facility] Start: 01-19-2024 End: 01-19-2024 ambulatory Radha Arango Facility:[facility] Start: 07-27-2023 End: 07-27-[address] Radha Arango Work Phone: [facility] Work Phone: Start: 07-27-2023 End: 07-27-[address] Radha Arango Work Phone: [facility] Saroj Gonzalez [facility] Start: 07-07-2023 End: 07-07-[address] Radha Arango Work Phone: [facility] Work Phone: Start: 07-07-2023 End: 07-07-[address] [facility] Start: 06-09-2023 End: 06-09-[address] Radha Arango Work Phone: [facility] Work Phone: Start: 06-09-2023 End: 06-09-[address] Radha Arango Work Phone: [facility]-Medical Out Work Phone: Start: 06-08-2023 End: 06-08-[address] Radha Arango Work Phone: [facility] Work Phone: Start: 06-08-2023 End: 06-08-[address] Radha Arango Work Phone: [facility] Saroj Gonzalez [facility] Start: 05-06-2023 Non-patient / Non-visit Dr. Emelyn Arango Work Phone: [facility] Start: 05-06-2023 End: 05-06-[address] Radha Arango Work Phone: [facility] Work Phone: Start: 05-06-2023 End: 05-06-[address] Radha Arango Work Phone: [facility]-Radiology, [facility] Work Phone: Start: 05-04-2023 End: 05-04-[address] Radha Arango Work Phone: [facility] Work Phone: Start: 05-04-2023 End: 05-04-[address] Radha Arango Work Phone: [facility]-Laboratory, [facility] Start: 04-08-2023 End: 04-08-2023 ambulatory [facility] Work Phone: Start: 04-08-2023 End: 04-08-2023 Patient encounter procedure [facility]-LaboratorySaroj Narcisoblanca [facility] Start: 04-02-2023 End: 04-02-2023 ambulatory [facility] Work Phone: Start: 04-02-2023 End: 04-02-2023 Patient encounter procedure [facility]atory, [facility] Start: 03-09-2023 End: 03-09-2023 ambulatory [facility] Work Phone: Start: 03-09-2023 End: 03-09-2023 Patient encounter procedure [facility]atory[facility] Start: 02-13-2023 End: 02-13-2023 ambulatory [facility] Work Phone: Start: 02-13-2023 End: 02-13-2023 Patient encounter procedure [facility]-Laboratory,Pranay trejo Work Phone: Start: 02-10-2023 End: 02-10-2023 ambulatory [facility] Work Phone: Start: 02-10-2023 End: 02-10-2023 Patient encounter procedure [facility]-Medical Out Work Phone: Start: 01-26-2023 End: 01-26-2023 ambulatory [facility] Work Phone: Start: 01-26-2023 End: 01-26-2023 [facility] Start: 01-12-2023 End: 01-12-2023 [facility] Start: 12-16-2022 End: 12-16-2022 ambulatory [facility] Work Phone: Start: 12-16-2022 End: 12-16-2022 Patient encounter procedure [facility]-Outpatient Bone Densitometry Work Phone: Start: 12-09-2022 End: 12-09-2022 ambulatory [facility] Work Phone: Start: 12-09-2022 End: 12-09-2022 [facility] Start: 11-06-2022 End: 11-10-2022 ambulatory [facility] Work Phone: Start: 11-06-2022 End: 11-10-2022 Discharged Recurring [facility]-Laboratory, [place] Work Phone: Start: 10-15-2022 End: 10-15-2022 ambulatory [facility] Work Phone: Start: 10-15-2022 End: 10-15-2022 Patient encounter procedure [facility]-Laboratory, [facility] Start: 09-16-2022 End: 09-16-2022 ambulatory [facility] Work Phone: Start: 09-16-2022 End: 09-16-2022 Patient encounter procedure [facility] Start: 08-25-2022 End: 08-25-2022 Patient encounter procedure [facility]-Laboratory, Saroj Gonzalez [facility] Start: 08-04-2022 End: 08-04-2022 ambulatory [facility] Work Phone: Start: 08-04-2022 End: 08-04-2022 Patient encounter procedure [facility] Start: 08-01-2022 End: 08-01-2022 ambulatory [facility] Work Phone: Start: 08-01-2022 End: 08-01-2022 Patient encounter procedure [facility]-Laboratory, Saroj Gonzalez [facility] Start: 07-21-2022 End: 07-21-2022 ambulatory [facility] Work Phone: Start: 07-21-2022 End: 07-21-2022 Patient encounter procedure [facility] Start: 07-18-2022 End: 07-18-2022 ambulatory [facility] Work Phone: Start: 07-18-2022 End: 07-18-2022 Patient encounter procedure [facility]-Laboratory, Saroj Gonzalez [facility] Start: 07-01-2022 End: 07-01-2022 ambulatory [facility] Work Phone: Start: 07-01-2022 End: 07-01-2022 Patient encounter procedure [facility] Out Start: 06-17-2022 End: 06-17-2022 ambulatory [facility] Work Phone: Start: 06-17-2022 End: 06-17-2022 Patient encounter procedure [facility] Out Start: 06-09-2022 End: 06-09-2022 ambulatory [facility] Work Phone: Start: 06-09-2022 End: 06-09-2022 Patient encounter procedure [facility]-LaboratorySaroj [facility] Start: 06-05-2022 ambulatory [facility] Facility:[facility] Start: 05-26-2022 ambulatory RADHA Bejarano lity:[facility] Start: 05-12-2022 End: 05-12-2022 ambulatory [facility] Work Phone: Start: 05-12-2022 End: 05-12-2022 Patient encounter procedure [facility] Start: 05-05-2022 End: 05-05-2022 ambulatory [facility] Work Phone: Start: 05-05-2022 End: 05-05-2022 [facility] Start: 04-18-2022 Registered Recurring [facility]-Physical Therapy Start: 03-21-2022 End: 03-21-2022 [facility] Start: 02-28-2022 Registered Recurring [facility]-Physical Therapy Start: 11-25-2021 End: 11-25-2021 Patient encounter procedure [facility] Start: 09-23-2021 End: 09-23-2021 Patient encounter procedure [facility] Start: 01-24-2021 End: 01-24-2021 Emergency department patient visit Radha Segovia [facility] Emergency 12 Procedures Date Procedure Procedure Detail Performing Clinician Start: 12-23-2024 Blood pressure withi n normal parameters - no follow-up required Cresencio Simms MD Work Phone: Start: 12-23-2024 BMI documented as ab ove normal parameters - follow-up documented Cresencio Simms MD Work Phone: Start: 12-23-2024 Current tobacco non- user cad cap copd pv dm Cresencio Simms MD Work Phone: Start: 12-23-2024 Documentation of cur rent medications Cresencio Simms MD Work Phone: Start: 12-23-2024 Pain assessment docu mented as positive - follow-up documented Cresencio Simms MD Work Phone: Start: 11-03-2024 Blood pressure outsi de of normal parameters - follow-up not documented Avinash Andrews DO Work Phone: Start: 11-03-2024 BMI outside of ann l parameters - no follow-up plan/reason not given Avinash Andrews DO Work Phone: Start: 11-03-2024 Current tobacco non- user cad cap copd pv dm Avinash Andrews [place] Work Phone: Start: 11-03-2024 Documentation of cur rent medications Avinash Andrews DO Work Phone: Start: 11-03-2024 Pain assessment not documented - reason not given Avinash Andrews DO Work Phone: Start: 10-17-2024 Follicle stimulating hormone measurement Dr. Radha Arango DO Work Phone: Comment on above: FEMALE:Follicular: 1 .4 - 18.1 mIU/mLMidcycle: 3.4 - 33.4 mIU/mLLuteal: 1.5 - 9.1 mIU/mLPost Menopause: 23.0 - 116.3 mIU/mLMALE: 1.4 - 18.1 mIU/mL Start: 10-17-[address] Radha Arango DO Work Phone: Start: 10-17-2024 Vitamin D, 25-hydrox y measurement Dr. Radha Arango DO Work Phone: Comment on above: Vitamin D StatusDefi ciency: <20 ng/mL (50nmol/L)Insufficiency: 20-30 ng/mL (50-75 nmol/L)Sufficiency: 30-100 ng/mL (75-250 nmol/L)Toxicity: >100 ng/mL (>250 nmol/L) Start: 06-03-2024 Measurement of renal function Dr. Radha Arango DO Work Phone: Comment on above: GFR Calc Start: 05-18-2024 Us abdominal real ti me w/image limited Bruce Roberson MD Work Phone: Start: 05-17-2024 Plain X-ray abdomen Dr. Radha Arango DO Work Phone: Start: 05-17-2024 Measurement of renal function Dr. Radha Arango DO Work Phone: Comment on above: GFR Calc Start: 03-26-2024 Measurement of occul t blood in stool specimen using immunoassay Dr. Radha Arango DO Work Phone: Start: 03-24-2024 MRI of brain without contrast Dr. Radha Arango DO Work Phone: Start: 03-24-2024 Plain chest X-ray Dr. Sajan Arango DO Work Phone: Start: 03-24-2024 CT angiography of he ad and neck Dr. Radha Arango DO Work Phone: Start: 03-24-2024 CT of head without contrast Dr. Radha Arango DO Work Phone: Start: 05-06-2023 MRI arthrography of hip Dr. Radha Arango Work Phone: Start: 05-06-2023 MRI of joint of lowe r extremity Dr. Radha Arango Work Phone: Start: 12-16-2022 Dual energy X-ray absorptiometry Start: 03-21-2022 CT of head without contrast Start: 03-21-2022 Plain chest X-ray Start: 04-11-2016 Lipid 1996 panel - S johnson or Plasma Bruce Roberson MD Work Phone: Start: 05-07-2007 Colonoscopy Bruce malin MD Work Phone: SARS-CoV-2 & FLU Ant igen (Rapid) SARS-CoV-2 & FLU Ant igen (Rapid) Plan of Treatment Date Care Activity Detail Author Start: 12-05-2031 RSV Vaccine (1 - 1-d ose 75+ series) RSV Vaccine (1 - 1-dose 75+ series) [facility] Start: 03-06-2025 End: 03-06-2025 ambulatory Hematology/Oncology Comment on above: 3 MO OV/LAB 03/02/?P HLEBO TODAY* Q3MO PHLEBO?/OV CHRISTIAN Y* Start: 03-02-2025 End: 03-02-2025 ambulatory 03/02/2025 8:00 AM EST Results Only [facility] [address] [place] [address] CBC/FERRITIN [facility] Comment on above: CBC/FERRITIN Start: 02-15-2025 End: 05-17-2025 CBC W Auto Differential panel - Blood COMPLETE BLOOD COUNT AND DIFFERENTIAL Lab Routine Hemochromatosis, hereditary Expected: 02/15/2025 (Approximate), Expires: 05/17/2025 [facility] Comment on above: Expected: 02/15/2025 (Approximate), Expires: 05/17/2025 Start: 02-15-2025 End: 05-17-2025 Ferritin [Mass/volume] in Serum or Plasma FERRITIN Lab Routine Hemochromatosis, hereditary Expected: 02/15/2025 (Approximate), Expires: 05/17/2025 [facility] Work Phone: Comment on above: Expected: 02/15/2025 (Approximate), Expires: 05/17/2025 Start: 02-01-2025 End: 02-01-2025 ambulatory 02/01/2025 1:20 PM EDT Visit (SP) Office Hematology/Oncology [address] [place] [address] Bruce Roberson MD [address] [place] [address] 3 MO OV/LAB 12/08/?PHLEBO TODAY* Hematology/Oncology Comment on above: 3 MO OV/LAB 12/08/?PH JACK TODAY* Start: 01-04-2025 End: 01-04-2025 ambulatory 01/04/2025 2:00 PM EDT Infusion Center Hematology/Oncology [address] [place] [address] Q3MO PHLEBO?/OV EARLY* Hematology/Oncology Comment on above: Q3MO PHLEBO?/OV CHRISTIAN Y* Start: 12-13-2024 End: 12-13-2024 ambulatory Hematology/Oncology Comment on above: 3 MO OV/LAB 12/08/?PH JACK TODAY* Q3MO PHLEBO?/OV CHRISTIAN Y* Start: 12-12-2024 Influenza vaccination [facility] Start: 11-07-2024 End: 11-07-2024 ambulatory Hematology/Oncology Comment on above: 3 MO OV/LAB 11/03/?PH JACK TODAY* Q3MO PHLEBO?/OV CHRISTIAN Y* Start: 11-03-2024 End: 11-03-2024 ambulatory 11/03/2024 8:00 AM EDT Results [facility] [address] [place] [address] CBC/FERRITIN [facility] Comment on above: CBC/FERRITIN Start: 08-09-2024 End: 11-08-2024 [id number] [Mass/volume] in Serum or Plasma ALPHA FETOPROTEIN Lab Routine Hereditary hemochromatosis (HCC) Expected: 08/09/2024, Expires: 11/08/2024 [facility] Comment on above: Expected: 08/09/2024 , Expires: 11/08/2024 Start: 08-09-2024 End: 08-09-2024 ambulatory Hematology/Oncology Comment on above: 3 MO OV LABS 08/04/ U S 2/5* PHLEBO?* Start: 08-04-2024 End: 08-04-2024 ambulatory 08/04/2024 1:00 PM EDT Results Only [facility] [address] [place] [address] CBC/FERRITIN/LIVER PANEL* [facility] Comment on above: CBC/FERRITIN/LIVER P FIGUEROA* Start: 07-18-2024 End: 07-18-2024 Patient encounter procedure 07/18/2024 1:00 PM EDT [facility] [email or web address] [place] [address] Avtar Owusu [place] [email or web address] [place] [address] Mid and Lower back [facility] Comment on above: Mid and Lower back Start: 06-06-2024 End: 06-06-2024 Patient encounter procedure 06/06/2024 11:30 AM EST Appointment Radiology [address] [place] [address] Dx: Hereditary hemochromatosis (HCC) [E83.110]; Liver lesion [K76.9] Radiology Comment on above: Dx: Hereditary hemoc hromatosis (HCC) [E83.110]; Liver lesion [K76.9] Start: 05-18-2024 End: 05-18-2024 Patient encounter procedure 05/18/2024 1:00 PM EST Appointment Radiology [address] [place] [address] Hereditary hemochromatosis (HCC) [E83.110] Radiology Comment on above: Hereditary hemochrom atosis (HCC) [E83.110] Start: 05-11-2024 End: 05-11-2024 ambulatory 05/11/2024 10:30 AM EST Visit (SP) Office Hematology/Oncology [address] [place] [address] [place] [address] [place] [address] 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/REF BY RADHA ARANGO* 1st avail Hematology/Oncology Comment on above: 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/R EF BY RADHA ARANGO* 1st avail Start: 04-13-2024 Advance Directive Discussion Advance Directive Discussion [facility] Start: 04-13-2024 Medicare Advantage Annual Wellness Visit Medicare Advantage Annual Wellness Visit [facility] Start: 03-26-2024 [facility] Start: 03-24-2024 Patient discharge [facility] Start: 03-24-2024 Admission procedure [facility] Start: 03-24-2024 Following clinical pathway protocol [facility] Start: 03-24-2024 Aspiration precautions [facility] Start: 03-24-2024 Assessment of risk o f venous thromboembolism [facility] Start: 03-24-2024 Cardiac monitoring [facility] Start: 03-24-2024 Catheterization of vein [facility] Start: 03-24-2024 Consultation [facility] Start: 03-24-2024 Continuous pulse oximetry [facility] Start: 03-24-2024 Elevation of head of bed [facility] Start: 03-24-2024 Exercises [facility] Start: 03-24-2024 Incentive spirometry [facility] Start: 03-24-2024 Insertion of cathete r into peripheral vein [facility] Start: 03-24-2024 Measuring intake and output [facility] Start: 03-24-2024 Notification of physician [facility] Start: 03-24-2024 Oxygen therapy [facility] Start: 03-24-2024 Patient referral to dietitian [facility] Start: 03-24-2024 Providing care accor ding to standard [facility] Start: 03-24-2024 Referral to occupati onal therapist [facility] Start: 03-24-2024 Referral to service [facility] Start: 03-24-2024 Speech therapy assessment [facility] Start: 03-24-2024 Telemedicine consultation with patient [facility] Start: 03-24-2024 Tobacco use cessatio n education [facility] Start: 03-24-2024 End: 03-24-2024 [facility] Start: 03-24-2024 Vital signs measurements [facility] Start: 03-24-2024 Admission procedure [facility] Start: 12-13-2023 Covid-19 Vaccine ( season) Covid-19 Vaccine ( season) [facility] Start: 12-13-2023 Influenza vaccination Influenza Vacc ine (#1) [facility] Start: 02-10-2023 Iv infusion hydratio n initial 31 min-1 hour HYDRATION IV INFUSION [facility] Start: 12-16-2022 Iv infusion therapy/prophylaxis /dx 1st to 1 hr THER/PROPH/DIAG IV INF [facility] Start: 12-16-2022 Dual energy X-ray absorptiometry Dexa Bone Density Study [facility] Start: 12-16-2022 DXA Bone [Mass/Area] Bone density [facility] Start: 09-16-2022 Iv infusion hydratio n initial 31 min-1 hour HYDRATION IV INFUSION [facility] Start: 08-04-2022 Iv infusion therapy/prophylaxis /dx 1st to 1 hr THER/PROPH/DIAG IV INF [facility] Start: 07-21-2022 Iv infusion hydratio n initial 31 min-1 hour HYDRATION IV INFUSION [facility] Start: 07-01-2022 Iv infusion therapy/prophylaxis /dx 1st to 1 hr THER/PROPH/DIAG IV INF [facility] Start: 03-21-2022 [facility] Start: 04-11-2021 Lipid panel Lipid Screening [facility] Start: 04-11-2019 Diabetes Screening Diabetes Screenin g [facility] Start: 12-20-2017 Prostate specific antigen measurement Prostate Cancer Screening Discussion [facility] Start: 05-07-2017 Screening for malign ant neoplasm of colon [facility] Start: 10-13-2016 End: 10-13-2016 Appointment Appointment [facility] [employer] Work Phone: Start: 10-07-2016 End: 10-08-2016 Upper GI endoscopy, biopsy Upper gastrointestinal endoscopy; with biopsy [facility] [employer] Work Phone: Start: 12-16-2006 Screening for malign ant neoplasm of colon Fecal Occult Blood [facility] Start: 2006 Pneumococcal Vaccine : 50+ (1 of 1 - PCV) Pneumococcal Vaccine: 50+ (1 of 1 - PCV) [facility] Start: 2006 Shingrix Vaccine (1 of 2) Shingrix Vaccine (1 of 2) [facility] Start: 2001 Screening for malign ant neoplasm of colon [facility] Start: 12-05-1975 Urine microalbumin profile DTaP,Tdap,Td Vaccine (1 - Tdap) [facility] Start: 1974 Anxiety Screening Anxiety Screening [facility] Start: 1974 Depression Screening Depression Scre ening [facility] End: 05-11-2025 CBC W Auto Differential panel - Blood COMPLETE BLOOD COUNT AND DIFFERENTIAL Lab Routine Hereditary hemochromatosis (HCC) Every 3 months for 4 Occurrences starting 05/11/2024 until 05/11/2025 [facility] Work Phone: Comment on above: Every 3 months for 4 Occurrences starting 05/11/2024 until 05/11/2025 Cholesterol [Mass/volume] in Serum or Plasma [facility] Cholesterol in HDL [Mass/volume] in Serum or Plasma [facility] Cholesterol in LDL [Mass/volume] in Serum or Plasma [facility] End: 05-11-2025 Ferritin [Mass/volume] in Serum or Plasma FERRITIN Lab Routine Hereditary hemochromatosis (HCC) Every 3 months for 4 Occurrences starting 05/11/2024 until 05/11/2025 [facility] Comment on above: Every 3 months for 4 Occurrences starting 05/11/2024 until 05/11/2025 Follitropin and Lutr opin panel [Units/volume] - Serum or Plasma [facility] End: 05-11-2025 Hepatic function 2000 panel - Serum or Plasma HEPATIC FUNCTION [facility] Lab Routine Hereditary hemochromatosis (HCC) Every 3 months for 4 Occurrences starting 05/11/2024 until 05/11/2025 [facility] Comment on above: Every 3 months for 4 Occurrences starting 05/11/2024 until 05/11/2025 End: 06-25-2025 MR Liver WO and W contrast IV MRI LIVER WO/W IVCON Radiology Routine Hereditary hemochromatosis (HCC) Liver lesion 1 Occurrences starting 05/26/2024 until 06/25/2025 [facility] Work Phone: Comment on above: 1 Occurrences starti ng 05/26/2024 until 06/25/2025 MR Liver WO and W contrast IV MRI LIVER WO/W IVCON Radiology Routine Hereditary hemochromatosis (HCC) Liver lesion 06/06/2024 12:[address] [facility] Work Phone: Parathyroid hormone measurement [facility] Patient Education [facility] Work Phone: Patient referral [facility] Work Phone: Testosterone Free [Mass/volume] in Serum or Plasma [facility] Testosterone measurement [facility] Testosterone measurement [facility] Thyroid stimulating hormone measurement [facility] Triglycerides measurement [facility] End: 06-10-2025 US Abdomen RUQ US ABD RIGHT UPPER QUADRANT Radiology Routine Hereditary hemochromatosis (HCC) 1 Occurrences starting 05/11/2024 until 06/10/2025 [facility] Comment on above: 1 Occurrences starti ng 05/11/2024 until 06/10/2025 Vitamin D, 25-hydrox y measurement [facility] VLDL cholesterol measurement [facility] Immunizations Immunization Date Immunization Notes Care Provider Jurgen moore 01-20-2014 influenza, injectabl e, quadrivalent, preservative free Dr. Radha Arango DO Work Phone: [facility] 01-20-2014 influenza, seasonal, injectable Bruce Roberson MD Work Phone: [facility] Work Phone: 01-20-2014 influenza virus vaccine, unspecified formulation Bruce Roberson MD Work Phone: [facility] 02-19-2011 influenza virus vaccine, unspecified formulation rBuce Roberson MD Work Phone: [facility] 02-21-2010 influenza virus vaccine, unspecified formulation Bruce Roberson MD Work Phone: [facility] 02-23-2009 influenza virus vaccine, unspecified formulation Bruce Roberson MD Work Phone: [facility] 02-09-2007 influenza virus vaccine, unspecified formulation Bruce Roberson MD Work Phone: [facility] Work Phone: Payers Date Payer Category Payer Medicare MMO MEDICARE MMO MEDADVANTAGE O [id number] 2024-Present [phone] [address] [place] [address] [facility] [id number] 2024 Medicare (Managed Care) MMO YESI DVANTAGE HMO [id number] 2024 Self-pay [id number] 2023 Unknown [id number] 2016 Unknown [id number] 1955 Unknown [id number] [id number] .356 1956 Unknown [id number] 2.16840.1.299502.3.579.2 .356 1955 Unknown [id number] 2.840.1.914642.3.579.2 .594 1955 Unknown [id number] 2.840.1.124791.3.579.2 .594 Unknown [employer] Medicare MEDICARE PART A B [id number] Private Health Insurance [id number] Unknown [id number] Unknown [id number] 2.16.840.1.309654.3.579.2 .462 Unknown [id number] 2.16.840.1.902054.3.579.2 .462 Unknown [id number] 2.16.840.1.206061.3.579.2 .462 Unknown [id number] 2.16.840.1.445769.3.579.2 .462 Unknown [id number] 2.16840.1.016540.3.579.2 .462 Unknown [id number] 2.16.840.1.396719.3.579.2 .462 Unknown [id number] 2.16.840.1.947996.3.579.2 .462 Unknown [id number] 2.16.840.1.682583.3.579.2 .462 Unknown [id number] 2.16.840.1.666161.3.579.2 .462 Unknown [id number] 2.16.840.1.680791.3.579.2 .462 Unknown [id number] 2.16.840.1.388992.3.579.2 .462 Unknown [id number] 2.16.840.1.711974.3.579.2 .462 Unknown [id number] 2.16.840.1.933054.3.579.2 .462 Unknown [id number] 2.16840.1.050039.3.579.2 .462 Unknown [id number] 2.16.840.1.100456.3.579.2 .462 Unknown [id number] 2.16.840.1.179138.3.579.2 .462 Unknown [id number] 2.16.840.1.252722.3.579.2 .462 Unknown [id number] 2.16.840.1.974257.3.579.2 .462 Unknown [id number] 2.16840.1.005462.3.579.2 .462 Unknown [id number] 2.16840.1.365969.3.579.2 .462 Unknown [id number] 2.16840.1.793454.3.579.2 .462 Unknown [id number] 2.16840.1.240697.3.579.2 .462 Social History Date Type Detail Facility [facility] Start: 06-07-2018 End: 03-21-2022 Tobacco smoking consumption unknown [facility] Start: 1955 Sex Assigned At Male [facility] Start: 04-12-2024 End: 04-12-2024 Tobacco smoking status NHIS Never smoked tobacco [facility] Start: 11-27-2021 End: 12-13-2024 Alcoholic beverage intake Current non-drinker of alcohol (finding) [facility] Start: 1955 Sex assigned at Not on file [facility] Start: 05-11-2024 End: 12-23-2024 Gender identity Not on file [facility] Start: 05-11-2024 End: 05-18-2024 History of Social function [facility] Start: 03-14-2012 National Score (1-100), lower number is lower risk 47 [facility] Start: 06-16-2024 Sex Male (finding) [facility] Goals Date Patient Goal Desired Activity /State Functional Status Date Assessment Result Facility 03-24-2024 Functional status Activity Abili ty Independent;Standby Assist [facility] Work Phone: 11-15-2014 Are you deaf, or do you have serious difficulty hearing No 11/15/2014 3:08 PM EDT Terra Lamas LPN No [facility] 11-15-2014 Are you blind, or do you have serious difficulty seeing, even when wearing glasses No 11/15/2014 3:08 PM Terra Up LPN No [facility] 11-15-2014 Do you have serious difficulty walking or climbing stairs No 11/15/2014 3:08 PM WAQAST Terra Lamas LPN No [facility] 11-15-2014 Do you have difficul ty dressing or bathing No 11/15/2014 3:08 PM WAQAST Terra Lamas LPN No [facility] 11-15-2014 Because of a physica l, mental, or emotional condition, do you have difficulty doing errands alone such as visiting a physician's office or shopping No 11/15/2014 3:08 PM WAQAST Terra Lamas LPN No [facility] Mental Status Date Assessment Result Facility 03-26-2024 Cognitive function Level Of Cons ciousness Awake;Alert;Appropriate;Fol lows Commands [facility] Work Phone: 03-24-2024 Cognitive function Demonstrates ability to follow instructions/comprehend [facility] Work Phone: 03-24-2024 Cognitive function Voice/Name [facility] Work Phone: 03-23-2024 Cognitive function Awake;Alert;A ppropriate;Fol lows Commands [facility] Work Phone: 06-09-2023 Cognitive function Voice/Name [facility] Work Phone: 02-10-2023 Cognitive function Voice/Name [facility] Work Phone: 12-16-2022 Cognitive function Voice/Name [facility] Work Phone: 09-16-2022 Cognitive function Voice/Name [facility] Work Phone: 08-04-2022 Cognitive function Voice/Name [facility] Work Phone: 07-21-2022 Cognitive function Voice/Name [facility] Work Phone: 07-01-2022 Cognitive function Voice/Name [facility] Work Phone: 06-17-2022 Cognitive function Voice/Name [facility] Work Phone: 05-12-2022 Cognitive function Voice/Name [facility] Work Phone: 03-21-2022 Cognitive function Level Of Cons ciousness Awake;Alert;Appropriate;Fol lows Commands [facility] Work Phone: 11-15-2014 Because of a physica l, mental, or emotional condition, do you have serious difficulty concentrating, remembering, or making decisions No 11/15/2014 3:08 PM EDT Terra Lamas LPN No [facility] Clinical Notes 01-24-2021 to 12-13-2024 Bruce Roberson MD - 12/13/2024 10:14 AM EDTTelephone Encounter - Antonia San - 12/08/2024 8:29 AM EDTTelephone Encounter - Antonia San - 12/08/2024 8:29 AM EDT Note Date & Type Note Facility 12-13-2024 Note HNO ID: [id number] Author: BRUCE ROBERSON MD Service: ? Author Type: Physician Type: Progress Notes Filed: 12/13/2024 13:35 Note Text: (Elements copied from my note dated August 09, 2024, have been reviewed and updated where appropriate, and all reflect current assessment and medical decision making from today's encounter, December 13, 2024) HISTORY OF PRESENT ILLNESS: Alvin Brown is a 69 year old male dx with hemochromatosis dx in 2003, on basis of elevated liver enzymes, liver biopsy showed increased iron stores. Saw Dr Magallon underwent phlebotomy therapy, with good results. Was doing phlebotomy every 3 months when he last saw Dr Magallon. Switched to [facility] hematology due to insurance change, had 2 phlebotomy in 7 years with them. Here to re establish Last phlebotomy was March 23 2024. Went into atrial fibrillation afterward, passed out. 04-20-24 ferritin was 22. Now up to 94 CLINICAL IMPRESSION: Hemochromatosis RECOMMENDATION/PLAN: 1. Will try phlebotomy 250 cc every month given past difficulties with 500 cc phlebo. Written and verbal health teaching given to patient, patient verbalizes understanding and agrees with treatment plan. 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 Esophagitis, unspecified Other and unspecified hyperlipidemia Hyperlipidemia Other osteoporosis Phlebitis and thrombophlebitis of femoral vein (deep) (superficial) (HCC) Stroke (HCC) PAST SURGICAL HISTORY Procedure Laterality Date COLONOSCOPY FLX DX W/COLLJ SPEC WHEN PFRMD 05/07/2007 COLONOSCOPY FLX DX W/COLLJ SPEC WHEN PFRMD 06/10/2011 Colonoscopy EGD TRANSORAL BIOPSY SINGLE/MULTIPLE 12/17/2006 ESOPHAGOGASTRODUODENOSCOPY TRANSORAL DIAGNOSTIC 09/02/2013 EGD ESOPHAGOGASTRODUODENOSCOPY TRANSORAL DIAGNOSTIC 09/02/2013 EGD LAPAROSCOPY SURG CHOLECYSTECTOMY 01/17/2005 Cholecystectomy, lap PAST SURGICAL HISTORY OF 01/17/2005 Liver biopsy PAST SURGICAL HISTORY OF 04/13/1988 nasal surgery PAST SURGICAL HISTORY OF Labrum right hip repair FAMILY HISTORY Problem Relation Age of Onset Hypertension Father Hypertension Mother Diabetes Brother Diabetes Sister Coronary Artery Disease Paternal Grandfather Developmental problem Daughter Diabetes Son Emphysema Child Genitourinary () Maternal Aunt Cancer Mother lung cancer COPD Father Social History Tobacco Use Smoking status: Never Smokeless tobacco: Never Substance Use Topics Alcohol use: No Drug use: No ALLERGIES: ALLERGIES Allergen Reactions Tetanus Vaccines An* Rash CURRENT OUTPATIENT MEDICATIONS: cholecalciferol (VITAMIN D-3) 400 unit tab Take 400 Units by mouth once daily. rosuvastatin (CRESTOR) 10 mg tablet Take 10 mg by mouth once daily. dilTIAZem (CARDIZEM) 120 mg tablet Take 120 mg by mouth once daily. VITAMIN K2 ORAL Take 1 tablet by mouth once daily. ZINC ORAL Take 1 tablet by mouth once daily. CALCIUM ORAL Take 1 tablet by mouth once daily. ascorbic acid (VITAMIN C ORAL) Take 1 tablet by mouth once daily. MAGNESIUM ORAL Take 1 tablet by mouth two times a day. folic acid 1 mg tablet Take 1 tablet by mouth once daily. meloxicam (MOBIC) 15 mg tablet Take 1 tablet by mouth once daily. Take with food. lidocaine (LIDODERM) 5 %(700 mg/patch) Apply 1 Patch as directed once daily as needed. miscellaneous medical supply(COMPRESSION STOCKINGS) 20-30 cm. H20 apixaban (ELIQUIS) 5 mg tab(s) Take 5 mg by mouth two times a day. (Patient not taking: Reported on 12/13/2024) azithromycin (ZITHROMAX) 250 mg tablet Take 1 tablet by mouth once daily. cholecalciferol (VITAMIN D3) 1,000 unit tab Take 1,000 Units by mouth once daily. methocarbamol 500 mg tablet Take 1 tablet by mouth three times daily as needed (muscle spasm). aspirin(ASPIR-81 81 MG TAB) Take one(1) tablet daily. Omeprazole Magnesium (PRILOSEC OTC) 20 mg ORAL TbEC Take one(1) tablet two(2) times daily. REVIEW OF SYSTEMS: GENERAL: No fever, night sweats, weight loss or malaise. All other reviewed and negative other than HPI. PHYSICAL EXAMINATION: VITAL SIGNS: BP 127/82 Pulse 75 Temp (Src) 97.7 (Temporal) Wt 197 lb 8 oz (89.6kg) SpO2 96% GENERAL APPEARANCE: Well appearing, in no acute distress, alert and oriented x3, well-hydrated, well nourished. I spent a total of 20 minutes on the date of the service which included preparing to see the patient, [id number] patient care, completing clinical documentation, obtaining and/or reviewing separately obtained history, counseling and educating the patient/family/caregiver, ordering medications, tests, or procedures, independently interpreting results (not separately reported), and communicating results to the patient/family/caregiver. Electronically Signed: Bruce Roberson MD December 13, 2024 [facility] 12-13-2024 History of Presen t illness Narrative (Elements copied from my note dated August 09, 2024, have been reviewed and updated where appropriate, and all reflect current assessment and medical decision making from today's encounter, December 13, 2024) HISTORY OF PRESENT ILLNESS: Alvin Brown is a 69 year old male dx with hemochromatosis dx in 2003, on basis of elevated liver enzymes, liver biopsy showed increased iron stores. Saw Dr Magallon underwent phlebotomy therapy, with good results. Was doing phlebotomy every 3 months when he last saw Dr Magallon. Switched to [facility] hematology due to insurance change, had 2 phlebotomy in 7 years with them. Here to re establish Last phlebotomy was March 23 2024. Went into atrial fibrillation afterward, passed out. 04-20-24 ferritin was 22. Now up to 94 CLINICAL IMPRESSION: Hemochromatosis RECOMMENDATION/PLAN: 1. Will try phlebotomy 250 cc every month given past difficulties with 500 cc phlebo. Written and verbal health teaching given to patient, patient verbalizes understanding and agrees with treatment plan. 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 Esophagitis, unspecified Other and unspecified hyperlipidemia Hyperlipidemia Other osteoporosis Phlebitis and thrombophlebitis of femoral vein (deep) (superficial) (HCC) Stroke (HCC) PAST SURGICAL HISTORY Procedure Laterality Date COLONOSCOPY FLX DX W/COLLJ SPEC WHEN PFRMD 05/07/2007 COLONOSCOPY FLX DX W/COLLJ SPEC WHEN PFRMD 06/10/2011 Colonoscopy EGD TRANSORAL BIOPSY SINGLE/MULTIPLE 12/17/2006 ESOPHAGOGASTRODUODENOSCOPY TRANSORAL DIAGNOSTIC 09/02/2013 EGD ESOPHAGOGASTRODUODENOSCOPY TRANSORAL DIAGNOSTIC 09/02/2013 EGD LAPAROSCOPY SURG CHOLECYSTECTOMY 01/17/2005 Cholecystectomy, lap PAST SURGICAL HISTORY OF 01/17/2005 Liver biopsy PAST SURGICAL HISTORY OF 04/13/1988 nasal surgery PAST SURGICAL HISTORY OF Labrum right hip repair FAMILY HISTORY Problem Relation Age of Onset Hypertension Father Hypertension Mother Diabetes Brother Diabetes Sister Coronary Artery Disease Paternal Grandfather Developmental problem Daughter Diabetes Son Emphysema Child Genitourinary () Maternal Aunt Cancer Mother lung cancer COPD Father Social History Tobacco Use Smoking status: Never Smokeless tobacco: Never Substance Use Topics Alcohol use: No Drug use: No ALLERGIES: ALLERGIES Allergen Reactions Tetanus Vaccines An* Rash CURRENT OUTPATIENT MEDICATIONS: cholecalciferol (VITAMIN D-3) 400 unit tab Take 400 Units by mouth once daily. rosuvastatin (CRESTOR) 10 mg tablet Take 10 mg by mouth once daily. dilTIAZem (CARDIZEM) 120 mg tablet Take 120 mg by mouth once daily. VITAMIN K2 ORAL Take 1 tablet by mouth once daily. ZINC ORAL Take 1 tablet by mouth once daily. CALCIUM ORAL Take 1 tablet by mouth once daily. ascorbic acid (VITAMIN C ORAL) Take 1 tablet by mouth once daily. MAGNESIUM ORAL Take 1 tablet by mouth two times a day. folic acid 1 mg tablet Take 1 tablet by mouth once daily. meloxicam (MOBIC) 15 mg tablet Take 1 tablet by mouth once daily. Take with food. lidocaine (LIDODERM) 5 %(700 mg/patch) Apply 1 Patch as directed once daily as needed. miscellaneous medical supply(COMPRESSION STOCKINGS) 20-30 cm. H20 apixaban (ELIQUIS) 5 mg tab(s) Take 5 mg by mouth two times a day. (Patient not taking: Reported on 12/13/2024) azithromycin (ZITHROMAX) 250 mg tablet Take 1 tablet by mouth once daily. cholecalciferol (VITAMIN D3) 1,000 unit tab Take 1,000 Units by mouth once daily. methocarbamol 500 mg tablet Take 1 tablet by mouth three times daily as needed (muscle spasm). aspirin(ASPIR-81 81 MG TAB) Take one(1) tablet daily. Omeprazole Magnesium (PRILOSEC OTC) 20 mg ORAL TbEC Take one(1) tablet two(2) times daily. REVIEW OF SYSTEMS: GENERAL: No fever, night sweats, weight loss or malaise. All other reviewed and negative other than HPI. PHYSICAL EXAMINATION: VITAL SIGNS: BP 127/82 Pulse 75 Temp (Src) 97.7 (Temporal) Wt 197 lb 8 oz (89.6kg) SpO2 96% GENERAL APPEARANCE: Well appearing, in no acute distress, alert and oriented x3, well-hydrated, well nourished. I spent a total of 20 minutes on the date of the service which included preparing to see the patient, [id number] patient care, completing clinical documentation, obtaining and/or reviewing separately obtained history, counseling and educating the patient/family/caregiver, ordering medications, tests, or procedures, independently interpreting results (not separately reported), and communicating results to the patient/family/caregiver. Electronically Signed: Bruce Roberson MD December 13, 2024 documented in this encounter [facility] 12-08-2024 Telephone encounter Note Patient completing labs today, office visit and ?phlebo rescheduled. Future appointments adjusted [facility] Work Phone: 12-08-2024 Miscellaneous Notes Patient completing labs today, office visit and ?phlebo rescheduled. Future appointments adjusted Lvm for patient to return the call. When patient calls back per nurse ov and phlebo need rescheduled due to labs need to be drawn few days prior. Please reschedule ov and phlebo. Lab can stay if patient wants to come in still. Sarah Beth Victoria documented in this encounter [facility] 12-07-2024 Telephone encounter Note Lvm for patient to return the call. When patient calls back per nurse ov and phlebo need rescheduled due to labs need to be drawn few days prior. Please reschedule ov and phlebo. Lab can stay if patient wants to come in still. Sarah Beth Victoria [facility] 09-14-2024 Evaluation note Diagnosis Onset Date Resolution Hyperlipidemia acute September 14, 2024 2:31pm Paroxysmal atrial fibrillation acute September 14, 2024 2:31pm Hemochromatosis chronic September 14, 2024 2:31pm Hypertension chronic September 14 2:31pm TIA (transient ischemic attack) suspected September 14, 2024 2:31pm Osteoporosis acute October 17 1:49pm [facility] Work Phone: 1(147) 915-652206-04-2025 Evaluation note* Diagnosis Onset Date Resolution Status Admit Date Hyperlipidemia acute September 14, 2024 2:31pm Paroxysmal atrial fibrillation acute September 14, 2024 2:31pm Hemochromatosis chronic September 14, 2024 2:31pm Hypertension chronic September 14 2:31pm TIA (transient ischemic attack) susp ected September 14, 2024 2:31pm Osteoporosis chronic October 17 1:49pm [facility] Work Phone: 1(444) 327-333004-30-2025 Telephone encounter Note* Telephone Encounter - Antonia San - 08/10/2024 11:51 AM EDT Scheduled with patient [facility] Work Phone: 1(335) 160-592604-30-2025 Miscellaneous Notes* Telephone Encounter - Antonia San - 08/10/2024 11:51 AM EDT Scheduled with patient * Telephone Encounter - Sarah Beth Victoria - 08/09/2024 4:43 PM EDT Lvm for patient to return the call to schedule Sarah Beth Victoria * Telephone Encounter - Jordyn Hong - 08/09/2024 4:34 PM EDT AVS 08/09/24 Back in 3 months with visit and phlebotomy, need ferritin and cbc drawn a few days before appoinment [facility]ordyn Hong [facility] Telephone encounter Note * Telephone Encounter - Sarah Beth Victoria - 08/09/2024 4:43 PM EDT Lvm for patient to return the call to schedule Sarah Beth Victoria [facility]04-29-2025 Telephone encounter Note* Telephone Encounter - Jordyn Hong - 08/09/2024 4:34 PM EDT AVS 08/09/24 Back in 3 months with visit and phlebotomy, need ferritin and cbc drawn a few days before appoinment Jordyn Hong [facility]04-29-2025 NoteHNO ID: [id number] Author: BRUCE ROBERSON MD Service: ? Author Type: Physician Type: Progress Notes Filed: 08/16/2024 10:00 Note Text: (Elements copied from my note dated May 11, 2024, have been reviewed and updated where appropriate, and all reflect current assessment and medical decision making from today's encounter, August 09, 2024) HISTORY OF PRESENT ILLNESS: Alvin Brown is a 68 year old male dx with hemochromatosis dx in 2003, on basis of elevated l;iver enzymes, liver biopsy showed increased iron stores. Saw Dr Magallon underwent phlebotomy therapy, with good results. Was doing phlebotomy every 3 months when he last saw Dr Magallon. Switched to [facility]ology due to insurance change, had 2 phlebotomy in 7 years with them. Here to re establish Last phlebotomy was March 23 2024. Went into atrial fibrillation afterward, passed out. 04-20-24 ferritin was 22. CLINICAL IMPRESSION: Hemochromatosis RECOMMENDATION/PLAN: 1. Follow ferritin, phlebotomy if > 50. Recheck 3 months Written and verbal health teaching given to patient, patient verbalizes understanding and agrees with treatment plan. 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 Esophagitis, unspecified Other and unspecified hyperlipidemia Hyperlipidemia Other osteoporosis Phlebitis and thrombophlebitis of femoral vein (deep) (superficial) (HCC) Stroke (HCC) PAST SURGICAL HISTORY Procedure Laterality Date COLONOSCOPY FLX DX W/COLLJ SPEC WHEN PFRMD 05/07/2007 COLONOSCOPY FLX DX W/COLLJ SPEC WHEN PFRMD 06/10/2011 Colonoscopy EGD TRANSORAL BIOPSY SINGLE/MULTIPLE 12/17/2006 ESOPHAGOGASTRODUODENOSCOPY TRANSORAL DIAGNOSTIC 09/02/2013 EGD ESOPHAGOGASTRODUODENOSCOPY TRANSORAL DIAGNOSTIC 09/02/2013 EGD LAPAROSCOPY SURG CHOLECYSTECTOMY 01/17/2005 Cholecystectomy, lap PAST SURGICAL HISTORY OF 01/17/2005 Liver biopsy PAST SURGICAL HISTORY OF 04/13/1988 nasal surgery PAST SURGICAL HISTORY OF Labrum right hip repair FAMILY HISTORY Problem Relation Age of Onset Hypertension Father Hypertension Mother Diabetes Brother Diabetes Sister Coronary Artery Disease Paternal Grandfather Developmental problem Daughter Diabetes Son Emphysema Child Genitourinary () Maternal Aunt Cancer Mother lung cancer COPD Father Social History Tobacco Use Smoking status: Never Smokeless tobacco: Never Substance Use Topics Alcohol use: No Drug use: No ALLERGIES: ALLERGIES Allergen Reactions Tetanus Vaccines An* Rash CURRENT OUTPATIENT MEDICATIONS: apixaban (ELIQUIS) 5 mg tab(s) Take 5 mg by mouth two times a day. cholecalciferol (VITAMIN D-3) 400 unit tab Take 400 Units by mouth once daily. rosuvastatin (CRESTOR) 10 mg tablet Take 10 mg by mouth once daily. dilTIAZem (CARDIZEM) 120 mg tablet Take 120 mg by mouth once daily. VITAMIN K2 ORAL Take 1 tablet by mouth once daily. ZINC ORAL Take 1 tablet by mouth once daily. CALCIUM ORAL Take 1 tablet by mouth once daily. ascorbic acid (VITAMIN C ORAL) Take 1 tablet by mouth once daily. MAGNESIUM ORAL Take 1 tablet by mouth two times a day. azithromycin (ZITHROMAX) 250 mg tablet Take 1 tablet by mouth once daily. folic acid 1 mg tablet Take 1 tablet by mouth once daily. meloxicam (MOBIC) 15 mg tablet Take 1 tablet by mouth once daily. Take with food. cholecalciferol (VITAMIN D3) 1,000 unit tab Take 1,000 Units by mouth once daily. lidocaine (LIDODERM) 5 %(700 mg/patch) Apply 1 Patch as directed once daily as needed. methocarbamol 500 mg tablet Take 1 tablet by mouth three times daily as needed (muscle spasm). aspirin(ASPIR-81 81 MG TAB) Take one(1) tablet daily. miscellaneous medical supply(COMPRESSION STOCKINGS) 20-30 cm. H20 Omeprazole Magnesium (PRILOSEC OTC) 20 mg ORAL TbEC Take one(1) tablet two(2) times daily. REVIEW OF SYSTEMS: GENERAL: No fever, night sweats, weight loss or malaise. All other reviewed and negative other than HPI. PHYSICAL EXAMINATION: VITAL SIGNS: BP 142/85 Pulse 72 Temp (Src) 98 (Temporal) Wt 196 lb (88.9kg) SpO2 98% GENERAL APPEARANCE: Well appearing, in no acute distress, alert and oriented x3, well-hydrated, well nourished. I spent a total of 20 minutes on the date of the service which included preparing to see the patient, [id number] patient care, completing clinical documentation, obtaining and/or reviewing separately obtained history, counseling and educating the patient/family/caregiver, ordering medications, tests, or procedures, independently interpreting results (not separately reported), and communicating results to the patient/family/caregiver. Electronically Signed: Bruce Roberson MD August 09[facility]04-29-2025 History of Present illness Narrative* Bruce Roberson MD - 08/09/2024 12:47 PM EDT (Elements copied from my note dated May 11, 2024, have been reviewed and updated where appropriate, and all reflect current assessment and medical decision making from today's encounter, August 09, 2024) HISTORY OF PRESENT ILLNESS: Alvin Brown is a 68 year old male dx with hemochromatosis dx in 2003, on basis of elevated l;iver enzymes, liver biopsy showed increased iron stores. Saw Dr Magallon underwent phlebotomy therapy, with good results. Was doing phlebotomy every 3 months when he last saw Dr Magallon. Switched to [facility] due to insurance change, had 2 phlebotomy in 7 years with them. Here to re establish Last phlebotomy was March 23 2024. Went into atrial fibrillation afterward, passed out. 04-20-24 ferritin was 22. CLINICAL IMPRESSION: Hemochromatosis RECOMMENDATION/PLAN: 1. Follow ferritin, phlebotomy if > 50. Recheck 3 months Written and verbal health teaching given to patient, patient verbalizes understanding and agrees with treatment plan. 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 Esophagitis, unspecified Other and unspecified hyperlipidemia Hyperlipidemia Other osteoporosis Phlebitis and thrombophlebitis of femoral vein (deep) (superficial) (HCC) Stroke (HCC) PAST SURGICAL HISTORY Procedure Laterality Date COLONOSCOPY FLX DX W/COLLJ SPEC WHEN PFRMD 05/07/2007 COLONOSCOPY FLX DX W/COLLJ SPEC WHEN PFRMD 06/10/2011 Colonoscopy EGD TRANSORAL BIOPSY SINGLE/MULTIPLE 12/17/2006 ESOPHAGOGASTRODUODENOSCOPY TRANSORAL DIAGNOSTIC 09/02/2013 EGD ESOPHAGOGASTRODUODENOSCOPY TRANSORAL DIAGNOSTIC 09/02/2013 EGD LAPAROSCOPY SURG CHOLECYSTECTOMY 01/17/2005 Cholecystectomy, lap PAST SURGICAL HISTORY OF 01/17/2005 Liver biopsy PAST SURGICAL HISTORY OF 04/13/1988 nasal surgery PAST SURGICAL HISTORY OF Labrum right hip repair FAMILY HISTORY Problem Relation Age of Onset Hypertension Father Hypertension Mother Diabetes Brother Diabetes Sister Coronary Artery Disease Paternal Grandfather Developmental problem Daughter Diabetes Son Emphysema Child Genitourinary () Maternal Aunt Cancer Mother lung cancer COPD Father Social History Tobacco Use Smoking status: Never Smokeless tobacco: Never Substance Use Topics Alcohol use: No Drug use: No ALLERGIES: ALLERGIES Allergen Reactions Tetanus Vaccines An* Rash CURRENT OUTPATIENT MEDICATIONS: apixaban (ELIQUIS) 5 mg tab(s) Take 5 mg by mouth two times a day. cholecalciferol (VITAMIN D-3) 400 unit tab Take 400 Units by mouth once daily. rosuvastatin (CRESTOR) 10 mg tablet Take 10 mg by mouth once daily. dilTIAZem (CARDIZEM) 120 mg tablet Take 120 mg by mouth once daily. VITAMIN K2 ORAL Take 1 tablet by mouth once daily. ZINC ORAL Take 1 tablet by mouth once daily. CALCIUM ORAL Take 1 tablet by mouth once daily. ascorbic acid (VITAMIN C ORAL) Take 1 tablet by mouth once daily. MAGNESIUM ORAL Take 1 tablet by mouth two times a day. azithromycin (ZITHROMAX) 250 mg tablet Take 1 tablet by mouth once daily. folic acid 1 mg tablet Take 1 tablet by mouth once daily. meloxicam (MOBIC) 15 mg tablet Take 1 tablet by mouth once daily. Take with food. cholecalciferol (VITAMIN D3) 1,000 unit tab Take 1,000 Units by mouth once daily. lidocaine (LIDODERM) 5 %(700 mg/patch) Apply 1 Patch as directed once daily as needed. methocarbamol 500 mg tablet Take 1 tablet by mouth three times daily as needed (muscle spasm). aspirin(ASPIR-81 81 MG TAB) Take one(1) tablet daily. miscellaneous medical supply(COMPRESSION STOCKINGS) 20-30 cm. H20 Omeprazole Magnesium (PRILOSEC OTC) 20 mg ORAL TbEC Take one(1) tablet two(2) times daily. REVIEW OF SYSTEMS: GENERAL: No fever, night sweats, weight loss or malaise. All other reviewed and negative other than HPI. PHYSICAL EXAMINATION: VITAL SIGNS: BP 142/85 Pulse 72 Temp (Src) 98 (Temporal) Wt 196 lb (88.9kg) SpO2 98% GENERAL APPEARANCE: Well appearing, in no acute distress, alert and oriented x3, well-hydrated, well nourished. I spent a total of 20 minutes on the date of the service which included preparing to see the patient, [id number] patient care, completing clinical documentation, obtaining and/or reviewing separately obtained history, counseling and educating the patient/family/caregiver, ordering medications, emil ts, or procedures, independently interpreting results (not separately reported), and communicating results to the patient/family/caregiver. Electronically Signed: Bruce Roberson MD August 09, 2024 [facility] [place] Telephone encounter Note * Telephone Encounter - Jesica Madison LMT - 06/16/2024 2:47 PM EST LVM for patient to call in and go over how insurance will not cover our direct care counselor Jesica Madison LMT [facility] [place]03-06-2025 Miscellaneous Notes* Telephone Encounter - Jesica Madison LMT - 06/16/2024 2:47 PM EST LVM for patient to call in and go over how insurance will not cover our direct care counselor Jesica Madison LMT documented in this encounter[facility] [place]02-28-2025 Telephone encounter Note * Telephone Encounter - Tito Berumen RN - 06/10/2024 2:[address] Roberson reviewed MRI. Lesions seen on US are benign hemangiomas. No action required and keepF/U appointments as scheduled. Anastacia Berumen RN Call to patient, aware of above. Questions answered. Anastacia Berumen RN [facility] [place] Work Phone: 1(484) 571-804002-28-2025 Miscellaneous Notes* Telephone Encounter - Tito Berumen RN - 06/10/2024 2:[address] Roberson reviewed MRI. Lesions seen on US are benign hemangiomas. No action required and keepF/U appointments as scheduled. Anastacia Berumen RN Call to patient, aware of above. Questions answered. Anastacia Berumen RN * Telephone Encounter - Antonia San - 06/10/2024 12:59 PM EST Patient requesting 06/06 MRI results documented in [facility] encounter[facility] [place] Telephone encounter Note * Telephone Encounter - Antonia San - 06/10/2024 12:59 PM EST Patient requesting 06/06 MRI results [facility] [place]02-24-2025 History of Present illness Narrative* Caroline Augustin RT(R) - 06/06/2024 11:30 AM EST Radiology Service Progress Note DATE OF SERVICE: June 06, 2024 TIME: 12:04 PM PATIENT IDENTITY VERIFICATION COMPLETED USING TWO (2) STANDARD IDENTIFIERS: Name and Date of confirmed by patient verbally. FALL SCREENING: Has the patient had 2 falls in the last year or 1 fall with injury or currently using an Ambulatory Assistive Device (Walker, Cane, Wheelchair, Crutches, etc.)? No PATIENT GENDER DATA: Assigned male at PATIENT RELEVANT IMPLANT DATA REVIEWED: Yes PATIENT PRESENTS WITH AN IMPLANTABLE OR ATTACHED TRANSMISSION ASSEMBLER: No ALLERGIES: Reviewed and unchanged CONTRAST ALLERGY: NO. EXAM: MRI - CONTRAST TYPE: GROUP II PERIPHERAL IV DATA: Ambulatory: A peripheral IV was started in the Right antecubital site with a Angio cath: 22 gauge. RADIOLOGY DEPARTMENT: MR; Exam(s) Completed: Body: Liver (routine) SIGNATURE: RT Renato(R) PATIENT NAME: Alvin Brown DATE: June 06, 2024 TIME: 12:04 PM documented in this encounterSelect [facility] [place]-2025 NoteHNO ID: [id number] Author: CAROLINE AUGUSTIN RT(R) Service: ? Author Type: Technologist Type: Progress Notes Filed: 06/06/2024 12:07 Note Text: Radiology Service Progress Note DATE OF SERVICE: June 06, 2024 TIME: 12:04 PM PATIENT IDENTITY VERIFICATION COMPLETED USING TWO (2) STANDARD IDENTIFIERS: Name and Date of confirmed by patient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 Full Sister Alive Father High blood pressure Father Bleeding disorder Father Blood clots Mother Arthritis Mother Cancer Father Mother Advance Directives No Advanced Directives Records Found Advance Directive Response Recorded Date/ Time Living Will No May 31, 019 9:29am Power of Black Top Machine Operator No May 31, 2018 9:29am Advance Directive Response Recorded Date/ Time Living Will No March 21 3:35am Power of Black Top Machine Operator No March 21, 2022 3:35am Advance Directive Response Recorded Date/ Time Living Will No March 21 4:35am Power of Black Top Machine Operator No March 21, 2022 4:35am Advance Directive Response Recorded Date/ Time Living Will No March 26, 024 7:00am Power of Black Top Machine Operator No March 26, 2024 7:00am Living Will No March 21 3:35am Power of Black Top Machine Operator No March 21, 2022 3:35am Living Will Yes March 24 024 9:15am Power of Black Top Machine Operator Yes March 24, 2024 9:15am Name of Medical Power of Black Top Machine Operator Jenae, March 24, 2024 9:15am Chief Complaint and Reason for Visit Chief Complaint RIGHT LOWER LIMB PAR ASTHESIA NERALGIA/RX HERE syncope, n/v/d Chief Complaint syncope, n/v/d RIGHT LOWER LIMB PARASTHESIA NERALGIA/RX HERE PHLEBOTOMY/HYDRATION Chief Complaint syncope, n/v/d RIGHT LOWER LIMB PARASTHESIA NERALGIA/RX HERE PHLEBOTOMY/HYDRATION PHLEBOTOMY Chief Complaint syncope, n/v/d RIGHT LOWER LIMB PARASTHESIA NERALGIA/RX HERE PHLEBOTOMY/HYDRATION PHLEBOTOMY phlebotomy Chief Complaint RIGHT LOWER LIMB PAR ASTHESIA NERALGIA/RX HERE PHLEBOTOMY/HYDRATION PHLEBOTOMY phlebotomy MEDICAL PHLEBO Chief Complaint RIGHT LOWER LIMB PAR ASTHESIA NERALGIA/RX HERE PHLEBOTOMY/HYDRATION PHLEBOTOMY phlebotomy MEDICAL PHLE[place] MEDICAL [facility]LE[facility] Chief Complaint PHLEBOTOMY/HYDRATION PHLEBOTOMY phlebotomy MEDICAL [place] MEDICAL [facility]LE[facility] Chief Complaint PHLEBOTOMY phlebotomy MEDICAL [place] MEDICAL [place] Phlebotomy Chief Complaint phlebotomy MEDICAL [place] MEDICAL [place] Phlebotomy Chief Complaint MEDICAL [place]LE[place] MEDICAL [place]LE[place] Phlebotomy S/O Chief Complaint Phlebotomy S/O Age-related osteoporosis without current pathologi Chief Complaint S/O Age-related osteoporosis without current pathologi Chief Complaint S/O Age-related osteoporosis without current pathologi Age-related osteoporosis without current pathologi Chief Complaint Age-related osteopor osis without current pathologi Age-related osteoporosis without current pathologi HEMOCHROMATOSIS Chief Complaint Age-related osteopor osis without current pathologi HEMOCHROMATOSIS RT HIP/THIGH PAIN RT HIP/THIGH PAIN Reason for Visit Pain in right thigh Chief Complaint Age-related osteopor osis without current pathologi HEMOCHROMATOSIS RT HIP/THIGH PAIN RT HIP/THIGH PAIN PHLEBOTOMY Reason for Visit Pain in right thigh Chief Complaint HEMOCHROMATOSIS RT HIP/THIGH PAIN RT HIP/THIGH PAIN PHLEBOTOMY Reason for Visit Pain in right thigh Chief Complaint RT HIP/THIGH PAIN RT HIP/THIGH PAIN PHLEBOTOMY Reason for Visit Pain in right thigh Chief Complaint Admit Date YESSENIA WAY MONTHLY/ ADD VINNY ORDER February 19, 2024 1:41pm Phlebotomy March 23, 2024 2:52pm 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, 2024 8:06am 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, 2024 8:13am syncope March 26, 2024 6:59am S/P [facility] 03/24 AFIB April 12, 2024 8:25am ADD KUB XRAY May 17, 2024 1 :56pm Reason for Visit Admit Date 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, 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 Atrial fibrillation with rapid ventricul ar response March 24, 2024 8:06am Hyperlipidemia April 12, 2024 8:25am Paroxysmal atrial fibrillation April 12, 2024 8:25am Syncope April 12, 2024 8:25am Hemochromatosis April 12, 2024 8:25am Hypertension April 12, 2024 8:25am Chief Complaint Admit Date ADD KUB XRAY May 17, 2024 1 :56pm 6 M FU September 14, 2024 2:31p m Chief Complaint Admit Date 6 M FU September 14, 2024 2:31p m Osteoporosis October 17, 2024 1:49p m Reason for Visit Admit Date Hyperlipidemia September 14, 2024 2:31p m Paroxysmal atrial fibrillation September 14, 2024 2:31pm Hemochromatosis September 14, 2024 2:31p m Hypertension September 14, 2024 2:31p m TIA (transient ischemic attack) September 2:31pm Osteoporosis October 17, 2024 1:49p m Chief Complaint Admit Date 6 M FU September 14, 2024 2:31p m Osteoporosis October 17, 2024 1:49p m ADDIT ERI DURAN 10/17/24 October 17, 2024 3:17pm Additional Source Comments <item> Privacy Markings (unrecogniz ed section and content) Section Author: Anneliese Benítez PROHIBITION ON REDISCLOSURE OF CONFIDENTIAL INFORMATION This notice accompanies a disclosure of information concerning a client made to you with the consent of such client. (unrecognized sect ion and content) No Status Records FoundNo Status Records FoundNo Status Records FoundNo Status Records FoundNo Status Records FoundNo Status Records FoundNo Status Records Found INFORMATION SOURCE (unrecogn ized section and content) DATE CREATED AUTHOR 01/30/2021 [facility] DATE CREATED AUTHOR AUTHOR'S ORGANIZ ATION 05/01/2021 [facility] DATE CREATED AUTHOR AUTHOR'S ORGANIZ ATION 06/13/2022 [facility] DATE CREATED AUTHOR AUTHOR'S ORGANIZ ATION 04/11/2024 [facility] DATE CREATED AUTHOR AUTHOR'S ORGANIZ ATION 06/18/2024 [facility] DATE CREATED AUTHOR AUTHOR'S ORGANIZ ATION 12/25/2024 [facility] DATE CREATED AUTHOR AUTHOR'S ORGANIZ ATION 12/31/2024 [facility] Goals (unrecognized section and content) Goals may be documented in a n alternate sectionGoals may be documented in an alternate sectionGoals may be documented in an alternate sectionGoals may be documented in an alternate sectionGoals may be documented in an alternate sectionGoals may be documented in an alternate sectionGoals may be documented in an alternate sectionGoals may be documented in an alternate sectionGoals may be documented in an alternate sectionGoals may be documented in an alternate sectionGoals may be documented in an alternate sectionGoals may be documented in an alternate sectionGoals may be documented in an alternate sectionGoals may be documented in an alternate sectionGoals may be documented in an alternate sectionGoals may be documented in an alternate sectionGoals may be documented in an alternate sectionGoals may be documented in an alternate sectionGoals may be documented in an alternate sectionGoals may be documented in an alternate sectionGoals may be documented in an alternate sectionGoals may be documented in an alternate sectionGoals may be documented in an alternate sectionGoals may be documented in an alternate sectionGoals may be documented in an alternate sectionGoals may be documented in an alternate sectionGoals may be documented in an alternate sectionGoals may be documented in an alternate sectionGoals may be documented in an alternate sectionGoals may be documented in an alternate sectionGoals may be documented in an alternate sectionGoals may be documented in an alternate sectionGoals may be documented in an alternate section No Information Available No Information Available Care Teams (unrecognized sec tion and content) Team Status: Active Member Role Status Dates Dr. Radha Arango , DO Family Provider Active Dr. Radha Arango DO Primary Care Provider Active Team Status: Active Member Role Status Dates Dr. Radha Arango DO Primary Care Provider Active Dr. Yonatan Velasco , DO Attending Provider, Referring P kristian Active Team Status: Inactive Member Role Status Dates Dr. Radha Arango DO Primary Care Provider Active Dr. Gabino Berg , DO Attending Provider, Emergency Pr ovider Active Team Status: Inactive Member Role Status Dates Dr. Radha Arango DO Primary Care Provider, Attendin g Provider Active Team Status: Active Member Role Status Dates Dr. Radha Arango DO Primary Care Prov ider, Attending Provider, Referring Provider Active Team Status: Inactive Member Role Status Dates Dr. Radha Arango DO Primary Care Prov ider, Attending Provider, Referring Provider Active Team Status: Active Member Role Status Dates Dr. Radha Arango DO Primary Care Provider, Attendin g Provider Active Team Status: Active Member Role Status Dates Dr. Radha Arango DO Primary Care Provider Active Dr. Spenser Steel MD Referring Provider, Other Provi rogerio Active Jeana Felipe NP-C Attending Provider Active Team Status: Active Member Role Status Dates Dr. Radha Arango DO Primary Care Provider Active Dr. Spenser Steel MD Attending Provider, Referring P rovider Active Team Status: Inactive Member Role Status Dates Dr. Radha Arango DO Primary Care Provider Active Dr. Spenser Steel MD Attending Provider Active Team Status: Inactive Member Role Status Dates Dr. Radha Arango DO Primary Care Provider Active Dr. Spenser Steel MD Attending Provider, Referring P rovider Active Chief Information Security Officer Relationship Specialty Start Date End Date Radha Arango DO [address] [place] [address] PCP - General Family Medicine 12/11/16 Chief Information Security Officer Relationship Specialty Start Date End Date Radha Arango DO [address] [place], [place] [address] PCP - General Family Medicine 12/11/16 Bruce Roberson MD [address] [place] [address] Hematology/Oncology 05/11/24 Chief Information Security Officer Relationship Specialty Start Date End Date Radha Arango DO [address] [place], [place] [id number] PCP - General Family Medicine 12/11/16 Bruce Roberson MD [address] [place] [address] Hematology/Oncology 05/11/24 Chief Information Security Officer Relationship Specialty Start Date End Date Radha Arango DO [address] [place], [place] [id number] PCP - General Family Medicine 12/11/16 Bruce Roberson MD [address] [place], [place] [address] Hematology/Oncology 05/11/24 Chief Information Security Officer Relationship Specialty Start Date End Date Radha Arango DO [address] [place] [address] PCP - General Family Medicine 12/11/16 Bruce Roberson MD [address] [place], [place] [address] Hematology/Oncology 05/11/24 Chief Information Security Officer Relationship Specialty Start Date End Date Radha Arango DO [address] [place], [place] [address] PCP - General Family Medicine 12/11/16 Bruce Roberson MD [address] [place], [place] [address] Hematology/Oncology 05/11/24 Chief Information Security Officer Relationship Specialty Start Date End Date Radha Arango DO [address] [place], [place] [address] PCP - General Family Medicine 12/11/16 Bruce Roberson MD [address] [place], [place] [address] Hematology/Oncology 05/11/24 Team Status: Active Member Role Status Dates Dr. Radha Arango DO Primary Care Provider Active Team Status: Inactive Member Role Status Dates Dr. Radha Arango DO Primary Care Provider Active Start: February 19, 2024 End: March 12, 2024 Dr. Radha Arango DO Attending Provider Active Start: February 19, 2024 End: March 12, 2024 Dr. Radha Arango DO Referring Provider Active Start: February 19, 2024 End: March 12, 2024 Team Status: Inactive Member Role Status Dates Dr. Radha Arango DO Primary Care Provider Active Start: March 18, 2024 End: March 18, 2024 Dr. Radha Arango DO Attending Provider Active Start: March 18, 2024 End: March 18, 2024 Dr. Radha Arango DO Referring Provider Active Start: March 18, 2024 End: March 18, 2024 Team Status: Inactive Member Role Status Dates Dr. Radha Arango DO Primary Care Provider Active Start: March 23, 2024 End: March 23, 2024 Dr. Radha Arango DO Attending Provider Active Start: March 23, 2024 End: March 23, 2024 Dr. Radha Arango DO Referring Provider Active Start: March 23, 2024 End: March 23, 2024 Team Status: Inactive Member Role Status Dates Dr. Radha Arango DO Primary Care Provider Active Start: March 24, 2024 End: March 24, 2024 Dr. Gabino Berg DO Emergency Provider Active Start: March 24, 2024 End: March 24, 2024 Dr. Viviana Giraldo DO Admit Provider Active Start : March 24, 2024 End: March 24, 2024 Dr. Viviana Giraldo DO Attending Provider Active S tart: March 24, 2024 End: March 24, 2024 Elvis Ordaz MD Other Provider Active Start: Ramy 2023 End: March 24, 2024 Dr. Elizabeth Perez MD Other Provider Active Start: March 24, 2024 End: March 24, 2024 Nury Kramer MD Other Provider Active Start : March 24, 2024 End: March 24, 2024 Dr. Yola Yost DO Other Provider Active St art: March 24, 2024 End: March 24, 2024 Dr. Vanesa Hernández MD Other Provider Active Start: March 24, 2024 End: March 24, 2024 Dr. Rohan Seals MD Other Provider Active Sta rt: March 24, 2024 End: March 24, 2024 Dr. Rosa Rosales MD Other Provider Active Start : March 24, 2024 End: March 24, 2024 Dr. Ryland Winchester MD Other Provider Active Start: March 24, 2024 End: March 24, 2024 Dr. Dejon Quiles MD Other Provider Active Start : March 24, 2024 End: March 24, 2024 Dr. Abhi Galaviz MD Other Provider Active Sta rt: March 24, 2024 End: March 24, 2024 Jenae Boles MD Other Provider Active Start : March 24, 2024 End: March 24, 2024 Dr. Adriel Gonsales MD Other Provider Active St art: March 24, 2024 End: March 24, 2024 Dr. Erlinda Hoover MD Other Provider Active Start : March 24, 2024 End: March 24, 2024 Dr. Jerry Escudero MD Other Provider Active Sta rt: March 24, 2024 End: March 24, 2024 Dr. Lexus Bland MD Other Provider Active Start: March 24, 2024 End: March 24, 2024 Dr. Lawrence Schofield MD Other Provider Active St art: March 24, 2024 End: March 24, 2024 Dr. Pham Sharp MD Other Provider Active Star t: March 24, 2024 End: March 24, 2024 Dr. Catarino Calderon MD Other Provider Active St art: March 24, 2024 End: March 24, 2024 Dr. Luz Maria Giraldo MD Other Provider Active Start: March 24, 2024 End: March 24, 2024 Mariana Soto MD Other Provider Active Start: March 24, 2024 End: March 24, 2024 Team Status: Active Member Role Status Dates Dr. Radha Arango DO Primary Care Provider Active Start: March 24, 2024 Dr. Gabino Berg DO Emergency Provider Active Start: March 24, 2024 Dr. Viviana Giraldo DO Admit Provider Active Start : March 24, 2024 Dr. Viviana Giraldo DO Attending Provider Active S tart: March 24, 2024 Dr. Viviana Giraldo DO Other Provider Active Start : March 24, 2024 Team Status: Active Member Role Status Dates Dr. Radha Arango DO Primary Care Provider Active Start: March 24, 2024 Dr. Malu Mcgregor MD Attending Provider Activ e Start: March 24, 2024 Team Status: Inactive Member Role Status Dates Dr. Radha Arango DO Primary Care Provider Active Start: March 26, 2024 End: March 26, 2024 Dr. Francisco Becerra MD Attending Provider Active Sta rt: March 26, 2024 End: March 26, 2024 Dr. Francisco Becerra MD Emergency Provider Active Sta rt: March 26, 2024 End: March 26, 2024 Team Status: Inactive Member Role Status Dates Dr. Radha Arango DO Primary Care Provider Active Start: April 12, 2024 End: April 12, 2024 Dr. Radha Arango DO Referring Provider Active Start: April 12, 2024 End: April 12, 2024 Daljit Devries RIG MECHANIC, RIG MECHANIC-C Attending Provider Active S tart: April 12, 2024 End: April 12, 2024 Team Status: Inactive Member Role Status Dates Dr. Radha Arango DO Primary Care Provider Active Start: April 20, 2024 End: April 20, 2024 Dr. Radha Arango DO Attending Provider Active Start: April 20, 2024 End: April 20, 2024 Dr. Radha Arango DO Referring Provider Active Start: April 20, 2024 End: April 20, 2024 Team Status: Inactive Member Role Status Dates Dr. Radha Arango DO Primary Care Provider Active Start: May 17, 2024 End: May 17, 2024 Dr. Radha Arango DO Attending Provider Active Start: May 17, 2024 End: May 17, 2024 Dr. Radha Arango DO Referring Provider Active Start: May 17, 2024 End: May 17, 2024 Team Status: Inactive Member Role Status Dates Dr. Radha Arango DO Primary Care Provider Active Start: June 03, 2024 End: June 03, 2024 Dr. Radha Arango DO Attending Provider Active Start: June 03, 2024 End: June 03, 2024 Team Status: Inactive Member Role Status Dates Dr. Radha Arango DO Primary Care Provider Active Start: June 03, 2024 End: June 10, 2024 Dr. Radha Arango DO Attending Provider Active Start: June 03, 2024 End: June 10, 2024 Chief Information Security Officer Relationship Specialty Start Date End Date Radha Arango DO [address] [facility] [place] [address] PCP - General Family Medicine 12/11/16 Bruce Roberson MD [address] [place], [place] [id number] Hematology/Oncology 05/11/24 Team Status: Inactive Member Role Status Dates Dr. Radha Arango DO Primary Care Provider Active Start: September 14, 2024 End: September 14, 2024 Dr. Radah Arango DO Referring Provider Active Start: September 14, 2024 End: September 14, 2024 Dr. Homero Bang MD Attending Provider Active Start: September 14, 2024 End: September 14, 2024 Team Status: Active Member Role/Relationship Status Dates Dr. Radha Arango DO Primary Care Provider Active Team Status: Inactive Member Role/Relationship Status Dates Dr. Radha Arango DO Primary Care Provider Active Start: September 14, 2024 End: September 14, 2024 Dr. Radha Arango DO Referring Provider Active Start: September 14, 2024 End: September 14, 2024 Dr. Homero Bang MD Attending Provider Active Start: September 14, 2024 End: September 14, 2024 Team Status: Inactive Member Role/Relationship Status Dates Dr. Radha Arango DO Primary Care Provider Active Start: October 17, 2024 End: October 17, 2024 Dr. Radha Arango DO Referring Provider Active Start: October 17, 2024 End: October 17, 2024 Dr. Billy Duran MD Attending Provider Active Sta rt: October 17, 2024 End: October 17, 2024 Team Status: Inactive Member Role/Relationship Status Dates Dr. Radha Arango DO Primary Care Provider Active Start: October 17, 2024 End: November 10, 2024 Dr. Radha Arango DO Attending Provider Active Start: October 17, 2024 End: November 10, 2024 Dr. Radha Arango DO Referring Provider Active Start: October 17, 2024 End: November 10, 2024 Chief Information Security Officer Relationship Specialty Start Date End Date Radha Arango DO [address] [place], [place] [id number] PCP - General Family Medicine 12/11/16 Bruce Roberson MD [address] [place], [place] [address] Hematology/Oncology 05/11/24 Chief Information Security Officer Relationship Specialty Start Date End Date Radha Arango DO [address] [place] [id number] PCP - General Family Medicine 12/11/16 Bruce Roberson MD [address] [place] [id number] Hematology/Oncology 05/11/24 Source Comments (unrecognize d section and content) In the event this informatio n is protected by the Federal Confidentiality of Alcohol and Drug Abuse Patient Records regulations: The Federal rules restrict any use of the information to criminally investigate or prosecute any alcohol or drug abuse patient.[facility] the event this information is protected by the Federal Confidentiality of Alcohol and Drug Abuse Patient Records regulations: The Federal rules restrict any use of the information to criminally investigate or prosecute any alcohol or drug abuse patient.[facility] [place] the event this information is protected by the Federal Confidentiality of Alcohol and Drug Abuse Patient Records regulations: The Federal rules restrict any use of the information to criminally investigate or prosecute any alcohol or drug abuse patient.[facility] the event this information is protected by the Federal Confidentiality of Alcohol and Drug Abuse Patient Records regulations: The Federal rules restrict any use of the information to criminally investigate or prosecute any alcohol or drug abuse patient.[facility] [place] the event this information is protected by the Federal Confidentiality of Alcohol and Drug Abuse Patient Records regulations: The Federal rules restrict any use of the information to criminally investigate or prosecute any alcohol or drug abuse patient.[facility] [place] the event this information is protected by the Federal Confidentiality of Alcohol and Drug Abuse Patient Records regulations: The Federal rules restrict any use of the information to criminally investigate or prosecute any alcohol or drug abuse patient.[facility] the event this information is protected by the Federal Confidentiality of Alcohol and Drug Abuse Patient Records regulations: The Federal rules restrict any use of the information to criminally investigate or prosecute any alcohol or drug abuse patient.[facility] [place] the event this information is protected by the Federal Confidentiality of Alcohol and Drug Abuse Patient Records regulations: The Federal rules restrict any use of the information to criminally investigate or prosecute any alcohol or drug abuse patient.[facility] [place] the event this information is protected by the Federal Confidentiality of Alcohol and Drug Abuse Patient Records regulations: The Federal rules restrict any use of the information to criminally investigate or prosecute any alcohol or drug abuse patient.[facility] [place] the event this information is protected by the Federal Confidentiality of Alcohol and Drug Abuse Patient Records regulations: The Federal rules restrict any use of the information to criminally investigate or prosecute any alcohol or drug abuse patient.[facility] [place] the event this information is protected by the Federal Confidentiality of Alcohol and Drug Abuse Patient Records regulations: The Federal rules restrict any use of the information to criminally investigate or prosecute any alcohol or drug abuse patient.[facility] [place] the event this information is protected by the Federal Confidentiality of Alcohol and Drug Abuse Patient Records regulations: The Federal rules restrict any use of the information to criminally investigate or prosecute any alcohol or drug abuse patient.[facility] [place] the event this information is protected by the Federal Confidentiality of Alcohol and Drug Abuse Patient Records regulations: The Federal rules restrict any use of the information to criminally investigate or prosecute any alcohol or drug abuse patient.[facility] [place] Reason for Visit (unrecogniz ed section and content) Reason Comments New Patient Reason Comments New Patient Evaluation Reason Comments Radiology US Specialty Diagnoses / Procedures Referred By Contac t Referred To Contact US IMAGING Diagnoses Hereditary hemochromatosis (HCC) Procedures US ABD RIGHT UPPER QUADRANT US ABDOMINAL REAL [place] W/[place] [address] [place] [address] [facility] [address] Referral ID Status Reason Start Date Expiration Date V isits Requested Visits Authorized [id number] Closed Auto-Generate d Referral 05/11/2024 06/10/2025 1 1 Reason Comments Patient Update Reason Comments Results Reason Comments Appointment Reason Comments Phlebotomy Reason Comments avs Reason Comments Established Patient FOR RECORDS PERTAINING TO PATIENTS WHO ARE [...] BE BASED ON THE PRIMARY CLINICAL RECORDS. [facility]. provides no warranty or guarantee of the accuracy or completeness of information in this document.
[2025-01-01 07:22] LABS: Anion Gap 12 (5-15); BUN 18 mg/dL (4-19); BUN/Creat Ratio 24.3 RATIO (10-20); Calcium,Total 9.2 mg/dL (7.6-11.0); Carbon Dioxide 21.6 mmol/L (21.0-32.0); Chloride 105 mmol/L (98-108); Estimated Creatinine Clearance 91.05 ml/min (50-250); Glucose 110 mg/dL (70-99); Magnesium 2.1 mg/dL (1.5-2.2); Potassium 4.2 mmol/L (3.3-5.1)
--- NOTE | 2025-01-01 07:46 | EX.ED.DYSGE1 ---
HPI History of Present Illness Chief Complaint: Chest Pain Informant: patient and spouse/S.O. Narrative Narrative: Patient is a 69-year-old male with past medical history of paroxysmal atrial fibrillation as well as hypertension and hyperlipidemia. He states he was up this morning early doing some studying. He states that he then began to feel his heart race and he checked his smart watch and it was showing his heart rate to be approximately 140 bpm and consistent with atrial fibrillation. He states that he was told by his alternative dispute resolution mediator that if the symptoms happen he should take an Eliquis and then call him. He states he attempted to call the alternative dispute resolution mediator but there was no answer and secondary to his he presents to the ER for evaluation. The patient does state that with the elevated heart rate he was noticing chest discomfort and shortness of breath. However upon arrival to the ER he states that his symptoms have spontaneously resolved. He denies any history of excessive stimulant use or illicit drug use [facility] Medical History (Updated 01/02/25 @ 23:[address] 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 H/O deep venous thrombosis BPH (benign prostatic hyperplasia) Osteoporosis GERD (gastroesophageal reflux disease) Arthritis Home Medications ?Medication ?Instructions ?Recorded ?Last Taken ?Type folic acid 1 mg tablet 1 mg PO DAILY@0800 supplement 10/10/16 03/25/24 History meloxicam 15 mg tablet (Mobic) 15 mg PO DAILY ANTIINFLAMITORY 10/10/16 03/25/24 History tamsulosin 0.4 mg capsule (Flomax) 0.4 mg PO QHS #30 caps 03/24/24 03/25/24 Rx diltiazem HCl 120 mg 120 mg PO DAILY #90 caps 04/12/24 Unknown Rx capsule,extended release 24 hr (Cardizem CD) rosuvastatin 10 mg tablet (Crestor) 10 mg PO QDAY 09/14/24 Unknown History apixaban 5 mg tablet (Eliquis) 5 mg PO BID PRN a fib 01/01/25 Unknown History Allergy/AdvReac Type Severity Reaction Status Date / Time Tetanus Vaccines and Toxoid AdvReac Intermediate Rash Verified 01/01/25 06:29 Family History Father Skin cancer Arthritis COPD (chronic obstructive pulmonary disease) Hypertension Hereditary hemochromatosis Mother Anemia Arthritis Heart disease Lung cancer COPD (chronic obstructive pulmonary disease) Hypertension Grandmother Aneurysm Bone cancer Surgical History History of nasal septoplasty History of hip surgery H/O vasectomy History of tonsillectomy Hx of cholecystectomy Social History household members: spouse housing: house current occupational status: employed 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 Smoking Status: Never smoker alcohol intake: never substance use type: does not use caffeine: Yes Type: coffee Number of servings: 4 ROS ROS ED Constitutional Constitutional ED: Denies chills or fever(s) Eyes Eyes: Denies blurry vision or change in vision ENT ENT ED: Denies sore throat Cardiovascular Cardiovascular: Reports chest pain, palpitations and racing heartbeat Respiratory/Chest Respiratory/Chest: Reports dyspnea; Denies cough Gastrointestinal Gastrointestinal: Denies abdominal pain, diarrhea, nausea or vomiting Musculoskeletal Musculoskeletal: Denies myalgias Integumentary Denies rash Neurologic Neurologic: Denies headache(s) Hematologic/Lymphatic Hematologic/Lymphatic: Reports easy bleeding and easy bruising EXAM Physical Exam Const Vital Signs: 01/01/25 06:23 01/01/25 06:28 01/01/25 07:00 Temperature 98.1 F Temperature Source Oral Pulse Rate 73 69 Respiratory Rate 11 L 18 Respiratory Effort Normal Non-Labored Blood Pressure 174/91 H 157/90 H Blood Pressure Mean 118 112 Pulse Ox 99 99 Oxygen Delivery Method Room Air Room Air Positive well nourished and well developed General Appearance ED: well developed; Negative for pallor HEENT HEENT Narrative: Normocephalic atraumatic No tongue or lip swelling no oral lesions no airway edema or compromise Eyes PERRL and EOMs intact bilaterally General Eye ED: Negative for scleral icterus Neck supple and no JVD Chest Wall palpation of chest normal Resp normal respiratory effort and clear to auscultation bilaterally Cardio regular rate and regular rhythm Rate: other Other Details: Radial and carotid pulses are equal and symmetric GI normal to inspection, nondistended, normoactive bowel sounds, non-tender, non-distended and no masses GI Narrative: No voluntary guarding or rigidity or pulsatile mass Auscultation: normoactive bowel sounds Palpation: soft Extremity normal to inspection Extremity Narrative: No asymmetric edema no pitting edema negative Homans' sign bilaterally Neuro oriented x3, CN's II-XII intact bilaterally and no sensory deficits noted Sensorium / Orientation: alert Motor Exam: strength 5/5 throughout Psych mental status grossly normal Skin no rashes or lesions noted and no wounds General Skin Exam: Negative for jaundice or pallor MDM MDM MDM Narrative Medical decision making narrative: Patient arrived to the ER hypertensive but has a past medical history of this otherwise with stable vitals. He has a known history of paroxysmal atrial fibrillation and the history and finding on his smart watch is consistent with A-fib with RVR. However upon arrival to the ER he has had spontaneous cardioversion to normal sinus rhythm. The patient states that his symptoms of chest discomfort and shortness of breath have spontaneous resolved as well with resolution of the elevated heart rate. As he was only in the A-fib with RVR for 30 minutes to an hour I have very low concern that he has developed a pulmonary embolus and I feel there is no need for a CTA. In order to ensure there is no other cause for the breakthrough A-fib with RVR such as acute blood loss anemia acute kidney injury thyroid dysfunction or electrolyte abnormality I did elect to perform basic laboratory studies. Labs revealed no clinically significant findings. His TSH is slightly elevated at 6.1 when his previous value was normal at 2 however this would indicate hypothyroidism and is most likely subclinical and should not have caused his symptoms. At this time the patient is hemodynamically stable he has remained in normal sinus rhythm since his arrival to the ER and his EKG showed no signs of ischemia. Therefore I do not feel there is need for further intervention as he has stable vitals and overall negative workup and spontaneous conversion to normal sinus rhythm. He will continue his normal medication regimen as directed by his alternative dispute resolution mediator and is otherwise safe for discharge History & Record Review Discussion w/independent historian: Patient and Significant other Lab Data Attestation: I reviewed the patient's lab results. Labs: Laboratory Results - last 24 hr 01/01/25 06:33 WBC 6.8 RBC 4.52 L Hgb 14.6 Hct 41.2 MCV 91.2 MCH 32.3 H MCHC 35.4 RDW Std Deviation 40.0 RDW Coeff of Ifrah 12.0 Plt Count 227 MPV 10.4 Immature Gran % (Auto) 0.100 Neut % (Auto) 47.0 Lymph % (Auto) 38.5 Chicot % (Auto) 9.0 Eos % (Auto) 5.0 Baso % (Auto) 0.4 Absolute Neuts (auto) 3.2 Absolute Lymphs (auto) 2.62 Nucleated RBC % 0 Sodium 138 Potassium 4.2 Chloride 105 Carbon Dioxide 21.6 Anion Gap 12 BUN 18 Creatinine 0.75 Estim Creat Clear Calc 91.05 Est GFR (MDRD) Non-Af 98 BUN/Creatinine Ratio 24.3 H Glucose 110 H Calcium 9.2 Magnesium 2.1 TSH 6.100 H Radiography Diagnostic Testing: Clinical Impression(s) from Imaging Studies Chest X-Ray 01/01/25 07:00 IMPRESSION: No acute cardiopulmonary findings. Reading Location: [facility] Chest x-ray as interpreted by the emergency medicine physician reveals no acute infiltrate pneumothorax or pleural effusion Discharge Plan Triage Chief Complaint: Chest Pain ED Provider: Gabino Berg Dx/Rx/DC Orders Clinical Impression: Paroxysmal atrial fibrillation, Hemochromatosis, Hypertension, Hyperlipidemia Instructions: AFib Dc Prescriptions: No Action diltiazem HCl [Cardizem CD] 120 mg capsule,extended release 24hr 120 mg PO DAILY Qty: 90 3RF rosuvastatin [Crestor] 10 mg tablet 10 mg PO QDAY meloxicam [Mobic] 15 MG tablet 15 mg PO DAILY folic acid 1 MG tablet 1 mg PO DAILY@0800 Eliquis 5 mg tablet 5 mg PO BID PRN (Reason: a fib) tamsulosin [Flomax] 0.4 mg capsule 0.4 mg PO QHS Qty: 30 0RF Primary Care Provider: Alessandro Garland Referrals: Homero Bang MD [Med Staff - Active Staff, Cardiology] Alessandro Garland DO [Primary Care Provider, Family Practice] Activity Restrictions/Additional Instructions: If you go back into a bout of atrial fibrillation you can try taking an extra dose of your diltiazem to see if this helps slow your rate and provide resolution. If symptoms are persistent for 30 minutes to an hour after taking your extra dose and you feel that you are having worsening discomfort or shortness of breath or any further concerns and return to the ER for repeat evaluation. Otherwise please follow-up with your alternative dispute resolution mediator. Discussed with your alternative dispute resolution mediator and/or family doctor that your TSH marker today was elevated at 6 when the previous value was normal at 2. This could indicate a low functioning thyroid and may need further investigation Print Language: Serbian Disposition Disposition: Home, Self Care Discharge Date/Time: 01/01/25 08:04
[2025-01-01 07:49] VITALS: BP 145/82; PULSE 63; RESP 16; TEMP 36.6; O2SAT 97
== END 2025-01-01 08:04 | disposition home or self-care (01) ==
PROVIDERS: Emergency Provider Emergency Medicine; PCP Family Medicine; Visit Provider Emergency Medicine
DX: I48.0 Paroxysmal atrial fibrillation (principal); I10 Essential (primary) hypertension; E83.119 Hemochromatosis, unspecified; E78.5 Hyperlipidemia, unspecified; Z79.899 Other long term (current) drug therapy
CPT/HCPCS: 71046; 80048; 83735; 84443; 85025; 93005; 99285; A4216

== ENCOUNTER → 2025-01-10 | Outpatient (CLI) | payer MEDICARE, SELFPAY ==
--- OUTSIDE RECORDS SUMMARY | 2025-01-04 14:02 | XMS RPT_ITS ---
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 Name Role Phone RADHA ARANGO A Primary Care Unavailable RASHEEDAMBRUCE DUCKWORTH Referring Unavailable NBA, RADHA A Primary Care Unavailable ABRAMOVICH, BRUCE Referring Unavailable NBA, RADHA A Primary Care Unavailable ABRAMOVICH, BRUCE Referring Unavailable RASHEEDAMDONITA, BRUCE Attending Unavailable NBA, RADHA A Primary Care Unavailable ABRAMOVICH, BRUCE Referring Unavailable NBA, RADHA A Primary Care Unavailable ABRAMOVICH, BRUCE Referring Unavailable NBA, RADHA A Primary Care Unavailable NBA, RADHA A Primary Care Unavailable ABRAMOVICHBRUCE Referring Unavailable ABRAMOVICH, BRUCE Attending Unavailable NBA, RADHA A Primary Care Unavailable ABRAMOVICH, BRUCE Referring Unavailable NBA, RADHA A Primary Care Unavailable ABRAMOVICH, BRUCE Referring Unavailable ABRAMOVICH, BRUCE Referring Unavailable NBA, RADHA A Primary Care Unavailable NBA, RADHA A Primary Care Unavailable ABRAMOVICH, BRUCE Attending Unavailable NBA, RADHA A Primary Care Unavailable PROBLEMS DATE TYPE CONDITION / CODE ATTENDING STATUS [facility] 08/21/2011 Active Hemochromatosis, hereditary / E83.110(ICD-10) NA Active [facility] 08/09/2024 Active Established Deepti ent / UNK(Unknown) BRUCE PULLIAM Active [facility] 03/19/2010 Active Hereditary hemochromatosis / E83.110(ICD-10) NA Active [facility] 03/19/2010 Active Hereditary hemochromatosis (HCC) / E83.110(ICD-10) NA Active [facility] 06/06/2024 Active Liver lesion / K76.9(ICD-10) NA Active [facility] PROCEDURES No Procedure Records Found RESULTS FERRITIN SERPL-MCNC Collected: 01/05/20 2:02 PM Status: F Source: [facility] Order Comment: Specimen Type : BLOOD SPECIMEN Ordering Facility: [facility] Address: [address] [place] [address] TYPE CODE TESTS RESULT OUT OF RANGE REFERENCE UNITS LAB 2276-4([facility]) Ferritin SerPl-mCnc 89.4 30.3-565.7 ng/mL Performed By: #### 2276-4 ## ## [facility] CLIA [id number] [address] [place] [address] CBC W AUTO DIFF BLD Collected: 01/04/2025 2:[address] atus: F Source: [facility] Order Comment: Specimen Type : BLOOD SPECIMEN Ordering Facility: [facility] Address: [address] [place] [address] TYPE CODE TESTS RESULT OUT OF RANGE REFERENCE UNITS LAB 6690-2(LOINC) WBC # Bld Auto 7.22 3.70-11.00 k/uL LAB 789-8(LOINC) RBC # Bld Auto 4.64 4.20-6.00 m/ uL LAB 718-7(LOINC) Hgb Bld-mCnc 14.9 13.0-17.0 g/dL LAB 4544-3(LOINC) Hct VFr Bld Auto 41.5 39.0-51.0 % LAB 787-2(LOINC) MCV RBC Auto 89.4 80.0-100.0 fL LAB 785-6(LOINC) MCH RBC Qn Auto 32.1 26.0-34.0 p g LAB 786-4(LOINC) MCHC RBC Auto-mCnc 35.9 30.5-36.0 g/dL LAB 25432-8(LOINC) RDW RBC-Rto 12.2 11.5-15.0 % LAB 777-3(INC) Platelet # Bld Auto 231 150-400 k/uL LAB 62110-9(INC) PMV Bld Auto 10.2 9.0-12.7 fL LAB 770-8(INC) Neutrophils/leuk NFr Bld Auto 54.9 % LAB 751-8(INC) Neutrophils # Bld Auto 3.96 1.45-7.50 k/uL LAB 736-9([facility]) Lymphocytes/leuk NFr Bld Auto 32.3 % LAB 731-0([facility]) Lymphocytes # Bld Auto 2.33 1.00-4.00 k/uL LAB 5905-5([facility]) Monocytes/leuk NFr Bld Auto 8.4 % LAB 742-7([facility]) Monocytes # Bld Auto 0.61 <0.87 k/uL LAB 713-8([facility]) Eosinophil/leuk NFr Bld Auto 3.7 % LAB 711-2([facility]) Eosinophil # Bld Auto 0.27 <0.46 k/uL LAB 706-2([facility]) Basophils/leuk NFr Bld Auto 0.4 % LAB 704-7([facility]) Basophils # Bld Auto 0.03 <0.11 k/uL LAB 50407-7([facility]) Imm Granulocytes/jones k NFr Bld Auto 0.3 % LAB 50486-4([facility]) Imm Granulocytes # Bld Auto <0.03 <0.10 k/uL LAB 26686-2([facility]) nRBC/100 WBC Bld-Rto 0.0 /100 WBC LAB 771-6([facility]) nRBC # Bld Auto <0.01 <0.01 k/u L LAB 06610-8([facility]) Differential method Bld Auto Performed By: #### 67250-9 # ### [facility] CLIA [id number] [address] [place] [address] OF [facility] PROGRESS Observed: 12/13/2024 10:14 AM Status: COMPLETED Source: [facility] HNO ID: [id number] Author: BRUCE PULLIAM MD Service: ? Author Type: Physician Type: [...] he last saw Dr Magallon. Switched to [facility] hematology due to insurance change, had [...] which included preparing to see the patient, rvmb-[id number]-[id number] patient care, completing clinical documentation, obtaining and/or reviewing separately obtained history, counseling and educating the patient/family/caregiver, ordering medications, tests, or procedures, independently interpreting results (not separately reported), and communicating results to the patient/family/caregiver. Electronically Signed: Bruce Pulliam MD December 13, 2024 CNOVSP Observed: 12/13/2024 10:00 AM Status: COMPLETED Source: [facility] Visit (SP) Office (HEMAWS) BROWNALVIN CONNORS ([id number]) 1955 M Date Time Provider Department 12/13/24 10:00 AM BRUCE PULLIAM During your visit today, we recorded the following information about you: Temperature Pulse Blood pressure Weight 97.7 degrees 75/minute 127/82 89.6 kg Bruce Pulliam MD 12/13/2024 1:35 PM Signed (Elements copied from my note dated August 09, 2024, have been reviewed and updated where appropriate, and all reflect current assessment and medical decision making from today's encounter, December 13, 2024) HISTORY OF PRESENT ILLNESS: Alvin Roberta Brown is a 69 year old male dx with hemochromatosis dx in 2003, on basis of elevated liver enzymes, liver biopsy showed increased iron stores. Saw Dr Magallon underwent phlebotomy therapy, with good results. Was doing phlebotomy every 3 months when he last saw Dr Magallon. Switched to [facility] hematology due to insurance change, had [...] which included preparing to see the patient, feqy-uj-tjeq patient care, completing clinical documentation, obtaining and/or reviewing separately obtained history, counseling and educating the patient/family/caregiver, ordering medications, tests, or procedures, independently interpreting results (not separately reported), and communicating results to the patient/family/caregiver. Electronically Signed: Bruce Pulliam MD December 13, 2024 Referring Provider: BRUCE PULLIAM [[id number]] Allergies As of Date: 12/13/2024 Noted Allergy Reaction TETANUS VACCINES AND TOXOID 08/28/2005 2 - Rash Date Reviewed: 12/13/2024 Reviewed by: Delmi Cerda Ma, MA - Fully Assessed Reason for Visit: Established Patient [175] Primary Visit Diagnosis:Hemochromatosis, hereditary [E83.110] Order(s):FERRITIN [SQFERR] Order #: [id number] FUTURE COMPLETE BLOOD COUNT AND DIFFERENTIAL [SQCBCDIF] Order #: [id number] FUTURE [facility] APPOINTMENT REQUEST [[id number]] Order #: [id number]: 1 FUTURE Follow-up and Disposition History for Encounter Date Provider Department Center 12/13/2024 [id number] PULLIAM [facility] Prescriptions as of 12/22/2024 - cholecalciferol (VITAMIN D-3) 400 unit tab [...] times daily. 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] 03/14/2005 [...] [L21.8] 04/25/2010 Seborrheic Keratosis [L82.1] 04/25/2010 Actinic Damage///Sun-damaged skin [L57.8] 04/25/2010 Solar Lentigines [L81.4] 04/25/2010 [...] Voice disturbance [R49.9] 07/05/2015 Encounter Status:Closed by BRUCE PULLIAM on 12/13/24 FERRITIN SERPL-MCNC Collected: 12/09/19 2:09 PM Status: F Source: [facility] Comment: Specimen Type : BLOOD SPECIMEN Ordering Facility: [facility] Address: [address] [place] [address] TYPE CODE TESTS RESULT OUT OF RANGE REFERENCE UNITS LAB 2276-4(LOINC) Ferritin SerPl-mCnc 94.3 30.3-565.7 ng/mL Performed By: #### 2276-4 ## ## [facility] CLIA [id number] [address] [place] [address] [place] [address] [place] HEP FUNC 2000 PNL SERPL Collected: 12/08/2024 2:09 PM Status: F [facility] Order Comment: Specimen Type : BLOOD SPECIMEN Ordering Facility: [facility] Address: [address] [place] [address] TYPE CODE TESTS RESULT OUT OF RANGE REFERENCE UNITS LAB 1751-7(INC) Albumin SerPl-mCnc 4.6 3.9-4.9 g/dL LAB 1975-2(LOINC) Bilirub SerPl-mCnc 0.5 0.2-1.3 mg/dL LAB 09921-0(INC) Bilirub Conj SerPl-mCnc 0.1 <0.3 mg/dL LAB 6768-6(INC) ALP SerPl-cCnc 72 38-113 U/L LAB 1920-8(INC) AST SerPl-cCnc 16 14-40 U/L LAB 1742-6(INC) ALT SerPl-cCnc 23 10-54 U/L LAB 2885-2(INC) Prot SerPl-mCnc 7.3 6.3-8.0 g/dL Performed By: #### 96133-0 # ### [facility] CLIA [id number] [address] [place] [address] OF [facility] CBC W AUTO DIFF BLD Collected: 12/08/2024 2:[address] atus: F Source: [facility] Order Comment: Specimen Type : BLOOD SPECIMEN Ordering Facility: [facility] Address: [address] [place] [address] TYPE CODE TESTS RESULT OUT OF RANGE REFERENCE UNITS LAB 6690-2([facility]) WBC # Bld Auto 6.35 3.70-11.00 k/uL LAB 789-8(INC) RBC # Bld Auto 4.71 4.20-6.00 m/ uL LAB 718-7(INC) Hgb Bld-mCnc 15.1 13.0-17.0 g/dL LAB 4544-3(LOINC) Hct VFr Bld Auto 42.9 39.0-51.0 % LAB 787-2(LOINC) MCV RBC Auto 91.1 80.0-100.0 fL LAB 785-6(LOINC) MCH RBC Qn Auto 32.1 26.0-34.0 p g LAB 786-4([facility]) MCHC RBC Auto-mCnc 35.2 30.5-36.0 g/dL LAB 20357-2([facility]) RDW RBC-Rto 11.7 11.5-15.0 % LAB 777-3([facility]) Platelet # Bld Auto 211 150-400 k/uL LAB 79330-9([facility]) PMV Bld Auto 10.1 9.0-12.7 fL LAB 770-8([facility]) Neutrophils/leuk NFr Bld Auto 53.3 % LAB 751-8([facility]) Neutrophils # Bld Auto 3.38 1.45-7.50 k/uL LAB 736-9([facility]) Lymphocytes/leuk NFr Bld Auto 32.4 % LAB 731-0([facility]) Lymphocytes # Bld Auto 2.06 1.00-4.00 k/uL LAB 5905-5([facility]) Monocytes/leuk NFr Bld Auto 8.5 % LAB 742-7([facility]) Monocytes # Bld Auto 0.54 <0.87 k/uL LAB 713-8([facility]) Eosinophil/leuk NFr Bld Auto 5.0 % LAB 711-2([facility]) Eosinophil # Bld Auto 0.32 <0.46 k/uL LAB 706-2([facility]) Basophils/leuk NFr Bld Auto 0.6 % LAB 704-7([facility]) Basophils # Bld Auto 0.04 <0.11 k/uL LAB 21849-9([facility]) Imm Granulocytes/jones k NFr Bld Auto 0.2 % LAB 92131-6([facility]) Imm Granulocytes # Bld Auto <0.03 <0.10 k/uL LAB 69471-8([facility]) nRBC/100 WBC Bld-Rto 0.0 /100 WBC LAB 771-6([facility]) nRBC # Bld Auto <0.01 <0.01 k/u L LAB 36141-4([facility]) Differential method Bld Auto Performed By: #### 17993-1 # ### [facility] CLIA [id number] [address] [place] [address] OF [place] CNPN Observed: 12/07/2024 12:00 AM Status: COMPLETED Source: [facility] Telephone (HEMAWS) ALVIN BROWN ([id number]) 1955 M Date Time Provider Department 12/07/24 BRUCE PULLIAM During your visit today, we recorded the following information about you: Indu Victoria 12/07/2024 4:32 PM Signed Lvm for patient to return the call. When patient calls back per nurse ov and phlebo need rescheduled due to labs need to be drawn few days prior. Please reschedule ov and phlebo. Lab can stay if patient wants to come in still. Concepcion Medellin 12/08/2024 8:30 AM Signed Patient completing labs today, office visit and ?phlebo rescheduled. 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 Order Comment: Specimen Type : BLOOD SPECIMEN Ordering Facility: [facility] Address: [address] [place] [address] TYPE CODE TESTS RESULT OUT OF RANGE REFERENCE UNITS LAB 1751-7(LOINC) Albumin SerPl-mCnc 4.7 3.9-4.9 g/dL LAB 1975-2(LOINC) Bilirub SerPl-mCnc 0.3 0.2-1.3 mg/dL LAB 69627-5(LOINC) Bilirub Conj SerPl-mCnc 0.1 <0.3 mg/dL LAB 6768-6(LOINC) ALP SerPl-cCnc 87 38-113 U/L LAB 1920-8(LOINC) AST SerPl-cCnc 14 14-40 U/L LAB 1742-6(LOINC) ALT SerPl-cCnc 22 10-54 U/L LAB 2885-2(LOINC) Prot SerPl-mCnc 7.7 6.3-8.0 g/dL Performed By: #### 36484-0 # ### [facility] CLIA [id number] [address] [place] [address] [facility] CBC W AUTO DIFF BLD Collected: 11/04/2024 12:05 PM S tatus: F Source: [facility] Order Comment: Specimen Type : BLOOD SPECIMEN Ordering Facility: [facility] Address: [place] [address] TYPE CODE TESTS RESULT OUT OF RANGE REFERENCE UNITS LAB 6690-2([facility]) WBC # Bld Auto 12.53 High 3.70-11.00 k/uL LAB 789-8([facility]) RBC # Bld Auto 4.90 4.20-6.00 m/ uL LAB 718-7([facility]) Hgb Bld-mCnc 15.7 13.0-17.0 g/dL LAB 4544-3([facility]) Hct VFr Bld Auto 43.9 39.0-51.0 % LAB 787-2([facility]) MCV RBC Auto 89.6 80.0-100.0 fL LAB 785-6([facility]) MCH RBC Qn Auto 32.0 26.0-34.0 p g LAB 786-4([facility]) MCHC RBC Auto-mCnc 35.8 30.5-36.0 g/dL LAB 30955-5([facility]) RDW RBC-Rto 11.8 11.5-15.0 % LAB 777-3([facility]) Platelet # Bld Auto 254 150-400 k/uL LAB 75034-1([facility]) PMV Bld Auto 10.6 9.0-12.7 fL LAB 770-8([facility]) Neutrophils/leuk NFr Bld Auto 80.2 % LAB 751-8([facility]) Neutrophils # Bld Auto 10.04 High 1.45-7.50 k/uL LAB 736-9([facility]) Lymphocytes/leuk NFr Bld Auto 13.1 % LAB 731-0([facility]) Lymphocytes # Bld Auto 1.64 1.00-4.00 k/uL LAB 5905-5([facility]) Monocytes/leuk NFr Bld Auto 6.2 % LAB 742-7([facility]) Monocytes # Bld Auto 0.78 <0.87 k/uL LAB 713-8(INC) Eosinophil/leuk NFr Bld Auto 0.2 % LAB 711-2(LOINC) Eosinophil # Bld Auto 0.03 <0.46 k/uL LAB 706-2(LOINC) Basophils/leuk NFr Bld Auto 0.1 % LAB 704-7(LOINC) Basophils # Bld Auto <0.03 <0.11 k/uL LAB 55855-5(LOINC) Imm Granulocytes/jones k NFr Bld Auto 0.2 % LAB 53670-9(LOINC) Imm Granulocytes # Bld Auto 0.03 <0.10 k/uL LAB 44183-3(LOINC) nRBC/100 WBC Bld-Rto 0.0 /100 WBC LAB 771-6(INC) nRBC # Bld Auto <0.01 <0.01 k/u L LAB 79067-4(INC) Differential method Bld Auto Performed By: #### 73302-3 # ### [facility] CLIA [id number] [address] [place] [address] STATES OF [facility] FERRITIN SERPL-MCNC Collected: 11/05/19 12:05 PM Status: F Source: [facility] Order Comment: Specimen Type : BLOOD SPECIMEN Ordering Facility: [facility] Address: [address] [place] [address] TYPE CODE TESTS RESULT OUT OF RANGE REFERENCE UNITS LAB 2276-4([facility]) Ferritin SerPl-mCnc 89.5 30.3-565.7 ng/mL Performed By: #### 2276-4 ## ## [facility] CLIA [id number] [address] [place] [address] STATES OF [facility] AFP SERPL-MCNC Collected: 12:05 PM Status: F Source: [facility] Order Comment: Specimen Type : BLOOD SPECIMEN Ordering Facility: [facility] Address: [address] [place] [address] TYPE CODE TESTS RESULT OUT OF RANGE REFERENCE UNITS LAB 1834-1([facility]) AFP SerPl-mCnc 1.92 <9.00 ng/mL Result Comment: The Alpha-Fe toprotein test was performed using the [employer] DxI immunoenzymatic assay. Results obtained with different assay methods or kits cannot be used interchangeably. Performed By: #### 1834-1 ## ## [facility] CLIA [id number] [address] [place] [address] [place] PROGRESS Observed: 08/09/2024 12:47 PM Status: COMPLETED Source: [facility] HNO ID: [id number] Author: BRUCE PULLIAM MD Service: ? Author Type: Physician Type: [...] he last saw Dr Magallon. Switched to [facility]ology due to insurance change, had 2 [...] which included preparing to see the patient, pvbv-zy-htxj patient care, completing clinical documentation, obtaining and/or reviewing separately obtained history, counseling and educating the patient/family/caregiver, ordering medications, tests, or procedures, independently interpreting results (not separately reported), and communicating results to the patient/family/caregiver. Electronically Signed: Bruce Pulliam MD August 09, 2024 CNOVSP Observed: 08/09/2024 12:40 PM Status: COMPLETED Source: [facility] Visit (SP) Office (HEMAWS) BROWNALVIN PARISI Roberta ([id number]) 1955 M Date Time Provider Department 08/09/24 12:40 PM BRUCE PULLIAM During your visit today, we recorded the following information about you: Temperature Pulse Blood pressure Weight 98 degrees 72/minute 142/85 88.9 kg Bruce Pulliam MD 08/16/2024 10:00 AM Signed (Elements copied [...] he last saw Dr Magallon. Switched to [facility] hematology due to insurance change, had 2 [...] which included preparing to see the patient, rehi-al-mabc patient care, completing clinical documentation, obtaining and/or reviewing separately obtained history, counseling and educating the patient/family/caregiver, ordering medications, tests, or procedures, independently interpreting results (not separately reported), and communicating results to the patient/family/caregiver. Electronically Signed: Bruce Pulliam MD August 09, 2024 Allergies As of Date: 08/09/2024 Noted Allergy Reaction TETANUS VACCINES AND TOXOID 08/28/2005 2 - Rash Date Reviewed: 08/09/2024 Reviewed by: Delmi Cerda Ma, MA - Fully Assessed Reason for Visit: Established Patient [175] Primary Visit Diagnosis:Hemochromatosis, hereditary [E83.110] Follow-up and Disposition History for Encounter Date Provider Department Center 08/09/2024 [id number] PULLIAM [facility] Prescriptions as of 08/16/2024 - cholecalciferol (VITAMIN D-3) 400 unit tab [...] 08/09/2024 Noted Resolved ARTHROP W ENDOCR/MET DIS [[id number]] 01/28/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 Telephone (ATILIO) ALVIN BROWN ([id number]) 1955 M Date Time Provider Department 08/09/24 BRUCE PULLIAM During your visit today, we recorded the following information about you: Jordyn Hong 08/09/2024 4:34 PM Signed AVS 4/29/25 Back in 3 months with visit and phlebotomy, need ferritin and cbc drawn a few days before appoinment Jordyn VictoriaIndu 08/09/2024 4:43 PM Signed Lvm for patient to return the call to schedule Indu Victoria Jaya PersaudConcepcion 08/10/2024 11:51 AM Signed Scheduled with patient Allergies As of Date: 08/09/2024 Noted Allergy Reaction TETANUS VACCINES AND TOXOID 08/28/2005 2 - Rash Date Reviewed: 08/09/2024 Reviewed by: Delmi Cerda Ma, MA - Fully Assessed Reason [...] 08/09/2024 Noted Resolved ARTHROP W ENDOCR/MET DIS [[id number]] 01/28/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] 03/14/2005 [...] [L21.8] 04/25/2010 Seborrheic Keratosis [L82.1] 04/25/2010 Actinic Damage///Sun-damaged skin [L57.8] 04/25/2010 Solar Lentigines [L81.4] 04/25/2010 [...] Voice disturbance [R49.9] 07/05/2015 Encounter Status:Closed by CONCEPCION AHMILTON on 08/10/24 HEP FUNC 2000 PNL SERPL Collected: 08/04/2024 2:31 PM Status: F Source: [facility] Comment: Specimen Type : BLOOD SPECIMEN Ordering Facility: [facility] Address: [address] [place] [address] TYPE CODE TESTS RESULT OUT OF RANGE REFERENCE UNITS LAB 1751-7(LOINC) Albumin SerPl-mCnc 4.4 3.9-4.9 g/dL LAB 1975-2(LOINC) Bilirub SerPl-mCnc 0.4 0.2-1.3 mg/dL LAB 11994-2(LOINC) Bilirub Conj SerPl-mCnc 0.1 <0.3 mg/dL LAB 6768-6(LOINC) ALP SerPl-cCnc 73 38-113 U/L LAB 1920-8(LOINC) AST SerPl-cCnc 16 14-40 U/L LAB 1742-6(LOINC) ALT SerPl-cCnc 31 10-54 U/L LAB 2885-2(LOINC) Prot SerPl-mCnc 7.0 6.3-8.0 g/dL Performed By: #### 57981-1 # ### [facility] CLIA [id number] [address] [place] [address] [place] FERRITIN SERPL-MCNC Collected: 08/05/19 2:31 PM Status: F Source: [facility] Comment: Specimen Type : BLOOD SPECIMEN Ordering Facility: [facility] Address: [address] [place] [address] TYPE CODE TESTS RESULT OUT OF RANGE REFERENCE UNITS LAB 2276-4([facility]) Ferritin SerPl-mCnc 64.4 30.3-565.7 ng/mL Performed By: #### 2276-4 ## ## [facility] CLIA [id number] [address] [place] [address] [place] CBC W AUTO DIFF BLD Collected: 08/04/2024 2:[address] atus: F Source: [facility] Comment: Specimen Type : BLOOD SPECIMEN Ordering Facility: [facility] Address: [address] [place] [place] [address] TYPE CODE TESTS RESULT OUT OF RANGE REFERENCE UNITS LAB 6690-2([facility]) WBC # Bld Auto 8.59 3.70-11.00 k/uL LAB 789-8([facility]) RBC # Bld Auto 4.62 4.20-6.00 m/ uL LAB 718-7([facility]) Hgb Bld-mCnc 14.5 13.0-17.0 g/dL LAB 4544-3([facility]) Hct VFr Bld Auto 40.9 39.0-51.0 % LAB 787-2([facility]) MCV RBC Auto 88.5 80.0-100.0 fL LAB 785-6([facility]) MCH RBC Qn Auto 31.4 26.0-34.0 p g LAB 786-4([facility]) MCHC RBC Auto-mCnc 35.5 30.5-36.0 g/dL LAB 50116-7([facility]) RDW RBC-Rto 12.0 11.5-15.0 % LAB 777-3([facility]) Platelet # Bld Auto 218 150-400 k/uL LAB 40933-9([facility]) PMV Bld Auto 10.1 9.0-12.7 fL LAB 770-8([facility]) Neutrophils/leuk NFr Bld Auto 67.7 % LAB 751-8([facility]) Neutrophils # Bld Auto 5.81 1.45-7.50 k/uL LAB 736-9([facility]) Lymphocytes/leuk NFr Bld Auto 22.4 % LAB 731-0([facility]) Lymphocytes # Bld Auto 1.92 1.00-4.00 k/uL LAB 5905-5([facility]) Monocytes/leuk NFr Bld Auto 7.3 % LAB 742-7([facility]) Monocytes # Bld Auto 0.63 <0.87 k/uL LAB 713-8[facility] [facility] Eosinophil/leuk NFr Bld Auto 2.1 % LAB 711-2([facility]) Eosinophil # Bld Auto 0.18 <0.46 k/uL LAB 706-2([facility]) Basophils/leuk NFr Bld Auto 0.3 % LAB 704-7(LOINC) Basophils # Bld Auto 0.03 <0.11 k/uL LAB 49701-2(LOINC) Imm Granulocytes/jones k NFr Bld Auto 0.2 % LAB 63351-2(LOINC) Imm Granulocytes # Bld Auto <0.03 <0.10 k/uL LAB 31268-1(LOINC) nRBC/100 WBC Bld-Rto 0.0 /100 WBC LAB 771-6(LOINC) nRBC # Bld Auto <0.01 <0.01 k/u L LAB 98134-6(LOINC) Differential method Bld Auto Performed By: #### [id number] # ### [facility] CLIA [id number] [address] [place] [address] CNPN Observed: 06/16/2024 12:00 AM Status: COMPLETED Source: [facility] Telephone (AGSPINE2) ALVIN BROWN ([id number]) 1955 M Date Time Provider Department 06/16/24 JESICA MADISON [facility] During your visit today, we recorded the following information about you: Jesica Madison LMT 06/16/2024 2:48 PM Signed LVM for patient to call in and go over how insurance will not cover our child care attendant Jesica Madison LMT Allergies As of Date: 06/16/2024 Noted Allergy Reaction TETANUS VACCINES AND TOXOID 08/28/2005 2 - Rash Date Reviewed: 05/11/2024 Reviewed by: Delmi Cerda Ma, MA - Fully Assessed Reason [...] 06/16/2024 Noted Resolved ARTHROP W ENDOCR/MET DIS [[id number]] 01/28/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 Telephone (ATILIO) ALVIN BROWN ([id number]) 1955 M Date Time Provider Department 06/10/24 BRUCE PULLIAM During your visit today, we recorded the following information about you: Concepcion Hamilton 06/10/2024 12:59 PM Signed Patient requesting 06/06 MRI results Veronica Melchor RN 06/10/2024 3:[address] Pulliam reviewed MRI. Lesions seen on US are benign hemangiomas. No action required and keep F/U appointments as scheduled. Anastacia Melchor RN Call to patient, aware of above. Questions answered. 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 * * *Final Report* * * DATE OF EXAM: Jun 06 2024 12:20PM WR 0727 - MRI LIVER WO/W IVCON / [...] wall thickening. Lymph nodes: No abdominal lymphadenopathy. Mesentery/Peritoneum: No ascites or mass. Retroperitoneum: No mass. [...] mass or adenopathy within the visualized abdomen Medical Program Specialist: CIRILO Transcribe Date/Time: Jun 09 2024 9:55A Dictated by : MARIIA MOONEY MD This examination was interpreted and the report reviewed and electronically signed by: MARIIA MOONEY MD on Jun 09 2024 10:15AM EST [id number] PROGRESS Observed: 06/06/2024 11:30 AM Status: COMPLETED Source: [facility] HNO ID: [id number] Author: CAROLINE AUGUSTIN RT(R) Service: ? Author [...] PATIENT PRESENTS WITH AN IMPLANTABLE OR ATTACHED RN HOME CARE: No ALLERGIES: Reviewed and unchanged CONTRAST ALLERGY: NO. EXAM: MRI - CONTRAST TYPE: GROUP II PERIPHERAL IV DATA: Ambulatory: A peripheral IV was started in the Right antecubital site with a Angio cath: 22 gauge. RADIOLOGY DEPARTMENT: MR; Exam(s) Completed: Body: Liver (routine) SIGNATURE: Caroline Augustin RT(R) PATIENT NAME: Alvin Brown DATE: June 06, 2024 TIME: 12:04 PM CNPN Observed: 05/25/2024 12:00 AM Status: COMPLETED Source: [facility] Telephone (HEMAWS) ALVIN BROWN ([id number]) 1955 M Date Time Provider Department 05/25/24 BRUCE PULLIAM During your visit today, we recorded the following information about you: VictoriaKalin solaresa 05/25/2024 4:42 PM Signed Patient called stating he received mail stating something was found on his US that he had done 05/18 and to have the referring provider review the results. Please review and advise Bruce Ballard MD 05/26/2024 1:28 PM Signed Called patient discussed results, we will obtain liver MRI now and follow up as scheduled. 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] 01/28/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] 03/14/2005 [...] [L21.8] 04/25/2010 Seborrheic Keratosis [L82.1] 04/25/2010 Actinic Damage///Sun-damaged skin [L57.8] 04/25/2010 Solar Lentigines [L81.4] 04/25/2010 Telangiectasia [I78.1] 04/25/2010 Cryosurgical Scar [L90.5] 06/11/2010 Onychomycosis [B35.1] 12/10/2010 Tinea unguium [B35.1] 12/10/2010 Nail dystrophy [L60.3] 12/10/2010 Deformity of toenail [L60.8] 12/10/2010 Tinea pedis [B35.3] 12/10/2010 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 Encounter Status:Closed by INDU VICTORIA on 05/26/24 CNCO Observed: 05/19/2024 12:00 AM Status: COMPLETED [facility] Letter Text CNCO Observed: 05/19/2024 12:00 AM Status: COMPLETED Source: [facility] Letter Text US ABD RIGHT UPPER QUADRANT Observed: 1:38 PM Status: F Source: [facility] * * *Final Report* * * DATE [...] be communicated with the ordering provider via [employer] staff message or phone message by Imaging Support Services within 2 business days of report finalization. --END OF FINDING-- Medical Program Specialist: CIRILO Transcribe Date/Time: May 18 2024 2:12P Dictated by : RAMSEY CAMPOVERDE MD This examination was interpreted and the report reviewed and electronically signed by: RAMSEY CAMPOVERDE MD on May 18 2024 2:17PM EST [id number] ACTIONABLE PROGRESS Observed: 05/18/2024 1:00 PM Status: COMPLETED Source: [facility] HNO ID: [id number] Author: EMMA RODRIGUES RDMS Service: ? Author Type: Oil Laboratory Analyst Type: Progress Notes Filed: 05/18/2024 13:37 Note [...] PATIENT PRESENTS WITH AN IMPLANTABLE OR ATTACHED RN HOME CARE: No RADIOLOGY DEPARTMENT: Ultrasound PERIPHERAL IV DATA: Not applicable SIGNED BY: Emma Rodrigues RDMS May 18, 2024 1:37 PM PROGRESS Observed: 05/11/2024 11:07 AM Status: COMPLETED Source: [facility] HNO ID: [id number] Author: BRUCE PULLIAM MD Service: ? Author Type: Physician Type: [...] he last saw Dr Magallon. Switched to [facility] due to insurance change, had 2 [...] which included preparing to see the patient, [id number] patient care, completing clinical documentation, obtaining and/or reviewing separately obtained history, counseling and educating the patient/family/caregiver, ordering medications, tests, or procedures, independently interpreting results (not separately reported), and communicating results to the patient/family/caregiver. Electronically Signed: Bruce Pulliam MD May 11, 2024 11:07 AM CNOVSP Observed: 05/11/2024 10:30 AM Status: COMPLETED Source: [facility] Visit (SP) Office (HEMJEIMY) KELSEA BROWNRY Roberta ([id number]) 1955 M Date Time Provider Department 05/11/24 10:30 AM BRUCE PULLIAM During your visit today, we recorded the following information about you: Temperature Pulse Blood pressure Weight 98 degrees 68/minute 130/82 89.4 kg Height 1.676 m Bruce Pulliam MD 05/11/2024 12:27 PM Signed HISTORY OF PRESENT ILLNESS: Alvin Brown is a 68 year old male dx with hemochromatosis dx in 2003, on basis of elevated l;iver enzymes, liver biopsy showed increased iron stores. Saw Dr Magallon underwent phlebotomy therapy, with good results. Was doing phlebotomy every 3 months when he last saw Dr Magallon. Switched to [facility] due to insurance change, had 2 [...] which included preparing to see the patient, [id number] patient care, completing clinical documentation, obtaining and/or reviewing separately obtained history, counseling and educating the patient/family/caregiver, ordering medications, tests, or procedures, independently interpreting results (not separately reported), and communicating results to the patient/family/caregiver. Electronically Signed: Bruce Pulliam MD May 11, 2024 11:07 AM Allergies As of Date: 05/11/2024 Noted Allergy Reaction TETANUS VACCINES AND TOXOID 08/28/2005 2 - Rash Date Reviewed: 05/11/2024 Reviewed by: Delmi Cerda Ma, MA - Fully Assessed Reason for Visit: New Patient Evaluation [154] Primary Visit Diagnosis:Hereditary hemochromatosis (HCC) [E83.110] Order(s):COMPLETE BLOOD COUNT AND DIFFERENTIAL [SQCBCDIF] Order #: [id number] STANDING FERRITIN [SQFERR] Order #: [id number] STANDING HEPATIC FUNCTION PNL [SQHFP] Order #: [id number] STANDING ALPHA FETOPROTEIN [SQAFP] Order #: [id number] FUTURE US ABD RIGHT UPPER QUADRANT [[id number]] Order #: [id number] FUTURE Follow-up and Disposition History for Encounter Date Provider Department Center 05/11/2024 [id number] PULLIAM [facility] Prescriptions as of 05/11/2024 - cholecalciferol (VITAMIN D-3) 400 unit tab [...] TbEC Take one(1) tablet two(2) times daily. Medication notes this encounter AZITHROMYCIN 250 MG TABLET >> Delmi Cerda Ma, MA 05/11/2024 10:47 AM >> DELMI CERDA May 11, 2024 10:47 AM Completed CHOLECALCIFEROL (VITAMIN D3) 25 MCG (1,000 UNIT) TABLET >> Delmi Cerda Ma, MA 05/11/2024 10:48 AM >> DELMI CERDA May 11, 2024 10:48 AM No longer taking. METHOCARBAMOL 500 MG TABLET >> Delmi Cerda Ma, MA 05/11/2024 10:50 AM >> DELMI CERDA May 11, 2024 10:50 AM No longer taking. ASPIR-81 MG TABLET,DELAYED RELEASE >> Delmi Cerda Ma, MA 05/11/2024 10:47 AM >> DELMI CERDA May 11, 2024 10:47 AM No longer taking. PRILOSEC OTC 20 MG TABLET,DELAYED RELEASE >> Delmi Cerda Ma, MA 05/11/2024 10:50 AM >> DELMI CERDA May 11, 2024 10:50 AM No longer taking. 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 Telephone (HEMJEIMY) ALVIN BRWON ([id number]) 1955 M Date Time Provider Department 04/25/24 BRUCE PULLIAM During your visit today, we recorded the following information about you: Indu Victoria 04/25/2024 4:[address] 1 [address] attempt Lvm for patient to return the call. When patient calls back please schedule 1st available with Dr. Pulliam. Red chart at main desk PELT DROPPER/HEMOCHROMATOSIS/REF BY RADHA ARANGO* Indu Persaud, Concepcion 04/26/2024 9:21 AM Signed Scheduled with patient. 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] 03/14/2005 [...] [L21.8] 04/25/2010 Seborrheic Keratosis [L82.1] 04/25/2010 Actinic Damage///Sun-damaged skin [L57.8] 04/25/2010 Solar Lentigines [L81.4] 04/25/2010 [...] Encounter Status:Closed by ANGIE FAY on 04/26/24 ALLERGIES DATE TYPE / CODE NAME / CODE REACTION SEVERITY SOURCE 08/28/2005 Drug Class/[id number]( SNOMED CT) TETANUS VACCINES AND TOXOID RASH [facility] ENCOUNTERS ADMIT/DISCHARGE ACCOUNT NUMBER ADMITTING ENCOUNTER CLASS LOCATION SOURCE 01/04/2025/01/05/20 [id number] Ambulatory [facility] ng:MELITON [facility] 01/04/2025/01/05/20 [id number] Ambulatory [facility] ng:ISHAAN [facility] 12/13/2024/12/14/19 [id number] [facility] ng:MELITON [facility] 12/13/2024/09/02/20 25 [id number] Ambulatory [facility]:MELITON [facility] 12/08/2024/12/09/19 25 [id number] Ambulatory [facility] ng:ISHAAN [facility] 11/04/2024/11/05/19 25 [id number] Ambulatory [facility]:ISHAAN [facility] 08/09/2024/08/10/19 25 [id number] Ambulatory [facility] ng:MELITON [facility] 08/09/2024/08/10/19 25 [id number] Ambulatory [facility] ng:MELITON [facility] 08/04/2024/08/05/19 25 [id number] Ambulatory [facility]:ISHAAN [facility] 06/06/2024/06/06/19 25 [id number] Ambulatory [facility]:KAYLA [facility] 05/18/2024/05/18/19 25 [id number] Ambulatory [facility]:RUBI [facility] 05/11/2024/05/11/19 25 [id number] Ambulatory [facility] ng:MELITON [facility] 03/24/2024 [id number] Ambulatory [facility] 03/24/2024 [id number] Ambulatory [facility] PAYERS ENCOUNTER GUARANTOR PAYER SUBSCRIBER SOURCE 01/04/2025 Primary Insurance:MMO MEDADVANTAGE StarteedOPolicy Number: [id number] Date:2445-62-60Jeaw Name:Anat Granados OBRIENDOB: [id number] [address] [facility] [place] [address] [facility] 01/04/2025 Primary Insurance:MMO MEDADVANTAGE StarteedOPolicy Number: [id number] Date:7124-31-78Tima Name:Anat Granados OBRIENDOB: [id number] [place] [address] [facility] 12/13/2024 Primary Insurance:MMO MEDADVANTAGE HMOPolicy Number: [id number] Date:3917-17-08Hzhk Name:Anat Granados OBRIENDOB: [id number] [place] [address] [facility] 12/13/2024 Primary Insurance:MMO MEDADVANTAGE HMOPolicy Number: [id number] Date:5690-08-64Bdko Name:Anat Granados OBRIENDOB: [id number] [place] [address] [facility] 12/08/2024 Primary Insurance:MMO MEDADVANTAGE HMOPolicy Number: [id number] Date:5362-69-43Vxoh Name:Anat ALVIN D OBRIENDOB: [id number] [place] [address] [facility] 11/04/2024 Primary Insurance:MMO MEDADVANTAGE HMOPolicy Number: [id number] Date:9097-54-17Zfog Name:Anat ALVIN Roberta OBRIENDOB: [id number] [place] [address] [facility] 08/09/2024 Primary Insurance:MMO MEDADVANTAGE HMOPolicy Number: [id number] Date:5588-77-15Wnxg Name:Anat ALVIN Roberta OBRIENDOB: [id number] [place] [address] [facility] 08/09/2024 Primary Insurance:MMO MEDADVANTAGE HMOPolicy Number: [id number] Date:3228-13-53Ceui Name:Anat ALVIN D OBRIENDOB: [id number] [place] [address] [facility] 08/04/2024 Primary Insurance:MMO MEDADVANTAGE HMOPolicy Number: [id number] Date:4528-29-70Iqsm Name:Anat CLARKRIENDOB: [id number] [place] [address] [facility] 06/06/2024 Primary Insurance:[facility] MEDADVANTAGE OPolicy Number: [id number] Date:6786-13-98Vunm Name:Anat Granados OBRIENDOB: [id number] [place] [address] [facility] 05/18/2024 Primary Insurance:[facility] MEDADVANTAGE OPolicy Number: [id number] Date:0685-99-02Qdxx Name:Anat Granados OBRIENDOB: [id number] [place] [address] [facility] 05/11/2024 Primary Insurance:MM MEDADVANTAGE OPolicy Number: [id number] Date:5228-21-88Ejwh Name:Anat Granados OBRIENDOB: [id number] [place] [address] [facility] 03/24/2024 ALVIN OBRIENDOB: [address] [place] [address]Wpq: ~([phone] (HP) Primary Insurance:[employer] HMO PPOPolicy Number: [id number] Date:7839-85-00Vlet Name:KAREN JAMES OBRIENDOB: [id number] [place] [address]Cwg: (HP) [facility] 03/24/2024 ALVIN OBRIENDOB: [address] [place] [address]Pya: ~([phone] (HP) Primary Insurance:[employer]ARE [employer] HMO PPOPolicy Number: [id number] Date:3657-35-67Ygaq Name:KAREN JAMES OBRIENDOB: [id number] [place] [address]Hev: (HP) [facility]
--- NOTE | 2025-01-10 07:27 | BD_ITS ---
PROCEDURE: DEXA BONE DENSITY STUDY 01/10/2025 REASON FOR EXAM: M, age 69 y/o . Postmenopausal screening. TECHNIQUE: Procedure Code: BDDBD Modality: DX Procedure: DEXA BONE DENSITY STUDY COMPARISON: 2022, 2020, 2016 FINDINGS: BMD and T-SCORES Lumbar spine: 0.937 g/cm2, T-score -1.4 Levels: L1 through L4 Change from prior: Increase of 3.1%. Left femoral neck: 0.770 g/cm2, T-score -1.2 Femoral neck comparison data not recommended for monitoring change. Prior T-score Left total hip: 1.070 g/cm2, T-score 0.2 Change from prior: Decrease of 1%. Right femoral neck: 0.764 g/cm2, T-score -1.2 Femoral neck comparison data not recommended for monitoring change. Prior T-score Right total hip: 1.087 g/cm2, T-score 0.4 Change from prior: Increase of 1.7%. The World Health Organization has defined the following categories based on bone density: Normal bone density: T-score equal to or greater than -1.0 Osteopenia: T-score between -1.0 and -2.5 Osteoporosis: T-score equal to or less than -2.5 FRAX (or Comparable) Fracture Risk Assessment: 10 Year Probability of Fracture: Major Osteoporotic Fracture: 8.5% Hip Fracture: 1.1% (Note: FRAX is not to be reported in setting of normal range bone density, osteoporosis on DEXA, known history of osteoporosis, prior osteoporotic hip or vertebral fracture, or for any patient undergoing pharmacological treatment for bone loss.) The National Osteoporosis Foundation (NOF) recommends pharmacological treatment for patients with a FRAX 10-year risk of 3% or higher for a hip fracture, or 20% or higher for a major osteoporotic fracture, to prevent osteoporosis and reduce fracture risk. The patient does not meet the pharmacological treatment recommendations for prevention of osteoporosis. BD/Dexa Bone Density Study IMPRESSION: OSTEOPENIA. Recommend follow-up as clinically warranted. Reading Location: [id number]
--- NOTE | 2025-01-10 07:41 | CT_ITS ---
PROCEDURE: ORB SELLA POST FOSSA EAR W/CON 01/10/2025 REASON FOR EXAM: LEFT EYE PAIN, BLOOD LIKE DISCHARGE AT TIMES TECHNIQUE: Procedure Code: CTORBW Modality: CT Procedure: ORB SELLA POST FOSSA EAR W/CON CONTRAST: None One or more dose reduction techniques were used (e.g., Automated exposure control, adjustment of the mA and/or kV according to patient size, use of iterative reconstruction technique). RADIATION DOSE SUMMARY: CTDlvol: 29.38 mGy DLP: 400.54 mGycm COMPARISON: None FINDINGS: Globes: Both globes are normal in appearance. There is no evidence of abnormal hyperdense hemorrhage within either globe. Lenses are symmetric and normal in appearance. There is no periorbital inflammatory change. The optic nerves and extraocular muscles are normal and symmetric in appearance. Bones: No fracture or suspicious osseous lesion Other: Visualized paranasal sinuses and intracranial structures: Diffuse mucosal thickening in all of the paranasal sinuses CT/Orb Sella Post Fossa Ear W/CON IMPRESSION: Normal globes. No fracture or suspicious osseous lesion No CT evidence of an acute inflammatory process Leiva paranasal sinusitis Reading Location: [id number]
== END | disposition home or self-care (01) ==
LOC: OPBD 07:21
PROVIDERS: PCP Family Medicine; Referring Provider Family Medicine; Visit Provider Family Medicine
DX: M85.88 Other specified disorders of bone density and structure, other site (principal); H57.12 Ocular pain, left eye
CPT/HCPCS: 70481; 77080; Q9967; A4216

== ENCOUNTER 2025-01-19 14:50 | Outpatient (RCR) | payer MEDICARE, SELFPAY ==
[2025-01-19 15:19] LABS: Hematocrit 39.5 % (40-54); Hemoglobin 14.4 g/dL (13.0-16.5); Immature Granulocytes Count 0.020 X10^3/uL (0.0-0.0); Mean Corp Hgb Conc 36.5 g/dL (32-36); Mean Corpuscular Volume 89.6 fL (80-94); Mean Platelet Vol. 10.1 fl (6.2-12.0); NRBC Flagged by Analyzer 0 % (0-5); Platelet Count 228 K/mm3 (150-450); RBC Distribution Width CV 12.1 % (11.6-14.6); RBC Distribution Width SD 39.7 fl (35.1-43.9); Red Blood Count 4.41 M/mm3 (4.6-6.2); White Blood Count 6.7 K/mm3 (4.4-11.0)
[2025-01-19 16:02] LABS: AST(SGOT) 21 U/L (<=37); Alanine Aminotransfer ALT/SGPT 33 U/L (<=46); Albumin, Serum 4.4 g/dL (3.4-4.8); Alkaline Phosphatase 63 U/L (40-129); Bilirubin, Direct 0.16 mg/dL (0.00-0.30); Ferritin 75 ng/mL (37-417); Globulin 2.7 g/dL (2.2-4.2)
[2025-01-19 23:05] LABS: Xtra Tube EP Lab EXTRA TUBE
== END 2025-02-10 23:59 ==
LOC: PAVLAB 14:50
PROVIDERS: PCP Family Medicine; Referring Provider Family Medicine; Visit Provider Family Medicine
DX: R79.89 Other specified abnormal findings of blood chemistry (principal); E83.119 Hemochromatosis, unspecified
CPT/HCPCS: 36415; 80076; 82728; 84439; 84443; 85025

== ENCOUNTER 2025-04-04 14:57 | Outpatient (RCR) | payer MEDICARE, SELFPAY ==
[2025-04-04 15:13] LABS: Hematocrit 44.2 % (40-54); Hemoglobin 15.4 g/dL (13.0-16.5); Immature Granulocytes Count 0.010 X10^3/uL (0.0-0.0); Mean Corp Hgb Conc 34.8 g/dL (32-36); Mean Corpuscular Volume 90.6 fL (80-94); Mean Platelet Vol. 10.3 fl (6.2-12.0); NRBC Flagged by Analyzer 0 % (0-5); Platelet Count 240 K/mm3 (150-450); RBC Distribution Width CV 11.5 % (11.6-14.6); RBC Distribution Width SD 38.2 fl (35.1-43.9); Red Blood Count 4.88 M/mm3 (4.6-6.2); White Blood Count 7.5 K/mm3 (4.4-11.0)
[2025-04-04 16:19] LABS: Ferritin 46 ng/mL (37-417)
[2025-04-04 23:11] LABS: Xtra Tube EP Lab EXTRA TUBE
== END 2025-04-12 23:59 ==
LOC: PAVLAB 14:57
PROVIDERS: PCP Family Medicine; Referring Provider Family Medicine; Visit Provider Family Medicine
DX: E83.119 Hemochromatosis, unspecified
CPT/HCPCS: 36415; 82728; 85025